=== PATIENT | female | born 1975 | race Caucasian/White ===

== ENCOUNTER 2023-03-09 19:45 | Outpatient (REF) | payer OTHER, SELFPAY ==
[2023-03-14 16:09] LABS: Age Gdln ACOG Testing Note (.); HPV Aptima Positive (Negative); IGP, Aptima HPV, rfx 16/18,45 Note (.)
== END 2023-03-09 19:46 | disposition home or self-care (01) ==
LOC: LAB 19:45
PROVIDERS: Visit Provider Obstetrics & Gynecology
DX: Z01.419 Encounter for gynecological examination (general) (routine) without abnormal findings (principal)
CPT/HCPCS: 87624; G0145

== ENCOUNTER 2023-05-23 10:32 | Outpatient (OUT) | payer OTHER, SELFPAY ==
--- NOTE | 2023-05-23 10:35 | MM_ITS ---
Patient Name: UMESH ESQUIVEL MR#: [id number] : 1975 Exam Date: 05/23/2023 Ordering Doctor: DR Chaka Gregg . RADIOLOGY REPORT PROCEDURE: MM TOMOSYNTHESIS SCREENING BI COMPARISON: MG MAMM SCREEN 3D TJ CAD, 04/17/2021. MG MAMM SCREEN 3D TJ CAD, 04/21/2022. INDICATIONS: screening Calculator Name NCI Breast Cancer Risk Assessment Tool 5 Year Breast Cancer Risk 1.60% Lifetime Breast Cancer Risk 14.90% Personal Breast Cancer No Personal Ovarian Cancer No Treatments None Family Cancers Mother with cervical cancer at age 31; Mother with breast cancer at age 45. LOCATION: [facility] BREAST COMPOSITION: Heterogeneously dense,which may obscure small masses. FINDINGS: DIAGNOSTIC CATEGORY 2--BENIGN FINDING. NO CHANGE FROM COMPARISON. Scattered benign-appearing nodules are present. Scattered benign-appearing calcifications are present. Scattered benign-appearing lymph nodes are present. RIGHT BREAST: No significant suspicious finding. LEFT BREAST: No significant suspicious finding. RECOMMENDATIONS: ROUTINE MAMMOGRAM AND CLINICAL EVALUATION IN 12 MONTHS. PLEASE NOTE: A NORMAL MAMMOGRAM DOES NOT EXCLUDE THE POSSIBILITY OF BREAST CANCER. A CLINICALLY SUSPICIOUS PALPABLE LUMP SHOULD BE BIOPSIED. Dictated by: Rikki Workman MD on 05/23/2023 at 11:21 Approved by: Rikki Workman MD on 05/23/2023 at 11:22
--- OUTSIDE RECORDS SUMMARY | 2023-05-23 10:36 | XMS_ITS | CCD ---
Author Name Unknown Address [address] [place] [address] Organization [facility] Care Team Providers Care Catcher Helper Name Role Phone NO, PHYSICIAN Unavailable Unavailable LIANET CARROLL Attending Unavailable NO, PHYSICIAN Primary Care Unavailable No, Physician Primary Care Provider Unavailabl e MyRosita moura Primary Care Provider Unava ilable NANCY CAMPBELL Referring Unavailable MYERHOLROSITA AVALOS Primary Care Unavailable NANCY CAMPBELL Referring Unavailable MYERHOLROBBIE ROSITA Primary Care Unavailable MYERPRATIK ROSITA Primary Care Physician Indigo Flynn Unavailable Unavailable WANDER, DR OLMEDO Attending Unavailable WANDER, DR OLMEDO Admitting Unavailable WANDER, DR OLMEDO Consulting Unavailable LEFLORE, DR GILDA Garza Consulting Unavailable WANDER, DR OLMEDO Attending Unavailable WANDER, DR OLMEDO Admitting Unavailable WANDER, DR OLMEDO Consulting Unavailable WANDER, DR OLMEDO Consulting Unavailable WANDER, DR OLMEDO Attending Unavailable WANDER, DR OLMEDO Admitting Unavailable [facility] Primary Care Provider KEITH Jim Attending Provider Rosita Jim Admitting Unavailab le Rosita Jim Attending Unavailab le [facility] Primary Care Unavaila ble Rosita Jim Admitting Unavailab le Rosita Jim Attending Unavailab le [facility] Primary Care Unavaila ble Cherelle Aragon Attending Unavailable Cherelle Aragon Referring Unavailable London Mccurdy Attending Unavailable Lue, Cherelle M. Attending Unavailable Cherelle Aragon Attending Unavailable Cherelle Aragon Admitting Unavailable Cherelle Aragon Attending Unavailable Cherelle Aragon Referring Unavailable HONORIO GREGG Attending Unavailable Allergies Allergy Classification Reported Allergen(s) Allergy Type Date of Onset Reaction(s) Facility (5 sources) Coconut extract; Translations: [COCONUT] Drug Allergy 3 Anaphylaxis [facility] Repository (5 sources) Penicillins; Translations: [Unknown] Propensity to adverse reactions to drug (disorder) 3 Anaphylaxis [facility] Repository (3 sources) Sulfonamides (Antibiotic); Translations: [Sulfa (Sulfonamide Antibiotics)] Propensity to adverse reactions to drug 0 Anaphylaxis [facility] (4 sources) Coconut Oil; Translations: [Coconut Oil] Drug Allergy Anaphylactic reaction [facility] (4 sources) Penicillin; Translations: [penicillin] Drug Allergy Anaphylactic reaction [facility] (4 sources) Sulfonamides (Antibiotic); Translations: [sulfa drugs] Drug allergy Anaphylactic reaction [facility] (5 sources) Latex; Translations: [Latex] Drug allergy (disorder) 3 Eruption (morphologic abnormality) [facility] Repository (1 source) Sulfonamides (Antibiotic) Drug allergy (disorder) 3 [facility] Repository (1 source) Latex Drug allergy (disorder) 1 [facility] Repository Medications Current Medications Medication Drug Class(es) Dates Sig (Normalized) Sig (Original) acetaminophen 325 mg / HYDROcodone bitartrate 5 mg oral tablet (1 source) Opioid Agonist Start: 03-10-2021 Hydrocodone-Acetam inophen Active TAB TABLET March 10, 2021 12:00am azithromycin 250 mg Tab 5-day Dose Pack (Z-Davide) (2 sources) Start: 10-07-2019 azithromycin 250 mg Tab 5-day Dose Pack (Z-Davide) See Instructions, as directed on package labeling, # 1 kit(s), Refills(s) 0 Start Date: 10/07/19 Status: Ordered citalopram 40 mg oral tablet (3 sources) Serotonin Reuptake Inhibitor Start: 04-27-2019 citalopram 40 mg Tab Refills(s) 0 Start Date: 04/27/19 Status: Ordered 24 hr dilTIAZem hydrochloride 240 mg extended release oral capsule (1 source) Calcium Channel Ludivina Start: 03-10-2021 Diltiazem Hcl Active MG PO March 10, 2021 12:00am fenofibrate 200 mg oral capsule (4 sources) Peroxisome Proliferator Receptor alpha Agonist Start: 03-10-2021 Fenofibrate Micronized Active MG March 10, 2021 12:00am Start: 04-27-2019 fenofibrate 20 0 mg oral capsule Refills(s) 0 Start Date: 04/27/19 Status: Ordered fluticasone propionate 0.05 mg/actuat metered dose nasal spray (2 sources) Corticosteroid Start: 03-10-2021 Fluticasone Pr opionate Active INTRANASAL March 10, 2021 12:00am take 1 spray(s) nasal route once daily fluticasone propionate (Flonase Allergy Relief) 50 mcg/actuation nasal spray 1 spray in each nostril Once a day Nasally 30 day(s) 0 Active gabapentin 300 mg oral capsule (5 sources) Anti-epileptic Agent Start: 03-10-2021 Gabapenti n Active MG March 10, 2021 12:00am Start: 04-27-2019 gabapentin 300 mg Cap Refills(s) 0 Start Date: 04/27/19 Status: Ordered loratadine 10 mg oral tablet (5 sources) Start: 03-10-2021 Loratadine Act raymond MG TABLET March 10, 2021 12:00am Start: 04-27-2019 loratadine 10 mg Tab Refills(s) 0 Start Date: 04/27/19 Status: Ordered losartan potassium 50 mg oral tablet (5 sources) Angiotensin 2 Receptor Ludivina Start: 03-10-2021 Losartan Active MG TABLET March 10, 2021 12:00am Start: 04-27-2019 losartan 50 mg Tab Refills(s) 0 Start Date: 04/27/19 Status: Ordered methocarbamol 500 mg oral tablet (4 sources) Muscle Relaxant Start: 03-10-2021 Methocarbamol Active MG TABLET March 10, 2021 12:00am Start: 04-27-2019 methocarbamol 500 mg Tab Refills(s) 0 Start Date: 04/27/19 Status: Ordered montelukast 10 mg oral tablet (5 sources) Leukotriene Receptor Antagonist Start: 03-10-2021 Montelukast Active M G TABLET March 10, 2021 12:00am Start: 09-30-2015 montelukast 10 mg Tab Refills(s) 0 Start Date: 04/27/19 Status: Ordered tamsulosin hydrochloride 0.4 mg oral capsule (5 sources) alpha-Adrenergic Ludivina Start: 03-28-2022 take 1 capsule by mouth once daily tamsulosin 0.4 mg Cap 0.4 mg = 1 cap(s), Oral, Daily, # 30 cap(s), Refills(s) 11, Pharmacy: [id number], 173, cm, 10/13/22 8:45:00 EDT, Height/Length Dosing, 70.5, kg, 10/13/22 8:45:00 EDT, Weight Dosing Start Date: 10/13/22 Status: Ordered Completed/Discontinued Medications Medication Drug Class(es) Dates Sig (Normalized) Sig (Original) [id number] 200 actuat albuterol 0.09 mg/actuat metered dose inhaler (2 sources) beta2-Adrenergic Agonist Start: 10-07-2019 take 1 dose by inhalation four times daily Proventil HFA 90 mcg/inh Aerosol 2 puff(s), Inhalation, QID, 1 EA, Refill(s) 0 Start Date: 10/07/19 Status: Ordered albuterol 0.833 mg/ml / ipratropium bromide 0.167 mg/ml inhalant solution (1 source) Anticholinergic, beta2-Adrenergic Agonist Start: 11-21-2019 End: 11-21-2019 ipratropium-albu teroL (DUO-NEB) 0.5-2.5 mg/3 ml nebulizer solution 3 mL 1 ml ketorolac tromethamine 30 mg/ml injection (1 source) Nonsteroidal Anti-inflammatory Drug, Cyclooxygenase Inhibitor Start: 11-21-2019 End: 11-21-2019 ketorolac (TORADOL) injection 30 mg Problems Problem Classification Problem Date Documented Date Episodic/Chronic Administrative/social admission (1 source) Patient encounter status; Translations: [Encounter for pre-employment examination] Episodic Essential hypertension (1 source) Essential (primary) hypertension; Translations: [Essential (primary) hypertension] Onset: 09-02-2022 Chronic Genitourinary symptoms and ill-defined conditions (6 sources) Stress incontinence (female) (male); Translations: [Genuine stress incontinence] Onset: 05-05-2022 Chronic Genitourinary symptoms and ill-defined conditions (5 sources) Dysuria; Translations: [Painful micturition, unspecified] Onset: 03-30-2022 05-05-2022 Episodic Immunizations and screening for infectious disease (5 sources) Encounter for screening for human papillomavirus (HPV); Translations: [Contact with and (suspected) exposure to infections with a predominantly sexual mode of transmission] Onset: 03-27-2022 Episodic Other diseases of bladder and urethra (1 source) Male urethral stricture; Translations: [Unspecified urethral stricture, male, unspecified site] Onset: 10-13-2022 Episodic Other diseases of bladder and urethra (1 source) Urethral stricture 10-13-2022 Episodic Other ear and sense organ disorders (1 source) Otalgia of right ear; Translations: [Right ear pain] Other injuries and conditions due to external causes (1 source) Injury due to chemical exposure; Translations: [Exposure to chemical inhalation] Episodic Other screening for suspected conditions (not mental disorders or infectious disease) (8 sources) Encounter for screening for malignant neoplasm of cervix; Translations: [Encounter for screening mammogram for malignant neoplasm of breast] Onset: 04-21-2022 Episodic Residual codes; unclassified (1 source) Family history of malignant neoplasm of breast; Translations: [FAMILY HX MALIG NEOPLASM OF BREAST] Onset: 04-26-2022 Episodic Residual codes; unclassified (1 source) Family history of malignant neoplasm of other organs or systems; Translations: [FAM HX MALIG NEOPLASM OTH ORGN/SYS] Onset: 04-26-2022 Episodic Unclassified (1 source) Evaluation finding; Translations: [Covid-19 Virus not Detected] Unclassified (1 source) I10 - Essential (primary) hypertension; Translations: [I10 - Essential (primary) hypertension] Onset: 09-10-2021 Urinary tract infections (6 sources) Urinary tract infectious disease; Translations: [Urinary tract infection, site not specified] Onset: 05-05-2022 Episodic Results Test Name Value Interpretation Reference Range Facility Ambulatory Visit Summaryon 0 10-13-2022 Ambulatory Visit Summary UMESH ESQUIVEL :1975 Visit Date:10/13/2022 Ambulatory Visit Instructions Your Diagnosis Recurrent UTI Stress incontinence Your Care Team Attending Physician - Cherelle Aragon MD Primary Care Physician - RSOITA JIM CNP Referring Physician - Cherelle Aragon MD This Is Your Medications List tamsulosin (tamsulosin 0.4 mg Cap) Contact prescribing physician if questions or concerns citalopram (citalopram 40 mg Tab) fenofibrate (fenofibrate 200 mg oral capsule) gabapentin (gabapentin 300 mg Cap) loratadine (loratadine 10 mg Tab) losartan (losartan 50 mg Tab) methocarbamol (methocarbamol 500 mg Tab) montelukast (montelukast 10 mg Tab) tamsulosin (tamsulosin 0.4 mg Cap) [Image Removed: STOP]Stop taking these medications albuterol (Proventil HFA 90 mcg/inh Aerosol) azithromycin (azithromycin 250 mg Tab 5-day Dose Pack (Z-Davide)) Procedures Performed Cystourethroscopy with dilation of urethral stricture (05/24/2022), Adenoidectomy, Appendectomy, Breast reduction, Introduction of tension free vaginal tape, Tonsillectomy. Discharge Vitals Height 173 cm Height 68 in Weight 70.5 kg Weight 155.1 lb BMI 23.56 What to do next Scheduled Follow-Up Appointments Tuesday 8:00 AM EDT With: Cherelle Aragon MD Where: [facility] Lab Reportson 10-13-2022 Lab Reports [id number] Normal [facility] Patient Educationon 10-14-19 23 Patient Education Urology Urinary Incontinence Urinary incontinence refers to a condition in which a person is unable to control where and when to pass urine. A person with this condition will urinate involuntarily. This means that the person urinates when he or she does not mean to. What are the causes? This condition may be caused by: ? Medicines. ? Infections. ? Constipation. ? Overactive bladder muscles. ? Weak bladder muscles. ? Weak pelvic floor muscles. These muscles provide support for the bladder, intestine, and, in women, the uterus. ? Enlarged prostate in men. The prostate is a gland near the bladder. When it gets too big, it can pinch the urethra. With the urethra blocked, the bladder can weaken and lose the ability to empty properly. ? Surgery. ? Emotional factors, such as anxiety, stress, or post-traumatic stress disorder (PTSD). ? Spinal cord injury, nerve injury, or other neurological conditions. ? Pelvic organ prolapse. This happens in women when organs move out of place and into the vagina. This movement can prevent the bladder and urethra from working properly. What increases the risk? The following factors may make you more likely to develop this condition: ? Age. The older you are, the higher the risk. ? Obesity. ? Being physically inactive. ? and childbirth. ? Menopause. ? Diseases that affect the nerves or spinal cord. ? Long-term, or chronic, coughing. This can increase pressure on the bladder and pelvic floor muscles. What are the signs or symptoms? Symptoms may vary depending on the type of urinary incontinence you have. They include: ? A sudden urge to urinate, and passing urine involuntarily before you can get to a bathroom (urge incontinence). ? Suddenly passing urine when doing activities that force urine to pass, such as coughing, laughing, exercising, or sneezing (stress incontinence). ? Needing to urinate often but urinating only a small amount, or constantly dribbling urine (overflow incontinence). ? Urinating because you cannot get to the bathroom in time due to a physical disability, such as arthritis or injury, or due to a communication or thinking problem, such as Alzheimer's disease (functional incontinence). How is this diagnosed? This condition may be diagnosed based on: ? Your medical history. ? A physical exam. ? Tests, such as: ? Urine tests. ? X-rays of your kidney and bladder. ? Ultrasound. ? CT scan. ? Cystoscopy. In this procedure, a health care provider inserts a tube with a light and camera (cystoscope) through the urethra and into the bladder to check for problems. ? Urodynamic testing. These tests assess how well the bladder, urethra, and sphincter can store and release urine. There are different types of urodynamic tests, and they vary depending on what the test is measuring. To help diagnose your condition, your health care provider may recommend that you keep a log of when you urinate and how much you urinate. How is this treated? Treatment for this condition depends on the type of incontinence that you have and its cause. Treatment may include: ? Lifestyle changes, such as: ? Quitting smoking. ? Maintaining a healthy weight. ? Staying active. Try to get 150 minutes of moderate-intensity exercise every week. Ask your health care provider which activities are safe for you. ? Eating a healthy diet. ? Avoid high-fat foods, like fried foods. ? Avoid refined carbohydrates like white bread and white rice. ? Limit how much alcohol and caffeine you drink. ? Increase your fiber intake. Healthy sources of fiber include beans, whole grains, and fresh fruits and vegetables. ? Behavioral changes, such as: ? Pelvic floor muscle exercises. ? Bladder training, such as lengthening the amount of time between bathroom breaks, or using the bathroom at regular intervals. ? Using techniques to suppress bladder urges. This can include distraction techniques or controlled breathing exercises. ? Medicines, such as: ? Medicines to relax the bladder muscles and prevent bladder spasms. ? Medicines to help slow or prevent the growth of a man's prostate. ? Botox injections. These can help relax the bladder muscles. ? Treatments, such as: ? Using pulses of electricity to help change bladder reflexes (electrical nerve stimulation). ? For women, using a director medical affairs to prevent urine leaks. This is a small, tampon-like, disposable device that is inserted into the urethra. ? Injecting collagen or carbon beads (bulking agents) into the urinary sphincter. These can help thicken tissue and close the bladder opening. ? Surgery. Follow these instructions at home: Lifestyle ? Limit alcohol and caffeine. These can fill your bladder quickly and irritate it. ? Keep yourself clean to help prevent odors and skin damage. Ask your health care provider about special skin creams and cleansers that can protect the skin from urine. ? (more content not included)... Normal [facility] Urology Office/Clinic Noteon 10-13-2022 Urology Office/Clinic Note Chief Complaint fu to cysto ud HPI Staff 5m follow up (RS by office x1 & pt x2) DX: Recurrent UTI, Stress Incontinence S/P Cysto/UD done 05/24/22 CMP ordered by PCP 09/02/22 pt. [facility] has had 1 infection since UD but was treated by [employer] doctor Dysuria: no Incomplete bladder emptying: no Hematuria: no Frequency: no Urgency: no Nocturia: no Stream: good stream Leaking: mild Post void dripping: no Wearing pads/ Depends: wearing pads as a precaution Urge incontinence: no Stress incontinence: intermittent , states that this is nothing new and shes had it for years Incontinence without Sensory Awareness: no Abdominal pain: no Flank pain: no Sexual complaints: no History of Present Illness Tests reviewed: reviewed UA I have reviewed the previous health record information and history for this patient from Dr. Aragon. I have reviewed and verified the staff HPI to be accurate for this encounter. There have been no associated fever, chills, flank pain, or blood in the urine. Review of Systems PHQ Score Initial Depression Screen Score: 0 ROS - Provider Constitutional: denies weight loss, denies hot flashes. Eyes: denies eye problems. Gastrointestinal: denies nausea, denies vomiting. Cardiovascular: denies chest pain or angina. Integumentary: no dryness Musculoskeletal: denies musculoskeletal symptoms. ENMT: denies otolaryngeal symptoms. Respiratory: no shortness of breath. Heme/Lymph: denies easy bleeding tendency, denies easy bruising tendency. Psychiatric: no confusion, no anxiety. Genitourinary: see HPI Physical Exam Vitals & Measurements HT: 68 in HT: 173 cm WT: 70.5 kg WT: 155.1 lb BMI: 23.56 General Appearance: alert , no acute distress, well nourished, well developed female. Genitourinary: bladder nonpalpable, no flank pain. Assessment/Plan 1. Recurrent UTI (N39.0: Urinary tract infection, site not specified) Reports 6/year for the past 3 years. States they were culture proven (no results to review). Usually improved with cipro. Pt presented to ER on 03/28/2022 for pain and burning with urination; pt was given Cipro and then Macrobid due to Cipro not significantly improving sxs after [address] A/P without contrast FT was negative 03/28/2022, no hydronephrosis and no stones Pt denies any history of kidney stones or relation of UTIs to activity/sexual intercourse. Denies constipation or urinary issues at baseline other than mild SHOSHANA. Cysto UD 05/24/22 Pt states she the procedure has helped reduce infections- has only had 1 since UD Discussed possibility of repeating in the future if sxs worsen as well as preventative measures -Cont cranberry pills, d-mannose, probiotics for 3-6 months -Encouraged pt to increase fluid intake 2. Stress incontinence (N39.3: Stress incontinence (female) (male)) Pt did have a sling in the past, many years ago Pt leaks with coughing and sneezing. Pt states sxs are not bothersome. 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 Urethral stricture (N35.919: Unspecified urethral stricture, male, unspecified site) Cysto UD 05/24/22 - felt improvement, only 1 UTI since -Pt currently on tamsulosin. Sent refill to pt's pharmacy - feels sx improvement. Risks/benefits discussed. Declined formal PFPT Orders: tamsulosin, 0.4 mg = 1 cap(s), Oral, Daily, # 30 cap(s), Refills(s) 11, Pharmacy: [id number], 173, cm, 10/13/22 8:45:00 EDT, Height/Length Dosing, 70.5, kg, 10/13/22 8:45:00 EDT, Weight Dosing Follow-up With When Contact Information Mahesh PEREZ, Cherelle German, URL, URO In 1 year [address] [place] [address] [phone] Additional Instructions: Patient Education Urinary Incontinence I, Katelynn Seymour , personally scribed for Dr. Aragon on 10/13/2022 09:25:20. . Documentation recorded by the scribe, Katelynn Seymour, accurately reflects the services(s) I performed and decisions made by me. Authenticated by Dr. Aragon on 10/13/2022 12:34:10. Problem List/Past Medical History Ongoing Dysuria Recurrent UTI Stress incontinence Historical No qualifying data Procedure/Surgical History Cystourethroscopy with dilation of urethral stricture (05/24/2022), Adenoidectomy, Appendectomy, Breast reduction, Introduction of tension free vaginal tape, Tonsillectomy. Medications citalopram 40 mg Tab fenofibrate 200 mg oral capsule gabapentin 300 mg Cap loratadine 10 mg Tab losartan 50 mg Tab methocarbamol 500 mg Tab montelukast 10 mg Tab tamsulosin 0.4 mg Cap, 0.4 mg= 1 cap(s), Oral, Daily tamsulosin 0.4 mg Cap, 0.4 mg= 1 cap(s), Oral, Daily, 11 refills Allergies Coconut Oil (Anaphylactic reaction) Latex (Rash) penicillin (Anaphylactic reaction) sulfa drugs (Anaphylactic reaction) Social History Alcohol Alcohol (more content not included)... Normal [facility] Comment on above: Result Comment: Elec tronically Signed By: Cherelle Aragon MD\.br\Date and Time Signed: 10/13/22 12:34 EDT\.br\Electronically Co-Signed By: Katelynn Seymour\.br\Date and Time Co-Signed: 10/13/22 09:25 EDT Alanine aminotransferase [En zymatic activity/volume] in Serum or PlasmaOrdered By: Rosita Jim on 09-02-2022 ALT [Catalytic activity/Vol] 14 U/L 7-52 [facility] Albumin [Mass/volume] in Ser um or Plasma by Bromocresol green (BCG) dye binding methoOrdered By: Rosita Jim on 09-02-2022 Albumin BCG dye [Mass/Vol] 4.6 g/dL 3.5-5.7 [facility] Alkaline phosphatase [Enzyma tic activity/volume] in Serum or PlasmaOrdered By: Rosita Jim on 09-02-2022 ALP [Catalytic activity/Vol] 46 U/L 34-104 [facility] Aspartate aminotransferase [ Enzymatic activity/volume] in Serum or PlasmaOrdered By: Rosita Jim on 09-02-2022 AST [Catalytic activity/Vol] 13 U/L 13-39 [facility] Bilirubin.total [Mass/volume ] in Serum or PlasmaOrdered By: Rosita Jim on 09-02-2022 Bilirubin [Mass/Vol] 0.6 mg/dL 0.3-1.0 [facility] Calcium [Mass/volume] in Ser um or PlasmaOrdered By: Rosita Jim on 09-02-2022 Calcium [Mass/Vol] 9.3 mg/dL 8.6-10.3 [facility] Carbon dioxide, total [Moles /volume] in Serum or PlasmaOrdered By: Rosita Jim on 09-02-2022 CO2 [Moles/Vol] 22.4 mmol/L 21.0-31.0 [facility] Chloride [Moles/volume] in S gabe or PlasmaOrdered By: Rosita Jim on 09-02-2022 Chloride [Moles/Vol] 104 mmol/L 98-107 [facility] Cholesterol [Mass/volume] in Serum or PlasmaOrdered By: Rosita Jim on 09-02-2022 Cholesterol [Mass/Vol] 150 mg/dL 140-200 [facility] Comment on above: Chol less than 200 m g/dl low riskChol 201-239 mg/dl borderline riskChol 240 mg/dl and greater high risk Cholesterol in LDL Calc [Mas s/Vol]Ordered By: Rosita Jim on 09-02-2022 Cholesterol in LDL [Mass/Vol] 81 mg/dL 0-100 [facility] Comment on above: LDL ATP III CLASSIFI CATIONLDL less than 100 mg/dL OptimalLDL 100-129 mg/dL Near or above optimalLDL 130-159 mg/dL Borderline highLDL 160-189 mg/dL HighLDL greater than 189 mg/dL Very high Cholesterol in VLDL Calc [Ma ss/Vol]Ordered By: Rosita Jim on 09-02-2022 Cholesterol in VLDL [Mass/Vol] 17 mg/dL [facility] Comprehensive Metabolic Pane erika 09-02-2022 Albumin [Mass/Vol] 4.6 g/dL Normal 3.5-5.7 [facility] Comment on above: Order Comment: Reaso n for Exam Essential (primary) hypertension Performed By: #### C MP, LIPID, TSH3 wRFLX #### [facility] [address] [place] [address] Albumin/Globulin [Mass ratio] 1.9 {ratio} Normal [facility] Comment on above: Order Comment: Reaso n for Exam Essential (primary) hypertension Performed By: #### C MP, LIPID, TSH3 wRFLX #### [facility] [address] [id number] [facility] ALP [Catalytic activity/Vol] 46 U/L Normal 34-104 [facility] Comment on above: Order Comment: Reaso n for Exam Essential (primary) hypertension Performed By: #### C MP, LIPID, TSH3 wRFLX #### [facility] [address] [place] [address] [place] ALT [Catalytic activity/Vol] 14 U/L Normal 7-52 [facility] Comment on above: Order Comment: Reaso n for Exam Essential (primary) hypertension Performed By: #### C MP, LIPID, TSH3 wRFLX #### [facility] [address] [place] [address] Anion gap [Moles/Vol] 14.6 mmol/L Normal 6.0-15.0 [facility] Comment on above: Order Comment: Reaso n for Exam Essential (primary) hypertension Performed By: #### C MP, LIPID, TSH3 wRFLX #### [facility] [address] [place] [address] [place] AST [Catalytic activity/Vol] 13 U/L Normal 13-39 [facility] Comment on above: Order Comment: Reaso n for Exam Essential (primary) hypertension Performed By: #### C MP, LIPID, TSH3 wRFLX #### [facility] [address] [place], [place] [id number] [place] Bilirubin [Mass/Vol] 0.6 mg/dL Normal 0.3-1.0 [facility] Comment on above: Order Comment: Reaso n for Exam Essential (primary) hypertension Performed By: #### C MP, LIPID, TSH3 wRFLX #### [facility] [address] [place], [place] [id number] [place] Calcium [Mass/Vol] 9.3 mg/dL Normal 8.6-10.3 [facility] Comment on above: Order Comment: Reaso n for Exam Essential (primary) hypertension Performed By: #### C MP, LIPID, TSH3 wRFLX #### [facility] [address] [place] [address] [place] Chloride [Moles/Vol] 104 mmol/L Normal 98-107 [facility] Comment on above: Order Comment: Reaso n for Exam Essential (primary) hypertension Performed By: #### C MP, LIPID, TSH3 wRFLX #### [facility] [address] CO2 [Moles/Vol] 22.4 mmol/L Normal 21.0-31.0 [facility] Comment on above: Order Comment: Reaso n for Exam Essential (primary) hypertension Performed By: #### C MP, LIPID, TSH3 wRFLX #### [facility] [address] [place] [address] Creatinine [Mass/Vol] 0.73 mg/dL Normal 0.60-1.20 [facility] Comment on above: Order Comment: Reaso n for Exam Essential (primary) hypertension Performed By: #### C MP, LIPID, TSH3 wRFLX #### [facility] [address] [place] [address] [place] GFR/1.73 sq M.predicted MDRD (S/P/Bld) [Vol rate/Area] mL/min/{1.73_m2} Normal [facility] Comment on above: Order Comment: Reaso n for Exam Essential (primary) hypertension Performed By: #### C MP, LIPID, TSH3 wRFLX #### [facility] [address] [place] [id number] [place] Globulin (S) [Mass/Vol] 2.4 g/dL Normal [facility] Comment on above: Order Comment: Reaso n for Exam Essential (primary) hypertension Performed By: #### C MP, LIPID, TSH3 wRFLX #### [facility] [address] [place] [id number] [facility] Glucose [Mass/Vol] 75 mg/dL Normal 70-100 [facility] Comment on above: Order Comment: Reaso n for Exam Essential (primary) hypertension Result Comment: [place] Glucose Reference Range is dependent on time and content of last meal. Glucose of more than 200 mg/dL in a nonstressed, ambulatory subject supports the diagnosis of Diabetes Mellitus. ADA recommended reference range Performed By: #### C MP, LIPID, TSH3 wRFLX #### [facility] [address] Potassium [Moles/Vol] 4.0 mmol/L Normal 3.5-5.1 [facility] Comment on above: Order Comment: Reaso n for Exam Essential (primary) hypertension Performed By: #### C MP, LIPID, TSH3 wRFLX #### [facility] [address] [place] [address] [place] Protein [Mass/Vol] 7.0 g/dL Normal 6.4-8.9 [facility] Comment on above: Order Comment: Reaso n for Exam Essential (primary) hypertension Performed By: #### C MP, LIPID, TSH3 wRFLX #### [facility] [address] [place] [id number] [place] Sodium [Moles/Vol] 137 mmol/L Normal 136-145 [facility] Comment on above: Order Comment: Reaso n for Exam Essential (primary) hypertension Performed By: #### C MP, LIPID, TSH3 wRFLX #### [facility] [address] [place] [id number] [place] Urea nitrogen [Mass/Vol] 13 mg/dL Normal 7-25 [facility] Comment on above: Order Comment: Reaso n for Exam Essential (primary) hypertension Performed By: #### C MP, LIPID, TSH3 wRFLX #### [facility] [address] [place], [place] [id number] [place] Creatinine [Mass/volume] in Serum or PlasmaOrdered By: Rosita Jim on 09-02-2022 Creatinine [Mass/Vol] 0.73 mg/dL 0.60-1.20 [facility] Globulin Calc (S) [Mass/Vol] Ordered By: Rosita Jim on 09-02-2022 Globulin (S) [Mass/Vol] 2.4 g/dL [facility] Glucose [Mass/volume] in Ser um or PlasmaOrdered By: Rosita Jim on 09-02-2022 Glucose [Mass/Vol] 75 mg/dL 70-100 [facility] Comment on above: ADA recommended refe rence rangeRandom Glucose Reference Range is dependent on time and content of last meal. Glucose of more than 200 mg/dL in a nonstressed, ambulatory subject supports the diagnosis of Diabetes Mellitus. Lipid Panelon 09-02-2022 Cholesterol [Mass/Vol] 150 mg/dL Normal 140-200 [facility] Comment on above: Order Comment: Reaso n for Exam Essential (primary) hypertension Result Comment: Chol less than 200 mg/dl low risk Chol 201-239 mg/dl borderline risk Chol 240 mg/dl and greater high risk Performed By: #### C MP, LIPID, TSH3 wRFLX #### [facility] [address] [place] [id number] [place] Cholesterol in HDL [Mass/Vol] 52 mg/dL Normal 35-85 [facility] Comment on above: Order Comment: Reaso n for Exam Essential (primary) hypertension Result Comment: HDL CHOL ATP-III CLASSIFICATION Cardiovascular Risk HDL > or equal to 60 mg/dL LOW HDL < 40 mg/dL HIGH Performed By: #### C MP, LIPID, TSH3 wRFLX #### [facility] [address] [place] [address] [place] Cholesterol.total/Radha sterol in HDL [Mass ratio] 2.9 {ratio} Normal <5.0 [facility] Comment on above: Order Comment: Reaso n for Exam Essential (primary) hypertension Performed By: #### C MP, LIPID, TSH3 wRFLX #### [facility] [address] [place] [address] [place] LDL Cholesterol,Calculated 81 mg/dL Normal 0-100 [facility] Comment on above: Order Comment: Reaso n for Exam Essential (primary) hypertension Result Comment: LDL ATP III CLASSIFICATION LDL less than 100 mg/dL Optimal LDL 100-129 mg/dL Near or above optimal LDL 130-159 mg/dL Borderline high LDL 160-189 mg/dL High LDL greater than 189 mg/dL Very high Performed By: #### C MP, LIPID, TSH3 wRFLX #### [facility] [address] [place] [address] [place] Triglyceride w/Reflex 85 mg/dL Normal 0-149 [facility] Comment on above: Order Comment: Reaso n for Exam Essential (primary) hypertension Result Comment: TRIG ATP III CLASSIFICATION TRIG less than 150 mg/dL Normal TRIG 150-199 mg/dL Borderline high TRIG 200-500 mg/dL High TRIG greater than 500 mg/dL Very high Standard traceable to the Center for Disease Conrtrol and Prevention (CDC) test method. Performed By: #### C MP, LIPID, TSH3 wRFLX #### [facility] [address] VLDL CHOLESTEROL 17 mg/dL Normal [facility] Comment on above: Order Comment: Reaso n for Exam Essential (primary) hypertension Performed By: #### C MP, LIPID, TSH3 wRFLX #### [facility] [address] No Panel InformationOrdered By: Rosita Jim on 09-02-2022 Estimated GFR (CKD-EPI) > 60.0 mL/Min [facility] Creatinine Clearance (Chem N/A [facility] Potassium [Moles/volume] in Serum or PlasmaOrdered By: Rosita Jim on 09-02-2022 Potassium [Moles/Vol] 4.0 mmol/L 3.5-5.1 [facility] Protein [Mass/volume] in Ser um or PlasmaOrdered By: Rosita Jim on 09-02-2022 Protein [Mass/Vol] 7.0 g/dL 6.4-8.9 [facility] Serum or plasma albumin/glob ulin mass ratioOrdered By: Rosita Jim on 09-02-2022 Albumin/Globulin [Mass ratio] 1.9 {ratio} [facility] Serum or plasma anion gap de terminationOrdered By: Rosita Jim on 09-02-2022 Anion gap [Moles/Vol] 14.6 mmol/L 6.0-15.0 [facility] Serum or plasma high density lipoprotein (HDL) cholesterol measurementOrdered By: Rosita Jim on 09-02-2022 Cholesterol in HDL [Mass/Vol] 52 mg/dL 35-85 [facility] Comment on above: HDL CHOL ATP-III CLA SSIFICATION Cardiovascular RiskHDL > or equal to 60 mg/dL LOWHDL < 40 mg/dL HIGH Serum or plasma total choles terol/high density lipoprotein (HDL) cholesterol mass ratOrdered By: Rosita Jim on 09-02-2022 Cholesterol.total/Radha sterol in HDL [Mass ratio] 2.9 {ratio} <5.0 [facility] Sodium [Moles/volume] in Ser um or PlasmaOrdered By: Rosita Jim on 09-02-2022 Sodium [Moles/Vol] 137 mmol/L 136-145 [facility] Thyroid Stim Hormone w/Rflxo n 09-02-2022 Thyroid Stim Hormone w/Rflx 1.10 u[iU]/mL Normal 0.45-5.33 [facility] Comment on above: Order Comment: Reaso n for Exam Essential (primary) hypertension Result Comment: PERF ORMED BY: [place] [address] PATHOLOGIST SENIOR [employer]EL[employer] FINESSE SPAULDING M.D. Performed By: #### C MP, LIPID, TSH3 wRFLX #### [address] Thyrotropin [Units/volume] i n Serum or PlasmaOrdered By: Rosita Jim on 09-02-2022 TSH Qn 1.10 m[IU]/L 0.45-5.33 [facility] Triglyceride [Mass/volume] i n Serum or PlasmaOrdered By: Rosita Jim on 09-02-2022 Triglyceride [Mass/Vol] 85 mg/dL 0-149 [facility] Comment on above: TRIG ATP III CLASSIF ICATIONTRIG less than 150 mg/dL NormalTRIG 150-199 mg/dL Borderline highTRIG 200-500 mg/dL High TRIG greater than 500 mg/dL Very highStandard traceable to the Center for Disease Conrtrol and Prevention (CDC) test method. Urea nitrogen [Mass/volume] in Serum or PlasmaOrdered By: Rosita Jim on 09-02-2022 Urea nitrogen [Mass/Vol] 13 mg/dL 12-07 [facility] Coding Summary.on 05-25-2022 Coding Summary. CD:[id number] G h0bWw+PGhlYWQ+XU9LKFX pZ20ksRNpyX3WT9hJOS7J DOAKFZCWMR7LAC3jiVK3F RnxX3IntrNq XjvgfWZsBW25SEv4XIT1k RspJAhmjY1cnNNuV5e1Uk YiBA10kP84JSxlVLDcAlM 3LjZpbjsgbWFy P9utYbNvtDXrCcj+PHRhY mxlIHdpZHRoPScxMDAlJy PdwDpvTH5kPg8uGREkIVW vbGxhcHNlOiBj l8hkAHAxRHolOE7dbVzaB 7RygJM9GNCmj6r0Zh33iL I+GKNwBHX1qJuxYQmbb42 4NjWss6feOAG6 rPCmSEnfAZH5C74xu0Y4E GBlXSMpNOV4pSJ7mB9diV irwwbiD7QfoFBqRtF2HNS 6xBTuuP5vrKsz iojgjQ1oJjz+V56MBP6YY DRRWX0EQiz2F8UxQjnoiF I+JP54BGYyRM99bBAvsXK nh9wlmOr1ZsKb AVIoVOP3aRacLVwzw3ZdV KDeV82iuKNri7V8IQUqwO npaSPuRyGswQI7kO4zWJt ufagpb9oekqig Twzuq5ydll54lH38P64lW GvzMQRbBMK2YYCxMGLyqY zmhq5gmH2wNu0+OUozc8j xs4dqiPr0WdNe BHXbbgRnaNiiZOY3h2QkX c59I8LnvTnlh3SzLaf7tl 33xKKfo5H1cVR3EWbeZPE qlJ8lEFioTpQ1 ULMrDlUkyG31bWMjNCpvW n4orEqrnXnfPA0zQNFcio lmLTMtfG7gWICdxONmrAz lFF6cDBBswwig z927NjRlURO0JQYsoPPnD 7FubA0iKmMnQFLpBDShI6 EgtWSyTVgzY362RRsxHrG 3EGTcasIvH1Yt PYBkbRsoHaS5o1W9Yh7Tt 9MnwzygQEI2RHjcQVBfRg QcGwAqWkQ7F0UqCsh0CFZ xeEbpNP2dG3Eg RHMuzjrhnkknjXN3YTGfR CSxwI50dIMuATxmMb0ae3 J6i513CGMdJJPgjD59Am3 udDogMTBwdCBU uS1dwhukh5mlfkssStNiK DCdFLc1MKz5WRHlzFsrAl BeYOZ9JpU0JXM9cKByuV7 jnFexclnvxO5s Oyc+F85elL9fHFT2OUB7j udxGFQbsmAgLY29WY98M7 RyPjwvdGFibGU+PGRpdiB sjArvRY9rYmJa z9iuo7GlRYxbA6GpEAGrA HmyZaj3PQNbHIP4hUO0jO 5mFZRdJKqhk1L4gEH9M6B ipaDpld4fn0bx SYKtKCocE94beTJwd9H0S TMxdRV4WYKhuLnhWqZnvV 93Oyc+WFBhxRkod9MdBam cy3nxj4lxkHx0 LrGtMZOxkgCedLtcSKR4c 7ApVa40G58mAKqdZBRgRC JnOYVyRFAjyEwryl9etK8 wIi8+PGNvbCB3 qZB1pM3wFKXeWhZ3NJnqA 791HhFziFTjGpyrg3bgz7 ftnVx6ZlMaKPCqjsHfiMc mTOR1u3JtDn63 H26vRLxpCLNjOXUgXQLuV GLuzQkehy7zcL1bWl3+PC 5cd7gqfo60eD85gSZ+PHR fJRV3lXmvTWqa POAskZ8vUBgiUyU3FJIbW mWueK09qQXjWAghLt5tnP fjmJegJU3jWFMclbugn49 9GnXtw4vzCMFr wJNeLGseMEB8X27xh0D9F VRwNIJvQPZ4aYB1qE2cxA lnbjogbGVmdDsgdmVydGl lOUyyWUpgE197 IHRvcDsnPlBhdGllbnQgT tGdVWq5I5LtVaz5YJExeI gwQU0qtHOvPMefAe2hcNc nnTraGG0mLGPv bducp984IeLvz8zoPJQzt TWgZIccLPS4F63qg8X3HG GhPXCpIPP0dFF5xS6rlDt nbjogbGVmdDsg bmTrgCgtPJalPYkwR716J HRvcDsnPkJpcnRoIERhdG P8GK94XN74qXSis6O2yFP 1S9EnTODdewtz kmqulZL4LCVhKRVihF71K a0xbUvdTh5yCWZrLXF1JV NhcMWpX4DpqU0oNvViLLF lDLHyO3SmwSJg NAdxM122AAmsGvD0SRGgi sHfG0XqHCYkfYbqFxT9y9 M4Tj5KH7X5XR21RH18lHA gz1K8cMD0K1Nz LOAnimkupycfxPS2HELdX VXpbA54Dc3zoZyuWv6bRO MmUYR1CBJepLRaY7CmtF9 yOiAjMDAwMDAw L0XzmCXgJPglH920LGlfX tU3UTDzwxBhH3GtWGFnaZ yuNqE8n1Q3St4YBYi1GI0 9BS40eVAge2D9 eFC6D3TvZZIycebvybeua LA9FQOgYFCwfO29Iw3shE hzLk8oRLHlZMO9OZIfvVW dC8MjvP9xSjNs ZJYrSWZvT5AxmLBrNLgeC 556NCrrWnZ6SKCnoyCvW0 JzLEDdxCprQzE5d2E9Mt8 NNCWkKW72VWH7 pWI4YX31HQ29E3PnRvswf GFibGU+PHRhYmxlIHdpZH RoPScxMDAlJyBzdHlsZT0 oOn2aRRDqMZQj iJjdqFSpSvCgz8nsGCElB GtrQV0ofYyoZ2FlvXQ2RN Rxg2s2Ek98O39hN7LonSI +SUEnsWQ0gUG7 pB6iJkArRlQ7FKufQ750E oRrjZKxMzhkw4wkw3eetG v8DnO1XCEyqqQjjHwrDRH 0q4TbTw22J06u IHdpZHRoPSIxNSUiIHZhb Vnwmp2edC2nVt0+PGNvbC X0rMT5uF0jMwUnLoC1OPx fM544LvAuuDLh Mutal2dso3vzdWe3EyXcX ZPjpxCnpAksGYB6q3IhSj 65Q3OohZxff8ZxOmz4lt6 9yLMia1B5eOB4 B7WeNYJfogzbxDMphMdjS Q8rKJPvuutpFSOuoA5cOS IbB8f2ZfAoHjQ3RVvtG4J krmG9GQBnpNCl AGmjFYQ6Z50mt2H6MKYeV XXcDOX4sEQ3bY4fhDsavl ogbGVmdDsgdmVydGljYWw cFNcbD068EOXc tSnxBHOouM1gGEHjmVIwb FibOE2gMYIhdujrAuKOKV tJTiwgSkVOTklGRVIgTDw vdGQ+PHRkIHN0 wWrtCYgrJVPobP0xNHViB 4o0CaSpXwS9VXmyZ1TxXJ MgxzdwSp04oP9mGgXvFnF 5IVkuY1UjfvE1 DCNwkFAjLMdpOKF7W99au 1G0APUfFBDlRPG7dSD8qN 1hbGlnbjogbGVmdDsgdmV ydGljYWwtYWxp L451NZGktPpiBpU8HnK9H fZ2EnK3I4KuSva6EORieF jaSE2bvHXqDWdrTj5geNv dtQmfTP0eMTWa oqsrKHFyxE4dPMChcWQhx YunSM5kVZXslwsip325Fe WzYSB8YCIrxHHpA7XxkC9 yOiAjMDAwMDAw C1KgkXMfQRrsA043DXvcT kG4YRDvfnSzZ7VcOPDfaE tzVgH7n4Z5Dw18DLDBPOC yczwvdGQ+PHRk VAP3kYsmNSppRQJknZ0vA SPiD5o9QkCkNkO9ZNdjP7 VeAYLhzordVh11kT1lVcF hJiK4FHxmZ2Ny mtR8NWLrzAKiTBpeYBB3T 84wd2I7BBTsCCEbCFZ2tQ C8vX9peIxevkaalCFphDf gdmVydGljYWwt FAhqW689UGGljBotHhTap WFsZTwvdGQ+DXOiWEU4vL tlERinHLIbrV2aGCEiQ9w 6MvWcRfL6CGqu P2AxIACotlfdUl08tI0oB wUwFdZ3HTtvP0LjxaJ3XJ GftILlQJdoQHA2K29wc0B 2PBGhLEZfQQP8 lLY6nA5dfOnevjrpaQZup DsgdmVydGljYWwtYWxpZ2 76TETwrInuJb14hSUrpVf ytdK8A8SfIwqg dHI+FQ05OFViGB52eQZgp RGbg0efyIw6JwTaLBFzDM K2aBjiTGiln8XpXTPtO65 mqNFhe7O4JDKn yPiwvBDiWnVjgVV2zF3eS Hlfjukct1drisjsNrhsj7 nppz52wW06F31pFEtqALS oPSIzMCUiIHZh aZwcnv4whS0rTq0+PGNvb JS6rFP4zI2aTqCqYqI2LL vzY235GuLrzBLsRhcel0i qu1fvoCc4PbJn ZDJjqgHwdNzzWEY5h1DyT u84Y73iZKnwWWCyQEMiNZ VvRLCggYffjy8ndA9uKz9 +AC6ew2quuy06 iQ71qOD+QXIbSIR5dSwjC MqmIAHdgL0nNFutXdZ3CE TcWlJgoI71iUIeHClzMa5 moHhqiCcvTE0k ZGOkcmlub891WrMws8xjR YHqwHJyOQhlUCH9P27ob1 L7HCLyWVAtNKH4cRK9dI2 hbGlnbjogbGVm dDsgdmVydGljYWwtYWxpZ 269CZQxsZtwPuHwlKCfQ9 loakRIGF2vNsklbQW+PHR tOJG0tYukUYei VKQfjL5wZKLtJ0t5QsXoM zH5TJwyS0PnyaF5QSBkiZ WeMMXtoKWDgC5ltznjt4i vcjogIzAwMDAw UQo0TCc9MXZhbNzcOzGzU ZR7KqU9EWR3qRLopV6udS urmlhikK7jVlo+RklOOjw vdGQ+PHRkIHN0 aXbcNTtuPHMmtA1yXCMxX 8f0KfPyJrU2SNyuV8Ognx E7CBAceZUrNUYroDAAaA6 ouunlm3qicpqc RgGcLLLfBBe9VNa5YNFhj ZpdLzGtIHM1BqV7UKF3oV TgpR9siCvuynwroY6eHwz +TVJOOjwvdGQ+ OJZsGDH8eRtfMJdrSMOkf P9pGKWmZ5z8BpBqXtT0QZ gpC7WgvrJ1KBJquGAmRXY grFKJaO3rclew e0nmmhbeExEmYKImSMp0P Jj4GEXneEauCvZiEUG6Zs E8OKP8zSWkoX7kpZpcjwi naP3uHor+UGF5 UVJ4UH91ER06P7FfEywcs GFibGU+PHRhYmxlIHdpZH RoPScxMDAlJyBzdHlsZT0 gSk4dCDIxNXVi bGxh (more content not included)... Normal [facility] Consent for Procedure/Surger yon 05-24-2022 Consent for Procedure/Surgery [id number]:[id number] Normal [facility] Consent for Treatmenton Consent for Treatment [id number]:127 Normal [facility] Inpatient Patient Summaryon 05-24-2022 Inpatient Patient Summary [place] [id number] Clinical Summary Person Information Name: UMESH ESQUIVEL Age: 47 Years : 1975 Sex: Female PCP: ROSITA JIM CNP Marital Status: Phone: [phone] Race: White Ethnicity: Non- or Language: Niuean Visit Id: Visit Reason: RECURRENT UTI STRESS INCONTINENCE Speciality: Acuity: Enc Type: Outpatient Med Service: Surgery Arrival: 05/24/2022 08:50:57 Discharge: Dispo Type: Address: [address] [id number] Provider Notes: Diagnosis: Dysuria; Recurrent UTI; Stress incontinence Problems Active Recurrent UTI Stress incontinence Dysuria Smoking Status: Functional Status: Sensory Deficits: History of Falls: Mobility Assistance Prior to Admission: ADLs: Current Level of Assistance for Self-Care/Mobility: Cognitive Status: Allergies penicillin (Anaphylactic reaction) sulfa drugs (Anaphylactic reaction) Coconut Oil (Anaphylactic reaction) Latex (Rash) Laboratory or Other Results This Visit (last charted value for your 05/24/2022 visit) No Laboratory or Other Results This Visit Measurements: Height: 173 cm Weight: Blood Pressure: Not Valued / Not Valued BMI: Procedures No Procedures Documented Immunizations No Immunizations Documented This Visit Final Med List: albuterol (Proventil HFA 90 mcg/inh Aerosol) 2 Puffs Inhalation 4 times a day. Refills: 0. azithromycin (azithromycin 250 mg Tab 5-day Dose Pack (Z-Davide)) as directed on package labeling. Refills: 0. citalopram (citalopram 40 mg Tab) fenofibrate (fenofibrate 200 mg oral capsule) gabapentin (gabapentin 300 mg Cap) loratadine (loratadine 10 mg Tab) losartan (losartan 50 mg Tab) methocarbamol (methocarbamol 500 mg Tab) montelukast (montelukast 10 mg Tab) tamsulosin (tamsulosin 0.4 mg Cap) 1 Capsules By Mouth every day. Refills: 5. tamsulosin (tamsulosin 0.4 mg Cap) 1 Capsules By Mouth every day. Refills: 0. Care Team Members: Attending Physician: Cherelle Aragon MD Consulting Physician: Referring Physician: Cherelle Aragon MD Follow up: With: Address: When: Cherelle Aragon [address] [place] [address], [place] [address], [place] [phone] Business (1) Comments: Office to schedule follow up in 1 month With: Address: When: Cherelle Aragon Patient Education Information: EU - Cystoscopy with Urethral Dilation Discharge Instructions (CUSTOM) [facility] IntraOperative Documentson 0 05-24-2022 IntraOperative Documents [id number]:[id number] [facility] Main OR Intraoperative Recor don 05-24-2022 Main OR Intraoperative Record IntraOp Document Type FTURO Summary Primary Physician: Cherelle Aragon MD Finalized Date/Time: 05/24/22 10:14:19 Pt. Name: UMESH ESQUIVEL/Sex: 1975 Female Med Rec #: [id number] Physician: Cherelle Aragon MD Financial #: [id number] Pt. Type: O Room/Bed: / Admit/Disch: 05/24/22 08:50:57 - Institution: Case Times FTURO Entry 1 Patient Times In Room 05/24/22 09:56:00 Out Room 05/24/22 10:14:00 Procedure Times Start 05/24/22 10:05:00 Stop 05/24/22 10:10:00 Anesthesia Times Last Modified By: Karuna Youssef RN 05/24/22 10:14:03 Case Attendance FTURO Entry 1 Entry 2 Entry 3 Case Attendee Mahesh PEREZ, Cherelle Olivas BALL WARPER TENDER, Marisol Youssef RN, Karuna Anand Role Performed Surgeon - Primary Scrub - Primary Scrum Master - Primary Time In 05/24/22 09:56:00 05/24/22 09:56:00 05/24/22 09:56:00 Time Out 05/24/22 10:14:00 05/24/22 10:14:00 05/24/22 10:14:00 Procedure CYSTOSCOPY LOCAL WITH CYSTOSCOPY LOCAL WITH CYSTOSCOPY LOCAL WITH URETHRAL DILATION(.) URETHRAL DILATION(.) URETHRAL DILATION(.) Comments Last Modified By: Karuna Youssef RN, RN, Karuna Gaytan RN 05/24/22 10:14:04 05/24/22 10:14:04 05/24/22 10:14:04 Surgical Procedures FTURO Entry 1 Procedure Description Procedure CYSTOSCOPY LOCAL WITH Modifiers . URETHRAL DILATION Surgeon Description CYSTOSCOPY WITH URETHRAL DILATION Primary Procedure Yes Primary Surgeon Cherelle Aragon MD Start 05/24/22 10:05:00 Stop 05/24/22 10:10:00 Anesthesia Type Local Surgical Service Urology Wound Class 2 - Clean-Contaminated Last Modified By: Karuna Youssef RN 05/24/22 10:10:35 General Case Data FTURO Pre-Care Text: Classifies surgical wound, implements aseptic technique, initiates traffic control Entry 1 Case Information OR URO 1 FT Case Level None Wound Class 2 - Clean-Contaminated Specialty Urology Preop Diagnosis RECURRENT UTI STRESS Postop Same As Preop Yes INCONTINENCE Postop Diagnosis RECURRENT UTI STRESS Outcomes Met? Yes INCONTINENCE Last Modified By: Karuna Youssef RN 05/24/22 09:38:58 Post-Care Text: The patient is free from signs and symptoms of infection EU IntraOp - FTURO Pre-Care Text: Implements protective measures prior to operative or invasive procedure, confirms identity before the operative or invasive procedure, verifies operative procedure, surgical site, and laterality Entry 1 EU Perioperative Protocols Procedure(s) CYSTOSCOPY LOCAL WITH Patient Identity Birthday, ID Band URETHRAL DILATION(.) Verified (select at Check, Patient least 2): Participation Consents / H and P HandP, Surgery/Procedure Operative Site N/A Verified Consent Marking Verified Surgical Site Yes Laterality Verified Yes Verified Procedure Verified Yes Correct Patient Yes Position Verified Availability Equipment, Medication Time Out Mahesh PEREZ, Cherelle German, Verified (If Participants Marisol Olivas CST, Applicable) Karuna Youssef RN Time Out Complete 05/24/22 09:57:00 Allergies Reviewed? Yes Allergies Reviewed Self/Patient With Body Position Frog Legged Prep Area PERINEUM Prep Agents Betadine Solution Skin. Condition Dry, Warm, Unable to Description UNABLE TO VISUALIZE DUE Visualize TO PATIENT PARTIALLY CLOTHED Additional None Specimens Collected Vitals - EU Blood Pressure 112/70 Pulse 85 bpm Respirations 18 br/min SPO2 98 % EBL 0 IandO - EU Total Intake 0 mL Total Output 0 mL Outcomes Met? Yes Last Modified By: Karuna Youssef RN 05/24/22 09:57:26 Post-Care Text: The patient is free from signs and symptoms of injury caused by extraneous objects Sign Out FTURO Entry 1 Before Patient Leaves OR Nurse verbally Yes Nurse verbally Yes confirms with the confirms with the team the name of team that the procedure(s) instrument, sponge, recorded and needle counts are correct (or N/A) Nurse verbally n/a Nurse verbally Yes confirms with the confirms with the team how the team whether there specimen is labeled are any equipment (including patient problems to be name), if applicable addressed Sign Out Complete 05/24/22 10:10:00 Last Modified By: Karuna Youssef RN 05/24/22 10:10:34 Case Comments Finalized By: Karuna Youssef RN Document Signatures Signed By: Karuna Youssef RN 05/24/22 10:14 Normal [facility] Main OR Preoperative Recordo n 05-24-2022 Main OR Preoperative Record Holding Area Document Type FTURO Summary Primary Physician: Cherelle Aragon MD Finalized Date/Time: 05/24/22 09:38:31 Pt. Name: UMESH ESQUIVEL /Sex: 1975 Female Med Rec #: [id number] Physician: Cherelle Aragon MD Financial #: [id number] Pt. Type: O Room/Bed: / Admit/Disch: 05/24/22 08:50:57 - Institution: Case Times Holding FTURO Pre-Care Text: Verifies consent for planned procedure, identifies individual values and wishes concerning care, includes family members in perioperative teaching Secures patient's records' belongings, and valuables, maintains patient's dignity and privacy, and maintains patient confidentiality Entry 1 In Holding 05/24/22 09:01:00 Outcomes Met? Yes Last Modified By: Susi Aiken LPN 05/24/22 09:02:01 Post-Care Text: The patient participates in decisions affecting his or her perioperative plan of care The patient's right to privacy is maintained Surgery Checklist FTURO Entry 1 Patient Birthday, Patient Procedure History and Physical, Identification: Participation Verification: Surgical Consent, With Patient NPO after Midnight: No Date/Time: 05/24/22 09:02:00 Personal Items: Glasses Personal Items clothes Comment: Limitations: na Complaints of Pain: No Pain Comment: na Skin Integrity Intact, [place], Warm, & Dry Vitals - EU Blood Pressure 112/70 Pulse 85 bpm Respirations 18 br/min SPO2 98 % RN Reviewed Yes Last Modified By: Karuna Youssef RN 05/24/22 09:38:29 General Comments: temp:36.2 Finalized By: Karuna Youssef RN Document Signatures Signed By: Susi Aiken LPN 05/24/22 09:09 Karuna Youssef RN 05/24/22 09:38 Normal [facility] Operative Reporton Operative Report Patient: UMESH ESQUIVEL Age: 47 years Sex: Female : 1975 Associated Diagnoses: None Author: Cherelle Aragon MD Procedure Operative Information Details: Date/ Time: 05/24/2022 10:15:00. Pre-Op Dx: Dysuria ([id number]-MF R30.0, Discharge, Medical), Recurrent UTI ([id number]-RW N39.0, Discharge, Medical), Stress incontinence ([id number]-ED N39.3, Discharge, Medical). Post-Op Dx: Dysuria ([id number]-JE R30.0, Discharge, Medical), Other urethral stricture, female (HAV87-IT N35.82, Billing Diagnosis, Medical), Recurrent UTI ([id number]-XY N39.0, Discharge, Medical), Stress incontinence ([id number]-JD N39.3, Discharge, Medical). Anesthesia Type: Local. Procedure: Local Cystoscopy with Urethral Dilation. Complications: None. Risks/Benefits/Inform ed Consent: Surgical risks, benefits, details of the procedure have been explained to the patient, Full informed consent has been obtained. Intraoperative Information Prepped: Patient is brought back to the endoscopy suite, Patient is placed in supine position, Patient prepped in the usual fashion with Betadine solution, 2% Xylocaine Jelly is placed per Urethra, After waiting several minutes the Cystoscope is introduced. The Urethra is: Tight, No tumors, lesions or foreign bodies. Tight at meatus and just distal to bladder neck, pale. Carefully dilated to 22Fr . The Bladder is: Normal, Trabeculated None (0), No bladder tumors, lesions or foreign bodies.. The ureteral orifices: Show efflux of clear urine. The Urethra was dilated to: 22 Surinamese w/ sounds. Devices Implanted: None. Removal: Cystoscope is removed, The patient tolerated it well. Vaginal examination: Vaginal mucosa: There is no vaginal atrophy The urethra is orthotopic, patent with meatal stenosis. There are no masses or lesions. There is minimal urethral hypermobility and SHOSHANA is not seen. She is able to correctly identify her pelvic muscles. No significant anterior/posterior prolapse. Non tender to palpation. No palpable mesh . Postoperative Information Discharge: Follow up arranged. Follow up in 1 month . Normal [facility] Comment on above: Result Comment: Elec tronically Signed By: Cherelle Aragon MD\.br\Date and Time Signed: 05/24/22 10:18 EST Outpatient Surgery Discharge Instructionon 05-24-2022 Outpatient Surgery Discharge Instruction [address] [address] Patient Discharge Instructions PERSON INFORMATION Name: UMESH ESQUIVEL Date of : 1975 Current Date: 05/24/2022 10:12:14 PHYSICIANS Admitting Physician: Cherelle Aragon MD Comment: Discharge Diagnosis: Dysuria; Recurrent UTI; Stress incontinence UMESH ESQUIVEL has been given the following list of follow-up instructions, prescriptions, and patient education materials: IF UNABLE TO CONTACT YOUR PHYSICIAN AND YOU FEEL IT IS AN EMERGENCY, GO TO THE NEAREST EMERGENCY ROOM OR CALL 911 Follow up: With: Address: When: Cherelle Aragon [address] [place], [place] [id number] [phone] Business (1) Comments: Office to schedule follow up in 1 month With: Address: When: Cherelle Aragon Comment: PATIENT EDUCATION INFORMATION Instructions: Cystoscopy with Urethral Dilation ? Voiding after the procedure: there may be some pain, urethral bleeding, burning, urgency, frequency and blood tinged urine following the procedure. These symptoms usually resolve within 2-5 days. Drink the amount of fluid it takes to keep the urine pink to yellow or clear in color. Drinking enough water and fluids will help to ease any discomfort after your procedure. ? If you are having problems that seem out of the ordinary, please call. ? If unable to contact your physician and you feel it is an emergency, go to the nearest emergency room or call 911 ? Diet ? you may resume your normal diet. ? Activity ? you may resume your normal activities ? Call if you have a fever over 100 degrees I, UMESH ESQUIVEL, have received the attached patient education materials/instruction s and have verbalized understanding: May we do a follow up call? Yes No I was present when discharge instructions were given Patient Signature Date Clinican/Nurse Signature Date You may receive a survey from Debora Coronado asking you to rate your care experience. Your feedback is important and will help us understand what we do well and how we can improve the quality of care we provide to you, your loved ones and our community. It?s an honor to serve you. Thank you for choosing [facility] Normal [facility] PAP ACOG PANEL 2: 30 to 65on 05-07-2022 . . Normal [facility] Comment on above: Result Comment: Perf ormed at: WB Performed By: #### [id number] #### [facility] [address] [address] [address] Evy Boothe Age Gdln ACOG Testing 30-65 Normal [facility] Comment on above: Performed By: #### [id number] #### [facility] [address] [address] [address] Evy Boothe DIAGNOSIS: Comment Abnormal [facility] Comment on above: Result Comment: EPIT HELIAL CELL ABNORMALITY. ATYPICAL SQUAMOUS CELLS OF UNDETERMINED SIGNIFICANCE (ASC-US). Performed at: WB Performed By: #### [id number] #### [facility] [address] [address] [address] Evy Boothe Electronically signed by: Comment Normal [facility] Comment on above: Result Comment: Dolly Guthrie MD, Pathologist Performed at: WB Performed By: #### [id number] #### [facility] [address] [place] [address] Dr. Evy Boothe HPV Aptima Positive Abnormal Negative [facility] Comment on above: Result Comment: This nucleic acid amplification test detects fourteen high-risk HPV types (16,18,31,33,35,39,45,51,52,56,58,59,66,68) without differentiation. Performed at: =G Performed By: #### 4 [id number] #### [facility] [address] [place] [address] Dr. Evy Boothe HPV Genotype Reflex Comment Normal [facility] Comment on above: Result Comment: Crit eria not met, HPV Genotype not performed. Performed at: WB Performed By: #### [id number] #### [facility] [address] [place] [address] Dr. Evy Boothe Methodology: Comment Normal [facility] Comment on above: Result Comment: This liquid based ThinPrep(R) pap test was screened with the use of an image guided system. Performed at: WB Performed By: #### [id number] #### [facility] [address] [place] [address] Dr. Evy Booteh Note: Comment Normal [facility] Comment on above: Result Comment: The Pap smear is a screening test designed to aid in the detection of premalignant and malignant conditions of the uterine cervix. It is not a diagnostic procedure and should not be used as the sole means of detecting cervical cancer. Both false-positive and false-negative reports do occur. . Performed at: WB Performed By: #### [id number] #### [facility] [address] [address] [address] Evy Boothe Pathologist Provided ICD10 Comment Normal [facility] Comment on above: Result Comment: R87. [id number] Performed at: WB Performed By: #### [id number] #### [facility] [address] [place] [address] Dr. Evy Boothe Performed by: Comment Normal [facility] Comment on above: Result Comment: Jonna Motta, Nipple Machine Operator (ASCP) Performed at: WB Performed By: #### [id number] #### [facility] [address] [address] [address] Evy Boothe Recommendation: Comment Abnormal [facility] Comment on above: Result Comment: Sugg est follow up as clinically appropriate. Performed at: WB Performed By: #### 4 [id number] #### [facility] [address] [address] [address] Evy Boothe Specimen adequacy: Comment Normal [facility] Comment on above: Result Comment: Sati sfactory for evaluation. Endocervical and/or squamous metaplastic cells (endocervical component) are present. Performed at: WB Performed By: #### [id number] #### [facility] [address] [address] [address] Evy Boothe Consultation Noteon 05-06-20 Consultation Note [id number]#1 .00CD:127 Normal [facility] Screenson 05-06-2022 Screens [id number] .00CD:127 Normal [facility] Ambulatory Visit Summaryon 1 07-06-2021 Ambulatory Visit Summary UMESH ESQUIVEL :1975 Visit Date:05/05/2022 Ambulatory Visit Instructions Your Care Team Primary Care Physician - ROSITA JIM CNP This Is Your Medications List albuterol (Proventil HFA 90 mcg/inh Aerosol) azithromycin (azithromycin 250 mg Tab 5-day Dose Pack (Z-Davide)) citalopram (citalopram 40 mg Tab) fenofibrate (fenofibrate 200 mg oral capsule) gabapentin (gabapentin 300 mg Cap) loratadine (loratadine 10 mg Tab) losartan (losartan 50 mg Tab) methocarbamol (methocarbamol 500 mg Tab) montelukast (montelukast 10 mg Tab) tamsulosin (tamsulosin 0.4 mg Cap) Procedures Performed Adenoidectomy, Appendectomy, Breast reduction, Introduction of tension free vaginal tape, Tonsillectomy. What to do next Scheduled Follow-Up Appointments Tuesday 10:30 AM EST Where: [facility] Tuesday 9:30 AM EST Where: [facility] Medications What How Much When Instructions Unchanged albuterol (Proventil HFA 90 mcg/ inh Aerosol) 2 Puffs Inhalation 4 times a day Unchanged azithromycin (azithromycin 250 mg Tab 5-day Dose Pack (Z-Davide)) See instructions as directed on package labeling Unchanged citalopram (citalopram 40 mg Tab) Unchanged fenofibrate (fenofibrate 200 mg oral capsule) Unchanged gabapentin (gabapentin 300 mg Cap) Unchanged loratadine (loratadine 10 mg Tab) Unchanged losartan (losartan 50 mg Tab) Unchanged methocarbamol (methocarbamol 500 mg Tab) Unchanged montelukast (montelukast 10 mg Tab) Unchanged tamsulosin (tamsulosin 0.4 mg Cap) 1 Capsules By Mouth Every day Allergies Coconut Oil (Anaphylactic reaction) penicillin (Anaphylactic reaction) sulfa drugs (Anaphylactic reaction) Problems Ongoing - Any problem that you are currently receiving treatment for. Dysuria Recurrent UTI Stress incontinence Normal [facility] Patient Educationon 05-05-20 Patient Education Urology Dysuria Dysuria is pain or discomfort while urinating. The pain or discomfort may be felt in the part of your body that drains urine from the bladder (urethra) or in the surrounding tissue of the genitals. The pain may also be felt in the groin area, lower abdomen, or lower back. You may have to urinate frequently or have the sudden feeling that you have to urinate (urgency). Dysuria can affect both men and women, but it is more common in women. Dysuria can be caused by many different things, including: ? Urinary tract infection. ? Kidney stones or bladder stones. ? Certain sexually transmitted infections (STIs), such as chlamydia. ? Dehydration. ? Inflammation of the tissues of the vagina. ? Use of certain medicines. ? Use of certain soaps or scented products that cause irritation. Follow these instructions at home: General instructions ? Watch your condition for any changes. ? Urinate often. Avoid holding urine for long periods of time. ? After a bowel movement or urination, women should cleanse from front to back, using each tissue only once. ? Urinate after sexual intercourse. ? Keep all follow-up visits as told by your health care provider. This is important. ? If you had any tests done to find the cause of dysuria, it is up to you to get your test results. Ask your health care provider, or the department that is doing the test, when your results will be ready. Eating and drinking ? Drink enough fluid to keep your urine pale yellow. ? Avoid caffeine, tea, and alcohol. They can irritate the bladder and make dysuria worse. In men, alcohol may irritate the prostate. Medicines ? Take nvva-wgt-mzdczyt and prescription medicines only as told by your health care provider. ? If you were prescribed an antibiotic medicine, take it as told by your health care provider. Do not stop taking the antibiotic even if you start to feel better. Contact a health care provider if: ? You have a fever. ? You develop pain in your back or sides. ? You have nausea or vomiting. ? You have blood in your urine. ? You are not urinating as often as you usually do. Get help right away if: ? Your pain is severe and not relieved with medicines. ? You cannot eat or drink without vomiting. ? You are confused. ? You have a rapid heartbeat while at rest. ? You have shaking or chills. ? You feel extremely weak. Summary ? Dysuria is pain or discomfort while urinating. Many different conditions can lead to dysuria. ? If you have dysuria, you may have to urinate frequently or have the sudden feeling that you have to urinate (urgency). ? Watch your condition for any changes. Keep all follow-up visits as told by your health care provider. ? Make sure that you urinate often and drink enough fluid to keep your urine pale yellow. This information is not intended to replace advice given to you by your health care provider. Make sure you discuss any questions you have with your health care provider. Document Released: 01/28/2005 Document Revised: 04/14/2018 Document Reviewed: 02/16/2018 Elsevier Patient Education ? 2019 [employer] Jeimy Cabello [facility] Urology Office/Clinic Noteon 05-05-2022 Urology Office/Clinic Note Chief Complaint New Pt * Recurrent UTI HPI Staff Pt is a new pt, never before seen in our office. [facility] 03/29/22 due to BL flank pain and bladder pain. Pt c/o recurrent UTI. Given Pyridium & Tamsulosin. Pt was taking Cipro prior to ER from [employer], was switched to Macrobid. CT done 03/28/22. Denies current pain/burning and blood in urine. Painful urination and frequency with infection. As well as back pain. 2 UTI's in past 3m. States the pain during urination is unbearable with the infections. Pt's [employer] (Dr Gregg) recommend she see Dr Aragon and possible Cysto/UD. History of Present Illness Tests reviewed: reviewed UA, external labs, CT scans and notes I have reviewed the previous health record information and history for this patient from external providers, ER physicians I have reviewed and verified the staff HPI to be accurate for this encounter. There have been no associated fever, chills, flank pain, or blood in the urine. Review of Systems PHQ Score Initial Depression Screen Score: 0 ROS - Provider Constitutional: denies weight loss, denies hot flashes. Eyes: denies eye problems. Gastrointestinal: denies nausea, denies vomiting. Cardiovascular: denies chest pain or angina. Integumentary: no dryness Musculoskeletal: denies musculoskeletal symptoms. ENMT: denies otolaryngeal symptoms. Respiratory: no shortness of breath. Heme/Lymph: denies easy bleeding tendency, denies easy bruising tendency. Psychiatric: no confusion, no anxiety. Genitourinary: see HPI Physical Exam Vitals & Measurements HT: 68 in HT: 173 cm WT: 70.5 kg WT: 155.1 lb BMI: 23.56 General Appearance: alert , no acute distress, well nourished, well developed female. Head: normocephalic . Eyes: normal orbit and globe. ENMT: normal examination of external ears. Chest: symmetric chest rise, respirations non labored . Cardiovascular: regular rate and rhythm. Abdomen: soft, non distended, no tenderness Genitourinary: bladder nonpalpable, no flank tenderness Skin: warm, dry, no bruising. Psychiatric: cooperative, affect appropriate for age, normal judgement, euthymic mood. Assessment/Plan 47 yo F new patient referred by ER and Dr Gregg for possible cystoscopy/urethral dilation. hx urethral sling and tugal ligation. Denies premenopausal sx. 1. Recurrent UTI (N39.0: Urinary tract infection, site not specified) Reports 6/year for the past 3 years. States they were culture proven (no results to review). Usually improved with cipro. Pt presented to ER on 03/28/2022 for pain and burning with urination; pt was given Cipro and then Macrobid due to Cipro not significantly improving sxs after 8 days. UA 03/28/2022 showed 4-20 RBCs, 3-4 squamous cells, however was switched to macrobid by Dr Gregg -Started on tamsulosin, Pyridium at ER, abx change as above and her sx improved CT A/P without contrast [facility] was negative 03/28/2022, no hydronephrosis and no stones UA today shows trace leukocytes. Asymptomatic Pt denies any history of kidney stones or relation of UTIs to activity/sexual intercourse. Denies constipation or urinary issues at baseline other than mild SHOSHANA. Discussed mgmt options for recurrent UTIs, last resort being suppressive abx. -Cont cranberry pills, add d-mannose, probiotics for 3-6 months -Encouraged pt to increase fluid intake -Will schedule Cysto with possible UD, pelvic exam. The procedure risks, benefits, details, and treatment alternatives have been discussed with the patient. These include bleeding, infection, recurrent scar in over 50%, need for repeat dilation or other procedures, no symptom relief with dilation, among others. Full informed consent has been obtained. Will order Local anesthesia. -Discussed inadequate data regarding efficacy of urethral dilation including recurrence, worsening of sx, new symptoms, no improvement and possible sling erosion. Pt states her understanding Ordered: Urology Procedure Order 2. Stress incontinence (N39.3: Stress incontinence (female) (male)) ICIQ- 4. Pt did have a sling in the past, many years ago -Pt leaks with coughing and sneezing. Pt states sxs are not bothersome. Does use pad -Pt feels empty after urinating -Discussed w/ pt a possible dilation and the risks that can worsen it. -Discussed potential for bulking agent in the future if bothersome Ordered: Urology Procedure Order Orders: Urnls Dip Stick Auto w/o Microscopy POC [id number] Follow-up With When Contact Information Mahesh PEREZ, Cherelle German, URL, [facility] [address] [place] [address] [phone] Additional Instructions: schedule Cysto and possible UD Patient Education Dysuria Geovanni, Katelynn Seymour , personally scribed for Dr. Aragon on 05/05/2022 11:47:43. . Documentation recorded by the scribe, Katelynn Seymour, accurately reflects the services(s) I performed and decisions made by me. Authenticated by Dr. Aragon on 05/05/2022 12:07:07. (more content not included)... Normal [facility] Comment on above: Result Comment: Elec tronically Signed By: Cherelle Aragon MD\.br\Date and Time Signed: 05/05/22 12:08 EST\.br\Electronically Co-Signed By: Katelynn Seymour\.br\Date and Time Co-Signed: 05/05/22 11:48 EST MG MAMM SCREEN 3D TJ CADon 04-21-2022 MG MAMM SCREEN 3D TJ CAD Patient: UMESH ESQUIVEL Exam Date: 04/21/2022 : 1975 Gender:F Ordering : DR HONORIO GREGG . Admission #: [id number] Family : Order #: [id number] CLICK HERE TO VIEW EXAM RADIOLOGY REPORT PROCEDURE: MAMMOGRAM SCREENING 3D BILATERAL CAD COMPARISON: MG MAMM SCREEN TJ W CAD, 03/17/2020. MG MAMM SCREEN 3D TJ CAD, 04/17/2021. INDICATIONS: Screening mammography Calculator Name NCI Breast Cancer Risk Assessment Tool 5 Year Breast Cancer Risk 1.50% Lifetime Breast Cancer Risk 15.10% Personal Breast Cancer No Personal Ovarian Cancer No Treatments None Family Cancers Mother with cervical cancer at age 31; Mother with breast cancer at age 45. LOCATION: [facility] BREAST COMPOSITION: Heterogeneously dense,which may obscure small masses. FINDINGS: DIAGNOSTIC CATEGORY 2--BENIGN FINDING. NO CHANGE FROM COMPARISON. Scattered benign-appearing nodules are present. Scattered benign-appearing calcifications are present. Scattered benign-appearing lymph nodes are present. RIGHT BREAST: No significant suspicious finding. LEFT BREAST: No significant suspicious finding. RECOMMENDATIONS: ROUTINE MAMMOGRAM AND CLINICAL EVALUATION IN 12 MONTHS. PLEASE NOTE: A NORMAL MAMMOGRAM DOES NOT EXCLUDE THE POSSIBILITY OF BREAST CANCER. A CLINICALLY SUSPICIOUS PALPABLE LUMP SHOULD BE BIOPSIED. Dictated by: Gilda Lopez MD on 04/22/2022 at 08:50 Approved by: Gilda Lopez MD on 04/22/2022 at 08:53 Normal [facility] Discharge Instructionson Discharge Instructions [id number]# 1.00CD:127 Normal [facility] Comment on above: Other Comment: gilma barksdale Coding Summary.on 03-31-2022 Coding Summary. CD:[id number] G h0bWw+PGhlYWQ+XA4ENDC uB00krRSzsA1XI2jGXZ7S EUQGRYRQSF5RWJ5zqXF1A GvrW5AicyYt MjtknEPcAI62KPh9TDP0l MilHEiivL9buRTqD6t5Xc CuWC59yO68KMvfUKEbFpX 3LjZpbjsgbWFy B5fsUdVjfFEmGog+PHRhY mxlIHdpZHRoPScxMDAlJy ZnxDbaTL5dOk4oSAUvRZJ vbGxhcHNlOiBj a4acLFUxIYudAP4klPmwG 0LexCV8SCIhv3b1Gc76jF I+PSKpGYO9tFjtXUzwz69 0EbStj3imXEJ0 jHZhVPoxPFI6R21mh8I0U STbOGZpHVO4aCJ0gJ3olI qzxadqT0EkrAEiKxY0ZQJ 0kHWbaF4avOrw pghghF0sNlt+A96WUW0TO HPFXW2GJsd1B9JyFgjddW I+JY19KOOzNB63gHIygJJ eb1zieRz3BzBb MLFbXHK9wAhlLSgih5AsJ AUoO55lcYYec8T5XNVtvE mctQYaQdBazTA3oA3dRJa wwyexk7gpkejh Opgdn0mtqv84pX17S59mJ QclHJNiORV9CKZaDPWmwN tilk1mhU7pBn8+IKqtf9d dl5khxDy8SrKk KTPmlxZtdQloQKG3c6MrH j36A7QdeLrzf1LiWrc0nm 54lHBxr0R9dZS9IIpgXXD xpB1aOQueRpV8 DINhZrExlD71uEJzVAxtQ q7ztHrsyBfhZC0jDRKqcp ooKRImaZ7sRYJioTZrcXi fGQ0oWHRzgaov a583PvLnWTQ3QXHvdWYgR 4YfkC3eDaZoSLGpQMJjN3 AftBHuXIljL464IKamXvN 1HGOtxrJnN8Lw UDHpoVswEtX1x9B4Uk8Wt 1UxyzaeOSL1QOhvIVHgYh B3XfTtYpR3L4WyRli3HKH nkDcgAA5qA0Qg CAJhifnayitawAB4XDKwL KEodH40nYBnZEgaXv7kb8 D9w331CAEdWNYxlU39Jx4 udDogMTBwdCBU oH3qlpais2bdpfdjWbZqI HCwZQf1WBm7IWGntQwkAb XaETY2AyC0RGD9kRDztR2 lmPbbsspvjZ8s Oyc+W10ivK9mYBR6KNK8j ihwLJWohdJqJE11QK44K9 RyPjwvdGFibGU+PGRpdiB xgGunOJ4vJoGe q4gyg6NsUKoxW7AyFZDvK AjiLvf3VUUsPTR8bGQ7kV 0sQEMtHRwgk6U0mGX8K1R benTlbc9lv8po PFXxPBbxO00keNOwz1O2R IQjsNK0PRPtqEjxIeLycK 93Oyc+WMPlbRfqj8EiKxe jj4wxz0ztaXk1 WfDnAJGtisZosOmkMXP1e 0PbMp97B28uYZtkRBHvZO GmNJUpYQDogXnufj6czX5 wIi8+PGNvbCB3 pYO4pR9nUOHlUfH3HHuqM 269JyTkeLNsZkykl2iak5 xymXw8ZmYvWBOdimLidBw nNCS5r7BwVt99 M89zJUndPDUoCXTsEDSgG QEubJkvug7onU6wKa3+PC 7kp1unmj16hQ99zLA+PHR eFIK4rBavDCrq FZZqbP3jLZihJfR6OXPrQ zWxyZ64kZReISftIh4rtS qgmYvsJE9cTNYjfwnfs52 0CyCia7twVVCu sNIsJUtfCKT2M49zt9L6O MJvDADqPJF6eEL0oC4ffG lnbjogbGVmdDsgdmVydGl tFYaiIKuaU373 IHRvcDsnPlBhdGllbnQgT oWuMBa9B6NjWzv8SIYnhQ rvXT8hhNJyDYkiGr6usTg pmXviPD5kYBVi lkjge474CzRtt0cyKADrh IEzGHyoTHM9W93rj8D4UO RnBRZqIOB0gTJ1wB7zwFk nbjogbGVmdDsg ojEehDhqHHurBTjzI340L HRvcDsnPkJpcnRoIERhdG O1VH02ZC37fISno5Z7lIM 3L1SdDDTxpahy bpptmRL4NMDkWUKkmU35A j7uwDgfTz9xCKHeJDY5VX VkmJNaN5WxdX7iNiStRAK mPTNtA6QheUAu YPbxI387QGiqVdM1JIXjv iZyL0XvZXMtdAchDmC4o1 Y2Ox4ZM8X5DD23QW40vLH cx9J4yZL4M8Bu ZSBnautlusgfgPR7KMPgW RQekN64Qw5ifOxiFj0nFZ WwQIF6AKPygBXtM3QybH4 yOiAjMDAwMDAw A3PfuPHcWMwzB138EJrmO zA1EDUlfeSaL7GeQXDubS zgPvN3l7B7Hs7RPEe8PU7 8GK37vHFrj0N7 cGQ1A1LfKFXyqnqoyublj AA1DLFlTYWjoR19Co2ueX zySa1rESIqPXD7VKVbfKB bM9ZixN9xYmWd XDKkRUWhC5UkyHJnJBurL 231BDxdQnR9BFZiafIeP9 UqGTEwfGglFqX7v4Y5Rl1 FJTGeLA30NTU7 xZQ1IH63OT26D9JkGmtwn GFibGU+PHRhYmxlIHdpZH RoPScxMDAlJyBzdHlsZT0 iFn4pLUDoUZTg bMwzaDNrOtTvp1dqVXMfK HjoZF2kfPisT7ErnPT0DB Hvu8x6Vu65J42pN2XbpJK +FQPoeRD6hUN3 qE5eXzRkCsH0IPxrK610P bNtmJJaBrvwu7kdc3mraE h1AkR5IXQufhIiuEozAZY 2y3NjCf43O89z IHdpZHRoPSIxNSUiIHZhb Lccda3ycH9uMc5+PGNvbC D6rLX2sL5qQyWqQgI9IEo uN756RiZwiYCg Paogh8cob5qajOl5DgXsJ LItytLvyJwoKSK5z3LjRs 54Z2IgmWwof8FbOtx1yz6 9yUBac8C2tAU5 T2TcSNMheajxjBBhpQnmI W6eMOLcfmbiPWSyfB5jEY RoQ4l7YcNeMoA8PQykF3S hjuU4ZYFvnGQn TZumFBT1H68et2C8ICAwC LOiAKX7lXN6xU9atGykwj ogbGVmdDsgdmVydGljYWw bLDtgA429TLWh oClrRNHjiR4fXZQegLJgc QtwIL1pUPFqpqoePkEZTV tJTiwgSkVOTklGRVIgTDw vdGQ+PHRkIHN0 fXzqABdoYDGqtB3aMAGgB 8o0HsMaWrA7ZJxoH6CvWE LyfowySj54eX9mCqCpSpB 3GJdgX1WnmtY9 ACBlbOSiUZusFVS6E88yc 8X3SWJdFXYjSES8pFX3eD 1hbGlnbjogbGVmdDsgdmV ydGljYWwtYWxp F770UYMpgVioVoR1SpH2S hA0YcH6N6LcRbx1RBXeeW wuAA7vjGEsKIiaYw9lrSx pwSokPA2oTSIy cztrTUZknX4aQYGutAAtd EmsQL0qONZhtvsvy051Kr LpNSX9OFHcgKTjW9IqyW0 yOiAjMDAwMDAw K4AnoVItJFmuG842IIugV zR5FVVklnOrE1WmIILgoK fyLpU7i1X3Kv10BPZCBNV yczwvdGQ+PHRk LIW4rLdfGPrjXFBxqT3yO VLkW4w2AsXkJtT4JSxrJ7 TrRUQtfietJl05fP0zAkM kNpR1DEiyO9Rm hgS8DELwzUIcUUtmKEK8X 77gw9H6NHToIYXhDUW4eV H3jC6udIbikzdcoXEofIw gdmVydGljYWwt YZcqP079CQNfwSbvAgIvn WFsZTwvdGQ+CGSvEXF2hQ zwGDpxUGHehD7kNYNiV7k 4MwYkWyT0ZHsu S0EzKJUbltbgRa48gN2fJ pMfMcV3IGqvC3CwjaM8DU WdvWEyKItsECU3B86dv6H 2DPDnFUYrVEU7 hRO0zQ8llSfeawzgkHZlo DsgdmVydGljYWwtYWxpZ2 18YIOpkLnfGzCfUKPqGB4 jeTwvdGQ+PC90 nn56U3PiXxntMfw4PCSeE ZU3hIG0bC5kGKYwADkbt7 J9eSK5E3JfcjErkb7yw5s qIRCcQTrwO24x hNIfp2O4ENVssLW4NZImp ZzeEtUysV04Dwq+PGNvbG dcp8YmUagyo4nug1tvcFf 9IjMwJSIgdmFs iRdyZQV4j8FwEe49P18fM HdpZHRoPSIzMCUiIHZhbG qoxl3idQ3oXt4+PGNvbCB 3sNT6uD2zFkGz YdG7RZixA696NfDbtZMhL pbxx4xga4eecKj0UuDbOK XcbhPcsAjhLUQ4o4EmVm2 8E2NiyZfwi3Cy Jul7jh99tHZfe4T1mJU6E 3BhZGRpbmctbGVmdDogMC 8eEDUuhpqbUCRngL3gXLA jL0z1NuOvSxT5 UYrmN3DegoA1JQWmnUMgC ADhoBRQhN4kmafhd1mojg swRvLnPLZvGWx0QAr3AUC saWduOiBsZWZ0 NqS0GTG1sVPksB7qiDsno pbntI4fQqn+MJu4q9shfO KjBC1dtGW7FB98IO31mIJ ws3L2oFS7C7Az BQWmaskwcdptySY8INBuZ VOzkK85Iy5yuCvtCe9mHV TpFQT4ELUcsJUnG4IfoU3 yOiAjMDAwMDAw A3PlmSWlVAovM796JLowY uL6IXMricFbW3IfRAWnkQ zzElA4n2T9Kr3LTZ95UU0 1FJ43fHHuc1D8 nFK8L6NvELKjxmvsbnvke IJ5CPGyTQCiyM82Fo3wkE wsOs2oRRBoRYX8VNQrdIV hL4EffV4yLjWb YOCvLRJpH4RghWGbQFfnQ 884NCwqYtN4QZVcokFhE9 AxAEPmkEctOxZ8u4Y1By9 [id number] vBDyk9R1mZN3N6SpWGGtb hkqrrwanVM0INCoJTTewX 18Km7klGzpPx4gWXQvGVN 6LHCyzPBdF0Yx bQ0lTiDgLVYiGUFcJ7Qjc LMoONmlH833MVovRbF0LD EcqjEfZ3KlDOPezMgjQeS 5j6L8Gs5JWGse jsk8U3OzAyzazXD+PC90Y ZJxYO31qFNzhTQga0ixwD t2VxWvRAJcKVP4nQbbCEg sn0IoEZTwP83c bGFw (more content not included)... Normal [facility] ED Note-Physicianon 03-31-20 ED Note-Physician Basic Information Time Seen: Humaira Lora PA-C. 03/28/2022 15:59 Chief Complaint Pt reports dysuria and burning for 10 days. Pt just finished Cipro and s/s persistent. pt reports she now has bilateral flank pain as well. Pt reports bladder pain. History of Present Illness Patient presents emergency department chief complaint of bilateral flank and bladder pain. She states that she just completed a 10-day course of Cipro antibiotic for urinary tract infection. She is still having dysuria. She also has some discomfort in the bladder and bilateral flank areas. She has no nausea or vomiting. She denies any urinary frequency. She denies any urgency. The patient denies any constipation or diarrhea. She denies any vaginal discharge. The patient does have a history of having a surgery in the abdomen pelvis that had multiple complications with infection. She states the pain does not feel anything like that today. She states this is more discomfort with urination. Review of Systems Constitutional: Denies weight loss, fevers, chills, sweats, malaise Eyes: Denies visual changes, eye pain, double vision, scotomas, floaters ENT: Denies runny nose, epistaxis, sinus pain, ear pain, ringing in ears, tooth ache, sore throat, pain with swallowing Cardiovascular: Denies chest pain, shortness of breath, orthopnea, edema, palpitations, loss of consciousness, claudication Respiratory: Denies cough, sputum production, wheezing, hemoptysis, shortness of breath, dyspnea on exertion Gastrointestinal: Denies abdominal pain, unintentional weight loss, difficulty swallowing, indigestion, bloating, cramping, loss of appetite, nausea, vomiting, diarrhea, constipation, hematochezia, melena. + dysuria, bladder pain Genitourinary: Denies any incontinence of urine, hematuria, nocturia, polyuria, hesitancy, frequency, urgency, burning Musculoskeletal: Denies joint pain, morning stiffness, joint swelling, decreased range of motion, crepitus Integumentary: Denies any pruritus, rashes, lesions, wounds, petechiae Neurologic: Denies any changes in sight, smell, hearing, taste, seizures, headache, paresthesia, numbness, weakness, balance disturbance Psychiatric denies any depression, change in sleep patterns, anxiety, difficulty concentrating, paranoia, anhedonia, lack of energy, neisha Hematologic/lymphatic : Denies any purpura, petechiae, excessive bleeding, bruising Physical Exam Vitals & Measurements T: 36.6 ?C(Oral) HR: 79(Peripheral) RR: 18 BP: 131/85 SpO2: 99% HT: 173 cm WT: 70.5 kg BMI: 23.56 Vital signs and nursing notes reviewed. General: Awake, alert, NAD. HEENT: Head is normocephalic, atraumatic. PERRL. EOMI. Sclerae are anicteric. External ears are normal. TMs are intact bilaterally. Canals are clear bilaterally. Nares are patent bilaterally. Oral mucosa is pink and moist. No lesions noted. Tongue protrudes in midline. Uvula rises with phonation. Neck is supple, no no palpable adenopathy. No JVD. Trachea is midline. Thorax: Symmetrical rise and fall Lungs: Clear to auscultation throughout all fritz, no wheezes, no crackles Heart: Regular rate and rhythm. No murmur, gallop, or rub Abdomen: No tenderness on palpation. Bowel sounds are present active and normal. No organomegaly. No palpable masses. No CVA tenderness. Mild suprapubic tenderness. No palpable bladder. Extremities: Motor sensory pulses intact x4 extremities. No lower extremity edema. Skin: No lesions, rashes, ulcerations. No bruising or petechiae. Color appropriate, warm and dry Neuro: No oriented x3, no focal neuro deficits Psych: Mood and affect are normal Medical Decision Making Acute lower urinary tract infection, bladder spasms, ureterolithiasis, intra-abdominal abscess Assessment/Plan 1. Dysuria (R30.0: Dysuria) Orders: phenazopyridine, 200 mg = 1 tab(s), Oral, TID, X 3 day(s), # 9 tab(s), Refills(s) 0, Pharmacy: [facility], 173, cm, 03/28/22 15:38:00 EST, Height/Length Dosing, 70.5, kg, 03/28/22 15:38:00 EST, Weight Dosing phenazopyridine, 200 mg = 2 tab(s), Tab, Oral, Once, Stop date 03/28/22 17:51:00 EST, STAT, Start date 03/28/22 17:51:00 EST, 03/28/22 17:51:00 EST tamsulosin, 0.4 mg = 1 cap(s), Cap, Oral, Once, Stop date 03/28/22 17:50:00 EST, STAT, Start date 03/28/22 17:50:00 EST, 03/28/22 17:50:00 EST tamsulosin, 0.4 mg = 1 cap(s), Oral, Daily, # 10 cap(s), Refills(s) 0, Pharmacy: [facility], 173, cm, 03/28/22 15:38:00 EST, Height/Length Dosing, 70.5, kg, 03/28/22 15:38:00 EST, Weight Dosing Automated Diff Basic Metabolic Panel CBC w/ Auto Diff CT Abdomen/Pelvis w/o Contrast eGFR Extra Blue Tube Extra SST Tube Hepatic Function Panel U Beta Hcg Qual UA With Cult Reflex Patient was interviewed and examined. The appropriate ER work-up was initiated. CBC, BMP, were unremarkable. UA is also without any evidence of nitrates, WBCs, leukocytes. UA is positive for blood, but patient is on her menstrual period. CT scan of the (more content not included)... Normal [facility] Comment on above: Result Comment: Elec tronically Signed By: Humaira Lora PA-C\.br\Date and Time Signed: 03/29/22 01:30 EST\.br\Electronically Co-Signed By: London Mccurdy M.D.\.br\Date and Time Co-Signed: 03/31/22 07:26 EST CHLAMYDIA/GONOCOCCUS LUZMARIA (SW AB/URINE/PAPon 03-29-2022 Chlamydia trachomatis, LUZMARIA Negative Normal Negative [facility] Comment on above: Performed By: #### C T/NGNA #### [facility] [address] [place] [address] Dr. Evy Boothe Neisseria gonorrhoeae, LUZMARIA Negative Normal Negative [facility] Comment on above: Performed By: #### C T/NGNA #### [facility] [address] [place] [address] Dr. Evy Boothe Auto Diffon 03-28-2022 Basophils/100 WBC (Bld) 1.3 % Normal 0.0-2.0 [facility] Comment on above: Order Comment: Order Added by Discern Expert. Performed By: #### 1 [id number], 1262073, 0639888, 0609480, 8601431 ####[facility] [address] [place] [address] Basophils/Leukocytes Auto (Bld) [Pure # fraction] 0.1 E9/L Normal 0.0-0.2 [facility] Comment on above: Order Comment: Order Added by Discern Expert. Performed By: #### 1 [id number], 9187284, 5065706, 6594225, 4297907 ####[facility] [address] [place] [address] Eosinophils/100 WBC (Bld) 1.1 % Normal 0.0-8.0 [facility] Comment on above: Order Comment: Order Added by Discern Expert. Performed By: #### 1 3137978, 6431485, 0623031, 7754658, 1563277 ####[facility] [address] [place] [address] Eosinophils/Leukocytes Auto (Bld) [Pure # fraction] 0.1 E9/L Normal 0.0-0.5 [facility] Comment on above: Order Comment: Order Added by Discern Expert. Performed By: #### 1 9839166, 3733068, 0940535, 1078327, 3123876 ####[facility] [address] [place] [address] Lymphocytes/100 WBC (Bld) 24.8 % Normal 14.0-50.0 [facility] Comment on above: Order Comment: Order Added by Discern Expert. Performed By: #### 1 1533806, 5541442, 5691696, 6701526, 8868404 ####[address] [place] [address] Lymphocytes/Leukocytes Auto (Bld) [Pure # fraction] 2.4 E9/L Normal 1.0-4.0 [facility] Comment on above: Order Comment: Order Added by Rika Expert. Performed By: #### 1 3729109, 8381966, 3775132, 3208446, 0603497 ####[facility] [address] [place] [address] Monocytes/100 WBC (Bld) 5.3 % Normal 4.0-14.0 [facility] Comment on above: Order Comment: Order Added by Rika Expert. Performed By: #### 1 0438138, 4312987, 1376185, 3319382, 9966065 ####[facility] [address] [place] [address] Monocytes/Leukocytes Auto (Bld) [Pure # fraction] 0.5 E9/L Normal 0.2-1.0 [facility] Comment on above: Order Comment: Order Added by Rika Expert. Performed By: #### 1 7517579, 1643320, 3129965, 5627210, 1438755 ####[facility] [address] [place] [address] Neutrophils/100 WBC (Bld) 67.5 % Normal 36.0-75.0 [facility] Comment on above: Order Comment: Order Added by Discern Expert. Performed By: #### 1 5554277, 9017940, 3369698, 7030765, 9976747 ####[facility] [address] [place] [address] Neutrophils/Leukocytes Auto (Bld) [Pure # fraction] 6.5 E9/L Normal 2.0-7.5 [facility] Comment on above: Order Comment: Order Added by Discern Expert. Performed By: #### 1 9383436, 1247618, 7104101, 6408409, 5703054 ####[facility] [address] [place] [address] BMPon 03-28-2022 Creatinine [Mass/Vol] 0.7 mg/dL Normal 0.5-1.3 [facility] Comment on above: Performed By: #### 1 0956590, 6507832, 5047074, 8382446, 0695529 ####[facility] [address] [place] [address] Urea nitrogen [Mass/Vol] 19 mg/dL Normal 5-21 [facility] Comment on above: Performed By: #### 1 2568253, 9672616, 4082824, 1234683, 6222802 ####[facility] [address] [place] [address] Urea nitrogen/Creatinine [Mass ratio] 27 No Units High 10-20 [facility] Comment on above: Performed By: #### 1 3278708, 2206934, 9489300, 7905769, 4618988 ####[facility] [address] [place] [address] Anion gap [Moles/Vol] 16 mmol/L Normal 6-16 [facility] Comment on above: Performed By: #### 1 4104281, 4453195, 7689594, 1628983, 8229254 ####[address] [place] [address] Calcium [Mass/Vol] 8.7 mg/dL Low 8.9-11.1 [facility] Comment on above: Performed By: #### 1 8870381, 9856522, 8839671, 7102432, 6651577 ####[facility] [address] [place] [address] Chloride [Moles/Vol] 104 mmol/L Normal 101-111 [facility] Comment on above: Performed By: #### 1 5967271, 3660252, 0081043, 0277051, 6533897 ####[facility] [address] [place] [address] CO2 [Moles/Vol] 23 mmol/L Normal 21-31 [facility] Comment on above: Performed By: #### 1 3002842, 6545969, 2212608, 6004698, 8721351 ####[facility] [address] [place] [address] Glucose [Mass/Vol] 82 mg/dL Normal 55-199 [facility] Comment on above: Result Comment: If t his glucose result represents a fasting glucose, interpretation should refer to the following reference range: 55-99 mg/dL Performed By: #### 1 9500585, 8550036, 3870235, 6102143, 9326588 ####[facility] [address] [place] [address] Potassium [Moles/Vol] 3.6 mmol/L Normal 3.5-5.3 [facility] Comment on above: Performed By: #### 1 2521372, 4284067, 7345840, 1313899, 4711003 ####[facility] [address] [place] [address] Sodium [Moles/Vol] 139 mmol/L Normal 135-145 [facility] Comment on above: Performed By: #### 1 9005893, 5564048, 7042168, 2973884, 4072954 ####[facility] [address] [place] [address] CBC w/ Auto Diffon 2 Erythrocyte distribution width (RBC) [Ratio] 13.1 % Normal 10.9-14.2 [facility] Comment on above: Performed By: #### 1 9044724, 7892420, 8228969, 4393864, 6672050 ####[facility] [address] [place] [address] Hematocrit (Bld) [Volume fraction] 39.3 % Normal 34.0-46.0 [facility] Comment on above: Performed By: #### 1 7146113, 5114701, 3685127, 4298309, 9901200 ####[address] [place] [address] Hemoglobin (Bld) [Mass/Vol] 13.8 g/dL Normal 12.0-16.0 [facility] Comment on above: Performed By: #### 1 5408065, 5708919, 6207814, 8650474, 6101835 ####[address] [address] MCH (RBC) [Entitic mass] 30.0 pg Normal 27.0-34.0 [facility] Comment on above: Performed By: #### 1 1701608, 0567506, 5281480, 4823085, 9318364 ####[address] [address] MCHC (RBC) [Mass/Vol] 35.0 g/dL Normal 31.4-36.0 [facility] Comment on above: Performed By: #### 1 3834413, 6152856, 6354276, 6946006, 2988558 ####[address] [address] MCV (RBC) [Entitic vol] 85.7 fL Normal 80.0-100.0 [facility] Comment on above: Performed By: #### 1 9317878, 9365145, 5941143, 7670021, 7621285 ####[address] [place] [address] Platelet mean volume (Bld) [Entitic vol] 7.6 fL Normal 6.4-10.8 [facility] Comment on above: Performed By: #### 1 7540839, 8785057, 6441322, 6101376, 2345020 ####[facility] [address] [place] [address] Platelets (Bld) [#/Vol] 370.0 E9/L Normal 150.0-500.0 [facility] Comment on above: Performed By: #### 1 0922112, 9350980, 5233232, 9132025, 6931912 ####[facility] [address] [place] [address] RBC (Bld) [#/Vol] 4.6 E12/L Normal 4.3-5.9 [facility] Comment on above: Performed By: #### 1 6151603, 7481657, 5544340, 4070850, 0430259 ####[facility] [address] [place] [address] WBC corrected for nucl RBC Auto (Bld) [#/Vol] 9.6 E9/L Normal 4.0-11.0 [facility] Comment on above: Performed By: #### 1 5523021, 2651339, 0364779, 8979019, 3260652 ####[facility] [address] [place] [address] CT Abdomen/Pelvis w/o Contra ston 03-28-2022 CT Abdomen/Pelvis w/o Contrast Exam Date/Time: 03/28/2022 16:44 EST Reason for Exam: Abdominal pain, acute, nonlocalized;Pain Report IMPRESSION: Negative study. EXAMINATION: CT Abdomen/Pelvis w/o Contrast HISTORY: Pain, Abdominal pain, acute, nonlocalized COMPARISON: None TECHNIQUE: Contiguous axial CT sections of the abdomen and pelvis. No IV contrast administered. Unenhanced imaging is limited for the evaluation of some intra-abdominal and pelvic pathologies. Sagittal and coronal reformats have been obtained. All CT scans at this facility use dose modulation, iterative reconstruction, and/or weight based dosing when appropriate to reduce radiation dose to as low as reasonably achievable. FINDINGS Lung bases:Visualized lung bases show no significant pathology Liver: The visualized portions of the liver are normal in size and attenuation. There are no focal solid or cystic lesions. There is no intra or extrahepatic bile duct dilatation. Gallbladder: No calcified gallstones. Normal gallbladder wall. No pericholecystic fluid. Spleen: There are no focal lesions or calcifications in the visualized portions of the spleen. There is no splenomegaly Pancreas: The pancreas is normal in size and attenuation without focal lesions or dilatation of the pancreatic duct. Adrenal glands are negative. Kidneys: The right kidney is normal in size and position without hydronephrosis or renal stones. The left kidney is normal in size and position without hydronephrosis or renal stones. Urinary bladder: The urinary bladder is within normal limits. Bowel: There is no bowel dilatation or evidence of diverticulitis. Appendix: There is no CT evidence for appendicitis. Report Nodes: No lymphadenopathy. Aorta: There is no abdominal aortic aneurysm. Peritoneum: No free fluid or free air. Pelvis: The uterus and adnexa are within normal limits. There are surgical clips in the adnexa presumably from previous tubal ligation. Abdominal wall: The abdominal wall is intact. Bones :There are no acute osseous changes. Soft tissues: The soft tissues are unremarkable. FINAL REPORT Dictated: 03/28/2022 5:08 pm Saurabh Reddy MD, V. Signed (Electronic Signature): 03/28/2022 5:08 pm Signed by: Saurabh Reddy MD, V. Transcribed by: FAUSTINO Technologist: WILLY Technical Comments Rectal Contrast Given? No Oral contrast amount in ml's: 0 Normal [facility] Consent for Treatmenton 03-16 Consent for Treatment [id number] .00CD:127 Normal [facility] Discharge Instructionson Discharge Instructions [id number]# 1.00CD:127 Normal [facility] ED Clinical Summaryon 2021 ED Clinical Summary [address] [address] ED Clinical Summary Person Information Name: UMESH ESQUIVEL [facility] Age: 47 Years : 1975 Sex: Female Language: Niuean PCP: ROSITA JIM CNP Marital Status: Phone: [phone] Visit Id: Visit Reason: Flank pain; Dysuria; POSS UTI Speciality: Acuity: 3 Enc Type: Emergency Med Service: Emergency Arrival: 03/28/2022 15:32:31 Discharge: 03/28/2022 18:34:55 LOS: 000 03:02 Checkin: 03/28/2022 15:32:31 Checkout: 03/28/2022 18:34:55 Dispo Type: Home (Routine DC) EVENTS: Event Name Event Status Request Date/Time Start Date/Time Complete Date/Time Arrive Complete 03/28/2022 15:32:31 03/28/2022 15:32:31 03/28/2022 15:32:31 Document Home Meds Request 03/28/2022 15:32:31 Triage Complete 03/28/2022 15:32:31 03/28/2022 15:38:53 03/28/2022 15:38:53 No Visitors Request 03/28/2022 15:34:02 Bed Assign Complete 03/28/2022 15:39:35 03/28/2022 15:39:35 03/28/2022 15:39:35 Dr Exam Complete 03/28/2022 15:39:35 03/28/2022 15:59:39 03/28/2022 15:59:39 RN Exam Complete 03/28/2022 15:39:35 03/28/2022 17:59:29 03/28/2022 17:59:29 Registration Complete 03/28/2022 15:59:39 03/28/2022 16:28:25 03/28/2022 16:28:25 Dr Exam Complete 03/28/2022 16:00:47 03/28/2022 16:00:47 03/28/2022 16:00:47 Pending Labs Complete 03/28/2022 16:23:28 03/28/2022 17:30:11 Lab Complete 03/28/2022 16:23:28 03/28/2022 17:30:11 Urine Collect Complete 03/28/2022 16:23:28 03/28/2022 17:30:11 CT Complete 03/28/2022 16:23:28 03/28/2022 16:30:17 03/28/2022 16:44:49 Reg Complete Request 03/28/2022 16:28:25 Reg Bed Request Complete 03/28/2022 16:28:25 03/28/2022 16:28:25 03/28/2022 16:28:25 Pending Labs Complete 03/28/2022 17:01:14 03/28/2022 17:01:14 03/28/2022 17:23:33 Lab Complete 03/28/2022 17:01:14 03/28/2022 17:01:14 03/28/2022 17:23:33 Pending Labs Complete 03/28/2022 17:11:57 03/28/2022 17:11:57 03/28/2022 17:12:04 Lab Complete 03/28/2022 17:11:57 03/28/2022 17:11:57 03/28/2022 17:12:04 Pending Labs Complete 03/28/2022 17:30:00 03/28/2022 17:30:00 03/28/2022 17:30:00 Meds Admin Complete 03/28/2022 17:51:39 03/28/2022 18:05:15 Discharge Complete 03/28/2022 18:28:38 03/28/2022 18:35:00 03/28/2022 18:35:00 Transfer Complete 03/28/2022 18:35:00 03/28/2022 18:35:00 03/28/2022 18:35:00 ADDRESS: [address] [id number] PHYS DOC NOTES: MEDICAL INFORMATION: Prescriptions Given: New Medications [id number] [address] [place], [place] [id number], [phone] phenazopyridine (Pyridium 200 mg Tab) 1 Tablets By Mouth 3 times a day for 3 Days. Refills: 0. tamsulosin (tamsulosin 0.4 mg Cap) 1 Capsules By Mouth every day. Refills: 0. Medications to Continue with No Changes Other Medications albuterol (Proventil HFA 90 mcg/inh Aerosol) 2 Puffs Inhalation 4 times a day. Refills: 0. azithromycin (azithromycin 250 mg Tab 5-day Dose Pack (Z-Davide)) as directed on package labeling. Refills: 0. citalopram (citalopram 40 mg Tab) fenofibrate (fenofibrate 200 mg oral capsule) gabapentin (gabapentin 300 mg Cap) loratadine (loratadine 10 mg Tab) losartan (losartan 50 mg Tab) methocarbamol (methocarbamol 500 mg Tab) montelukast (montelukast 10 mg Tab) PATIENT EDUCATION INFORMATION: Instructions: Dysuria Follow up: With: Address: When: Cherelle Aragon In 3 days 03/31/2022 With: Address: When: ROSITA JAYANT [address] [address] [facility] (1) In 3 days DIAGNOSIS: 1:Dysuria Normal [facility] ED Patient Education Noteon 03-28-2022 ED Patient Education Note Urology Dysuria Dysuria is pain or discomfort while urinating. The pain or discomfort may be felt in the part of your body that drains urine from the bladder (urethra) or in the surrounding tissue of the genitals. The pain may also be felt in the groin area, lower abdomen, or lower back. You may have to urinate frequently or have the sudden feeling that you have to urinate (urgency). Dysuria can affect both men and women, but it is more common in women. Dysuria can be caused by many different things, including: ? Urinary tract infection. ? Kidney stones or bladder stones. ? Certain sexually transmitted infections (STIs), such as chlamydia. ? Dehydration. ? Inflammation of the tissues of the vagina. ? Use of certain medicines. ? Use of certain soaps or scented products that cause irritation. Follow these instructions at home: General instructions ? Watch your condition for any changes. ? Urinate often. Avoid holding urine for long periods of time. ? After a bowel movement or urination, women should cleanse from front to back, using each tissue only once. ? Urinate after sexual intercourse. ? Keep all follow-up visits as told by your health care provider. This is important. ? If you had any tests done to find the cause of dysuria, it is up to you to get your test results. Ask your health care provider, or the department that is doing the test, when your results will be ready. Eating and drinking ? Drink enough fluid to keep your urine pale yellow. ? Avoid caffeine, tea, and alcohol. They can irritate the bladder and make dysuria worse. In men, alcohol may irritate the prostate. Medicines ? Take nysb-qgr-evrlmuw and prescription medicines only as told by your health care provider. ? If you were prescribed an antibiotic medicine, take it as told by your health care provider. Do not stop taking the antibiotic even if you start to feel better. Contact a health care provider if: ? You have a fever. ? You develop pain in your back or sides. ? You have nausea or vomiting. ? You have blood in your urine. ? You are not urinating as often as you usually do. Get help right away if: ? Your pain is severe and not relieved with medicines. ? You cannot eat or drink without vomiting. ? You are confused. ? You have a rapid heartbeat while at rest. ? You have shaking or chills. ? You feel extremely weak. Summary ? Dysuria is pain or discomfort while urinating. Many different conditions can lead to dysuria. ? If you have dysuria, you may have to urinate frequently or have the sudden feeling that you have to urinate (urgency). ? Watch your condition for any changes. Keep all follow-up visits as told by your health care provider. ? Make sure that you urinate often and drink enough fluid to keep your urine pale yellow. This information is not intended to replace advice given to you by your health care provider. Make sure you discuss any questions you have with your health care provider. Document Released: 01/28/2005 Document Revised: 04/14/2018 Document Reviewed: 02/16/2018 [employer] Patient Education ? 2019 [employer] Normal [facility] ED Patient Summaryon 022 ED Patient Summary [address] [address] Patient Discharge Instructions Person Information Name: UMESH ESQUIVEL Age: 47 Years Arrival Date: 03/28/2022 15:32:31 Discharge Diagnosis: 1:Dysuria Primary Care Physician: ROSITA JIM CNP Provider Information Primary Provider: London Mccurdy M.D. Advanced Diabetes Manager:None The exam and treatment you received in the Emergency Department were for an urgent problem and are not intended as complete care. It is important that you follow up with a doctor, nurse practitioner, or physician?s executive sales assistant for ongoing care. If your symptoms become worse or you do not improve as expected and you are unable to reach your usual health care provider, you should return to the Emergency Department. We are available 24 hours a day. UMESH ESQUIVEL has been given the following list of patient education materials, prescriptions and follow-up instructions: Follow-up Instructions: With: Address: When: Cherelle Mahesh In 3 days 03/31/2022 With: Address: When: ROSITA JIM [address] [facility] [place] [id number] [facility] (1) In 3 days In the event that this physician does not participate in your insurance network, please consult with your insurance company to find a nearby participating provider. Patient Education Materials: Dysuria A MESSAGE TO ALL PATIENTS REGARDING OPIOIDS PRESCRIPTION OPIOIDS: WHAT YOU NEED TO KNOW Prescription opioids can be used to help relieve mhxqdibe-mw-yynwih pain and are often prescribed following a surgery or injury, or for certain health conditions. These medications can be an important part of the treatment but also come with serious risks. It is important to work with your healthcare provider to make sure you are getting the safest, most effective care. WHAT ARE THE RISKS AND SIDE EFFECTS OF OPIOID USE? Prescription opioids carry serious risks of addiction and overdose, especially with prolonged use. An opioid overdose, often marked by slowed breathing, can cause sudden . The use of prescription opioids can have a number of side effects as well, even when taken as directed: ? Tolerance?meaning you might need to take more of the medication for the same pain relief ? Physical dependence?meaning you have symptoms of withdrawal when a medication is stopped ? Increased sensitivity to pain ? Constipation ? Nausea, vomiting, and dry mouth ? Sleepiness and dizziness ? Confusion ? Depression ? Low levels of testosterone that can result in lower sex drive, energy, and strength ? Itching and sweating RISKS ARE GREATER WITH: ? History of drug misuse, substance use disorder, or overdose ? Mental health conditions (such as depression or anxiety) ? Sleep apnea ? Older age (65 years and older) ? Avoid alcohol while taking prescription opioids. Also, unless specifically advised by your health care provider, medications to avoid include: ? Benzodiazepines (such as Xanax or Valium) ? Muscle relaxants (such as Soma or Flexeril) ? Hypnotics (such as Ambien or Lunesta) ? Other prescription opioids KNOW YOUR OPTIONS Talk to your health care provider about ways to manage your pain that don?t involve prescription opioids. Some of these options may actually work better and have fewer risks and side effects. Options may include: ? Pain relievers such as acetaminophen, ibuprofen, and naproxen ? Some medication that are also used for depression or seizures ? Physical therapy and exercise ? Cognitive behavioral therapy, a psychological, goal-directed approach, in which patients learn how to modify physical, behavioral, and emotional triggers of pain and stress. IF YOU ARE PRESCRIBED OPIOIDS FOR PAIN: ? Never take opioids in greater amounts or more often than prescribed. ? Follow up with your primary health care provider. o Work together to create a plan on how to manage your pain. o Talk about ways to help manage your pain that don?t involve prescription opioids. o Talk about any and all concerns and side effects. ? Help prevent misuse and abuse o Never sell or share prescription opioids. o Never use another person?s prescription opioids. ? Store prescription opioids in a secure place and out of reach of others (this may include visitors, children, friends, and family). ? Safely dispose of unused prescription opioids: Find your community drug take-back program or your pharmacy mail-back program, or flush them down the toilet, following guidance from the Food and Drug Administration (www.fda.gov/Drugs/Re sourcesForYou). ? Visit www.cdc.gov/drugoverd ose to learn about the risks of opioids abuse and overdose. ? If you believe you may be struggling with addiction, tell your health patient care representative and ask for guidance or call SAMHSA?S National Helpline at 3-416-113-AJSM. (more content not included)... Normal [facility] HEPATITIS PANEL, ACUTEon HBsAg Screen Negative Normal Negative [facility] Comment on above: Performed By: #### H EPACUT #### [facility] [address] [address]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 this document may materially change the coding, format and clinical context of patient data. In addition, data may be omitted in some cases. CLINICAL DECISIONS SHOULD BE BASED ON THE PRIMARY CLINICAL RECORDS. [employer] provides no warranty or guarantee of the accuracy or completeness of information in this document.
== END 2023-05-23 10:33 | disposition home or self-care (01) ==
LOC: MAMMO 10:32
PROVIDERS: Visit Provider Obstetrics & Gynecology
DX: Z12.31 Encounter for screening mammogram for malignant neoplasm of breast (principal); Z80.3 Family history of malignant neoplasm of breast; Z80.8 Family history of malignant neoplasm of other organs or systems; N93.9 Abnormal uterine and vaginal bleeding, unspecified
CPT/HCPCS: 77063; 77067; 88305

== ENCOUNTER 2023-05-23 11:10 | Outpatient (REF) | payer OTHER, SELFPAY ==
--- OUTSIDE RECORDS SUMMARY | 2023-07-15 11:17 | XMS_ITS | CCD ---
Author Name Unknown Address [address] [place] [address] Organization [facility] Care Team Providers Care Financial Assistant Name Role Phone NO, PHYSICIAN Unavailable Unavailable LIANET CARROLL Attending Unavailable NO, PHYSICIAN Primary Care Unavailable No, Physician Primary Care Provider Unavailmalissa e Hernán Rosita Primary Care Provider Unava ilable NANCY MORALES Referring Unavailable MYERHOLROBBIE ROSITA Primary Care Unavailable NANCY MORALES Referring Unavailable MYERHOLTZ, ROSITA Primary Care Unavailable MYERJEANTZ, ROSITA Primary Care Physician Indigo Flynn Unavailable Unavailable CRISTINO, DR OLMEDO Attending Unavailable CRISTINO, DR OLMEDO Admitting Unavailable CRISTINO, DR OLMEDO Consulting Unavailable WEST, DR GILDA Garza Consulting Unavailable CRISTINO, DR OLMEDO Attending Unavailable CRISTINO, DR OLMEDO Admitting Unavailable CRISTINO, DR OLMEDO Consulting Unavailable CRISTINO, DR OLMEDO Consulting Unavailable CRISTINO, DR OLMEDO Attending Unavailable CRISTINO, DR OLMEDO Admitting Unavailable [facility] Primary Care Provider KEITH Jim Attending Provider Cherelle Aragon Attending Unavailable Cherelle Aragon Referring Unavailable London Mccurdy Attending Unavailable Cherelle Aragon Attending Unavailable Cherelle Aragon Attending Unavailable Cherelle Aragon Admitting Unavailable Cherelle Aragon Attending Unavailable Cherelle Aragon Referring Unavailable CHAKA GREGG Attending Unavailable CHAKA GREGG Attending Unavailable Mast MD, Dante E Primary Care Provider [facility] Primary Care Provider [phone]( [phone] Chaka Gregg Attending Provider [facility] Primary Care Unavaila ble Chaka Gregg Admitting Unavailable Chaka Gregg Attending Unavailable Rosita Jim Admitting Unavailab Rosita Arora Attending Unavailab le [facility] Primary Care Unavaila ble Allergies Allergy Classification Reported Allergen(s) Allergy Type Date of Onset Reaction(s) Facility (6 sources) Coconut extract; Translations: [COCONUT] Drug Allergy 3 Anaphylaxis [facility] Repository (7 sources) Penicillins; Translations: [Unknown] Propensity to adverse reactions to drug (disorder) 3 Anaphylaxis [facility] Repository (4 sources) Sulfonamides (Antibiotic); Translations: [Sulfa (Sulfonamide Antibiotics)] Propensity to adverse reactions to drug [address] [facility] (4 sources) Coconut Oil; Translations: [Coconut Oil] Drug Allergy Anaphylactic reaction [facility] (4 sources) Penicillin; Translations: [penicillin] Drug Allergy Anaphylactic reaction [facility] (4 sources) Sulfonamides (Antibiotic); Translations: [sulfa drugs] Drug allergy Anaphylactic reaction [facility] (6 sources) Latex; Translations: [Latex] Drug allergy (disorder) 3 Eruption (morphologic abnormality) [facility] Repository (1 source) Sulfonamides (Antibiotic) Drug allergy (disorder) 3 [facility] (1 source) Coconut extract Drug Allergy 3 [facility] Healthcare Work Phone: (1 source) Latex Propensity to adverse reactions 3 [facility] Healthcare (1 source) Sulfonamides (Antibiotic) Propensity to adverse reactions 3 [facility] (1 source) Latex Drug allergy (disorder) 1 [facility] Repository Medications Current Medications Medication Drug Class(es) Dates Sig (Normalized) Sig (Original) acetaminophen 325 mg / HYDROcodone bitartrate 5 mg oral tablet (2 sources) Opioid Agonist Start: 03-10-2021 Hydrocodone-Acetami nophen Active TAB TABLET March 09, 2021 11:00pm azithromycin 250 mg Tab 5-day Dose Pack [...] hydrochloride 240 mg extended release oral capsule (3 sources) Calcium Channel Ludivina Start: 03-10-2021 Diltiazem Hcl Active MG PO March 09, 2021 11:00pm take 1 capsule by mo [facility] every twenty-four hours in the morning dilTIAZem CD (Cardizem CD) 240 MG 24 hr capsule Take 1 capsule by mouth in the morning. 0 Active [id number] 0.3 ml EPINEPHrine 1 mg/ml auto-injector (1 source) alpha-Adrenergic Agonist, beta-Adrenergic Agonist, Catecholamine Start: 07-28-2022 EPINEPHrine (Epipen) 0.3 MG/0.3ML injection syringe Inject 1 Syringe as directed 1 (one) time. 0 07/28/2022 Active fenofibrate 200 mg oral capsule (6 sources) Peroxisome Proliferator Receptor alpha Agonist Start: 03-10-2021 Fenofibrate Micronized Active MG March 09, 2021 11:00pm Start: 04-27-2019 fenofibrate 20 0 mg oral capsule Refills(s) 0 Start Date: 04/27/19 Status: Ordered fluticasone propionate 0.05 mg/actuat metered dose nasal spray (4 sources) Corticosteroid Start: 03-10-2021 Fluticasone Pr opionate Active INTRANASAL March 09, 2021 11:00pm take 1 spray(s) nasa l route in the morning Flonase Allergy Relief 50 MCG/ACT nasal spray Administer 1 spray into each nostril in the morning. 0 Active take 1 spray(s) nasal route once daily fluticasone propionate (Flonase Allergy Relief) 50 mcg/actuation nasal spray 1 spray in each nostril Once a day Nasally 30 day(s) 0 Active gabapentin 300 mg oral capsule (7 sources) Anti-epileptic Agent Start: 03-10-2021 Gabapenti n Active MG March 09, 2021 11:00pm Start: 04-27-2019 gabapentin 300 mg Cap Refills(s) 0 Start Date: 04/27/19 Status: Ordered loratadine 10 mg oral tablet (7 sources) Start: 03-10-2021 Loratadine Act raymond MG TABLET March 09, 2021 11:00pm Start: 04-27-2019 loratadine 10 mg Tab Refills(s) 0 Start Date: 04/27/19 Status: Ordered losartan potassium 50 mg oral tablet (7 sources) Angiotensin 2 Receptor Ludivina Start: 03-10-2021 Losartan Active MG TABLET March 09, 2021 11:00pm Start: 04-27-2019 losartan 50 mg Tab Refills(s) 0 Start Date: 04/27/19 Status: Ordered methocarbamol 500 mg oral tablet (6 sources) Muscle Relaxant Start: 12-09-2022 take 1 tablet by mouth every four hours as needed methocarbamol (Robaxin) 500 MG tablet Take 500 mg by mouth every 4 (four) hours if needed for muscle spasms. 0 12/09/2022 Active Start: 03-10-2021 Methocarbamol Active MG TABLET March 09, 2021 11:00pm Start: 04-27-2019 methocarbamol 500 mg Tab Refills(s) 0 Start Date: 04/27/19 Status: Ordered 24 hr metoprolol succinate 100 mg extended release oral tablet (1 source) beta-Adrenergic Ludivina take 1 tablet by mouth every twenty-four hours in the morning metoprolol succinate XL (Toprol-XL) 100 MG 24 hr tablet Take 100 mg by mouth in the morning. 0 Active montelukast 10 mg oral tablet (7 sources) Leukotriene Receptor Antagonist Start: 021 Montelukast Active MG TABLET March 09, 2021 11:00pm Start: 09-30-2015 montelukast 10 mg Tab Refills(s) 0 Start Date: 04/27/19 Status: Ordered tamsulosin hydrochloride 0.4 mg oral capsule (6 sources) alpha-Adrenergic Ludivina Start: 03-28-2022 take 1 capsule by mouth once daily tamsulosin 0.4 mg Cap 0.4 mg = 1 cap(s), Oral, Daily, # 30 cap(s), Refills(s) 11, Pharmacy: [facility], 173, cm, 10/13/22 8:45:00 EDT, Height/Length Dosing, 70.5, kg, 10/13/22 8:45:00 EDT, Weight Dosing Start Date: 10/13/22 Status: Ordered Completed/Discontinued Medications Medication Drug Class(es) Dates Sig (Normalized) Sig (Original) [id number] 200 actuat albuterol 0.09 mg/actuat metered dose inhaler (3 sources) beta2-Adrenergic Agonist Start: 10-07-2019 take 1 dose by inhalation four times daily Proventil HFA 90 mcg/inh Aerosol 2 puff(s), Inhalation, QID, 1 EA, Refill(s) 0 Start Date: 10/07/19 Status: Ordered albuterol 1.25 M G/3ML nebulizer solution Take 1.25 mg by nebulization every 8 (eight) hours. 0 Active albuterol 0.833 mg/ml / ipratropium bromide 0.167 mg/ml inhalant solution (1 source) Anticholinergic, beta2-Adrenergic Agonist Start: 11-21-2019 End: 11-21-2019 ipratropium-albuteroL (DUO-NEB) 0.5-2.5 mg/3 ml nebulizer solution 3 [...] Evaluation finding; Translations: [Covid-19 Virus not Detected] Urinary tract infections (6 sources) Urinary tract infectious disease; Translations: [Urinary tract infection, site not specified] Onset: 05-05-2022 Episodic Results Test Name Value Interpretation Reference Range Facility ALL CBC WITH AUTO DIFFon BASOPHILS ABSOLUTE AUTO 0.0 N [facility] Basophils/100 WBC (Bld) 0.6 % 0.2 - 2.0 % [facility] Eosinophils/100 WBC (Bld) 3.3 % 0.9 - 7.0 % [facility] Erythrocyte distribution width (RBC) [Ratio] 13.2 % 11.0 - 15.0 % [facility] Hematocrit (Bld) [Volume fraction] 38.3 % 36.0 - 48.0 % [facility] Hemoglobin (Bld) [Mass/Vol] 12.9 g/dL 12.0 - 16.0 g/dL [facility] IMMATURE GRANULOCYTES ABS AUTO 0.02 [facility] Immature granulocytes/100 WBC (Bld) 0.3 % 0.0 - 0.5 % [facility] Interpretation and review of laboratory results Abnormal [facility] LYMPHOCYTES ABSOLUTE AUTO 1.6 [facility] Lymphocytes/100 WBC (Bld) 23.0 % 20.5 - 60.0 % [facility] MCH (RBC) [Entitic mass] 30.0 pg 26.7 - 34.0 pg [facility] MCHC (RBC) [Mass/Vol] 33.7 g/dL 29.9 - 35.2 g/dL [facility] MCV (RBC) [Entitic vol] 89.1 fL 81.0 - 99.0 fL [facility] MONOCYTES ABSOLUTE AUTO 0.8 N [facility] Monocytes/100 WBC (Bld) 10.9 % 1.7 - 12.0 % [facility] NEUTROPHILS ABSOLUTE AUTO 4.3 [facility] Neutrophils/100 WBC (Bld) 61.9 % 43.0 - 75.0 % [facility] Platelet mean volume (Bld) [Entitic vol] 9.2 fL Low 9.5 - 13.5 fL [facility] TBH EO # 0.2 [facility] TB PLT 344 [facility] TB RBC 4.30 [facility] TB WBC 7.0 [facility] 06-29-2023 L Specimen: [id number] Received: 06/29/23 Status: VICKIE Zhou Num: [id number] Spec Type: Surgical Subm Dr: Chaka Gregg Tissues: A Uterus w/ or w/o tubes ovaries except neoplastic or prolap (UTRS, CRVX, BI Procedures: HE/12, Gross/Micro L5 Age/ Patient Sex Location Account Attending Physician Jerrica Rod 48/F [facility] [id number] Chaka Gregg SPEC NUM: [id number] RECD: 06/29/23 STATUS: VICKIE RENahun NUM: [id number] FELICITY: 06/29/[address]: Chaka Gregg ENTERED: 06/29/[address]: Lucero,Lab SPEC TYPE: Surgical DEPT: HAYLEE FLORES ENTERED BY: [id number] RECV BY: [id number] ORDERED: HE/12, Gross/Micro L5 ORDERED: HE/12, Gross/Micro L5 Pathological Diagnosis Uterus, Cervix and Bilateral Tubes, Hystrectomy: Uterus: Leiomyomata. Cervix: Chronic cervicitis. Fallopian Tubes: Unremarkable. Clinical Information Menorrhagia, abnormal uterine bleeding, pelvic pain, dysmenorrhea, dyspareunia Gross Description Received in formalin labeled with the patient's name, date of and uterus, cervix, and bilateral fallopian tubes is a 100.2 g, 9.8 x 6.0 x 4.2 cm intact uterus. The fallopian tubes are received detached, in multiple pieces, and with no laterality specified. The uterine serosa is purple-barahona and glistening. There is absence of the anterior ectocervix. The cervix is 2.6 cm in diameter and demonstrates glistening pink-barahona ectocervical mucosa along the posterior aspect. Where identified, the transition zone is distinct and slightly irregular. The endocervical canal is 2.5 cm in length and trabeculated. The endometrial cavity is 3.2 cm cornu to cornu by 4.2 cm fundus to lower uterine segment. The endometrium is 0.1 cm thick red-barahona and velvety. There is a 1.2 cm diameter submucosal nodule within the posterior fundic aspect. The myometrium is 2.2 cm thick with vague trabeculation. There are is a 0.5 cm intramural nodule identified near the submucosal nodule posteriorly. There is no gross evidence of hemorrhage, necrosis, or cystic degeneration within the submucosal or intramural nodule. The 2 fimbriated segments of fallopian tube are tortuous and are each approximately 3 x 0.6 cm. There are 2 additional segments of fallopian tube -------- Specimen: [id number] Received: 06/29/231306 Status: VICKIE Zhou Num: [id number] Spec Type: Surgical Subm Dr: Chaka Gregg Tissues: A Uterus w/ or w/o tubes ovaries except neoplastic or prolap (UTRS, CRVX, BI Procedures: , Gross/Micro L5 -------- Patient: Jerrica Rod [id number] (Continued) -------- Specimen: [id number] Received: 06/29/23 (Continued) Gross Description (Continued) Signed (signature on file) Nati Liu MD 06/30/23 2148 -------- Specimen: [id number] Received: 06/29/23 Status: VICKIE Zhou Num: [id number] Spec Type: Surgical Subm Dr: Chaka Gregg Tissues: A Uterus w/ or w/o tubes ovaries except neoplastic or prolap (UTRS, CRVX, BI Procedures: , Gross/Micro L5 -------- Patient: Jerrica Rod [id number] (Continued) -------- Specimen: [id number] Received: 06/29/23 (Continued) Gross Description (Continued) present, 1.2 and 1.8 cm in length and each 0.5 cm in diameter. Within the end of the shorter segment is an embedded metallic clip, 1.2 x 0.6 x 0.5 cm. There is a second similar clip identified with overlying adhesions, but not associated with a segment of fallopian tube. Sectioning through all segments of fallopian tube demonstrate central lumens. The fimbria are soft and unremarkable. Cras sections are submitted in 7 cassettes as follows: A1 - Posterior cul-de-sac serosa A2 - Midline anterior and posterior cervix A3 - Anterior endomyometrium A4 - Posterior endomyometrium with intramural and submucosal nodules A5 - 1 segment of fimbriated fallopian tube with fimbria entirely submitted A6 - 1 segment of fimbriated fallopian tube with fimbria entirely submitted A7 - 1 section from each nonfimbriated segment [facility] Codes [id number] -------- -------- Specimen: [id number] Received: 06/29/23 Status: VICKIE Zhou Num: [id number] Spec Type: Surgical Subm Dr: Chaka Gregg Tissues: A Uterus w/ or w/o tubes ovari (more content not included)... [facility] Ambulatory Visit Summaryon 0 10-13-2022 Ambulatory Visit Summary JERRICA ROD :1975 Visit Date:10/13/2022 Ambulatory Visit Instructions Your [...] Cherelle Aragon MD Where: [facility] Lab Reportson 10-13-2022 Lab Reports [id number] Normal [facility] Patient Educationon 10-14-19 23 Patient Education Urology [...] nerve stimulation). ? For women, using a resident medical officer to prevent urine leaks. This is a [...] urine. ? (more content not included)... Normal [facility] Urology Office/Clinic Noteon 10-13-2022 Urology Office/Clinic Note Chief Complaint fu to cysto ud HPI Staff 5m follow up (RS by office x1 & pt x2) DX: Recurrent UTI, Stress Incontinence S/P Cysto/UD done 05/24/22 CMP ordered by PCP 09/02/22 pt. [facility] has had 1 infection since UD but was treated by [employer] doctor Dysuria: no Incomplete bladder emptying: no [...] after [address] A/P without contrast [facility] was negative [...] Daily, # 30 cap(s), Refills(s) 11, Pharmacy: [facility], 173, cm, 10/13/22 8:45:00 EDT, Height/Length Dosing, 70.5, kg, 10/13/22 8:45:00 EDT, Weight Dosing Follow-up With When Contact Information Mahesh PEREZ, Cherelle German, URL, URO In 1 year [address], [place] [address]- [phone] Additional Instructions: Patient Education Urinary Incontinence I, [...] Alcohol Alcohol (more content not included)... Normal [facility] Comment on above: Result Comment: Elec tronically Signed By: Cherelle Aragon MD\.br\Date and Time Signed: 10/13/22 12:34 EDT\.br\Electronically Co-Signed By: Katelynn Seymour.br\Date and Time Co-Signed: 10/13/22 09:25 EDT Alanine aminotransferase [En zymatic activity/volume] in Serum or PlasmaOrdered By: Rosita Jim on 09-02-2022 ALT [Catalytic activity/Vol] 14 U/L 7-52 [facility] Albumin [Mass/volume] in Ser um or Plasma by Bromocresol green (BCG) dye binding methoOrdered By: Rosita Jim on 09-02-2022 Albumin BCG dye [Mass/Vol] 4.6 g/dL 3.5-5.7 [facility] Alkaline phosphatase [Enzyma tic activity/volume] in Serum or PlasmaOrdered By: Rosita Jim on 09-02-2022 ALP [Catalytic activity/Vol] 46 U/L 34-104 [facility] Aspartate aminotransferase [ Enzymatic activity/volume] in Serum or PlasmaOrdered By: Rosita Jim on 09-02-2022 AST [Catalytic activity/Vol] 13 U/L 13-39 [facility] Bilirubin.total [Mass/volume ] in Serum or PlasmaOrdered By: Rosita Jim on 09-02-2022 Bilirubin [Mass/Vol] 0.6 mg/dL 0.3-1.0 [facility] Calcium [Mass/volume] in Ser um or PlasmaOrdered By: Rosita Jim on 09-02-2022 Calcium [Mass/Vol] 9.3 mg/dL 8.6-10.3 [facility] Carbon dioxide, total [Moles /volume] in Serum or PlasmaOrdered By: Rosita Jim on 09-02-2022 CO2 [Moles/Vol] 22.4 mmol/L 21.0-31.0 [facility] Chloride [Moles/volume] in S gabe or PlasmaOrdered By: Rosita Jim on 09-02-2022 Chloride [Moles/Vol] 104 mmol/L 98-107 [facility] Cholesterol [Mass/volume] in Serum or PlasmaOrdered By: Rosita Jim on 09-02-2022 Cholesterol [Mass/Vol] 150 mg/dL 140-200 [facility] Comment on above: Chol less than 200 m g/dl low riskChol 201-239 mg/dl borderline riskChol 240 mg/dl and greater high risk Cholesterol in LDL Calc [Mas s/Vol]Ordered By: Rosita Jim on 09-02-2022 Cholesterol in LDL [Mass/Vol] 81 mg/dL 0-100 [facility] Comment on above: LDL ATP III CLASSIFI CATIONLDL less than 100 mg/dL OptimalLDL 100-129 mg/dL Near or above optimalLDL 130-159 mg/dL Borderline highLDL 160-189 mg/dL HighLDL greater than 189 mg/dL Very high Cholesterol in VLDL Calc [Ma ss/Vol]Ordered By: Rosita Jim on 09-02-2022 Cholesterol in VLDL [Mass/Vol] 17 mg/dL [facility] Comprehensive Metabolic Pane clive 09-02-2022 Albumin [Mass/Vol] 4.6 g/dL Normal 3.5-5.7 [facility] Comment on above: Order Comment: Reaso n for Exam Essential (primary) hypertension Performed By: #### C MP, LIPID, TSH3 wRFLX #### [facility] [address] Albumin/Globulin [Mass ratio] 1.9 {ratio} Normal [facility] Comment on above: Order Comment: Reaso n for Exam Essential (primary) hypertension Performed By: #### C MP, LIPID, TSH3 wRFLX #### [facility] [address] [place] [address] ALP [Catalytic activity/Vol] 46 U/L Normal 34-104 [facility] Comment on above: Order Comment: Reaso n for Exam Essential (primary) hypertension Performed By: #### C MP, LIPID, TSH3 wRFLX #### [facility] [address] [place] [address] [place] ALT [Catalytic activity/Vol] 14 U/L Normal 7-52 [facility] Comment on above: Order Comment: Reaso n for Exam Essential (primary) hypertension Performed By: #### C MP, LIPID, TSH3 wRFLX #### [facility] [address] [place] [address] [place] Anion gap [Moles/Vol] 14.6 mmol/L Normal 6.0-15.0 [facility] Comment on above: Order Comment: Reaso n for Exam Essential (primary) hypertension Performed By: #### C MP, LIPID, TSH3 wRFLX #### [facility] [address] [place] [address] [place] AST [Catalytic activity/Vol] 13 U/L Normal 13-39 [facility] Comment on above: Order Comment: Reaso n for Exam Essential (primary) hypertension Performed By: #### C MP, LIPID, TSH3 wRFLX #### [facility] [address] [place] [address] [place] Bilirubin [Mass/Vol] 0.6 mg/dL Normal 0.3-1.0 [facility] Comment on above: Order Comment: Reaso n for Exam Essential (primary) hypertension Performed By: #### C MP, LIPID, TSH3 wRFLX #### [facility] [address] [place] [address] [place] Calcium [Mass/Vol] 9.3 mg/dL Normal 8.6-10.3 [facility] Comment on above: Order Comment: Reaso n for Exam Essential (primary) hypertension Performed By: #### C MP, LIPID, TSH3 wRFLX #### [facility] [address] [place] [address] Chloride [Moles/Vol] 104 mmol/L Normal 98-107 [facility] Comment on above: Order Comment: Reaso n for Exam Essential (primary) hypertension Performed By: #### C MP, LIPID, TSH3 wRFLX #### [facility] [address] [place] [address] [place] CO2 [Moles/Vol] 22.4 mmol/L Normal 21.0-31.0 [facility] Comment on above: Order Comment: Reaso n for Exam Essential (primary) hypertension Performed By: #### C MP, LIPID, TSH3 wRFLX #### [facility] [address] [place] [address] [place] Creatinine [Mass/Vol] 0.73 mg/dL Normal 0.60-1.20 [facility] Comment on above: Order Comment: Reaso n for Exam Essential (primary) hypertension Performed By: #### C MP, LIPID, TSH3 wRFLX #### [facility] [address] [place], [place] [id number] [place] GFR/1.73 sq M.predicted MDRD (S/P/Bld) [Vol rate/Area] mL/min/{1.73_m2} Normal [facility] Comment on above: Order Comment: Reaso n for Exam Essential (primary) hypertension Performed By: #### C MP, LIPID, TSH3 wRFLX #### [facility] [address] [place] [address] [place] Globulin (S) [Mass/Vol] 2.4 g/dL Normal [facility] Comment on above: Order Comment: Reaso n for Exam Essential (primary) hypertension Performed By: #### C MP, LIPID, TSH3 wRFLX #### [facility] [address] [place] [id number] [facility] Glucose [Mass/Vol] 75 mg/dL Normal 70-100 [facility] Comment on above: Order Comment: Reaso n for Exam Essential (primary) hypertension Result Comment: [facility] Glucose Reference Range is dependent on time and content of last meal. Glucose of more than 200 mg/dL in a nonstressed, ambulatory subject supports the diagnosis of Diabetes Mellitus. ADA recommended reference range Performed By: #### C MP, LIPID, TSH3 wRFLX #### [facility] [address] [place] [address] Potassium [Moles/Vol] 4.0 mmol/L Normal 3.5-5.1 [facility] Comment on above: Order Comment: Reaso n for Exam Essential (primary) hypertension Performed By: #### C MP, LIPID, TSH3 wRFLX #### [facility] [address] [place], [place] [id number] [place] Protein [Mass/Vol] 7.0 g/dL Normal 6.4-8.9 [facility] Comment on above: Order Comment: Reaso n for Exam Essential (primary) hypertension Performed By: #### C MP, LIPID, TSH3 wRFLX #### [facility] [address] [place], [place] [id number] [place] Sodium [Moles/Vol] 137 mmol/L Normal 136-145 [facility] Comment on above: Order Comment: Reaso n for Exam Essential (primary) hypertension Performed By: #### C MP, LIPID, TSH3 wRFLX #### [facility] [address] [place], [place] [id number] [place] Urea nitrogen [Mass/Vol] 13 mg/dL Normal 7-25 [facility] Comment on above: Order Comment: Reaso n for Exam Essential (primary) hypertension Performed By: #### C MP, LIPID, TSH3 wRFLX #### [facility] [address] Creatinine [Mass/volume] in Serum or PlasmaOrdered By: Rosita Jim on 09-02-2022 Creatinine [Mass/Vol] 0.73 mg/dL 0.60-1.20 [facility] Globulin Calc (S) [Mass/Vol] Ordered By: Rosita Jim on 09-02-2022 Globulin (S) [Mass/Vol] 2.4 g/dL [facility] Glucose [Mass/volume] in Ser um or PlasmaOrdered By: Rosita Jim on 09-02-2022 Glucose [Mass/Vol] 75 mg/dL 70-100 [facility] Comment on above: ADA recommended refe rence rangeRandom Glucose Reference Range is dependent on time and content of last meal. Glucose of more than 200 mg/dL in a nonstressed, ambulatory subject supports the diagnosis of Diabetes Mellitus. Lipid Panelon 09-02-2022 Cholesterol [Mass/Vol] 150 mg/dL Normal 140-200 [facility] Comment on above: Order Comment: Reaso n for Exam Essential (primary) hypertension Result Comment: Chol less than 200 mg/dl low risk Chol 201-239 mg/dl borderline risk Chol 240 mg/dl and greater high risk Performed By: #### C MP, LIPID, TSH3 wRFLX #### [facility] [address] [place] [address] [place] Cholesterol in HDL [Mass/Vol] 52 mg/dL Normal 35-85 [facility] Comment on above: Order Comment: Reaso n for Exam Essential (primary) hypertension Result Comment: HDL CHOL ATP-III CLASSIFICATION Cardiovascular Risk HDL > or equal to 60 mg/dL LOW HDL < 40 mg/dL HIGH Performed By: #### C MP, LIPID, TSH3 wRFLX #### [facility] [address] [place] [id number] [facility] UNIT Cholesterol.total/Radha sterol in HDL [Mass ratio] 2.9 {ratio} Normal <5.0 [facility] Comment on above: Order Comment: Reaso n for Exam Essential (primary) hypertension Performed By: #### C MP, LIPID, TSH3 wRFLX #### [facility] [address] LDL Cholesterol,Calculated 81 mg/dL Normal 0-100 [facility] Comment on above: Order Comment: Reaso n for Exam Essential (primary) hypertension Result Comment: LDL ATP III CLASSIFICATION LDL less than 100 mg/dL Optimal LDL 100-129 mg/dL Near or above optimal LDL 130-159 mg/dL Borderline high LDL 160-189 mg/dL High LDL greater than 189 mg/dL Very high Performed By: #### C MP, LIPID, TSH3 wRFLX #### [facility] [address] [place] [address] Triglyceride w/Reflex 85 mg/dL Normal 0-149 [facility] Comment on above: Order Comment: Reaso n for Exam Essential (primary) hypertension Result Comment: TRIG ATP III CLASSIFICATION TRIG less than 150 mg/dL Normal TRIG 150-199 mg/dL Borderline high TRIG 200-500 mg/dL High TRIG greater than 500 mg/dL Very high Standard traceable to the Center for Disease Conrtrol and Prevention (CDC) test method. Performed By: #### C MP, LIPID, TSH3 wRFLX #### [facility] [address] [place] [address] VLDL CHOLESTEROL 17 mg/dL Normal [facility] Comment on above: Order Comment: Reaso n for Exam Essential (primary) hypertension Performed By: #### C MP, LIPID, TSH3 wRFLX #### [facility] [address] [place] [address] No Panel InformationOrdered By: Rosita Jim on 09-02-2022 Estimated GFR (CKD-EPI) > 60.0 mL/Min [facility] Creatinine Clearance (Chem N/A [facility] Potassium [Moles/volume] in Serum or PlasmaOrdered By: Rosita Jim on 09-02-2022 Potassium [Moles/Vol] 4.0 mmol/L 3.5-5.1 [facility] Protein [Mass/volume] in Ser um or PlasmaOrdered By: Rosita Jim on 09-02-2022 Protein [Mass/Vol] 7.0 g/dL 6.4-8.9 [facility] Serum or plasma albumin/glob ulin mass ratioOrdered By: Rosita Jim on 09-02-2022 Albumin/Globulin [Mass ratio] 1.9 {ratio} [facility] Serum or plasma anion gap de terminationOrdered By: Rosita Jim on 09-02-2022 Anion gap [Moles/Vol] 14.6 mmol/L 6.0-15.0 [facility] Serum or plasma high density lipoprotein (HDL) cholesterol measurementOrdered By: Rosita Jim on 09-02-2022 Cholesterol in HDL [Mass/Vol] 52 mg/dL 35-85 [facility] Comment on above: HDL CHOL ATP-III CLA SSIFICATION Cardiovascular RiskHDL > or equal to 60 mg/dL LOWHDL < 40 mg/dL HIGH Serum or plasma total choles terol/high density lipoprotein (HDL) cholesterol mass ratOrdered By: Rosita Jim on 09-02-2022 Cholesterol.total/Radha sterol in HDL [Mass ratio] 2.9 {ratio} <5.0 [facility] Sodium [Moles/volume] in Ser um or PlasmaOrdered By: Rosita Jim on 09-02-2022 Sodium [Moles/Vol] 137 mmol/L 136-145 [facility] Thyroid Stim Hormone w/Rflxo n 09-02-2022 Thyroid Stim Hormone w/Rflx 1.10 u[iU]/mL Normal 0.45-5.33 [facility] Comment on above: Order Comment: Reaso n for Exam Essential (primary) hypertension Result Comment: PERF ORMED BY: [place] [address] PATHOLOGIST RADIOLOGY ORDERLY FINESSE SPAULDING M.D. Performed By: #### C MP, LIPID, TSH3 wRFLX #### [address] Thyrotropin [Units/volume] i n Serum or PlasmaOrdered By: Rosita Jim on 09-02-2022 TSH Qn 1.10 m[IU]/L 0.45-5.33 [facility] Triglyceride [Mass/volume] i n Serum or PlasmaOrdered By: Rosita Jim on 09-02-2022 Triglyceride [Mass/Vol] 85 mg/dL 0-149 [facility] Comment on above: TRIG ATP III CLASSIF ICATIONTRIG less than 150 mg/dL NormalTRIG 150-199 mg/dL Borderline highTRIG 200-500 mg/dL High TRIG greater than 500 mg/dL Very highStandard traceable to the Center for Disease Conrtrol and Prevention (CDC) test method. Urea nitrogen [Mass/volume] in Serum or PlasmaOrdered By: Rosita Jim on 09-02-2022 Urea nitrogen [Mass/Vol] 13 mg/dL 7 [facility] Coding Summary.on 05-25-2022 Coding Summary. CD:[id number] G h0bWw+PGhlYWQ+XO6AVXI mK16woELcgM3BD5lHXD1M BFQJPXDCTS5JHC3nvGX8Y XgtC4FtazJl QlgmhTSyWY19MXj2ZET4g ZahCPrjjO0ctHYoL1m0Gz UeCH63yF08VSygYIRvJdD 3LjZpbjsgbWFy W5xgIaGhmBCnPrq+PHRhY mxlIHdpZHRoPScxMDAlJy EezDsyUD1mVm3jGAElGQB vbGxhcHNlOiBj k6jaNBBmKSavIP4fmEadH 6FuhLJ8IADbj4u1We72kC I+EEHoHYY3yYibXSygk31 6MpDpo4goBKG5 fFVsNRaiOIQ4H14pn8Y7E ICcGBHxHRF2nWJ0vD9ttW qfrsjaF0NlcDOkDkW7PPK 0cBMmsE3hvLgi xieqoN3cLmr+Q57DJC4FJ LEYUH6YWmb6T7VpVibjiR I+UP52LDTtFF56lQMdgKK qn3pznJf9OtAp DVKnCPZ9wEymZYqty6IkY JWgN86pxEVzv1H6BLQuuX aacBYzZrPjsBO8jG3hMRg nbdfab7zwfegt Gsvfg9pvnk45oA53N75tT WlwRPYbFLH5XRDwDBBviV mtzv0zsY1oDs6+TBvla1o ih7ttmWx8DbYs LCFhifDgsPbpODO2v8BmA p35K3LuhOlgj8UlTep8tb 51uVGja8Y3oRF1IFhbPNY jjN2fFOpdPdD0 PWOzQdWrhZ86yEDuBIlaT j7qnSsdiBdzBB9bWCVfhf mbOEAvxL4mNOQciJGbwOg kXX4dKQEvozaj y933ApDzDIK9OIAzxMKlW 7OguJ2mIiKiALQhGSPtH2 UfjXItHMzsP705YGpnZoS 6GCNzudQvW5Kd STXcyPfhPbV0i1C7Wk9Lw 1YrsvksVGK9IJyzGCJlKu WsPeFuMeE1B5UnTjh4WHF jgYxpFY3mE0Ml EKUnnvodtkoivPE0NJSiJ SXhiA93eOKnQJtgGc1wn9 T6h142CDCpRTStlH46Lb8 udDogMTBwdCBU uM0ajdvqo0fvmohxCbXeV HAaHDq6ISx7TKMafIuaSg BkGPV8DuL4QXP8zJGokB4 spWrxemkveO6x Oyc+B32onP3sJUR7XTP2s eerNYVpkoSvOV61PL36P9 RyPjwvdGFibGU+PGRpdiB eiWdrQY7nEwGi n7gtz3ApGPvdE9SuFWNqC YjbKfw4TPIaJES3qPA2mN 4dNDEwCWqql7G0rKV8E9O ydrFgpi6ib6gd JSDsBZdxP53dxQPhi6Q9C SGqcQO0GQMhqYtbWmNhqI 93Oyc+VMYawXwlz4WxZaq rf1kzu4eitYi3 NlYuIKQldxIajEskAYC0t 7UsBm11C61pPLmiGAWmBL YhWGCeJTMhnHlpkb0vuB3 wIi8+PGNvbCB3 zYW7bI8nZYSiGnW9TArfF 526QhJzmKFzLzemy6szc4 vviTy2DdFxYEMmavBdaCc zCUX7g4FiAf73 Y53lHWsqQVFbEAVqBMFgS PQwyGrdab3zdD4kLp7+PC 7er2jasa94eE51tCB+PHR uLQC4oEgoSWkv JYEshO7qMPtbKdT0AEDrE wXdpO23gFLhYVhvNm5zaU mmiKlaVG9rHDYnkewcb49 9ZvLlq8axOOJc iKVnZYypBQA9D47xn8N7A GHoBTUoOXK2oGJ6aO9bbA lnbjogbGVmdDsgdmVydGl iHAdcNMzvE765 IHRvcDsnPlBhdGllbnQgT sVsVEk8C5LpKjk7TWLlqZ rdVI4cgERmBLxmBz0zlSf tkLvcOR2nLJXk hlsqs923YuVbg9sdQOSkb KUkABivNWL0J09cx9Z9GJ IrLORuSFB3aQT7dH1ycQr nbjogbGVmdDsg wbXvdJiuQNrwMOjjO565A HRvcDsnPkJpcnRoIERhdG X3QL27PW04yKLns2R1aMJ 6I0SpCZIaueyf ygwzaUT7DYMgVMQpzT59Q o5dfEecSf3wFBGwODF0GG YvuLEgG6MacX1kJtUmRSQ zBOAgT9AbcSSk YMilH448YHzkLuH3UJMsr fAdL8SmYNVcvXgzJqO7n4 W0Rg0GL5Z1RV55SF51hVV gj2S9kKP8C0Id GYSynnsjcapgvPB8ASVrD NWniT22Uv9krLrrRr7zCO BqUWF5NTPzuNSdO4IpiU6 yOiAjMDAwMDAw Q7XmcSAdJRpyJ311DTgdC kR8KHSgzaVaF8UvTSSjsH tcAjG2b6Y2Qr3HJZf6HY3 9HG63gRWwe1N1 yGW5M2NvEAHozifblujwk QS2QBXcRZRirB42Mj5jrP ngDy8sBFNtNRQ3PQWlxSB wN7NatR2uKzLo SGUmZAJzI6TrzRYtORzcW 594VCarRwY8TVTwyvAkP2 OfIEChlXhyDbO5a3Q1Ou9 SPTHwJP00XJG2 eCY1KH21OU16B2GlYrmhq GFibGU+PHRhYmxlIHdpZH RoPScxMDAlJyBzdHlsZT0 kSq2xDJKnHXEu fAdhiVIgHnPle8yiINVbK KypUJ4fhAniG5KjjOF8PG Ydi8o8Rn27T64zS4GljZU +BMAbgVX3uCR3 jM7hLqAyJiA4AOwbK217L qCsoZFgDekpn3lwk6ewxR c4IbK4OEUuzbTmcCfcKDP 2b5BoZd10O05b IHdpZHRoPSIxNSUiIHZhb Vcxda3npG6aDb2+PGNvbC F1bUY2bG1gMqSkCsH7FVz tH304WjQnbSYz Ejatb2ddd6adkNv2RtLfM SFyqfEqvWabVPM3n9CvXp 37I8PsnHyfc7OjYsn9uj2 0gXUvd6V7pDS9 L1VaCVEfpoorjRKslTnsS Z3sSXQauehdGAPazP5jFH EeY3o9VnQoFaK6MWlzA7T ugdB9MLWtyYYa FIjiDZL7T42bx2J8MPUyC CNiUNK1yTW9wT5lgRanys ogbGVmdDsgdmVydGljYWw qNMyqG640NEWm pQqwPDHsyM6mDLGlxVBjx ErnVY9cLLJnvkwsXxYQMM tJTiwgSkVOTklGRVIgTDw vdGQ+PHRkIHN0 jCfvDCrcJWPauU2dMBJoD 2z9BlEwLuE5AZmnS7XrCD KeavroFy98iY9wLsHlNrV 1LZmhQ4YwfkE4 LKSmsSQbUVzkJJE3X82gc 3K2OGBwPXItYAF2iOA4yQ 1hbGlnbjogbGVmdDsgdmV ydGljYWwtYWxp L686SLCekSexXlJ5ZkZ2Z tD2BxO0L3OuUsh7BNWseJ orFW9vtMZbOLzzFy9ljOg cwLkbES8kOFPd yitpLAPqxI8mQEDofHZkz PvxZN9yDMXavqthc107Wl YqSHP7HLDupBUgY5CyxD0 yOiAjMDAwMDAw E9IssVYmSZkjM833GYmkB rS4FQVrmiUaP7TxIOLjcD vfUhT8y9J0Rl64JLEYVSP yczwvdGQ+PHRk PGV5yUzuLGzvTHBlcY2eG VVcC3y5NgWiKrV8EPmxO2 VsUXZjkjqyJi52rS9dXkO hAiT6WJapF7Ss jaE2ADEskNNtOLitTQO6U 77ho4O3ZQImGDCtJNT2bB G0yP9ojSmshmuuvKDjxQi gdmVydGljYWwt WEcuC482TNDkoDmkAlNzl WFsZTwvdGQ+QJNqBZP0eT hyYUruBASsiI3xHSDxX0h 3KsJwQcN7QNci R7HpIMYsrzslFz82dW8bT bWhPhD2EVxuS1TlrfT3XU EftPKsFQaiVBX8R07qh0M 9KGTdNWWzKUM6 bEV8xN5ogMuvqoeluZGyl DsgdmVydGljYWwtYWxpZ2 28XPDqzGnkIg99nYGviTw gcnO7K9CcVljn dHI+IZ44MWDsHR18nWAmw ABar1uahCv4WqHjEYCaXN S0fXmaLGhny3EpFWYgY01 jxGEjn0M9NOYr qUdthLXiXrGjyVS2dD6hT Hpazrgrt8qkixngImevk7 pggz44bM92X40oUJhaWAP oPSIzMCUiIHZh vSqkzd9koP7fYj8+PGNvb LM5hWM1xI5wTkAbVpP0YR uyC942XkWuwSXyGkoua7a ev5gbzVt6LbEi DOMqloCftDzzFPH9u2SmP y01S41eEVhrOHZkVHXfHZ YbSNJtdJqxse3dtB6kGz0 +QJ8sf0abku75 fM56uFD+LRWhHNS4zCqcY EcnCJGvpJ3sCCzaPfB0TQ PdEmNwgD86uZWxLWehJe2 ukHlthHsmCX9b LXQsafhxc128IcOor9haG IQzmBSsJDnkUNR4D52jt8 B9ZRSeYPItVRY2vYM8sH9 hbGlnbjogbGVm dDsgdmVydGljYWwtYWxpZ 092PNXbeFeaCcFajPWnU2 ptvfWPII6hZrkegQQ+PHR cHCB4aLqiJHkm LDSnvV0eBDPyY3k9PzWtK bV3EUhyD1WrlsH9GFEkhU EnOEVwqELJzV4rhfjgq4s vcjogIzAwMDAw OPk1RYa4HGPsrUkfVsBrS ZA0ChZ9NHI9oYBdlE7hpG gedspioI0tRrm+RklOOjw vdGQ+PHRkIHN0 xDjmOYepCDZvcG7eKQYdZ 8g3ZmWkOvU2VGytA3Hmdw X9IANasPXhUYFeqXHNhS0 kfsjhc1zjqbtq EqOsZSGfLMi3YOj5NIRge LwpUoObYMU2PbM1XMK2zH JkpQ8olNwdxrkshH9cZvu +TVJOOjwvdGQ+ BXQzJCW2cGeoHSrdCCZka U0rZADtP3p3MoPtStL2KF bzZ5LzzdD3GRXvcDSoDCK niEIQuD4pkoan g0wpiujaLuXkOFGkFPk2X Vp0UDJraYzoKbUsPJD7Wx N6BIK5iTSfiS9npStqbtd irK5cJxp+UGF5 LWG7CK47FF16U1WfRbylr GFibGU+PHRhYmxlIHdpZH RoPScxMDAlJyBzdHlsZT0 jQh6hIAJvTTJp bGxh (more content not included)... Normal [facility] Consent for Procedure/Surger yon 05-24-2022 Consent for Procedure/Surgery [id number] .00CD:[address] [facility] Consent for Treatmenton Consent for Treatment [id number]#1 .00CD:[address] [facility] Inpatient Patient Summaryon 05-24-2022 Inpatient Patient Summary [address] [address] Clinical Summary Person Information Name: JERRICA ROD Age: 47 Years : 1975 Sex: Female PCP: ROSITA JIM CNP Marital Status: Phone: [phone] Race: White Ethnicity: Non- or Language: Guatemalan Visit Id: Visit Reason: RECURRENT UTI STRESS INCONTINENCE Speciality: Acuity: Enc Type: Outpatient Med Service: Surgery Arrival: 05/24/2022 08:50:57 Discharge: Dispo Type: Address: [address] [phone] Provider Notes: Diagnosis: Dysuria; Recurrent UTI; Stress [...] Follow up: With: Address: When: Cherelle Aragon [facility] Nitin Rocha, [facility] [address] [place] [id number] [phone] Business (1) Comments: Office to schedule follow up in 1 month With: Address: When: Cherelle Aragon Patient Education Information: EU - Cystoscopy with Urethral Dilation Discharge Instructions (CUSTOM) Normal [facility] IntraOperative Documentson 0 05-24-2022 IntraOperative Documents [id number] .00CD:[address] [facility] Main OR Intraoperative Recor don 05-24-2022 Main OR Intraoperative Record IntraOp Document Type FTURO Summary Primary Physician: Cherelle Aragon MD Finalized Date/Time: 05/24/22 10:14:19 Pt. Name: JERRICA ROD Elizabet GarciaB./Sex: 1975 Female Med Rec #: [id number] Physician: Cherelle Aragon MD Financial #: [id number] Pt. Type: O Room/Bed: / Admit/Disch: 05/24/22 08:50:57 - Institution: Case Times FTURO Entry 1 Patient Times In Room 05/24/22 09:56:00 Out Room 05/24/22 10:14:00 Procedure Times Start 05/24/22 10:05:00 Stop 05/24/22 10:10:00 Anesthesia Times Last Modified By: Karuna Youssef RN 05/24/22 10:14:03 Case Attendance FTURO Entry 1 Entry 2 Entry 3 Case Attendee Mahesh PEREZ, Cherelle Olivas SILVERER, Marisol Youssef RN, Karuna Patel Performed Surgeon - Primary Scrub - Primary Social Media Job Titles - Primary Time In 05/24/22 09:56:00 05/24/22 09:56:00 05/24/22 09:56:00 Time Out 05/24/22 10:14:00 05/24/22 10:14:00 05/24/22 10:14:00 Procedure CYSTOSCOPY LOCAL WITH CYSTOSCOPY LOCAL WITH CYSTOSCOPY LOCAL WITH URETHRAL DILATION(.) URETHRAL DILATION(.) URETHRAL DILATION(.) Comments Last Modified By: Domonique PRASAD, Karuna Youssef RN, Karuna Gaytan RN 05/24/22 10:14:04 05/24/22 [...] Position Verified Availability Equipment, Medication Time Out Cherelle Aragon MD, Verified (If Participants BrendonMarisol frazier CST, Applicable) Karuna Youssef RN Time Out [...] By: Karuna Youssef RN 05/24/22 10:[address] [facility] Main OR Preoperative Recordo n 05-24-2022 Main OR Preoperative Record Holding Area Document Type FTURO Summary Primary Physician: Cherelle Aragon MD Finalized Date/Time: 05/24/22 09:38:31 Pt. Name: JERRICA ROD Elizabet Castillo./Sex: 1975 Female Med Rec #: [id number] Physician: Cherelle Aragon MD Financial #: [id number] Pt. Type: O Room/Bed: / Admit/Disch: 05/24/22 [...] No Pain Comment: na Skin Integrity Intact, [place], Warm, & Dry Vitals - EU Blood Pressure 112/70 Pulse 85 bpm Respirations 18 br/min SPO2 98 % RN Reviewed Yes Last Modified By: Karuna Youssef RN 05/24/22 09:38:29 General Comments: temp:36.2 Finalized By: Karuna Youssef RN Document Signatures Signed By: Attila JACOBOSusi 05/24/22 09:09 Karuna Youssef RN 05/24/22 09:[address] [facility] Operative Reporton Operative Report Patient: JERRICA ROD Age: 47 years Sex: Female : 1975 Associated Diagnoses: None Author: Cherelle Aragon MD Procedure Operative Information Details: Date/ Time: 05/24/2022 10:15:00. Pre-Op Dx: Dysuria (MBD49-ZB R30.0, Discharge, Medical), Recurrent UTI (IPZ75-RV N39.0, Discharge, Medical), Stress incontinence (XBO30-UU N39.3, Discharge, Medical). Post-Op Dx: Dysuria (ALN69-YX R30.0, Discharge, Medical), Other urethral stricture, female (LIL41-TF N35.82, Billing Diagnosis, Medical), Recurrent UTI (YSF08-PP N39.0, Discharge, Medical), Stress incontinence (ZJR50-EP N39.3, Discharge, Medical). Anesthesia Type: Local. Procedure: [...] urine. The Urethra was dilated to: 22 [place] w/ sounds. Devices Implanted: None. Removal: Cystoscope [...] Follow up in [address] [facility] Comment on above: Result Comment: Elec tronically Signed By: Cherelle Aragon MD\.br\Date and Time Signed: 05/24/22 10:18 EST Outpatient Surgery Discharge Instructionon 05-24-2022 Outpatient Surgery Discharge Instruction [address] [address] Patient Discharge Instructions PERSON INFORMATION Name: JERRICA ROD Date of : 1975 Current Date: 05/24/2022 10:12:14 PHYSICIANS Admitting Physician: Cherelle Aragon MD Comment: Discharge Diagnosis: Dysuria; Recurrent UTI; Stress incontinence JERRICA ROD has been given the following list of follow-up instructions, prescriptions, and patient education materials: IF UNABLE TO CONTACT YOUR PHYSICIAN AND YOU FEEL IT IS AN EMERGENCY, GO TO THE NEAREST EMERGENCY ROOM OR CALL 911 Follow up: With: Address: When: Cherelle Aragon [address] [place], [place] [phone] [facility] (1) Comments: Office to schedule follow up [...] you have a fever over 100 degrees IALVIN JENNIFER L, have received the attached patient education materials/instruction [...] to serve you. Thank you for choosing [facility] Normal [facility] PAP ACOG PANEL 2: 30 to 65on 05-07-2022 . . Normal [facility] Comment on above: Result Comment: Perf ormed at: WB Performed By: #### [id number] #### [facility] [address] [place] [address] Dr. Evy Boothe Age Gdln ACOG Testing 30-65 Normal [facility] Comment on above: Performed By: #### 4 [id number] #### [facility] [address] [address] [address] Evy Boothe DIAGNOSIS: Comment Abnormal [facility] Comment on above: Result Comment: EPIT HELIAL CELL ABNORMALITY. ATYPICAL SQUAMOUS CELLS OF UNDETERMINED SIGNIFICANCE (ASC-US). Performed at: WB Performed By: #### 4 [id number] #### [facility] [address] [address] [address] Evy Boothe Electronically signed by: Comment Normal [facility] Comment on above: Result Comment: Dolly Guthrie MD, Pathologist Performed at: WB Performed By: #### 4 [id number] #### [facility] [address] [place] [address] [address] Evy Boothe HPV Aptima Positive Abnormal Negative [facility] Comment on above: Result Comment: This nucleic acid amplification test detects fourteen high-risk HPV types (16,18,31,33,35,39,45,51,52,56,58,59,66,68) without differentiation. Performed at: =G Performed By: #### 4 [id number] #### [facility] [address] [place] [address] Dr. Evy Boothe HPV Genotype Reflex Comment Normal [facility] Comment on above: Result Comment: Crit eria not met, HPV Genotype not performed. Performed at: WB Performed By: #### 4 [id number] #### [facility] [address] [place] [address] Dr. Evy Boothe Methodology: Comment Normal [facility] Comment on above: Result Comment: This liquid based ThinPrep(R) pap test was screened with the use of an image guided system. Performed at: WB Performed By: #### 4 [id number] #### [facility] [address] [place] [address] Dr. Evy Boothe Note: Comment Normal [facility] Comment on above: Result Comment: The Pap smear is a screening test designed to aid in the detection of premalignant and malignant conditions of the uterine cervix. It is not a diagnostic procedure and should not be used as the sole means of detecting cervical cancer. Both false-positive and false-negative reports do occur. . Performed at: WB Performed By: #### 4 [id number] #### [facility] [address] [address] [address] Evy Boothe Pathologist Provided ICD10 Comment [facility] Comment on above: Result Comment: R87. 610 Performed at: WB Performed By: #### 4 [id number] #### [facility] [address] [address] [address] Evy Boothe Performed by: Comment Normal [facility] Comment on above: Result Comment: Jonna Motta, Behavioral Health Rn (ASCP) Performed at: WB Performed By: #### 4 [id number] #### [facility] [address] [address] [address] Evy Boothe Recommendation: Comment Abnormal [facility] Comment on above: Result Comment: Sugg est follow up as clinically appropriate. Performed at: WB Performed By: #### 4 [id number] #### [facility] [address] [address] [address] Evy Boothe Specimen adequacy: Comment Normal [facility] Comment on above: Result Comment: Sati sfactory for evaluation. Endocervical and/or squamous metaplastic cells (endocervical component) are present. Performed at: WB Performed By: #### 4 [id number] #### [facility] [address] [place] [address] Dr. Evy Boothe Consultation Noteon 05-06-20 Consultation Note [id number] .00CD:[address] [facility] Screenson 05-06-2022 Screens [id number] .00CD:[address] [facility] Ambulatory Visit Summaryon 1 07-06-2021 Ambulatory Visit Summary ALVIN JERRICA L :1975 Visit Date:05/05/2022 Ambulatory Visit Instructions Your [...] Follow-Up Appointments Tuesday 10:30 AM EST Where: [facility] Tuesday 9:30 AM EST Where: [facility] Medications What How Much [...] for. Dysuria Recurrent UTI Stress incontinence Normal [facility] Patient Educationon 05-05-20 Patient Education Urology [...] may irritate the prostate. Medicines ? Take alkv-vsf-fppxcpe and prescription medicines only as told by [...] 01/28/2005 Document Revised: 04/14/2018 Document Reviewed: 02/16/2018 [employer] Patient Education ? 2019 [employer]. Jeimy Cabello [facility] Urology Office/Clinic Noteon 05-05-2022 Urology Office/Clinic Note Chief Complaint New Pt * Recurrent UTI HPI Staff Pt is a new pt, never before seen in our office. [facility] 03/29/22 due to BL flank pain and bladder pain. Pt c/o recurrent UTI. Given Pyridium & Tamsulosin. Pt was taking Cipro prior to ER from [employer], was switched to Macrobid. CT done 03/28/22. Denies current pain/burning and blood in urine. Painful urination and frequency with infection. As well as back pain. 2 UTI's in past 3m. States the pain during urination is unbearable with the infections. Pt's [employer] (Dr Gregg) recommend she see Dr Aragon [...] Urnls Dip Stick Auto w/o Microscopy POC 23290 Follow-up With When Contact Information Mahesh PEREZ, Cherelle German, URL, [facility] [address], [place] [phone] Additional Instructions: schedule Cysto and possible UD Patient Education Dysuria Katelynn Galarza , personally scribed for Dr. Aragon on 05/05/2022 11:47:43. . Documentation recorded by the scribe, Katelynn Seymuor, accurately reflects the services(s) I performed and decisions made by me. Authenticated by Dr. Aragon on 05/05/2022 12:07:07. (more content not included)... Normal [facility] Comment on above: Result Comment: Elec tronically Signed By: Cherelle Aragon MD\.br\Date and Time Signed: 05/05/22 12:08 EST\.br\Electronically Co-Signed By: Katelynn Seymour\.br\Date and Time Co-Signed: 05/05/22 11:48 EST MG MAMM SCREEN 3D TJ CADon 04-21-2022 MG MAMM SCREEN 3D TJ CAD Patient: JERRICA ROD Exam Date: 04/21/2022 : 1975 Gender:F Ordering : DR CHAKA GREGG . Admission #: [id number] Family : Order #: [id number] CLICK HERE TO VIEW EXAM RADIOLOGY REPORT [...] breast cancer at age 44. LOCATION: [facility] BREAST COMPOSITION: Heterogeneously dense,which may obscure small [...] Lopez MD on 04/22/2022 at 08:53 Normal [facility] Discharge Instructionson Discharge Instructions [id number]# 1.00CD:[address] [facility] Comment on above: Other Comment: gilma barksdale Coding Summary.on 03-31-2022 Coding Summary. CD:[id number]:[id number] G h0bWw+PGhlYWQ+NW8DEAZ jB08bdIXfmT5GX2jVQH0F BYWCKFPOTO2PPR3xdPS8J CrrY9MgspFt JtodaFFtXJ52KEk2VCY0l KdkPBfczQ0nnMWrH0c6At UbVW66mI03YIljTOQbSkE 3LjZpbjsgbWFy R0xwZyYgmMGaWny+PHRhY mxlIHdpZHRoPScxMDAlJy PimNclQH4iWy5gSBIzWXW vbGxhcHNlOiBj d2lqPTQrNTcaHG7kgZyqS 3GypNV8EJWkt1r0Ok84yP I+YCVcBGI7pCyfQJykl97 9DdFde0fuOVL0 jCXtSLtcEWU5C85cs4Z8C LGsITKsYSE3sMS4mL3zkL scxkbdP4EfyYMoCdW9ZLJ 4vVQekC7lwJns wjinoJ1uMai+W45QXJ9ZN TWABY5EGws2H6FkMcygeG I+CG32LCOrXO21lYLksWD up7mppCq6OfDm HTGlAHB3fOsnJBevb4WxW GDyK99cmJTzy5N7XYEtfD tklBXmDrNucQB8qT5kAYm nchyef2qlmkpl Gxlen2dbfd28uJ21S23pI VwdMHOyAZP6LAWtWVVfyT letf4dzH4jEt9+ESqjq9m ni9jgfDu2DeEz LCFaraWfpGqtVCG2o5GeB h45E8LufNtqv2XiGyt9kk 48dPTuh6J9bQQ0KLofBRR aiS9jPWygFkP1 ELGxQkEprN64tUAbDUhvN k1mdHnraScqQJ3bCCYxnr ykUEDcaQ2vEVIpoHKjyVs pRP5kAMPztdoj s973GiStKRV6FHUdtEYsL 5VvfQ3eKrZqEOCfXBPaA0 UtqCWmTAseC484JLknLhS 9XWRshcYoT6Bg FWDppQctLpT1d5M3Jm9Zs 4LnllawFVA9XZimTWKdLq A4AkBqNxJ2H8GdBdl3OUR ahWzfLU3qV1Iq UBKvhcalwstkvDK9WHOkC ETigJ60aEBdIAdfRm3pf1 E1r741YSLhDXNeuM76Zt4 udDogMTBwdCBU vB1jciwij1qfjlnqIeStE NDiBSi3LPo7ZQGvuIebDm MaELT5AkK3UJZ2fJVtoG5 hdXuhuizllM2d Oyc+E87tpX0zRLW3EIJ6t qhyABSazuWgKK33EK80I3 RyPjwvdGFibGU+PGRpdiB vxEoaKF4qTgLm g0qed8ZgZMtpG2ZxTVJyE PggJaz0IELlDSG6gYW2yP 4lCBUrCTsxj7F4bVK1T1T extJkid9kh8ph DTChCZawE94aoVNad9D1M VOoeZO0ARLzpTqqDdYizW 93Oyc+NBXbxBgzp3TsCri pr1oov9ssrFg2 AgTgVQMpzzDpoBqhXMM8e 9MbVx82T33dEVbyROKhTV DhTCTjWQQkcHwist3wzZ1 wIi8+PGNvbCB3 uCL6wR2wEIRmXgJ9KRfiP 844RcBiwUCkRxcak3ish5 ynyPs5UfVyBNKxcnLxeJt qJWM9e9HkPp95 D91yHGexRHKjZKWxFBDdE QGsuMuori4ciT3aDm0+PC 9pl3oema24pD45xZO+PHR fEZZ1rJroLBce SIRppI9vJPfaQcN4PLOiL fRfeI03lOJcRUwsCa0pxQ mpmHveMQ3hICHdtvluq41 3ItNdp3vaVZYt xRQcXVrvUDU2T22cq4G9Q XHiPKZfQLQ5sAS5dB0ohT lnbjogbGVmdDsgdmVydGl xOHsqPMzfV119 IHRvcDsnPlBhdGllbnQgT bNlSVv1G0YdHrf7USRfxX slKP1ocMFeYAflWs2xzFh ohDudER4bCYKn rkfir587CpDru0fdZTBlt LNdSYfcBNM5W51kt6Y9MD ZbBVZoULF5fHN0yE0svVu nbjogbGVmdDsg iuMtcNueCUjhZIjbC773F HRvcDsnPkJpcnRoIERhdG B1NI88SY52pRFzu4M2uGK 1Q4VoYIPstrwe vrfkmDZ0ACCiQKUcuU03C l8qgPjySp1oAFRwZHF8VF KkwFQqE5AabM9cHqIpGLS vTZThY0TzyCSe JSjuY081KAdcBhN2FFKwt tMpH7DsKXDyhOhxQiY7j6 H5Rl8XY2A7BP38GC52tWQ da4K6iUW5E9Dw JUVuvhitfpjhmVN6XMQpH IYfsI24Bf4nkJuiOl7bHW BaSIK1URXmgHGoU5TrgQ4 yOiAjMDAwMDAw A5EybZHpOUhqA683FWodQ bZ4ZUShisJpJ8QvQOSzlK xmJwQ6o8A7Qx3VZFv3FZ9 4HR63mDYhe1M8 pAG6B3AaHEJrothqfnogk PI1EJZaFRLdoR09Pn0fzZ mjFm4tKSWpTCC6ITXhdSA oG5UxyA1pWyMq UOFkVVWoV9VauUHfOOarI 491EGuyIbX8KTUzpqFqP3 WqSHNhvAipLcM4b4I7Lc4 PNWBhWK58XTB0 oXR2SW51JA80W6BxDvliy GFibGU+PHRhYmxlIHdpZH RoPScxMDAlJyBzdHlsZT0 jLa8aSLXpDUIm vQgghVOoDxMcm7syODDxD QpaRN6ubXyyJ1JgrFJ7PM Znv2p0Qp17F60gK5NfzKW +NKYyoLR3yUP5 fR9bIpOsMqG2SEkeO950A zQwjZCxVzgrf5ney1ebgV f9CbW2KCForjAkrXrbLJO 1i1OsEt97S06m IHdpZHRoPSIxNSUiIHZhb Hcdxc7qrA0lIo3+PGNvbC E5fPE1fH4sNzOuQtS9OBy lM879CwUkvBRr Rxcwd3oze4laiMu0RhKxX XDqbuOdiOzkIMR0b4BhPm 93R6UbfOekw2WpXoq1xd1 5qTSfu0B1mDJ8 P5RtFBQvfoonlHUphOnoM H6dZAQxnjkgNFDpkM3cWJ OtC8w4QyAvMnQ7CSelY9J ysmW8XPFezHEt FQymWXP9S76wu6F5TEPqO RLxFCR4eFB6mH2qtRsxzo ogbGVmdDsgdmVydGljYWw iKNvqS877MTAy cSguLUOnvC1pJOZptLIdn FhqBN2dVCOxhjwlDiJBMV tJTiwgSkVOTklGRVIgTDw vdGQ+PHRkIHN0 sPvwRUitQTTgbA0oKTDhR 9w9PeWcQoM7AYgfE9SqBI AgqvadTd77eM8sLeQfRgH 0HMbtM2DywpH8 MYAiiYOaGWosRBJ4W93zo 3S5KPQbCGWnQVK7cID8uE 1hbGlnbjogbGVmdDsgdmV ydGljYWwtYWxp J347AYLxdEvyJsV3FvH2E uV0LjA1H0VpUeo5ZDWgbK xsZC3ijCRgQPewSz9jdQl ngTsrDK8rWFMi pcjsAUZniN5pLJJmcEFiy DnwEB9xCAYdhcjph505Sv BqWHS3CSDfrPPuZ0ZrmK7 yOiAjMDAwMDAw U9BnqKTtJCdzF992RVlgT lE8QCBjsdNtQ8ZoTLWvdS iaXmT9j3Y4Kb14NVTFWCU yczwvdGQ+PHRk TGC1kXnfTVjwHLCdzQ5kY OSfC8l5CtZnTcZ7KLfwD0 UzSJAlikqaNg28dD3bQsM lIvQ7FFyuN6Sq emT3KNUzgXZuAIdjTUY8W 20mv1W8HRKkVSJhELM8nU I4sP9njGaoqwsarGUfvJg gdmVydGljYWwt ZYvxV778UUClzDicZoNgr WFsZTwvdGQ+WJWoRRP2uM olRFzgYZBpiV3kNRIvN2c 8JfXaClZ7KVbj T1UvEZVdgbhuQi98rD0zA gQrCsJ9KNtfA6XinxI5AS KfwFNeAMbgLIT7C63pm2X 5IEVcFGSnTMU1 gNU4mZ9dsJmgxeeelFCzp DsgdmVydGljYWwtYWxpZ2 82KQDozBbnCeOnZIXrEA9 jeTwvdGQ+PC90 pe13G7GpMaahKky2IHSqO HG8gBS2uD9eRSOiZWzgg6 P2yOE4I7IvomMwhq2cm0c qFNUmUHnfS67k vAJqq3M3KKMgfDK5INZgc ZdkIfBcvM13Yqx+PGNvbG ozp0TbBkwyv0hth7oglXp 9IjMwJSIgdmFs nRuzPXV3g8FrAt69T92hI HdpZHRoPSIzMCUiIHZhbG dwdy8tcQ4tUz0+PGNvbCB 2tRA5uA2wKuOk XiI9FAczJ940AjJleHGrI sbdf8sky0dxpUt1SnKrNF QyjuJuwIqqCYI4n9AoZc0 4Z0GbwHufy9Pf Fce2to42rRCvr9T2xZT7N 3BhZGRpbmctbGVmdDogMC 7cLPFuxbcrMGSaaZ9eBJK uP0j4XeLpXkO9 WKicP3UsgoG5MRGqgSIuS XCdwCRBvZ4xpzfjr3hqmq mzMmHsAXOkWBb9SSi9CGF saWduOiBsZWZ0 OfE7XXR7eYElfV1ekAroo zanoX5zVqm+KVb2y9kzmD NbPY0hmLJ9XM71KR86iYB lc3L9aEI1R8El ZBVorpftqdayfTP0VBWvH VSmxN27Rx9qvNxxEh5dTC IjMFE7XEFgqQYaP9IxgA1 yOiAjMDAwMDAw E7HwfKCbTBzgY561XFwvM rV0BSYhazDkB3ZdQOIjlZ arCiS5n6K5Pq4HLW51ZH1 8XK82cZXoo6K9 dAA7F9VwYKWbhwbrgzrrt VA3BQBuUFOofY04Lm3tyT zwSb7qVTRxYDR5XKWnaRA bK3EvlP5jNvNt MBBaPAOcV9EuaJRuQEkcI 036UPbnHxW7SREvvwYtD2 BcGDGhoPfwAzD8k6C7Ao2 RQl98RS76XS08 vHKjb4P0sYK3X8PjGFTzs cuzrfehoUY3BGOjEDLhvI 16Wc1ucPmjIy4tMMXwAMM 1JHKowVXwT3Sc eF3hUeSeORLeUUViS5Nve CGdYJylA610AFeiCqE8EI CebgZjO2ThUHQbpZbrOlQ 3m2V5Ew7UNVmp mhy3Q6IlQhrrgNH+PC90Y HFjDN65qPDxtHQbk8gmuL p4OwUlGSYlVQN1sTemKXw vs4GaUYHvC58j bGFw (more content not included)... Normal [facility] ED Note-Physicianon 03-31-20 ED Note-Physician Basic Information Time Seen: Humaira Lora PA-C 03/28/2022 15:59 Chief Complaint Pt reports dysuria [...] day(s), # 9 tab(s), Refills(s) 0, Pharmacy: [facility], 173, cm, 03/28/22 15:38:00 EST, Height/Length [...] Daily, # 10 cap(s), Refills(s) 0, Pharmacy: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 [facility] Family [facility] Services Start: 05-24-2022 End: 05-25-2022 ambulatory Cherelle MLeander Lue Facility:[facility] Start: 05-24-2022 End: 05-24-2022 Patient encounter procedure Cherelle Rafa. Dinae [facility] Start: 05-05-2022 ambulatory Cherelle Lue Facility:[facility] Start: 05-05-2022 End: 05-06-2022 ambulatory Cherelle M. Lue Facility:[facility] [place] Start: 05-05-2022 End: 05-05-2022 Patient encounter procedure Cherelle MLeander Arroyoe [facility] Start: 04-28-2022 End: 04-28-[address] CHAKA GREGG Facility: Start: 04-21-2022 End: 04-22-[address] GILDA LOPEZ Facility: Start: 03-28-2022 End: 03-28-2022 Emergency department patient visit London Mccurdy Facility:[facility] Start: 03-27-2022 End: 03-28-[address] CHAKA GREGG Facility:[facility] Start: 07-16-2021 End: 07-19-2021 ambulatory [facility]AL[facility] Start: 07-16-2021 End: 07-18-2021 Subsequent hospital visit by physician Natalia Sow Dr Room 2 [facility] Comment on above: Pre-employment healt h screening examination Start: 11-21-2019 End: 11-21-2019 Emergency department patient visit LIANET CARROLL [facility] Start: 11-21-2019 End: 11-21-2019 Emergency department patient visit Lianet Carroll Work Phone: [facility] Emergency Department Comment on above: Right ear pain (Prim jaziel Dx); Exposure to chemical inhalation; Covid-19 Virus not Detected Start: 04-20-[address] [facility] Phys[facility] Procedures Date Procedure Procedure Detail Performing Clinician Start: 06-29-2023 ALL CBC WITH AUTO DIFF Chaka Cristino DO Work Phone: Start: 05-23-2023 Mammography Chaka Fazi o DO Work Phone: Start: 05-24-2022 Cystourethroscopy wi dilation of urethral stricture Cherelle Aragon Start: 07-16-2021 Radiologic exam chest 2 views Nancy Shannan [employer] Work Phone: Start: 11-21-2019 Standard chest X-ray [...] DTaP/Tdap/Td vaccine (3 - Td or Tdap) [facility] [employer] Start: 05-23-2024 Screening for malign ant neoplasm of breast Mammogram [facility] Start: 01-14-2021 Influenza vaccination Flu vaccine (# 1) [facility] Start: 01-15-2020 Influenza vaccination given Se quential Influenza Vaccine (#1) [facility] Start: 2019 Screening for malign ant neoplasm of colon [facility] Start: 2014 Lipid panel Lipid screen [facility] Start: 02-10-2004 Screening for malign ant neoplasm of cervix [facility] Start: 1995 Screening for malign ant neoplasm of cervix Pap smear [facility] Start: 02-10-1992 Hepatitis C antibody , confirmatory test Hepatitis C Screening [facility] Start: 1989 HIV screening [facility] Start: 1986 Depression Screen Depression Screen [facility] Start: 1979 COVID-19 Vaccine (1) COVID-19 Vaccin e (1) [facility] Start: 1977 History and physical examination, annual for health maintenance Wellness Visit [facility] Start: 1974 Hepatitis C screening Hepatitis C sc reen [facility] Start: 1974 Screening for malign ant neoplasm of cervix Pap Smear [facility] Start: 1974 Screening for malign ant neoplasm of colon [facility] Start: 1974 Screening mammography Mammogram [facility] Start: 1974 Tetanus vaccination Tetanus: Every [address] [facility] Immunizations Immunization Date Immunization Notes Care Provider Amy ash 02-25-2022 influenza virus vacc ine, unspecified formulation Cherelle Hithru [facility] 05-22-2021 SARS-CoV-2 (COVID-19 ) mRNA-1273 vaccine Cherelle Lue [facility] 2021 hepatitis A vaccine, adult dosage Xiaomie [facility] 2021 influenza virus vacc ine, unspecified formulation Cherelle Lue [facility] 2021 tetanus toxoid, redu edgar diphtheria toxoid, and acellular pertussis vaccine, adsorbed Cherelle Lue [facility] 08-11-2020 measles, mumps and rubella virus vaccine Cherelle Lue [facility] 08-11-2020 varicella virus vaccine Linda y Lue [facility] 07-08-2020 hepatitis A vaccine, adult dosage Cherelle Lue [facility] 07-08-2020 measles, mumps and rubella virus vaccine Cherelle Lue [facility] 07-08-2020 varicella virus vaccine Linda y Lue [facility] 06-13-2020 SARS-CoV-2 (COVID-19 ) mRNA-1273 vaccine Cherelle Lue [facility] 06-02-2020 COVID-19 mRNA-1273 (Moderna) Services [employer] Work Phone: [facility] 05-12-2020 SARS-CoV-2 (COVID-19 ) mRNA-1273 vaccine Cherelle Lue [facility] 05-05-2020 COVID-19 mRNA-1273 (Moderna) Services Family [facility] Work Phone: [facility] 02-26-2020 influenza virus vacc ine, unspecified formulation Cherelle Lue [facility] 03-28-2019 influenza virus vacc ine, unspecified formulation Cherelle Lue [facility] 03-28-2019 pneumococcal polysaccharide vaccine, 23 valent Cherelle Lue [facility] 02-17-2016 influenza virus vacc ine, unspecified formulation Cherelle Lue [facility] 06-10-2011 hepatitis B vaccine, adult dosage Cherelle Lue [facility] 02-05-2011 hepatitis B vaccine, adult dosage Cherelle Lue [facility] 01-01-2011 hepatitis B vaccine, adult dosage Cherelle Lue [facility] 02-06-2008 tetanus toxoid, redu edgar diphtheria toxoid, and acellular pertussis vaccine, adsorbed Cherelle Lue [facility] Payers Date Payer Category Payer Unknown [id number] 2023 Unknown [employer] [id number] 2023-Present [address] [place] [address] [id number] 2022 Self-pay [id number] 2019 Unknown [employer] xxxxxxxxxxxx 2019-Present xxxxxxxxxxxx [id number] 1974 Unknown [id number] 1974 Unknown [id number] 1974 Unknown [id number] 1974 Unknown [id number] 1974 Unknown [id number] 1974 Unknown [id number] [id number] 1974 Unknown [id number] [id number] 1974 Unknown [id number] [id number] 1974 Unknown [id number] [id number] 1974 Unknown [id number] [id number] 9 1974 Unknown [id number] 9 1959 Unknown [id number] Self-pay Self Pay Cosmetic/Pain Mgmt [id number] Unknown [id number] Unknown [id number] Social History Date Type Detail Facility Start: 11-21-2019 End: 11-21-2022 Tobacco smoking status NHIS Never smoker [facility] Comment on above: denies. Start: 1975 Sex Assigned At Not on file [facility] Exposure to SARS-CoV-2 (event) Not sure [facility] Tobacco smoking status GAIS Tobacco smoking consumption unknown [employer] Work Phone: Tobacco [facility] Comment on above: denies Tobacco smoking status No Smoking Status Entered [facility] Start: 11-21-2022 Sex Assigned At Female F [facility] Start: 1975 Sex Assigned At Female F [facility] Tobacco smoking status Never [facility] Comment on above: denies. Start: 11-21-2022 Tobacco use and exposure Smokeless tobacco non-user [facility] Start: 05-23-2023 Alcohol intake Lifetime non-d yoni (finding) [facility] Start: 11-21-2022 History of Social function [facility] Start: 11-21-2022 Alcohol Comment caffeine: 1-2 cups/d ay [facility] Functional Status Date Assessment Result Facility 10-13-2022 Functional Status N/A [facility] 05-12-2022 Functional Status N/A [facility] 05-05-2022 Functional Status N/A [facility] Clinical Notes 05-05-2022 to 10-13-2022 Note Date [...] (electrical nerve stimulation). ?For women, using a resident medical officer to prevent urine leaks. This is a [...] right after experiencing incontinence. General instructions Take rtsy-srh-xfpzthp and prescription medicines only as told by [...] important. Where to find more information [place] of Diabetes and Digestive and Kidney Diseases: www.niddk.nih.gov [place] [employer]: www.urologyhealth.org Contact a health care [...] provider. Document Revised: 12/05/2020 Document Reviewed: 12/05/2020 [employer] Patient Education 2022 [employer]. Follow Up Care 05/24/2022 10:20:13 With:Mahesh PEREZ, RISHABH NdiayeL, URO Address: [facility] [place] [address]- [phone] When:Within 1 Year(s) [facility]2022 Note [id number]:[id number] [facility] 05-24-2022 Note Cystoscopy with Uret hral [...] you have a fever over [address] [facility] 05-24-2022 Hospital Discharg e instructions Patient Education 05/24/2022 [...] Up Care 05/05/2022 11:54:17 With:Cherelle Aragon Address: [facility] Nitin Rocha[address] [address]- [phone] Business (1) When: Unknown Comments:Office to schedule follow up in 1 month With:Cherelle Aragon Address:Unknown When: Unknown [facility] 05-05-2022 [facility] Discharg e instructions Patient Education 05/05/2022 [...] alcohol may irritate the prostate. Medicines Take vqau-lzo-ndariuc and prescription medicines only as told by [...] 01/28/2005 Document Revised: 04/14/2018 Document Reviewed: 02/16/2018 [employer] Patient Education 2020 [employer] Follow Up Care 03/30/2022 11:38:13 With:Mahesh PEREZ, JOANIE Ndiaye, URO Address: [address], [place] [address] [phone] When: Unknown Comments:schedule Cysto and possible UD [facility] Evaluation + Plan note Future Appointments Appointment Date:05/18/2022 10:30:00 AM Scheduled Provider: Location:[facility] Appointment Type:Urology CALL PAT FT Appointment Date:05/24/2022 09:30:00 AM Scheduled Provider: Location:[facility] Appointment Type:Urology FT [facility] Evaluation + Plan note Future Appointments Appointment Date:07/14/2022 08:15:00 AM Scheduled Provider:Cherelle Aragon MD Location:[facility] Appointment Type:URO Office Visit [facility] Evaluation + Plan note Future Appointments Appointment Date:10/19/2023 08:00:00 AM Scheduled Provider:Cherelle Aragon MD Location:[facility] Appointment Type:URO Office Visit [facility] Evaluation note Diagnosis Pre-employment health screening examination Health examination of defined subpopulation documented in this encounter [facility] [employer] Work Phone: evaluation noteNo assessment information available [facility] Work Phone: Hospital course Narrative No data available for this section [facility] [place] progress note No data available for this section [facility] Summary Purpose Family History No Family History Records Found Relationship Condition Age at Onset Recorded Date/T blanquita Not Specified Malignant neoplasm of breast Unknown father Coronary artery disease Unknown Advance Directives No Advanced Directives Records FoundDocuments on File Type Date Recorded Patient Cras Expl anation Advance Directives and Livin g Will 11/21/2019 5:20 PM Advance Directive Response Recorded Date/ Time Advance Directives No March 16, 2017 12:41pm Advance Directive Response Recorded Date/ Time Advance Directives No March 16, 2017 11:41am Discharge Instructions * Attachments The following attachments cannot be sent through Care Everywhere. * Toxin Exposure (Guatemalan) * Earache: Adult (Guatemalan) documented in this encounter Assessments Diagnosis Right ear pain Unspecified otalgia Exposure to chemical inhalation Covid-19 Virus not Detected Chief Complaint and Reason for Visit Chief Complaint Essential (primary) hypertension Chief Complaint Unknown Additional Source Comments INFORMATION SOURCE (unrecogn ized section and content) DATE CREATED AUTHOR 11/08/2017 [facility] DATE CREATED AUTHOR AUTHOR'S ORGANIZ ATION 12/07/2019 [facility] DATE CREATED AUTHOR AUTHOR'S ORGANIZ ATION 07/19/2021 [facility] DATE CREATED AUTHOR AUTHOR'S ORGANIZ ATION 05/09/2022 [facility] DATE CREATED AUTHOR AUTHOR'S ORGANIZ ATION 10/22/2022 [facility] DATE CREATED AUTHOR AUTHOR'S ORGANIZ ATION 05/24/2023 [facility] DATE CREATED AUTHOR AUTHOR'S ORGANIZ ATION 07/01/2023 [facility] Reason for Visit (unrecogniz ed section and content) Reason Comments [facility] Respiratory Distress Yumiko Pearson RN - 11/21/2019 7:14 PM EDTSKathie barrera RN - 11/21/2019 5:38 PM EDT ED Notes (unrecognized secti on and content) Patient resting at present, states that she has a headache. 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 documented in this encounter Care Teams (unrecognized sec tion and content) Financial Assistant Relationship Specialty Start Date End Date Rosita Jim PCP - General 07/16/21 Financial Assistant Relationship Specialty Start Date End Date Rosita Jim PCP - General 07/16/21 Team Status: Active Member Role Status Dates Services Family [facility] Primary Care Provider Active Team Status: Inactive Member Role Status Dates Services [facility] Primary Care Provider Active Rosita Jim APRN PAINTING WORKER-C Attending Provider Gabo ctive Financial Assistant Relationship Specialty Start Date End Date Dante Lozada MD [address] [facility] [place] [address] PCP - General 11/18/22 Team Status: Inactive Member Role Status Dates Services [facility] Primary Care Provider Active Start: June 29, 2023 End: June 29, 2023 Chaka Gregg Attending Provider Active Start: [facility] 2023 End: June 29, 2023 Goals (unrecognized section and content) Goals may [...] BE BASED ON THE PRIMARY CLINICAL RECORDS. [facility] JANZZ [facility]. provides no warranty or guarantee of the accuracy or completeness of information in this document.
== END 2023-05-23 11:11 | disposition home or self-care (01) ==
LOC: LAB 11:10
PROVIDERS: Visit Provider Obstetrics & Gynecology
DX: N93.9 Abnormal uterine and vaginal bleeding, unspecified (principal)
CPT/HCPCS: 88305

== ENCOUNTER 2023-06-03 13:33 | Outpatient (OUT) | payer OTHER, SELFPAY ==
--- OUTSIDE RECORDS SUMMARY | 2023-06-03 13:37 | XMS_ITS | CCD ---
Author Name Unknown Address [address] [place] [address] Organization [facility] Care Team Providers Care Salesperson Meats Name Role Phone NO, PHYSICIAN Unavailable Unavailable LIANET CARROLL Attending Unavailable NO, PHYSICIAN Primary Care Unavailable No, Physician Primary Care Provider Unavailabl e MyRosita moura Primary Care Provider Unava ilable NANCY CAMPBELL Referring Unavailable MYERHOLROSITA AVALOS Primary Care Unavailable NANCY CAMPBELL Referring Unavailable MYERHOLROBBIE ROSITA Primary Care Unavailable MYERPRATIK ROSITA Primary Care Physician [phone] Indigo Flynn Unavailable Unavailable WANDER, DR OLMEDO Attending Unavailable WANDER, DR OLMEDO Admitting Unavailable WANDER, DR OLMEDO Consulting Unavailable FRONT ROYAL, DR GILDA Garza Consulting Unavailable WANDER, DR OLMEDO Attending Unavailable WANDER, DR OLMEDO Admitting Unavailable WANDER, DR OLMEDO Consulting Unavailable WANDER, DR OLMEDO Consulting Unavailable WANDER, DR OLMEDO Attending Unavailable WANDER, DR OLMEDO Admitting Unavailable [facility], Services Primary Care Provider KEITH Jim Attending Provider Rosita Jim Admitting Unavailab le Rosita Jim Attending Unavailab le [facility] Primary Care Unavaila ble Rosita Jim Admitting Unavailab le KristalerRosita maria Attending Unavailab le [facility] Primary Care Unavaila ble Cherelle Aragon Attending Unavailable Cherelle Aragon Referring Unavailable London Mccurdy Attending Unavailable Lue, Cherelle M. Attending Unavailable Cherelle Aragon Attending Unavailable Cherelle Aragon Admitting Unavailable Cherelle Aragon Attending Unavailable Cherelle Aragon Referring Unavailable HONORIO GREGG Attending Unavailable HONORIO GREGG Attending Unavailable Allergies Allergy Classification Reported Allergen(s) Allergy Type Date of Onset Reaction(s) Facility (5 sources) Coconut extract; Translations: [COCONUT] Drug Allergy 3 Anaphylaxis [facility] Repository (5 sources) Penicillins; Translations: [Unknown] Propensity to adverse reactions to drug (disorder) 3 Anaphylaxis [facility] Repository (3 sources) Sulfonamides (Antibiotic); Translations: [Sulfa (Sulfonamide Antibiotics)] Propensity to adverse reactions to drug 0 Anaphylaxis [facility] (4 sources) Coconut Oil; Translations: [Coconut Oil] Drug Allergy Anaphylactic reaction [facility] (4 sources) Penicillin; Translations: [penicillin] Drug Allergy Anaphylactic reaction [facility] (4 sources) Sulfonamides (Antibiotic); Translations: [sulfa drugs] Drug allergy Anaphylactic reaction [facility] (5 sources) Latex; Translations: [Latex] Drug allergy (disorder) 3 Eruption (morphologic abnormality) [facility] Repository (1 source) Sulfonamides (Antibiotic) Drug allergy (disorder) 3 [facility] Repository (1 source) Latex Drug allergy (disorder) 1 [facility] Repository Medications Current Medications Medication Drug [...] Daily, # 30 cap(s), Refills(s) 11, Pharmacy: [facility], 173, cm, 10/13/22 8:45:00 EDT, Height/Length Dosing, 70.5, kg, 10/13/22 8:45:00 EDT, Weight Dosing Start Date: 10/13/22 Status: Ordered Completed/Discontinued Medications Medication Drug Class(es) Dates Sig (Normalized) Sig (Original) [id number] 200 actuat albuterol 0.09 mg/actuat metered dose [...] Cherelle Aragon MD Primary Care Physician - ROSITA JIM CNP Referring Physician - Cherelle Aragon [...] Cherelle Aragon MD Where: [facility] Lab Reportson 10-13-2022 Lab Reports [id number] [facility] Patient Educationon 10-14-19 23 Patient Education Urology [...] nerve stimulation). ? For women, using a medical laboratory technologist to prevent urine leaks. This is a [...] urine. ? (more content not included)... [facility] Urology Office/Clinic Noteon 10-13-2022 Urology Office/Clinic Note Chief Complaint fu to cysto ud HPI Staff 5m follow up (RS by office x1 & pt x2) DX: Recurrent UTI, Stress Incontinence S/P Cysto/UD done 05/24/22 CMP ordered by PCP 4/20/23 pt. needs refills for flomax to drug jennifer finnegan has had 1 infection since UD but was treated by [facility] doctor Dysuria: no Incomplete bladder emptying: no [...] Daily, # 30 cap(s), Refills(s) 11, Pharmacy: [facility], 173, cm, 10/13/22 8:45:00 EDT, Height/Length Dosing, 70.5, kg, 10/13/22 8:45:00 EDT, Weight Dosing Follow-up With When Contact Information Mahesh PEREZ, Cherelle German, URL, URO In 1 year [address] [place] [address] [phone] Additional Instructions: Patient Education Urinary Incontinence IKatelynn , personally scribed for Dr. Aragon on 10/13/2022 09:25:20. . Documentation recorded by the scribeKatelynn, accurately reflects the services(s) I performed and [...] Alcohol Alcohol (more content not included)... [facility] Comment on above: Result Comment: Elec tronically Signed By: Cherelle Aragon MD\.br\Date and Time Signed: 10/13/22 12:34 EDT\.br\Electronically Co-Signed By: Katelynn Seymour\.br\Date and Time Co-Signed: 10/13/22 09:25 EDT Alanine aminotransferase [En zymatic activity/volume] in Serum or PlasmaOrdered By: Rosita Jim on 09-02-2022 ALT [Catalytic activity/Vol] 14 U/L 7-52 [facility] Albumin [Mass/volume] in Ser um or Plasma by Bromocresol green (BCG) dye binding methoOrdered By: Rosita Jim on 09-02-2022 Albumin BCG dye [Mass/Vol] 4.6 g/dL 3.5-5.7 [facility] Alkaline phosphatase [Enzyma tic activity/volume] in Serum or PlasmaOrdered By: Rosita Jim on 09-02-2022 ALP [Catalytic activity/Vol] 46 U/L 34-104 [facility] Aspartate aminotransferase [ Enzymatic activity/volume] in Serum or PlasmaOrdered By: Rosita Jim on 09-02-2022 AST [Catalytic activity/Vol] 13 U/L 13-39 [facility] Bilirubin.total [Mass/volume ] in Serum or PlasmaOrdered By: Rosita Jim on 09-02-2022 Bilirubin [Mass/Vol] 0.6 mg/dL 0.3-1.0 [facility] Calcium [Mass/volume] in Ser um or PlasmaOrdered By: Rosita Jim on 09-02-2022 Calcium [Mass/Vol] 9.3 mg/dL 8.6-10.3 [facility] Carbon dioxide, total [Moles /volume] in Serum or PlasmaOrdered By: Rosita Jim on 09-02-2022 CO2 [Moles/Vol] 22.4 mmol/L 21.0-31.0 [facility] Chloride [Moles/volume] in S gabe or PlasmaOrdered By: Rosita Jim on 09-02-2022 Chloride [Moles/Vol] 104 mmol/L 98-107 [facility] Cholesterol [Mass/volume] in Serum or PlasmaOrdered By: Rosita Jim on 09-02-2022 Cholesterol [Mass/Vol] 150 mg/dL 140-200 [facility] Comment on above: Chol less than 200 m g/dl low riskChol 201-239 mg/dl borderline riskChol 240 mg/dl and greater high risk Cholesterol in LDL Calc [Mas s/Vol]Ordered By: Rosita Jim on 09-02-2022 Cholesterol in LDL [Mass/Vol] 81 mg/dL 0-100 [facility] Comment on above: LDL ATP III CLASSIFI CATIONLDL less than 100 mg/dL OptimalLDL 100-129 mg/dL Near or above optimalLDL 130-159 mg/dL Borderline highLDL 160-189 mg/dL HighLDL greater than 189 mg/dL Very high Cholesterol in VLDL Calc [Ma ss/Vol]Ordered By: Rosita Jim on 09-02-2022 Cholesterol in VLDL [Mass/Vol] 17 mg/dL [facility] Comprehensive Metabolic Pane erika 09-02-2022 Albumin [Mass/Vol] 4.6 g/dL Normal 3.5-5.7 [facility] Comment on above: Order Comment: Reaso n for Exam Essential (primary) hypertension Performed By: #### C MP, LIPID, TSH3 wRFLX #### [facility] [address] [id number] [facility] Albumin/Globulin [Mass ratio] 1.9 {ratio} Normal [facility] Comment on above: Order Comment: Reaso n for Exam Essential (primary) hypertension Performed By: #### C MP, LIPID, TSH3 wRFLX #### [facility] [address] [place] [address] [facility] ALP [Catalytic activity/Vol] 46 U/L Normal 34-104 [facility] Comment on above: Order Comment: Reaso n for Exam Essential (primary) hypertension Performed By: #### C MP, LIPID, TSH3 wRFLX #### [facility] [address] ALT [Catalytic activity/Vol] 14 U/L Normal 7-52 [facility] Comment on above: Order Comment: Reaso n for Exam Essential (primary) hypertension Performed By: #### C MP, LIPID, TSH3 wRFLX #### [facility] [address] Anion gap [Moles/Vol] 14.6 mmol/L Normal 6.0-15.0 [facility] Comment on above: Order Comment: Reaso n for Exam Essential (primary) hypertension Performed By: #### C MP, LIPID, TSH3 wRFLX #### [facility] [address] [id number] [place] AST [Catalytic activity/Vol] 13 U/L Normal 13-39 [facility] Comment on above: Order Comment: Reaso n for Exam Essential (primary) hypertension Performed By: #### C MP, LIPID, TSH3 wRFLX #### [facility] [address] [id number] [place] Bilirubin [Mass/Vol] 0.6 mg/dL Normal 0.3-1.0 [facility] Comment on above: Order Comment: Reaso n for Exam Essential (primary) hypertension Performed By: #### C MP, LIPID, TSH3 wRFLX #### [facility] [address] [id number] [place] Calcium [Mass/Vol] 9.3 mg/dL Normal 8.6-10.3 [facility] Comment on above: Order Comment: Reaso n for Exam Essential (primary) hypertension Performed By: #### C MP, LIPID, TSH3 wRFLX #### [facility] [address] [place] [address] [place] Chloride [Moles/Vol] 104 mmol/L Normal 98-107 [facility] Comment on above: Order Comment: Reaso n for Exam Essential (primary) hypertension Performed By: #### C MP, LIPID, TSH3 wRFLX #### [facility] [address] CO2 [Moles/Vol] 22.4 mmol/L Normal 21.0-31.0 [facility] Comment on above: Order Comment: Reaso n for Exam Essential (primary) hypertension Performed By: #### C MP, LIPID, TSH3 wRFLX #### [facility] [address] [place] [address] Creatinine [Mass/Vol] 0.73 mg/dL Normal 0.60-1.20 [facility] Comment on above: Order Comment: Reaso n for Exam Essential (primary) hypertension Performed By: #### C MP, LIPID, TSH3 wRFLX #### [facility] [address] [place] [address] [place] GFR/1.73 sq M.predicted MDRD (S/P/Bld) [Vol rate/Area] mL/min/{1.73_m2} Normal [facility] Comment on above: Order Comment: Reaso n for Exam Essential (primary) hypertension Performed By: #### C MP, LIPID, TSH3 wRFLX #### [facility] [address] [id number] [place] Globulin (S) [Mass/Vol] 2.4 g/dL Normal [facility] Comment on above: Order Comment: Reaso n for Exam Essential (primary) hypertension Performed By: #### C MP, LIPID, TSH3 wRFLX #### [facility] [address] [id number] [place] Glucose [Mass/Vol] 75 mg/dL Normal 70-100 [facility] Comment on above: Order Comment: Reaso n for Exam Essential (primary) hypertension Result Comment: Cobalt om Glucose Reference Range is dependent on time and content of last meal. Glucose of more than 200 mg/dL in a nonstressed, ambulatory subject supports the diagnosis of Diabetes Mellitus. ADA recommended reference range Performed By: #### C MP, LIPID, TSH3 wRFLX #### [facility] [address] [place] [address] [place] Potassium [Moles/Vol] 4.0 mmol/L Normal 3.5-5.1 [facility] Comment on above: Order Comment: Reaso n for Exam Essential (primary) hypertension Performed By: #### C MP, LIPID, TSH3 wRFLX #### [facility] [address] [place] [address] [place] Protein [Mass/Vol] 7.0 g/dL Normal 6.4-8.9 [facility] Comment on above: Order Comment: Reaso n for Exam Essential (primary) hypertension Performed By: #### C MP, LIPID, TSH3 wRFLX #### [facility] [address] [id number] [place] Sodium [Moles/Vol] 137 mmol/L Normal 136-145 [facility] Comment on above: Order Comment: Reaso n for Exam Essential (primary) hypertension Performed By: #### C MP, LIPID, TSH3 wRFLX #### [facility] [address] [place] [address] [place] Urea nitrogen [Mass/Vol] 13 mg/dL Normal 7-25 [facility] Comment on above: Order Comment: Reaso n for Exam Essential (primary) hypertension Performed By: #### C MP, LIPID, TSH3 wRFLX #### [facility] [address] [place], [place] [id number] [place] Creatinine [Mass/volume] in Serum or PlasmaOrdered By: Rosita Jim on 09-02-2022 Creatinine [Mass/Vol] 0.73 mg/dL 0.60-1.20 [facility] Globulin Calc (S) [Mass/Vol] Ordered By: Rosita Jim on 09-02-2022 Globulin (S) [Mass/Vol] 2.4 g/dL [facility] Glucose [Mass/volume] in Ser um or PlasmaOrdered By: Rosita Jim on 09-02-2022 Glucose [Mass/Vol] 75 mg/dL 70-100 [facility] Comment on above: ADA recommended refe rence rangeRandom Glucose Reference Range is dependent on time and content of last meal. Glucose of more than 200 mg/dL in a nonstressed, ambulatory subject supports the diagnosis of Diabetes Mellitus. Lipid Panelon 09-02-2022 Cholesterol [Mass/Vol] 150 mg/dL Normal 140-200 [facility] Comment on above: Order Comment: Reaso n for Exam Essential (primary) hypertension Result Comment: Chol less than 200 mg/dl low risk Chol 201-239 mg/dl borderline risk Chol 240 mg/dl and greater high risk Performed By: #### C MP, LIPID, TSH3 wRFLX #### [facility] [address] [id number] [place] Cholesterol in HDL [Mass/Vol] 52 mg/dL Normal 35-85 [facility] Comment on above: Order Comment: Reaso n for Exam Essential (primary) hypertension Result Comment: HDL CHOL ATP-III CLASSIFICATION Cardiovascular Risk HDL > or equal to 60 mg/dL LOW HDL < 40 mg/dL HIGH Performed By: #### C MP, LIPID, TSH3 wRFLX #### [facility] [address] [place] [address] [place] Cholesterol.total/Radha sterol in HDL [Mass ratio] 2.9 {ratio} Normal <5.0 [facility] Comment on above: Order Comment: Reaso n for Exam Essential (primary) hypertension Performed By: #### C MP, LIPID, TSH3 wRFLX #### [facility] [address] [place] [address] [place] LDL Cholesterol,Calculated 81 mg/dL Normal 0-100 [facility] Comment on above: Order Comment: Reaso n for Exam Essential (primary) hypertension Result Comment: LDL ATP III CLASSIFICATION LDL less than 100 mg/dL Optimal LDL 100-129 mg/dL Near or above optimal LDL 130-159 mg/dL Borderline high LDL 160-189 mg/dL High LDL greater than 189 mg/dL Very high Performed By: #### C MP, LIPID, TSH3 wRFLX #### [facility] [address] Triglyceride w/Reflex 85 mg/dL Normal 0-149 [facility] Comment on above: Order Comment: Reaso n for Exam Essential (primary) hypertension Result Comment: TRIG ATP III CLASSIFICATION TRIG less than 150 mg/dL Normal TRIG 150-199 mg/dL Borderline high TRIG 200-500 mg/dL High TRIG greater than 500 mg/dL Very high Standard traceable to the Center for Disease Conrtrol and Prevention (CDC) test method. Performed By: #### C MP, LIPID, TSH3 wRFLX #### [facility] [address] VLDL CHOLESTEROL 17 mg/dL Normal [facility] Comment on above: Order Comment: Reaso n for Exam Essential (primary) hypertension Performed By: #### C MP, LIPID, TSH3 wRFLX #### [facility] [address] No Panel InformationOrdered By: Rosita Jim on 09-02-2022 Estimated GFR (CKD-EPI) > 60.0 mL/Min [facility] Creatinine Clearance (Chem N/A [facility] Potassium [Moles/volume] in Serum or PlasmaOrdered By: Rosita Jim on 09-02-2022 Potassium [Moles/Vol] 4.0 mmol/L 3.5-5.1 [facility] Protein [Mass/volume] in Ser um or PlasmaOrdered By: Rosita Jim on 09-02-2022 Protein [Mass/Vol] 7.0 g/dL 6.4-8.9 [facility] Serum or plasma albumin/glob ulin mass ratioOrdered By: Rosita Jim on 09-02-2022 Albumin/Globulin [Mass ratio] 1.9 {ratio} [facility] Serum or plasma anion gap de terminationOrdered By: Rosita Jim on 09-02-2022 Anion gap [Moles/Vol] 14.6 mmol/L 6.0-15.0 [facility] Serum or plasma high density lipoprotein (HDL) cholesterol measurementOrdered By: Rosita Jmi on 09-02-2022 Cholesterol in HDL [Mass/Vol] 52 mg/dL 35-85 [facility] Comment on above: HDL CHOL ATP-III CLA SSIFICATION Cardiovascular RiskHDL > or equal to 60 mg/dL LOWHDL < 40 mg/dL HIGH Serum or plasma total choles terol/high density lipoprotein (HDL) cholesterol mass ratOrdered By: Rosita Jim on 09-02-2022 Cholesterol.total/Radha sterol in HDL [Mass ratio] 2.9 {ratio} <5.0 [facility] Sodium [Moles/volume] in Ser um or PlasmaOrdered By: Rosita Jim on 09-02-2022 Sodium [Moles/Vol] 137 mmol/L 136-145 [facility] Thyroid Stim Hormone w/Rflxo n 09-02-2022 Thyroid Stim Hormone w/Rflx 1.10 u[iU]/mL Normal 0.45-5.33 [facility] Comment on above: Order Comment: Reaso n for Exam Essential (primary) hypertension Result Comment: PERF ORMED BY: [place] [address] PATHOLOGIST SUPERVISOR DYER FINESSE SPAULDING M.D. Performed By: #### C MP, LIPID, TSH3 wRFLX #### [address] Thyrotropin [Units/volume] i n Serum or PlasmaOrdered By: Rosita Jim on 09-02-2022 TSH Qn 1.10 m[IU]/L 0.45-5.33 [facility] Triglyceride [Mass/volume] i n Serum or PlasmaOrdered By: Rosita Jim on 09-02-2022 Triglyceride [Mass/Vol] 85 mg/dL 0-149 [facility] Comment on above: TRIG ATP III CLASSIF ICATIONTRIG less than 150 mg/dL NormalTRIG 150-199 mg/dL Borderline highTRIG 200-500 mg/dL High TRIG greater than 500 mg/dL Very highStandard traceable to the Center for Disease Conrtrol and Prevention (CDC) test method. Urea nitrogen [Mass/volume] in Serum or PlasmaOrdered By: Rosita Jim on 09-02-2022 Urea nitrogen [Mass/Vol] 13 mg/dL 12-07 [facility] Coding Summary.on 05-25-2022 Coding Summary. [id number] G h0bWw+PGhlYWQ+LR9IXMD cI12gyQWisI5ZO2uHPT2J PAFYSEKQJM8CZD4hlRF5R VkvM6FdokYu WynzoHGmOT86QKm4TJS1j SsrVWlqsJ2hyPBvL8g0Zg ZkGU04xR64DTkzHXJcLpP 3LjZpbjsgbWFy K8ytVdReaEPgLce+PHRhY mxlIHdpZHRoPScxMDAlJy AcuTbvMJ5aYw8cNKBhGRY vbGxhcHNlOiBj q8mcERSeTIjhBX3zkErkY 3SvyMB3GTSwp9n6Iu06tV I+GNPlJBP9eHyfVRuaa01 8PjOxw0qsQTG9 jIDoJXikKRF2M19xt7C9X KPwTXOhBFU2yMG6dZ9paP dstgjjK3VevNTpGsB9OQM 5qHVnhZ9mlYav wpautZ9mUjp+B56OOR4HC AMMHT8TDmw9S6BvChdyfG I+UM11JQAtRF45xJDtmWT db6bxeFc1UpCx PBRnSLO6gThpUJzzl9PwJ KCrF83ohSKuw5C4ZSSmzW rsaDUbMgLdgPG3xK1jPBk onzcvm1vqfzjj Uqswe6oyqe52uZ65P82kV GhgZHUiMOX5OPViLXXyfZ lgdk9mpJ5xYx3+WLbnn9d bw5sweBg5HuOd CJSphpEstUgoKIM3z7ZgM t48O8LtuBnrt6EnZdk4xr 47uPQbj5Z4nDN5WBjuIDU rzG2aTDiqCrY9 QPRmCcDroU74tMUcLNacQ n1syTjfmNpgBT8xNZHnki hoNYLzpO1sXOVeeTUisNd iBV8gRKMqsvdz f454TyAcLTN8RFBeuSUfV 4WllE8cRdReHBLcPFJvJ0 PknLCpNPbgL454XUzvZcQ 5YEIioiRnJ1Nw ALCfyOunIgN6v2X2Ek5Gw 9MjvozdBGD5XXxhVNJfEx OaFuCpDiE8H1MoNqx4JEN ytKmzAO2iB2Jx LMVqhkeyhjkywPY0NFMnP IVngI43kVWiSJilNb3np7 M9r378GPXpSBFmbS31Lf1 udDogMTBwdCBU fA0uhkbmk8addfobOrExP MUdMPx5OLg0EZNoaHdsVy CuQHF2RkZ3JXL7zEAoxL4 owCfckppsrK8o Oyc+I52gyD4nEDN7OHT3s bsrJTHepeEwLD52CE72I0 RyPjwvdGFibGU+PGRpdiB ryPcwZR5iYfKi w5afo4GmDPjwA7YcMDJqW RpyFgl2JSTuRYT1jRG1zO 3uNXRbNDzdq9V6oRP0B7B sveNkhv6mg0ba HSWsMEvqU48ccWTvz9G8A AUalYF6KRDibMawMoLqdI 93Oyc+QBJflImqb8ZtRpn au0zjv7neiNd9 JbFjQRMsebVysWhtIFB5o 5GoGg08O51tOWanJJAnEW CqUSBqODQquDbhnb8zzV9 wIi8+PGNvbCB3 kNP8nK4jJVIgWcC2JMgzR 884OlZwuXEfLqzqx4czo6 rueLr6KkWaFULimnDgkYf oJRZ0s8HlDh13 Z76kZRmgKKOtRYUfJREhD XZraPnuwf7ygW1vYf6+PC 8zb9aesa04hY78tIT+PHR gBMF2uMjgEBsa IEMknC8sUEisEbD0TRXqZ dIieW66jINtGVmvFu7amR woaKwtTF4wEXDksyudx29 8TuLot9duKLQf vJHiPCglOHW1J55op7Q5Y SVeSDRwORR0wKW8aC3wrO lnbjogbGVmdDsgdmVydGl sQTciWBvrS707 IHRvcDsnPlBhdGllbnQgT gImJNj1B1CaQbt3ZGCsjU lqAN8ndYMdXZitNd1bkGn evLemVP2qOLOa rpwpb992YbSsc1mrGSMhs QHaDWvmQQO9K42hi3A4EA IdBDRtMHD8kCS2fG4azXw nbjogbGVmdDsg rjMdeZacLApwUChyG751K HRvcDsnPkJpcnRoIERhdG Q5SX46EO91wRVuv0P5cYO 8D8CgLNCkoslp uisndOM9TAUeRMCehZ17Q l5yqPooVj7uOGDjIGO9OV LljDZpE6PqmK9lAoMlOER hFHErC6GwtXIz DUmmL485TSifHfI5EBXlc xYtO3OnKWWhmIjnZaX2a1 S4Ty3LN9R6FI66QU05zEA vo0L4bIT9G5Xb QKCecfgmcoyqsVU4WHAeG OBbuJ67Ss8qeLwgLg2vLS UbKEI3QBHoxXNdC9QipL0 yOiAjMDAwMDAw W0EvxTCbHJnoY411NQwdC rK9RMTdtjYuR3OxUPNwiG cwZgW7y5K6Gx2KJNt8BD7 8YH00cVUmh9Y8 oVB7W0UnVZIpbthylffvs KM0LLIlGTGnhD75Qn9bwH jnUt8sSRSsBBM4YMBgmVW hN1OoqT6hCgQr AINoTHBfI9NuqBDaRVsnH 050OQrqVkZ9WQQmdsQjF8 OyHVPiqTgyFvK2i2O5Bi1 JWUVeTH19SFD0 uOD7DB34KW03V8NrRykls GFibGU+PHRhYmxlIHdpZH RoPScxMDAlJyBzdHlsZT0 qCa1sWVOzILSy iGdhnHKiFcIpu8iiUMRhQ RcdVH5dlOarY2JwtVW9KY Nvx0s4Xx02Q21xZ6MpkGE +ULSggPV5oOU1 qV8lKnVpPaM8CNsqR385B xTgyOXzSbomg3kxv2qcdK z3HfD2UIHvwcWcsVhvXTY 9i4XvGq18Z67u IHdpZHRoPSIxNSUiIHZhb Fgdsc3jtD7mNu0+PGNvbC T0xFN7sE0xQaQvRvU6RGv fQ579HiRchWCj Brbrb7zww8mgnEi4ZzMbK RXyotEhaJcqYSA7q1HdOy 72D6XafTrth9YsScu3js4 9oLDvc9K3vJZ5 V1DrIAOmzzuagDDpyDuwI T7rNYLndslgJCCjeT7cRL EoZ0m0FmQrKbH9QZryH6J vbyW8HWPmgYPr GQefODY2L55ht6Y0UVKqY XOsSGM8bWB4jX8voMvpcd ogbGVmdDsgdmVydGljYWw hNRtfW500KVBn nGwfNWXopS6xSAYhjKYqi PutRO3dXRMikzikBqNYMO tJTiwgSkVOTklGRVIgTDw vdGQ+PHRkIHN0 cWtbRUhuOJCkqT8pJQYcR 9p0PgOjTlH6YXctW4RlSF MfkxitKn59yW4bPvTiMwW 7ZPmcT8KplfZ7 OHRewFWuQSqkOJL2U36ls 8S3ZDRbFCCrDKK5rHQ4tB 1hbGlnbjogbGVmdDsgdmV ydGljYWwtYWxp Q150EIVudEemVzU5NmG0H tX8RjT4A4LsQuv0MGGhpN jdFE0hiGZrGOtuIe1lnKa deTitFU4fJMLp uicmUFOtbY2vCRVniWVkv AkvQZ4yEUWxmyjmy781Nj AqVAM2YOYceLUfH7AizI6 yOiAjMDAwMDAw H8TrhXQvTXqpE359HMuyA lI6LRTemfVaV8PxYPDaqC cmQbI8q8U2Yy16BLVUKRH yczwvdGQ+PHRk YMQ2vHejNOpmSOZbpY5uO GJhX4u8VcQdDoE5PGwbR3 BcEDNmkulyEm13dR4bMdT wCiP5ZOccX0Ih feH6JRCjfBSaOKgmHTG4X 82el1D5LOEhWATjXMQ6tN O3kC8yrExcnvvtlNIroXv gdmVydGljYWwt WOamG844CCAhvHdkFwJdj WFsZTwvdGQ+SEPkSJO7yN gmLEkvOXOtcA8oLWJdY4f 1OqYxNiA8JMuq A0TvEZGcnyuoYu47jH8pP lKfHzJ2SRudC5HfhpW1MQ HkoRIyRKmjLZJ2K24im8K 1YZMxSWZbUEW6 aCN1eJ9mxReiokfosQFya DsgdmVydGljYWwtYWxpZ2 20OGFwiAbmPo31nFQshYg tbyP5T1CvLjga dHI+LM95RZBlZA34mBDxs PVsz4bxqLn2JlRkMUBhGC Q5sBwdXEyqn7AdLLSxZ19 okLCli6R9MNLy nUbbzDXoGeGcbPF1mF1uD Apfmlbgu4dpamqbZhuuj7 nxcl85xV63F30aNUlmQAL oPSIzMCUiIHZh jYoqde0xsU4fRd7+PGNvb HL5oVH1qD4nEzSbCsV7AD kaN203UaPnbFCzPxafu2l ir8bemEq6DlSw DGNkjtIqqTdeQIK1k6SuB n78T09hSWtqTJNsEJFxEN AxHEYhvJcnnf2vyP2fZy5 +ME5ik8yonl65 oK77uGK+NPGxORB3cNxlJ JohRKNldE9aJDxlKaW3DA DyDfPoeK44oBPtAHdgAx1 bfIzuuHrwBN0h HCKnwppes315HmDvy3seU VSqdMFdUQcdMMK6L41nw1 Z9KZXjMDUbUWJ1qPJ7oZ0 hbGlnbjogbGVm dDsgdmVydGljYWwtYWxpZ 106BLBjzGmpOgGfmTPcG3 vcfcEOJM7uFyydlBA+PHR uZGA2fLqtHNxr LICouT4dTFVeY2w1PrCvR nM1GVlmS0BimoY0BAJxxN DfZUZlwHUXoO9wyxift9e vcjogIzAwMDAw DEv7VOu7JNFxxLgpEbZqT OI1KpC5JPO5iBCcmH5szY ukgpmhbN4uHol+RklOOjw vdGQ+PHRkIHN0 sMciSCtnJDKeaT9zLKGuI 8r7NxDjYuT7QBijH1Kfsg Q4SOKmjGVzSFAosUMFqI1 kxzmfx3wazngn BkSzBLFaEFp4QSl6FMCrx SvsCeBaWOH6SyR1KHW6lA EwlR5goHvfbbojiT6mKeb +TVJOOjwvdGQ+ CBLlLTH5fDwjYBjfEKTju T5aHFWzG9v5EzLxXuM7HA maV5YdjqT7KFEdxFRdRVZ xzBTHjS6qezvg y2bftrmfEjFmTNToRJh0Q Mb9HAMgaFktZeXcBCF9Ia N4YPV3rIUtlA9hsCekxot rsO8uChj+UGF5 BTS0KT74RV79J5WtNsbmp GFibGU+PHRhYmxlIHdpZH RoPScxMDAlJyBzdHlsZT0 nPr5eZGVdRVBy bGxh (more content not included)... [facility] Consent for Procedure/Surger yon 05-24-2022 Consent for Procedure/Surgery [id number] [facility] Consent for Treatmenton Consent for Treatment [id number] [facility] Inpatient Patient Summaryon 05-24-2022 Inpatient Patient Summary [place] [id number] Clinical Summary Person Information Name: UMESH ESQUIVEL Age: 47 Years : 1975 Sex: Female PCP: ROSITA JIM CNP Marital Status: Phone: [phone] Race: White Ethnicity: Non- or Language: Polish Visit Id: Visit Reason: RECURRENT UTI STRESS INCONTINENCE Speciality: Acuity: Enc Type: Outpatient Med Service: Surgery Arrival: 05/24/2022 08:50:57 Discharge: Dispo Type: Address: [address] [id number] Provider Notes: Diagnosis: Dysuria; Recurrent UTI; Stress [...] Follow up: With: Address: When: Cherelle Aragon [address] [place] [address], [place] [address], [place] [phone] Business (1) Comments: Office to schedule follow up in 1 month With: Address: When: Cherelle Aragon Patient Education Information: EU - Cystoscopy with Urethral Dilation Discharge Instructions (CUSTOM) [facility] IntraOperative Documentson 0 05-24-2022 IntraOperative Documents [id number] .00CD:127 [facility] Main OR Intraoperative Recor don 05-24-2022 Main OR Intraoperative Record IntraOp Document Type FTURO Summary Primary Physician: Cherelle Aragon MD Finalized Date/Time: 05/24/22 10:14:19 Pt. Name: UMESH ESQUIVEL/Sex: 1975 Female Med Rec #: [id number] Physician: Cherelle Aragon MD Financial #: [id number] Pt. Type: O Room/Bed: / Admit/Disch: 05/24/22 08:50:57 - Institution: Case Times FTURO Entry 1 Patient Times In Room 05/24/22 09:56:00 Out Room 05/24/22 10:14:00 Procedure Times Start 05/24/22 10:05:00 Stop 05/24/22 10:10:00 Anesthesia Times Last Modified By: Karuna Youssef RN 05/24/22 10:14:03 Case Attendance FTURO Entry 1 Entry 2 Entry 3 Case Attendee Mahesh PEREZ, Cherelle Olivas RN MATERNITY, Marisol Youssef RN, Karuna Anand Role Performed Surgeon - Primary Scrub - Primary Support Associate - Primary Time In 05/24/22 09:56:00 05/24/22 [...] By: Karuna Youssef RN 05/24/22 10:14 [facility] Main OR Preoperative Recordo n 05-24-2022 Main OR Preoperative Record Holding Area Document Type FTURO Summary Primary Physician: Cherelle Aragon MD Finalized Date/Time: 05/24/22 09:38:31 Pt. Name: UMEHS ESQUIVEL /Sex: 1975 Female Med Rec #: [id number] Physician: Cherelle Aragon MD Financial #: [id number] Pt. Type: O Room/Bed: / Admit/Disch: 05/24/22 [...] No Pain Comment: na Skin Integrity Intact, [place], Warm, & Dry Vitals - EU Blood Pressure 112/70 Pulse 85 bpm Respirations 18 br/min SPO2 98 % RN Reviewed Yes Last Modified By: Karuna Youssef RN 05/24/22 09:38:29 General Comments: temp:36.2 Finalized By: Karuna Youssef RN Document Signatures Signed By: Susi Aiken LPN 05/24/22 09:09 Karuna Youssef RN 05/24/22 09:38 [facility] Operative Reporton Operative Report Patient: UMESH ESQUIVEL Age: 47 years Sex: Female : 1975 Associated Diagnoses: None Author: Cherelle Aragon MD Procedure Operative Information Details: Date/ Time: 05/24/2022 10:15:00. Pre-Op Dx: Dysuria (UGJ63-WY R30.0, Discharge, Medical), Recurrent UTI (MKM13-GK N39.0, Discharge, Medical), Stress incontinence (HET90-QA N39.3, Discharge, Medical). Post-Op Dx: Dysuria (SYJ97-ET R30.0, Discharge, Medical), Other urethral stricture, female (QEO48-AN N35.82, Billing Diagnosis, Medical), Recurrent UTI (SBY41-BE N39.0, Discharge, Medical), Stress incontinence (QLE57-RT N39.3, Discharge, Medical). Anesthesia Type: Local. Procedure: [...] urine. The Urethra was dilated to: 22 Spanish w/ sounds. Devices Implanted: None. Removal: Cystoscope [...] Follow up in 1 month . [facility] Comment on above: Result Comment: Elec tronically Signed By: Lue MD, Cherelle M.\.br\Date and Time Signed: 05/24/22 10:18 EST Outpatient Surgery Discharge Instructionon 05-24-2022 Outpatient Surgery Discharge Instruction [address] [address] Patient Discharge Instructions PERSON INFORMATION [...] Follow up: With: Address: When: Cherelle Aragon [address] [place] [address], [place] [phone] Business (1) Comments: Office to schedule follow [...] to serve you. Thank you for choosing [facility] PAP ACOG PANEL 2: 30 to 65on 05-07-2022 . . [facility] Comment on above: Result Comment: Perf ormed at: WB Performed By: #### 4 [id number] #### [facility] [address] [place] [address] Dr. Evy Boothe Age Gdln ACOG Testing 30-65 Normal [facility] Comment on above: Performed By: #### 4 [id number] #### [facility] [address] [place] [address] [address] Evy Boothe DIAGNOSIS: Comment Abnormal [facility] Comment on above: Result Comment: EPIT HELIAL CELL ABNORMALITY. ATYPICAL SQUAMOUS CELLS OF UNDETERMINED SIGNIFICANCE (ASC-US). Performed at: WB Performed By: #### 4 [id number] #### [facility] [address] [place] [address] [address] Evy Boothe Electronically signed by: Comment Normal [facility] Comment on above: Result Comment: Dolly Guthrie MD, Pathologist Performed at: WB Performed By: #### 4 [id number] #### [facility] [address] [place] [address] Dr. Evy Boothe HPV Aptima Positive Abnormal Negative [facility] Comment on above: Result Comment: This nucleic acid amplification test detects fourteen high-risk HPV types (16,18,31,33,35,39,45,51,52,56,58,59,66,68) without differentiation. Performed at: =G Performed By: #### 4 [id number] #### [facility] [address] [place] [address] Dr. Evy Boothe HPV Genotype Reflex Comment Normal [facility] Comment on above: Result Comment: Crit eria not met, HPV Genotype not performed. Performed at: WB Performed By: #### 4 [id number] #### [facility] [address] [place] [address] Dr. Evy Boothe Methodology: Comment [facility] Comment on above: Result Comment: This liquid based ThinPrep(R) pap test was screened with the use of an image guided system. Performed at: WB Performed By: #### 4 [id number] #### [facility] [address] [place] [address] Dr. Evy Boothe Note: Comment [facility] Comment on above: Result Comment: The Pap smear is a screening test designed to aid in the detection of premalignant and malignant conditions of the uterine cervix. It is not a diagnostic procedure and should not be used as the sole means of detecting cervical cancer. Both false-positive and false-negative reports do occur. . Performed at: WB Performed By: #### 4 [id number] #### [facility] [address] [place] [address] Dr. Evy Boothe Pathologist Provided ICD10 Comment [facility] Comment on above: Result Comment: R87. 610 Performed at: WB Performed By: #### 4 [id number] #### [facility] [address] [place] [address] Dr. Evy Boothe Performed by: Comment Normal [facility] Comment on above: Result Comment: Jonna Motta, Carpet Cleaning Technician (ASCP) Performed at: WB Performed By: #### 4 [id number] #### [facility] [address] [place] [address] [address] Evy Boothe Recommendation: Comment Abnormal [facility] Comment on above: Result Comment: Sugg est follow up as clinically appropriate. Performed at: WB Performed By: #### 4 [id number] #### [facility] [address] [place] [address] [address] Evy Boothe Specimen adequacy: Comment Normal [facility] Comment on above: Result Comment: Sati sfactory for evaluation. Endocervical and/or squamous metaplastic cells (endocervical component) are present. Performed at: WB Performed By: #### 4 [id number] #### [facility] [address] [place] [address] [address] Evy Boothe Consultation Noteon 05-06-20 Consultation Note [id number] .00CD:127 [facility] Screenson 05-06-2022 Screens [id number] .00CD:127 [facility] Ambulatory Visit Summaryon 1 07-06-2021 Ambulatory Visit [...] Follow-Up Appointments Tuesday 10:30 AM EST Where: [facility] Urology Surgical Services Tuesday 9:30 AM EST Where: [facility] Surgical Services Medications What How [...] for. Dysuria Recurrent UTI Stress incontinence [facility] Patient Educationon 05-05-20 Patient Education Urology Dysuria [...] may irritate the prostate. Medicines ? Take rdyi-htv-evsalfn and prescription medicines only as told by [...] 01/28/2005 Document Revised: 04/14/2018 Document Reviewed: 02/16/2018 [employer] Patient Education ? 2019 [employer]. [facility] Urology Office/Clinic Noteon 05-05-2022 Urology Office/Clinic Note Chief Complaint New Pt * Recurrent UTI HPI Staff Pt is a new pt, never before seen in our office. [facility] [place] [place] ER 03/29/22 due to BL flank pain and bladder pain. Pt c/o recurrent UTI. Given Pyridium & Tamsulosin. Pt was taking Cipro prior to ER from [facility], was switched to Macrobid. CT done 03/28/22. Denies current pain/burning and blood in urine. Painful urination and frequency with infection. As well as back pain. 2 UTI's in past 3m. States the pain during urination is unbearable with the infections. Pt's [facility] (Dr Gregg) recommend she see Dr Aragon [...] Urnls Dip Stick Auto w/o Microscopy POC 65808 Follow-up With When Contact Information Mahesh PEREZ, Cherelle German, URL, [facility] [address], [place] [phone] Additional Instructions: schedule Cysto and possible UD Patient Education Dysuria Katelynn Galarza , personally scribed for Dr. Aragon on 05/05/2022 11:47:43. . Documentation recorded by the scribe, Katelynn Seymour, accurately reflects the services(s) I performed and decisions made by me. Authenticated by Dr. Aragon on 05/05/2022 12:07:07. (more content not included)... [facility] Comment on above: Result Comment: Elec tronically Signed By: Cherelle Aragon MD\.br\Date and Time Signed: 05/05/22 12:08 EST\.br\Electronically Co-Signed By: Katelynn Seymour\.br\Date and Time Co-Signed: 05/05/22 11:48 EST MG MAMM SCREEN 3D TJ CADon 04-21-2022 MG MAMM SCREEN 3D TJ CAD Patient: UMESH ESQUIVEL Exam Date: 04/21/2022 : 1975 Gender:F Ordering : DR HONORIO GREGG . Admission #: [id number] Family : Order #: [id number] CLICK HERE TO VIEW EXAM RADIOLOGY REPORT [...] breast cancer at age 44. LOCATION: [facility] BREAST COMPOSITION: Heterogeneously dense,which may obscure [...] Lopez MD on 04/22/2022 at 08:53 [facility] Discharge Instructionson Discharge Instructions [id number] 1.00CD:127 [facility] Comment on above: Other Comment: gilma barksdale Coding Summary.on 03-31-2022 Coding Summary. CD:[id number] G h0bWw+PGhlYWQ+YC5JVPN xP01foIMkhU8PN3lTXM1E YWKSEGJHPQ6BVF5guKD7Z MvaH5YelvBs CupijWQwOL35FLc4NPZ2o KqbUWvgpM9zyJLiM9n4Yd TlZB84gS01ZZujMUCaYmH 3LjZpbjsgbWFy Q6cpVbAhtJNmIcd+PHRhY mxlIHdpZHRoPScxMDAlJy JvoDvzMC0mIv1uXJBkTGB vbGxhcHNlOiBj e2diGGHqSVheFM6nnTymM 8ImfWX5GAPkl5b9Bt05sQ I+RLQtFBS6fVejPMlnl35 2CgEvj0uxKNY6 qACmBAnpOBF3T89ur5O5W MZjRGNvWDY8oEZ4dM0ckG rmficfD7ZtvBPuMvT3ETU 5fZLbfZ8hwWgf tbmatA4jSnv+B83FIV0IL KFMRT2DXpn9A9XkIebpcV I+ZA51LHPbKI96vFVfyIR wa8jqkZp1XmZf JRNgJOO2zQimRWoxv4CxT DKrQ61fxNLbz6A5RSYfuX ywxKMvPxAerTU6fN5jFSh wfbgqs8gcadbi Mnpts8xrbd40cE89A82tL IcqFAKxKMR0JHAzGCYwxS bnsg7hkO1lJp0+UZgnn0p xe0atgFc2LqBe WOWxbqCttKtvLPV3c1AaK c92S7BfaVgfl0TrTzl7ws 04fYDkk9J0oTE0UYejNLV tiL4qAXcxHeV1 QHZyNfTaqE47cNEuTVziS t2olRtoxJiuAH8aJJXebt laGJSovK2vWFCjxWAhuWg wTP7hJITuuglg s419IwHoPUJ1PWHglXJfO 6XhwD0bNsVrSJGfSNGtP3 GizXUjIIrgH602YKjvIdR 2RXKwiiLfO9Qy HEDziUxiYuQ4k5J7Iy3Nl 8ThurbdIYP3POfgMZAbBx W8BkGeFtO1X9VnVjk6CFT njDiaNQ3yA3Vp GTBonjyjefgagZK4SLAdX VVikI52lJDmEUhlMs2ha2 H4c889TYDeBXClyS70Fp6 udDogMTBwdCBU vR3uiqcna5qgpyesAvBiI KEdWQe3XOj2PWMpyUjrGb YtQYF0MrA1ZVP0xPQtpV1 mfSdqacwotM6s Oyc+A65rjW1vRAH5TPP9q eiwDVUlmpHyTU59WK07Z2 RyPjwvdGFibGU+PGRpdiB qaLhdFL9dZuTk b8umh8ZkJDyxF3HhQYZoY QrtEje1QHQxIZZ2jYN6aR 9hCCEkAMytm5J4uHT2C8U gpdVkcb7su7da STPcLBocJ44ukKYyu3H3N PLviYJ2YKWqsGogYcYetC 93Oyc+NGTutJnfj3RbDzj eg5lkd6ycqQp9 CxYhLRLelaXgtBioEVF9d 5FpWv95Z40xEHduZHNjBM FzMUZqDBRcgItpku3dhY0 wIi8+PGNvbCB3 pTS8zW1uPAIuJoE7VKlkI 978CbNyhFFaDohny1rst9 gcaZs4RiZhHAZpsdUicTd tQEA7l9FgVr82 Y91lGWpiNWEcKTXcCITiR HLmkRqdyj7rwS0wCv4+PC 1za9ywwz25rR93gTD+PHR xQBT1nNbvRIri VRYhpV0cRVguMhR3VHUqK gAfgU85eJNaPBcvIi1xbX glzIppHZ0wRMYpyfers92 1XmMwy9wgQXTf rJXsWUisCHI3H83mn6S8N UTdLYCoNGC4sLU7hL5ndC lnbjogbGVmdDsgdmVydGl hDEcoWQkxF208 IHRvcDsnPlBhdGllbnQgT jNlBFj7B1RfZma5UICpbO pnOB9hcIIkAExrEe2saUi ouOefSD2nWOPm nnpcc386UyRqp7umFQRbt AWlUGwbTRT4D81qk3V5CY NoQPAxZGT6iWV2iK0ohLe nbjogbGVmdDsg jiNrbOmhIOalOHgcE669L HRvcDsnPkJpcnRoIERhdG Q8OI09FU71vCOxf1E4sZE 9V1DyISXejvky kolzuNO4ZFMuGVFmlU89B c1qkCrpFv3nNVDeKEN9HI YopBJpK3AuvK1xScWwNMN dJVCnR7SzwGMa CTywL171LOvsLqW8ITKrk aHmL9LhNUCdlUrkAlD3f9 M9Mk3AV1L3FF97GT42fDR hn5L5jXA8O7Mo MRPbvkbvtrfytJU6BMOcS GGurL37Rm9rdWxuOs8iHZ GqFLB1WIGmbMGxF5UhuG8 yOiAjMDAwMDAw T3UpuCFkHDtlH819YLhyH vR0EESazeLrQ4IzYFQvsG zqEdI2f4Y9Iq7MMGy7QW6 7WD71xWAjz6C3 bAW9V6PpBSLvqkvunifsv DJ6VXDmFVVjlS49Dd1dkF fiHv9eCJPbYTC3DBJvbDZ kS8QqyG8nLnCu UIBxNKXyN9NzwECkJLazV 039INvfOnZ4GNOxdbDgR7 GkOGUsrNapTrE9w8U3My5 DRFCmFI43SYQ4 jDF9JU85EA74H1OqAqylp GFibGU+PHRhYmxlIHdpZH RoPScxMDAlJyBzdHlsZT0 qEk0xJLStAVHq kCosuHKaMfOtc6otKFMmP MhoPJ7weIzrA9YhgFN0HM Gwh3v4Pw24S07uZ9TmeKU +DMEccUK6nHR9 nW4gOdTaSfF3WJaxR189Z cVesINcCjnqz5lmb5iafG a9GqM9COInjhWfyLrfFGB 2c9AmJe01E34n IHdpZHRoPSIxNSUiIHZhb Pdjbm4ogU2gJt4+PGNvbC M1xBC2tG4nJhHtDsK0KYu kB780YjFitXGg Vuftq9bnt2fpzPs6BjUeP MMzuzJioQefXIA9z1OcZf 94V5YpbOdku7EfFhh8bv3 1bWCng2V1yGR7 S5VbVAAbudbvuWJcnCyfR B9bYXEixoapZOVinJ2bYH LbC8t7AvQnVhV6MZnyC4O vgqO6ECSlkHIm YFvnRUQ8S16ng5M4EZAkZ OKcUPW3xEH4hX5zgNrtdx ogbGVmdDsgdmVydGljYWw wGMztW737EQIj yFrjCVQfzM0lUVGcoZQbv QsgYG5nGUFoulyvYyVRQH tJTiwgSkVOTklGRVIgTDw vdGQ+PHRkIHN0 gTtkTRicZJWpcE0yMWZzE 0o0QrVlJeU5GOivK9YlOQ JhefdpDl72zF1zGuOoOxZ 7OJxdE9GokjY2 KUGemNZgQAhlYGH5W84cq 2A6SXZrDFCuZDV8ySM7wC 1hbGlnbjogbGVmdDsgdmV ydGljYWwtYWxp P670GDOysRivGoM1KmD3Y tT2GqM0Z8RsRzv4EMRzlC jtBZ9sbUJsRYvhZs0zhQf xvUfwUH1oNGZr frvxGCRvpG2zWIIajWNbv JczZI1uZNPbqrlww405Vf RwGIJ9IRNbkLZhT5CsuL3 yOiAjMDAwMDAw I4PmtVOfYOphU981EStaM rY9UVQdbxCvS6PvBUNzrT vvXuW6e4W9Qr82FRHQWYN yczwvdGQ+PHRk KNF5tVloQJdbVHBomZ2yT SDrI8a0ZvSuIsY7FWehR6 GuHQFpozdeNt83nL2fWrQ fCsZ7BIgtB2Rn gxP3KWHsdCQiYLleCTZ3O 02lw7Z9DCYdBCEjQYN4kN A7nC8orSqgmkusbLMseJn gdmVydGljYWwt KLrrH705SGXwjIgqRhZfv WFsZTwvdGQ+NXQzIFH0hW jxOOssOEMtyJ2bAYSyG4f 5DlNvGuR8PYwe F9JcHDPmxrgxZj28yW3nT rPtFgN6OSrkT1PtdyL6HP NktJSzGJspNGT1A05ft3P 2ZCUdHSZpJDT8 bPI6gJ4xuXqeormogTZxf DsgdmVydGljYWwtYWxpZ2 88NYPldTkpTaGlAWSwWS8 jeTwvdGQ+PC90 vc74E9GhGnzeLgi2GIUtZ SM8qWU9pR4xGDAgJGsaq0 F4lKC7V7GmdnHhhk1ew2z hVROqHFlmG45x mGVds6M2WAFwoJV9LNDuy XngBoSdpH90Txj+PGNvbG vju3IyGdkvc5jed2zxkNk 9IjMwJSIgdmFs rOdyZYY3y2BuYx81N37wB HdpZHRoPSIzMCUiIHZhbG ydnl4psJ1xDb4+PGNvbCB 5cWJ2fO9qEkKy VkO0DQutH844VxFclHQyL mrig9pvr8ugyXz3NlUzYX RmlePilSdvYDR2y3MhDw5 4H6NrxKbkd1Ir Pgk1dx65mBUoq3X7eKN1G 3BhZGRpbmctbGVmdDogMC 3bTDLwkxfvFGKalW2uZYG gN0h9JdNfRzU8 AQzsU2OydmO1NTUrfBWjG QUssUYFjJ1kaxggk5jhtg xnOfPwUZNuEWs4TUp8HQJ saWduOiBsZWZ0 GkW0OJQ8yLSywN2uhWmbl jmdiH7yUgd+XMj4q1knmA UmMG5dlPY0VH04TB50nRD jd2H4wCM3G9Ju DHMykvehcpqepXT0YPBeU DPidU63By7yrZetFb3rBZ TxMXR0SWBobWGgK1WwmE9 yOiAjMDAwMDAw I5PpgTKhUHrnP517RHkuI pQ8HOJyntRkA2JgIVSoeD sbVeZ3g6G7Oq7FND71EM3 8EP36tPFae0Q1 bUI2N3IePUHsbkgsewqxp IQ9NNHoBNRwsY98Ge6noD zjCh8wHOPfJQL7EDUdkKB oF2LabV5oVeMz HXHqXFAjV9JngCOsJUjwZ 525BNpaBtJ9QZDwrxJdG9 GbDUMmlJnxCwK0n5T3Ik4 XVl39VN85WV08 uTUtr5J8fDQ6Y9BiERYxc ioospqbiQO7TORsTNTocS 41Qw8bnHrsNs2zCECrSSI 6IEUejEKaI2Mv xI9wNwGqZPDcOFZwG2Ivq AFzXScnZ203PDjwOoO2MT RispBtF5HbENPplUwqRnB 5g4J0Fy6JPRpt cds6I7BvEuoeqJA+PC90Y EVzRX69lCMapFQvx2bphQ f7BvYyXXIeGQD9dRdzTXe lb6JwRRFnT68e bGFw (more content not included)... [facility] ED Note-Physicianon 03-31-20 ED Note-Physician Basic Information [...] day(s), # 9 tab(s), Refills(s) 0, Pharmacy: [facility] #[facility], 173, cm, 03/28/22 15:38:00 EST, Height/Length [...] Daily, # 10 cap(s), Refills(s) 0, Pharmacy: [facility] #[facility], 173, cm, 03/28/22 15:38:00 EST, Height/Length [...] of the (more content not included)... [facility] Comment on above: Result Comment: Elec tronically Signed By: Humaira Lora PA-C\.br\Date and Time Signed: 03/29/22 01:30 EST\.br\Electronically Co-Signed By: London Mccurdy M.D.\.br\Date and Time Co-Signed: 03/31/22 07:26 EST CHLAMYDIA/GONOCOCCUS LUZMARIA (SW AB/URINE/PAPon 03-29-2022 Chlamydia trachomatis, LUZMARIA Negative Normal Negative [facility] Comment on above: Performed By: #### C T/NGNA #### [facility] [address] [place] [address] Dr. Evy Boothe Neisseria gonorrhoeae, LUZMARIA Negative Normal Negative [facility] Comment on above: Performed By: #### C T/NGNA #### [facility] [address] [address] [address] Evy Boothe Auto Diffon 03-28-2022 Basophils/100 WBC (Bld) 1.3 % Normal 0.0-2.0 [facility] Comment on above: Order Comment: Order Added by Discern Expert. Performed By: #### 1 [id number], [id number], 6700395, 2386888, 8043752 ####[facility] [address] [place] [address] Basophils/Leukocytes Auto (Bld) [Pure # fraction] 0.1 E9/L Normal 0.0-0.2 [facility] Comment on above: Order Comment: Order Added by Discern Expert. Performed By: #### 1 [id number], 5377383, 3988819, 4191778, [id number] ####[facility] [address] [place] [address] Eosinophils/100 WBC (Bld) 1.1 % Normal 0.0-8.0 [facility] Comment on above: Order Comment: Order Added by Discern Expert. Performed By: #### 1 9141616, 4308320, 1898023, 5309595, 8316696 ####[facility] [address] [place] [address] Eosinophils/Leukocytes Auto (Bld) [Pure # fraction] 0.1 E9/L Normal 0.0-0.5 [facility] Comment on above: Order Comment: Order Added by Discern Expert. Performed By: #### 1 5644051, 6254968, 4154793, 3340147, 3292311 ####[facility] [address] [place] [address] Lymphocytes/100 WBC (Bld) 24.8 % Normal 14.0-50.0 [facility] Comment on above: Order Comment: Order Added by Rika Expert. Performed By: #### 1 1477144, 1571110, 6247003, 1449074, 1246083 ####[facility] [address] [place] [address] Lymphocytes/Leukocytes Auto (Bld) [Pure # fraction] 2.4 E9/L Normal 1.0-4.0 [facility] Comment on above: Order Comment: Order Added by Rika Expert. Performed By: #### 1 0445333, 0363723, 4053843, 9665911, 0763124 ####[facility] [address] [place] [address] Monocytes/100 WBC (Bld) 5.3 % Normal 4.0-14.0 [facility] Comment on above: Order Comment: Order Added by Rika Expert. Performed By: #### 1 8725919, 6074148, 2390845, 8787572, 6108572 ####[facility] [address] [place] [address] Monocytes/Leukocytes Auto (Bld) [Pure # fraction] 0.5 E9/L Normal 0.2-1.0 [facility] Comment on above: Order Comment: Order Added by Rika Expert. Performed By: #### 1 8847413, 1711724, 4092783, 9008464, 0321288 ####[facility] [address] [place] [address] Neutrophils/100 WBC (Bld) 67.5 % Normal 36.0-75.0 [facility] Comment on above: Order Comment: Order Added by Discern Expert. Performed By: #### 1 6400997, 8293774, 9979275, 4869727, 2456779 ####[facility] [address] [place] [address] Neutrophils/Leukocytes Auto (Bld) [Pure # fraction] 6.5 E9/L Normal 2.0-7.5 [facility] Comment on above: Order Comment: Order Added by Discern Expert. Performed By: #### 1 6834810, 4111809, 5210918, 0167849, 0823337 ####[facility] [address] [place] [address] BMPon 03-28-2022 Creatinine [Mass/Vol] 0.7 mg/dL Normal 0.5-1.3 [facility] Comment on above: Performed By: #### 1 9761739, 2823487, 0908508, 2888062, 4653376 ####[facility] [address] [place] [address] Urea nitrogen [Mass/Vol] 19 mg/dL Normal 5-21 [facility] Comment on above: Performed By: #### 1 8033374, 5230710, 2067605, 3973419, 3704548 ####[facility] [address] [place] [address] Urea nitrogen/Creatinine [Mass ratio] 27 No Units High 10-20 [facility] Comment on above: Performed By: #### 1 1512299, 6751918, 6602500, 6303651, 4344878 ####[facility] [address] [place] [address] Anion gap [Moles/Vol] 16 mmol/L Normal 6-16 [facility] Comment on above: Performed By: #### 1 0410831, 5205496, 7079785, 9029563, 1597422 ####[facility] [address] [place] [address] Calcium [Mass/Vol] 8.7 mg/dL Low 8.9-11.1 [facility] Comment on above: Performed By: #### 1 [id number], 6501454, 9058865, 8913151, 3703099 ####[facility] [address] [place] [address] Chloride [Moles/Vol] 104 mmol/L Normal 101-111 [facility] Comment on above: Performed By: #### 1 8140360, 5221139, 9598252, 1026032, 6731827 ####[facility] [address] [place] [address] CO2 [Moles/Vol] 23 mmol/L Normal 21-31 [facility] Comment on above: Performed By: #### 1 5219590, 8530542, 2472622, 8054404, 5596513 ####[facility] [address] [place] [address] Glucose [Mass/Vol] 82 mg/dL Normal 55-199 [facility] Comment on above: Result Comment: If t his glucose result represents a fasting glucose, interpretation should refer to the following reference range: 55-99 mg/dL Performed By: #### 1 [id number], 7284368, 0135496, 8249241, 1249555 ####[facility] [address] [place] [address] Potassium [Moles/Vol] 3.6 mmol/L Normal 3.5-5.3 [facility] Comment on above: Performed By: #### 1 3502445, 8214513, 4376500, 9093624, 1197923 ####[facility] [address] [place] [address] Sodium [Moles/Vol] 139 mmol/L Normal 135-145 [facility] Comment on above: Performed By: #### 1 2412679, 2246777, 8983480, 2875380, 2295717 ####[facility] [address] [place] [address] CBC w/ Auto Diffon 2 Erythrocyte distribution width (RBC) [Ratio] 13.1 % Normal 10.9-14.2 [facility] Comment on above: Performed By: #### 1 7375857, 6289770, 8027845, 2526531, 7484717 ####[facility] [address] [place] [address] Hematocrit (Bld) [Volume fraction] 39.3 % Normal 34.0-46.0 [facility] Comment on above: Performed By: #### 1 6665630, 4120642, 6221769, 2817616, 7025382 ####[address] [place] [address] Hemoglobin (Bld) [Mass/Vol] 13.8 g/dL Normal 12.0-16.0 [facility] Comment on above: Performed By: #### 1 3007853, 9051635, 4089787, 2016372, 8332249 ####[place] [address] MCH (RBC) [Entitic mass] 30.0 pg Normal 27.0-34.0 [facility] Comment on above: Performed By: #### 1 5974491, 7899058, 6112738, 6830177, 0776298 ####[facility] [address] [place], [place] [id number] MCHC (RBC) [Mass/Vol] 35.0 g/dL Normal 31.4-36.0 [facility] Comment on above: Performed By: #### 1 3614809, 8122120, 1608533, 2160171, 4513457 ####[place] [address] MCV (RBC) [Entitic vol] 85.7 fL Normal 80.0-100.0 [facility] Comment on above: Performed By: #### 1 7913774, 6645849, 1557823, 4437139, 3963625 ####[address] [place] [address] Platelet mean volume (Bld) [Entitic vol] 7.6 fL Normal 6.4-10.8 [facility] Comment on above: Performed By: #### 1 7711254, 0396871, 7827102, 6887180, 5596769 ####[facility] [address] [place] [address] Platelets (Bld) [#/Vol] 370.0 E9/L Normal 150.0-500.0 [facility] Comment on above: Performed By: #### 1 2344155, 1067705, 4969386, 2015158, 5595828 ####[facility] [address] [place] [address] RBC (Bld) [#/Vol] 4.6 E12/L Normal 4.3-5.9 [facility] Comment on above: Performed By: #### 1 8356310, 3991813, 2784186, 7652841, 6951272 ####[facility] [address] [place] [address] WBC corrected for nucl RBC Auto (Bld) [#/Vol] 9.6 E9/L Normal 4.0-11.0 [facility] Comment on above: Performed By: #### 1 7181282, 5767147, 9666658, 3318424, 6762282 ####[facility] [address] [place] [address] CT Abdomen/Pelvis w/o Contra ston 03-28-2022 CT [...] Oral contrast amount in ml's: 0 Normal [facility] Consent for Treatmenton 03-16 Consent for Treatment [id number] Normal [facility] Discharge Instructionson Discharge Instructions [id number] 2110 [id number]# 1.00CD:127 [facility] ED Clinical Summaryon 2021 ED Clinical Summary [address] [address] ED Clinical Summary Person Information Name: UMESH ESQUIVEL Tahira/[facility] Age: 47 Years : 1975 Sex: Female Language: Polish PCP: ROSITA JIM CNP Marital Status: Phone: [phone] Visit Id: Visit Reason: Flank pain; Dysuria; [...] 03/28/2022 18:35:00 03/28/2022 18:35:00 03/28/2022 18:35:00 ADDRESS: [address] [id number] PHYS DOC NOTES: MEDICAL INFORMATION: Prescriptions Given: New Medications [employer] [facility] [place], [place] [id number], [phone] phenazopyridine (Pyridium 200 mg Tab) 1 Tablets [...] 03/31/2022 With: Address: When: ROSITA JAYANT [address] [facility] [address] [facility] (1) In 3 days DIAGNOSIS: 1:Dysuria [facility] ED Patient Education Noteon 03-28-2022 ED Patient [...] may irritate the prostate. Medicines ? Take haqi-igv-xsuryrw and prescription medicines only as told by [...] 01/28/2005 Document Revised: 04/14/2018 Document Reviewed: 02/16/2018 [employer] Patient Education ? 2019 [employer] [facility] ED Patient Summaryon 022 ED Patient Summary [place] [id number] Patient Discharge Instructions Person Information Name: UMESH ESQUIVEL Age: 47 Years Arrival Date: 03/28/2022 15:32:31 Discharge Diagnosis: 1:Dysuria Primary Care Physician: ROSITA JIM CNP Provider Information Primary Provider: London Mccurdy M.D. Advanced Check And Transfer Beader:None The exam and treatment you received in the Emergency Department were for an urgent problem and are not intended as complete care. It is important that you follow up with a doctor, nurse practitioner, or physician?s wet process assistant head miller for ongoing care. If your symptoms become worse or you do not improve as expected and you are unable to reach your usual health care provider, you should return to the Emergency Department. We are available 24 hours a day. UMESH ESQUIVEL has been given the following list of patient education materials, prescriptions and follow-up instructions: Follow-up Instructions: With: Address: When: Cherelle Aragon In 3 days 03/31/2022 With: Address: When: ROSITA JIM [address] [place], [place] [id number] [facility] (1) In 3 days In the event that this physician does not participate in your insurance network, please consult with your insurance company to find a nearby participating provider. Patient Education Materials: Dysuria A MESSAGE TO ALL PATIENTS REGARDING OPIOIDS PRESCRIPTION OPIOIDS: WHAT YOU NEED TO KNOW Prescription opioids can be used to help relieve ixefqnsf-mb-frcncb pain and are often prescribed following a [...] be struggling with addiction, tell your health hearing healthcare practitioner and ask for guidance or call SAMHSA?S National Helpline at 1-895-639-GOUE. (more content not included)... [facility] HEPATITIS PANEL, ACUTEon HBsAg Screen Negative Normal Negative [facility] Comment on above: Performed By: #### H EPACUT #### [facility] [address] [place] [address] [address] Evy Boothe HCV AB <0.1 Normal 0.0-0.9 [facility] Comment on above: Performed By: #### H EPACUT #### [facility] [address] [place] [address] [address] Evy Boothe Hep A Ab, IgM Negative Normal Negative [facility] Comment on above: Performed By: #### H EPACUT #### [facility] [address] [place], [place] [address] Dr. Evy Boothe Hep B Core Ab, IgM Negative Normal Negative [facility] Comment on above: Performed By: #### H EPACUT #### [facility] [address] [place] [address] [address] Evy Boothe Interpretation: Comment Normal [facility] Comment on above: Result Comment: Nega tive Not infected with HCV, unless recent infection is suspected or other evidence exists to indicate HCV infection. Performed By: #### H EPACUT #### [facility]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 [facility] 02-26-2020 influenza virus vacc ine, unspecified formulation Cherelle Lue [facility] 03-28-2019 influenza virus vacc ine, unspecified formulation Cherelle Lue [facility] 03-28-2019 pneumococcal polysaccharide vaccine, 23 valent Cherelle Lue [facility] 02-17-2016 influenza virus vacc ine, unspecified formulation Cherelle Lue [facility] 06-10-2011 hepatitis B vaccine, adult dosage Cherelle Lue [facility] 02-05-2011 hepatitis B vaccine, adult dosage Cherelle Lue [facility] 01-01-2011 hepatitis B vaccine, adult dosage Cherelle Aragon [facility] 02-06-2008 tetanus toxoid, redu edgar diphtheria toxoid, and acellular pertussis vaccine, adsorbed Cherelle Aragon [facility] Payers Date Payer Category Payer Unknown [id number] 2021 Self-pay [id number] 2019 Unknown [employer] xxxxxxxxxxxx 2019-Present xxxxxxxxxxxx [id number] 1974 Unknown [id number] 1974 Unknown [id number] [id number] 1974 Unknown [id number] [id number] 1974 Unknown [id number] 1974 Unknown [id number] [id number] 1974 Unknown [id number] [id number] 1974 Unknown [id number] [id number] 1974 Unknown [id number] [id number] 1974 Unknown [id number] [id number] 1974 Unknown [id number] [id number] 9 1974 Unknown [id number] 9 1959 Unknown [id number] Unknown [id number] Unknown [id number] Social History Date Type Detail Facility Start: 11-21-2019 End: 10-13-2022 Tobacco smoking status SDIS Never smoker [facility] Comment on above: denies. Start: 1975 Sex Assigned At Not on file [facility] Exposure to SARS-CoV-2 (event) Not sure [facility] Tobacco smoking status [facility] Tobacco smoking consumption unknown [employer] Work Phone: Tobacco [facility] Comment on above: denies Tobacco smoking status No Smoking Status Entered [facility] Sex Assigned At Female [facility] Start: 1975 Sex Assigned At Female F [facility] Tobacco smoking status Never [facility] Comment on above: denies. Functional Status Date Assessment Result Facility 10-13-2022 Functional Status N/A [facility] 05-12-2022 Functional Status N/A [facility] 05-05-2022 Functional Status N/A [facility] Clinical Notes 05-05-2022 to 10-13-2022 Note Date [...] (electrical nerve stimulation). ?For women, using a medical laboratory technologist to prevent urine leaks. This is a [...] right after experiencing incontinence. General instructions Take hqxj-gul-timdevk and prescription medicines only as told by [...] important. Where to find more information National [place] of Diabetes and Digestive and Kidney Diseases: www.niddk.nih.gov [place] [employer]: www.urologyhealth.org Contact a health care [...] provider. Document Revised: 12/05/2020 Document Reviewed: 12/05/2020 [employer] Patient Education 2022 [employer]. Follow Up Care 05/24/2022 10:20:13 With:Mahesh PEREZ, JOANIE Ndiaye, URO Address: [address] [place] [phone] When:Within 1 Year(s) [facility] 05-24-2022 Note [id number] [facility] 05-24-2022 Note Cystoscopy with Uret hral Dilation [...] you have a fever over 100 degrees [facility] 05-24-2022 [facility] Discharg e instructions Patient Education 05/24/2022 10:12:12 [...] 05/05/2022 11:54:17 With:Cherelle Aragon Address: [address] [phone] Business (1) When: Unknown Comments:Office to schedule follow up in 1 month With:Cherelle Aragon Address:Unknown When: Unknown [facility] 05-05-2022 [facility] Discharg e instructions Patient Education 05/05/2022 11:41:30 [...] alcohol may irritate the prostate. Medicines Take obtp-iwd-dnxsdxo and prescription medicines only as told by [...] 01/28/2005 Document Revised: 04/14/2018 Document Reviewed: 02/16/2018 [employer] Patient Education 2020 Metago. Follow Up Care 03/30/2022 11:38:13 With:Mahesh PEREZ, Cherelle German, URL, URO Address: [address], [facility] [place] [phone] When: Unknown Comments:schedule Cysto and possible UD [facility] Evaluation + Plan note Future Appointments Appointment Date:05/18/2022 10:30:00 AM Scheduled Provider: Location:[facility] Appointment Type:Urology CALL PAT FT Appointment Date:05/24/2022 09:30:00 AM Scheduled Provider: Location:[facility] Appointment Type:Urology FT [facility] Evaluation + Plan note Future Appointments Appointment Date:07/14/2022 08:15:00 AM Scheduled Provider:Cherelle Aragon MD Location:[facility] Appointment Type:URO Office Visit [facility] Evaluation + Plan note Future Appointments Appointment Date:10/19/2023 08:00:00 AM Scheduled Provider:Cherelle Aragon MD Location:[facility] Appointment Type:URO Office Visit [facility] Evaluation note Diagnosis Pre-employment health screening examination Health examination of defined subpopulation [facility] this encounter [facility] Work [facility]: evaluation noteNo assessment information available [facility] Work Phone: Hospital course Narrative No data available for this section [facility] progress note No data available for this section [facility] Summary Purpose Family History No Family History Records Found Relationship Condition Age at Onset Recorded Date/T blanquita Not Specified Malignant neoplasm of breast Unknown father Coronary artery disease Unknown Advance Directives No Advanced Directives Records FoundDocuments on File Type Date Recorded 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 * Toxin Exposure (Polish) * Earache: Adult (Polish) documented in this encounter Assessments Diagnosis Right ear pain Unspecified otalgia Exposure to chemical inhalation Covid-19 Virus not Detected Chief Complaint and Reason for Visit Chief Complaint Essential (primary) hypertension Additional Source Comments INFORMATION SOURCE (unrecogn ized section and content) DATE CREATED AUTHOR 11/08/2017 [facility] DATE CREATED AUTHOR AUTHOR'S ORGANIZ ATION 12/07/2019 [facility] DATE CREATED AUTHOR AUTHOR'S ORGANIZ ATION 07/19/2021 [facility] DATE CREATED AUTHOR AUTHOR'S ORGANIZ ATION 05/09/2022 [facility] DATE CREATED AUTHOR AUTHOR'S ORGANIZ ATION 09/05/[address] [facility] DATE CREATED AUTHOR AUTHOR'S ORGANIZ ATION 10/22/2022 [facility] DATE CREATED AUTHOR AUTHOR'S ORGANIZ ATION 05/24/2023 [facility] dical Specialists EPIC Reason for Visit (unrecogniz ed section and content) Reason Comments Lightning Strike Respiratory Distress Yumiko Pearson RN - 11/21/2019 7:14 PM EDTSKathie barrera RN - 11/21/2019 5:38 PM EDT ED Notes (unrecognized secti on and content) Patient resting at present, states that she has a headache. 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 documented in this encounter Care Teams (unrecognized sec tion and content) Salesperson Meats Relationship Specialty Start Date End Date Rosita Jim PCP - General 07/16/21 Salesperson Meats Relationship Specialty Start Date End Date Rosita Jim PCP - General 07/16/21 Team Status: Active Member Role Status Dates Services [facility] Primary Care Provider Active Team Status: Inactive Member Role Status Dates [facility] Primary Care Provider Active Rosita Jim APRN MOLD CLEANING AND STORAGE SUPERVISOR-C Attending Provider A ctive Goals (unrecognized section [...] BE BASED ON THE PRIMARY CLINICAL RECORDS. [employer] [facility]. provides no warranty or guarantee of the accuracy or completeness of information in this document.
--- NOTE | 2023-06-03 13:38 | ECG_ITS ---
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
[2023-06-03 14:20] LABS: Basophils Absolute Auto 0.1 10^3/uL (0.0-0.1); Basophils Percent Auto 0.7 % (0.2-2.0); Eosinophils Absolute Auto 0.2 10^3/uL (0.0-0.7); Hematocrit 40.4 % (36.0-48.0); Hemoglobin 13.2 g/dL (12.0-16.0); Immature Granulocytes Abs Auto 0.03 10^3/uL (0.00-0.03); Immature Granulocytes Pct Auto 0.3 % (0.0-0.5); Lymphocytes Absolute Auto 2.2 10^3/uL (1.2-3.8); Lymphocytes Percent Auto 24.8 % (20.5-60.0); Mean Corpuscular HGB Conc 32.7 g/dL (29.9-35.2); Mean Corpuscular Hemoglobin 29.5 pg (26.7-34.0); Mean Corpuscular Volume 90.2 fL (81.0-99.0); Mean Platelet Volume 9.9 fL (9.5-13.5); Monocytes Absolute Auto 0.8 10^3/uL (0.3-0.8); Monocytes Percent Auto 8.6 % (1.7-12.0); Neutrophils Absolute Auto 5.6 10^3/uL (1.4-6.5); Neutrophils Percent Auto 63.6 % (43.0-75.0); Platelet Count 349 10^3/uL (150-450); Red Blood Count 4.48 10^6/uL (4.20-5.40); Red Cell Distribution Width 12.2 % (11.0-15.0); White Blood Count 8.9 10^3/uL (4.0-11.0)
[2023-06-03 14:26] LABS: Alanine Aminotransferase 26 U/L (14-59); Alkaline Phosphatase 52 U/L (46-116); Aspartate Amino Transferase 14 U/L (15-37); BUN Creatinine Ratio 18.1; Bilirubin Direct 0.1 mg/dL (0.0-0.2); Bilirubin Total 0.3 mg/dL (0.2-1.0); Calcium 8.7 mg/dL (8.5-10.1); Carbon Dioxide 26.4 mmol/L (21.0-32.0); Chloride 104 mmol/L (98-107); Estimated GFR (African America >60 (>=60); Estimated GFR (Non-African Ame >60 (>=60); Globulin 3.6 g/dL; Glucose 64 mg/dL (74-106); Potassium 3.4 mmol/L (3.5-5.1); Sodium 139 mmol/L (136-145); Total Protein 7.6 g/dL (6.4-8.2)
[2023-06-03 14:27] LABS: Albumin Globulin Ratio 1.1
[2023-06-03 14:37] LABS: INR 0.98; Partial Thromboplastin Time 26.9 sec (22.3-36.2); Prothrombin Time 10.4 sec (9.0-11.6)
== END 2023-06-03 13:34 | disposition home or self-care (01) ==
PROVIDERS: Visit Provider Obstetrics & Gynecology
DX: Z01.810 Encounter for preprocedural cardiovascular examination (principal); Z01.812 Encounter for preprocedural laboratory examination; N92.1 Excessive and frequent menstruation with irregular cycle; N93.9 Abnormal uterine and vaginal bleeding, unspecified; R10.2 Pelvic and perineal pain; N94.10 Unspecified dyspareunia; N94.6 Dysmenorrhea, unspecified
CPT/HCPCS: 80048; 80076; 85025; 85610; 85730; 93005

== ENCOUNTER 2023-06-23 15:58 | Outpatient (OUT) | payer OTHER, SELFPAY | END 2023-06-23 15:59 | disposition home or self-care (01) | LOC: LAB 16:00 | PROVIDERS: Visit Provider Obstetrics & Gynecology | DX: Z01.812 Encounter for preprocedural laboratory examination (principal); N92.1 Excessive and frequent menstruation with irregular cycle; N93.9 Abnormal uterine and vaginal bleeding, unspecified; R10.2 Pelvic and perineal pain; N94.10 Unspecified dyspareunia; N94.6 Dysmenorrhea, unspecified | CPT/HCPCS: 36415; 86850; 86900; 86901 ==

== ENCOUNTER 2023-06-29 06:21 | Day surgery (SDC) | payer SELFPAY ==
[2023-06-03 14:42] VITALS: BP 120/80; PULSE 90; RESP 16; TEMP 36.3; O2SAT 98; BMI 25.5
[2023-06-29] VITALS (10 sets, daily range): BP systolic 91–131; BP diastolic 62–78; PULSE 77–94; RESP 12–20; TEMP 36.2–37; O2SAT 90–97; BMI 28.1
--- OUTSIDE RECORDS SUMMARY | 2023-06-29 06:25 | XMS_ITS | CCD ---
Author Name Unknown Address [address] [place] [address] Organization [facility] Care Team Providers Care Poster Name Role Phone NO, PHYSICIAN Unavailable Unavailable [...] Admitting Unavailable WANDER, DR OLMEDO Consulting Unavailable KINSLEY, DR GILDA Garza Consulting Unavailable WANDER, DR OLMEDO Attending Unavailable WANDER, DR OLMEDO Admitting Unavailable WANDER, DR OLMEDO Consulting Unavailable WANDER, DR OLMEDO Consulting Unavailable WANDER, DR OLMEDO Attending Unavailable WANDER, DR OLMEDO Admitting Unavailable [facility] Primary Care Provider KEITH Jim Attending Provider Rosita Jim Admitting Unavailab le Rosita Jim Attending Unavailab le [facility] Primary Care Unavaila ble Rosita Jim Admitting Unavailab le Rosita Jim Attending Unavailab le [facility] Primary Care Unavaila ble Cherelle Aragon Attending Unavailable Cherelle Aragon Referring Unavailable London Mccurdy Attending Unavailable Lue, Cherelle M. Attending Unavailable Cherelle Aragon Attending Unavailable Cherelle Aragon Admitting Unavailable Cherelle Aragon Attending Unavailable Cherelle Argaon Referring Unavailable HONORIO GREGG Attending Unavailable HONORIO GREGG Attending Unavailable Allergies Allergy Classification Reported Allergen(s) Allergy Type Date of Onset Reaction(s) Facility (5 sources) Coconut extract; Translations: [COCONUT] Drug Allergy 3 Anaphylaxis [facility] Repository (5 sources) Penicillins; Translations: [Unknown] Propensity to adverse reactions to drug (disorder) 3 Anaphylaxis [facility] Repository (3 sources) Sulfonamides (Antibiotic); Translations: [Sulfa (Sulfonamide Antibiotics)] Propensity to adverse reactions to drug 0 Anaphylaxis [facility] (4 sources) Coconut Oil; Translations: [Coconut Oil] Drug Allergy Anaphylactic reaction [facility] (4 sources) Penicillin; Translations: [penicillin] Drug Allergy Anaphylactic reaction [facility] (4 sources) Sulfonamides (Antibiotic); Translations: [sulfa drugs] Drug allergy Anaphylactic reaction [facility] (5 sources) Latex; Translations: [Latex] Drug allergy (disorder) 3 Eruption (morphologic abnormality) [facility] Repository (1 source) Sulfonamides (Antibiotic) Drug allergy (disorder) [address] [facility] Repository (1 source) Latex Drug allergy (disorder) 1 [facility] Repository Medications Current Medications Medication Drug [...] Daily, # 30 cap(s), Refills(s) 11, Pharmacy: [facility], 173, cm, 10/13/22 8:45:00 EDT, Height/Length Dosing, 70.5, kg, 10/13/22 8:45:00 EDT, Weight Dosing Start Date: 10/13/22 Status: Ordered Completed/Discontinued Medications Medication Drug Class(es) Dates Sig (Normalized) Sig (Original) [id number] 200 actuat albuterol 0.09 mg/actuat metered dose [...] Cherelle Aragon MD Where: [facility] Lab Reportson 10-13-2022 Lab Reports [id number] [facility] Patient Educationon 10-14-19 23 Patient Education Urology [...] stimulation). ? For women, using a medical liaison to prevent urine leaks. This is a [...] urine. ? (more content not included)... Normal [facility] Urology Office/Clinic Noteon 10-13-2022 Urology Office/Clinic Note Chief Complaint fu to cysto ud HPI Staff 5m follow up (RS by office x1 & pt x2) DX: Recurrent UTI, Stress Incontinence S/P Cysto/UD done 05/24/22 CMP ordered by PCP 4/20/23 pt. needs refills for flomax to drug jennifer finnegan has had 1 infection since UD but was treated by [facility] doctor Dysuria: no Incomplete bladder emptying: no [...] Daily, # 30 cap(s), Refills(s) 11, Pharmacy: [facility], 173, cm, 10/13/22 8:45:00 EDT, Height/Length Dosing, 70.5, kg, 10/13/22 8:45:00 EDT, Weight Dosing Follow-up With When Contact Information Mahesh PEREZ, Cherelle German, URL, URO In 1 year [address] [place] [address] [phone] Additional Instructions: Patient Education Urinary Incontinence IKatelynn [...] Alcohol Alcohol (more content not included)... Normal [facility] Comment on above: Result Comment: Elec tronically Signed By: Cherelle Aragon MD\.br\Date and Time Signed: 10/13/22 12:34 EDT\.br\Electronically Co-Signed By: Katelynn Seymour\.br\Date and Time Co-Signed: 10/13/22 09:25 EDT Alanine aminotransferase [En zymatic activity/volume] in Serum or PlasmaOrdered By: Rosita Jim on 09-02-2022 ALT [Catalytic activity/Vol] 14 U/L 7-52 [facility] Albumin [Mass/volume] in Ser um or Plasma by Bromocresol green (BCG) dye binding methoOrdered By: Rosita Jim on 09-02-2022 Albumin BCG dye [Mass/Vol] 4.6 g/dL 3.5-5.7 [facility] Alkaline phosphatase [Enzyma tic activity/volume] in Serum or PlasmaOrdered By: Rosita Jim on 09-02-2022 ALP [Catalytic activity/Vol] 46 U/L 34-104 [facility] Aspartate aminotransferase [ Enzymatic activity/volume] in Serum or PlasmaOrdered By: Rosita Jim on 09-02-2022 AST [Catalytic activity/Vol] 13 U/L 13-39 [facility] Bilirubin.total [Mass/volume ] in Serum or PlasmaOrdered By: Rosita Jim on 09-02-2022 Bilirubin [Mass/Vol] 0.6 mg/dL 0.3-1.0 [facility] Calcium [Mass/volume] in Ser um or PlasmaOrdered By: Rosita Jim on 09-02-2022 Calcium [Mass/Vol] 9.3 mg/dL 8.6-10.3 [facility] Carbon dioxide, total [Moles /volume] in Serum or PlasmaOrdered By: Rosita Jim on 09-02-2022 CO2 [Moles/Vol] 22.4 mmol/L 21.0-31.0 [facility] Chloride [Moles/volume] in S gabe or PlasmaOrdered By: Rosita Jim on 09-02-2022 Chloride [Moles/Vol] 104 mmol/L 98-107 [facility] Cholesterol [Mass/volume] in Serum or PlasmaOrdered By: Rosita Jim on 09-02-2022 Cholesterol [Mass/Vol] 150 mg/dL 140-[address] [facility] Comment on above: Chol less than 200 m g/dl low riskChol 201-239 mg/dl borderline riskChol 240 mg/dl and greater high risk Cholesterol in LDL Calc [Mas s/Vol]Ordered By: Rosita Jim on 09-02-2022 Cholesterol in LDL [Mass/Vol] 81 mg/dL 0-100 [facility] Comment on above: LDL ATP III CLASSIFI CATIONLDL less than 100 mg/dL OptimalLDL 100-129 mg/dL Near or above optimalLDL 130-159 mg/dL Borderline highLDL 160-189 mg/dL HighLDL greater than 189 mg/dL Very high Cholesterol in VLDL Calc [Ma ss/Vol]Ordered By: Rosita Jim on 09-02-2022 Cholesterol in VLDL [Mass/Vol] 17 mg/dL [facility] Comprehensive Metabolic Pane erika 09-02-2022 Albumin [Mass/Vol] 4.6 g/dL Normal 3.5-5.7 [facility] Comment on above: Order Comment: Reaso n for Exam Essential (primary) hypertension Performed By: #### C MP, LIPID, TSH3 wRFLX #### [facility] [address] [id number] [facility] Albumin/Globulin [Mass ratio] 1.9 {ratio} Normal [facility] Comment on above: Order Comment: Reaso n for Exam Essential (primary) hypertension Performed By: #### C MP, LIPID, TSH3 wRFLX #### [facility] [address] [place] [address] [facility] ALP [Catalytic activity/Vol] 46 U/L Normal 34-104 [facility] Comment on above: Order Comment: Reaso n for Exam Essential (primary) hypertension Performed By: #### C MP, LIPID, TSH3 wRFLX #### [facility] [address] ALT [Catalytic activity/Vol] 14 U/L Normal 7-52 [facility] Comment on above: Order Comment: Reaso n for Exam Essential (primary) hypertension Performed By: #### C MP, LIPID, TSH3 wRFLX #### [facility] [address] Anion gap [Moles/Vol] 14.6 mmol/L Normal 6.0-15.[address] [facility] Comment on above: Order Comment: Reaso n for Exam Essential (primary) hypertension Performed By: #### C MP, LIPID, TSH3 wRFLX #### [facility] [address] [id number] [place] AST [Catalytic activity/Vol] 13 U/L Normal 13-39 [facility] Comment on above: Order Comment: Reaso n for Exam Essential (primary) hypertension Performed By: #### C MP, LIPID, TSH3 wRFLX #### [facility] [address] [id number] [place] Bilirubin [Mass/Vol] 0.6 mg/dL Normal 0.3-1.0 [facility] Comment on above: Order Comment: Reaso n for Exam Essential (primary) hypertension Performed By: #### C MP, LIPID, TSH3 wRFLX #### [facility] [address] [id number] [place] Calcium [Mass/Vol] 9.3 mg/dL Normal 8.6-10.3 [facility] Comment on above: Order Comment: Reaso n for Exam Essential (primary) hypertension Performed By: #### C MP, LIPID, TSH3 wRFLX #### [facility] [address] [place] [address] [place] Chloride [Moles/Vol] 104 mmol/L Normal 98-107 [facility] Comment on above: Order Comment: Reaso n for Exam Essential (primary) hypertension Performed By: #### C MP, LIPID, TSH3 wRFLX #### [facility] [address] CO2 [Moles/Vol] 22.4 mmol/L Normal 21.0-31.0 [facility] Comment on above: Order Comment: Reaso n for Exam Essential (primary) hypertension Performed By: #### C MP, LIPID, TSH3 wRFLX #### [facility] [address] [place] [address] Creatinine [Mass/Vol] 0.73 mg/dL Normal 0.60-1.20 [facility] Comment on above: Order Comment: Reaso n for Exam Essential (primary) hypertension Performed By: #### C MP, LIPID, TSH3 wRFLX #### [facility] [address] [place] [address] [place] GFR/1.73 sq M.predicted MDRD (S/P/Bld) [Vol rate/Area] mL/min/{1.73_m2} Normal [facility] Comment on above: Order Comment: Reaso n for Exam Essential (primary) hypertension Performed By: #### C MP, LIPID, TSH3 wRFLX #### [facility] [address] [id number] [place] Globulin (S) [Mass/Vol] 2.4 g/dL Normal [facility] Comment on above: Order Comment: Reaso n for Exam Essential (primary) hypertension Performed By: #### C MP, LIPID, TSH3 wRFLX #### [facility] [address] [id number] [place] Glucose [Mass/Vol] 75 mg/dL Normal 70-100 [facility] Comment on above: Order Comment: Reaso n for Exam Essential (primary) hypertension Result Comment: Boaz om Glucose Reference Range is dependent on time and content of last meal. Glucose of more than 200 mg/dL in a nonstressed, ambulatory subject supports the diagnosis of Diabetes Mellitus. ADA recommended reference range Performed By: #### C MP, LIPID, TSH3 wRFLX #### [facility] [address] [place] [address] [place] Potassium [Moles/Vol] 4.0 mmol/L Normal 3.5-5.1 [facility] Comment on above: Order Comment: Reaso n for Exam Essential (primary) hypertension Performed By: #### C MP, LIPID, TSH3 wRFLX #### [facility] [address] [place] [address] [place] Protein [Mass/Vol] 7.0 g/dL Normal 6.4-8.9 [facility] Comment on above: Order Comment: Reaso n for Exam Essential (primary) hypertension Performed By: #### C MP, LIPID, TSH3 wRFLX #### [facility] [address] [id number] [place] Sodium [Moles/Vol] 137 mmol/L Normal 136-145 [facility] Comment on above: Order Comment: Reaso n for Exam Essential (primary) hypertension Performed By: #### C MP, LIPID, TSH3 wRFLX #### [facility] [address] [place] [address] [place] Urea nitrogen [Mass/Vol] 13 mg/dL Normal 7-25 [facility] Comment on above: Order Comment: Reaso n for Exam Essential (primary) hypertension Performed By: #### C MP, LIPID, TSH3 wRFLX #### [facility] [address] [place], [place] [id number] [place] Creatinine [Mass/volume] in Serum or PlasmaOrdered By: Rosita Jim on 09-02-2022 Creatinine [Mass/Vol] 0.73 mg/dL 0.60-1.20 [facility] Globulin Calc (S) [Mass/Vol] Ordered By: Rosita Jim on 09-02-2022 Globulin (S) [Mass/Vol] 2.4 g/dL [facility] Glucose [Mass/volume] in Ser um or PlasmaOrdered By: Rosita Jim on 09-02-2022 Glucose [Mass/Vol] 75 mg/dL 70-100 [facility] Comment on above: ADA recommended refe rence rangeRandom Glucose Reference Range is dependent on time and content of last meal. Glucose of more than 200 mg/dL in a nonstressed, ambulatory subject supports the diagnosis of Diabetes Mellitus. Lipid Panelon 09-02-2022 Cholesterol [Mass/Vol] 150 mg/dL Normal 140-[address] [facility] Comment on above: Order Comment: Reaso n for Exam Essential (primary) hypertension Result Comment: Chol less than 200 mg/dl low risk Chol 201-239 mg/dl borderline risk Chol 240 mg/dl and greater high risk Performed By: #### C MP, LIPID, TSH3 wRFLX #### [facility] [address] [id number] [place] Cholesterol in HDL [Mass/Vol] 52 mg/dL Normal 35-85 [facility] Comment on above: Order Comment: Reaso n for Exam Essential (primary) hypertension Result Comment: HDL CHOL ATP-III CLASSIFICATION Cardiovascular Risk HDL > or equal to 60 mg/dL LOW HDL < 40 mg/dL HIGH Performed By: #### C MP, LIPID, TSH3 wRFLX #### [facility] [address] [place] [address] [place] Cholesterol.total/Radha sterol in HDL [Mass ratio] 2.9 {ratio} Normal <5.0 [facility] Comment on above: Order Comment: Reaso n for Exam Essential (primary) hypertension Performed By: #### C MP, LIPID, TSH3 wRFLX #### [facility] [address] [place] [address] [place] LDL Cholesterol,Calculated 81 mg/dL Normal 0-100 [facility] Comment on above: Order Comment: Reaso n for Exam Essential (primary) hypertension Result Comment: LDL ATP III CLASSIFICATION LDL less than 100 mg/dL Optimal LDL 100-129 mg/dL Near or above optimal LDL 130-159 mg/dL Borderline high LDL 160-189 mg/dL High LDL greater than 189 mg/dL Very high Performed By: #### C MP, LIPID, TSH3 wRFLX #### [facility] [address] Triglyceride w/Reflex 85 mg/dL Normal 0-149 [facility] Comment on above: Order Comment: Reaso n for Exam Essential (primary) hypertension Result Comment: TRIG ATP III CLASSIFICATION TRIG less than 150 mg/dL Normal TRIG 150-199 mg/dL Borderline high TRIG 200-500 mg/dL High TRIG greater than 500 mg/dL Very high Standard traceable to the Center for Disease Conrtrol and Prevention (CDC) test method. Performed By: #### C MP, LIPID, TSH3 wRFLX #### [facility] [address] VLDL CHOLESTEROL 17 mg/dL Normal [facility] Comment on above: Order Comment: Reaso n for Exam Essential (primary) hypertension Performed By: #### C MP, LIPID, TSH3 wRFLX #### [facility] [address] No Panel InformationOrdered By: Rosita Jim on 09-02-2022 Estimated GFR (CKD-EPI) > 60.0 mL/Min [facility] Creatinine Clearance (Chem N/A [facility] Potassium [Moles/volume] in Serum or PlasmaOrdered By: Rosita Jim on 09-02-2022 Potassium [Moles/Vol] 4.0 mmol/L 3.5-5.1 [facility] Protein [Mass/volume] in Ser um or PlasmaOrdered By: Rosita Jim on 09-02-2022 Protein [Mass/Vol] 7.0 g/dL 6.4-8.9 [facility] Serum or plasma albumin/glob ulin mass ratioOrdered By: Rosita Jim on 09-02-2022 Albumin/Globulin [Mass ratio] 1.9 {ratio} [facility] Serum or plasma anion gap de terminationOrdered By: Rosita Jim on 09-02-2022 Anion gap [Moles/Vol] 14.6 mmol/L 6.0-15.[address] [facility] Serum or plasma high density lipoprotein (HDL) cholesterol measurementOrdered By: Rosita Jim on 09-02-2022 Cholesterol in HDL [Mass/Vol] 52 mg/dL 35-85 [facility] Comment on above: HDL CHOL ATP-III CLA SSIFICATION Cardiovascular RiskHDL > or equal to 60 mg/dL LOWHDL < 40 mg/dL HIGH Serum or plasma total choles terol/high density lipoprotein (HDL) cholesterol mass ratOrdered By: Rosita Jim on 09-02-2022 Cholesterol.total/Radha sterol in HDL [Mass ratio] 2.9 {ratio} <5.0 [facility] Sodium [Moles/volume] in Ser um or PlasmaOrdered By: Rosita Jim on 09-02-2022 Sodium [Moles/Vol] 137 mmol/L 136-145 [facility] Thyroid Stim Hormone w/Rflxo n 09-02-2022 Thyroid Stim Hormone w/Rflx 1.10 u[iU]/mL Normal 0.45-5.33 [facility] Comment on above: Order Comment: Reaso n for Exam Essential (primary) hypertension Result Comment: PERF ORMED BY: [place] [address] PATHOLOGIST STRAP FOLDING MACHINE OPERATOR FINESSE SPAULDING M.D. Performed By: #### C MP, LIPID, TSH3 wRFLX #### [address] Thyrotropin [Units/volume] i n Serum or PlasmaOrdered By: Rosita Jim on 09-02-2022 TSH Qn 1.10 m[IU]/L 0.45-5.33 [facility] Triglyceride [Mass/volume] i n Serum or PlasmaOrdered By: Rosita Jim on 09-02-2022 Triglyceride [Mass/Vol] 85 mg/dL 0-149 [facility] Comment on above: TRIG ATP III CLASSIF ICATIONTRIG less than 150 mg/dL NormalTRIG 150-199 mg/dL Borderline highTRIG 200-500 mg/dL High TRIG greater than 500 mg/dL Very highStandard traceable to the Center for Disease Conrtrol and Prevention (CDC) test method. Urea nitrogen [Mass/volume] in Serum or PlasmaOrdered By: Rosita Jim on 09-02-2022 Urea nitrogen [Mass/Vol] 13 mg/dL 12-07 [facility] Coding Summary.on 05-25-2022 Coding Summary. CD:[id number] G h0bWw+PGhlYWQ+NX8YDJC hH06eeILjnU1NK6kVJW3S AXKWGUXRPA6XPB0yiDE2N MzyD6KdruPd UmjisUPuRZ23UFa0JIV1f TahWNpfsF6qxURyG0t2Ju XbPL46wA41GLfdBHWtLdF 3LjZpbjsgbWFy P3mgFbBflONzDii+PHRhY mxlIHdpZHRoPScxMDAlJy HugHniVG5xHx6eBBVpOUD vbGxhcHNlOiBj y8euLLJlRLttDY1udPznP 4NiuHP2MSExt2m8Ef20cT I+WCMnIJO2vLjxHKjpm31 4YwQck3xlCHE1 fSJbGEmqKTD1Q67mv6T9B LGzUNTeMPG9hGD7qT5hqP rmmrzmW2AsuUOcAyV3QEX 7pXZhnZ6zxWcx gslivV8mTwq+L69BVE8CV FHYLK9DTto2G9HcDinbkV I+IC04QEBsXV86oNZmlNH fv4cicRh2UhZi AFAvRMP5zChhTTbdu2VwX LGaB02nsFGid7X3QFScoZ fzmBFzXhGvyHZ5aA7xNIu nvxgko0xhboam Obviv8gmxz77mM69M65cW SjzXJUsPTQ2GYFyKORriM gyth8mdA2pRn1+IHffb7h gz0wahFi0OhEq SDDxinEpoFdlBJM7j6KxQ e00U7QicAnes9RaGgc6rv 72cRNmj7T3rVR6XSiqWZM opK4dMBcpIzY5 IWAxKhFczO28nPMgJPrlD q3mpLlpgYsaOK3pTVPcck faDPAjlO4lLMIorJBjhQr rAZ0cGZQscdcr b098NfCuUVL1OFUonLVqS 6FigT0vHlWsQQObODZfQ1 WuoRUhYZkxW541SEicGmB 5YFFvunXlC5Sx CRKobVyaFkF5r2Y1Sx9Vd 3IuiupuRUD7BDpiOKZqYc GwKmQnVtI4R9UaQso5GTQ iiPpwJH0tX9Fd QZUybxhpwssotWF7UOVxI GFftM01hZMvYFjpJs1vn0 I7g136RSNbIMKvqT39Jz6 udDogMTBwdCBU jF3viupvp5xzvwztGlDwM YYeCJn4SIh4KJDzsGqeKw JgSNG2JtP5PQB5xDPefD2 qaLrsjwuodC3k Oyc+I24htA2qHVE7QIB6q ndiQWRupsRuZF69SX74D3 RyPjwvdGFibGU+PGRpdiB gtVarPB6uJdKa o8dqk3GoIJjmN2FcEPViG EppYuy0UAMqXQZ8fOF8bA 0bIXFuOOwyh2S3jED1D1G orcSmub9sn2ml DQVySDhkL33neUGja0B6T OShqJD1TLRqjRncJtEczR 93Oyc+AYSlnQmce3QbVct lw9zmo9xmmKg4 LrIrTBSbcvLwgGzuBGC2g 1UnQd62Y51pZKakRMMxGM NrFSGdGWWtxFnjpi4rbR9 wIi8+PGNvbCB3 pOZ6gD9qJYGhOaP2UXcjR 522TjCnbMBjBeshv1awm5 apiWd6OrLfNFJgkhJjvCd eWYJ3a6FiNa28 B48gBTecOPBjANZgKCPnR ETmuFohwy2qqK5aSm7+PC 0zy3ccnh56aF50kEO+PHR nNNZ2jXfxAIvy BCYszW7kHZlmNyK2KLRoH pKhiI54dYAqEBonYd2neU ixfEuaHP5mKBHbupwtf32 7ZdOyh1flXBRz oWMtMNdxKSU4U25kh7I5O KBdLDYsJPW6uHR1tB3mwY lnbjogbGVmdDsgdmVydGl yPOiwAXwzK910 IHRvcDsnPlBhdGllbnQgT fFcNYu4S3GlUmg7CXYxpE ldZC7isUXeOEzcXn7fmXr xcOuuGU7lFSWs gxikx961AcUnv2eeDDEmn RHzCKlySAL0I33ge1V3QW JbMSEtQUL9sNY0rL1rgJs nbjogbGVmdDsg vzPypTcgDYmeBEtzH495X HRvcDsnPkJpcnRoIERhdG F8CK22CJ46rHTrp6R8eFI 9K2OgGTPdkwva xgysgAH8GLGaWEDneD11E o3ruJtqWv7kLDFbUJV8GR NyaRIwJ3PpsF3oAaPiBWE pSVCzP5JxyTIk DIzbN799HTrxFdF8NZJoq dQrS8DhDMJaqUypEpI3o3 T8Pb8SM2F1VK05IS99yXM sv0S7qLJ2S1Rx HSAbtjyoxbkhtNG5HNRuE ELsoH62Ak7ooHywOp4kVL CoHKV6YWIyvMZbT8DlpM7 yOiAjMDAwMDAw Z0UpmSSzQDisA787TPaxT lC9XPSaaxGsZ2AxWJWphE xrUmI5b6P7Aq2HYPn9GK3 0WH96nELbe2P8 tJP1U6GpPUTfqioaddplf JK0JZJgKXAqnO88Sk0rxU hvRw2tESKdQMP2GTOjjQV nZ2WubM4hGcZx HYQsOBDpT5FryLIdOIqcB 838LRatWaD1NUMyumBoO0 XfNAMlyFqcSwX9u2V6Uy8 CJVHuQI99QUQ5 zGE4GO02US57D3ZqQzoft GFibGU+PHRhYmxlIHdpZH RoPScxMDAlJyBzdHlsZT0 rIo7qMXZhDGTt hVpvwAXtObTdh7frYPRhU JstKE4ozWraX7RybDK0CW Pla4d2Eg75Y97oR1QecUA +CKFzsTB0eNZ5 zP6bPbObZiI7BAqxA306V mPlwXFkEqhvb4otm0veoW t9VvL7SLUpybNbxIjkBXV 6h1GcCq59A40u IHdpZHRoPSIxNSUiIHZhb Waxwz1ciB5xXw9+PGNvbC B6hFW8hB1mUgQuJgR1SYb dA075SbPhjBUi Hvuwh8oyy3klvXf8VrDgM WWvwqWlsTxfQSD5i8JfTw 43U4NlkIwpi8NdOee6tq3 5bSCly7A0oXD8 Q3DlJAIpmjiwxVYjhXpuX Q4sROJpsdqdDOHwuB3dGV RrL9g2RkFvObW7ERvvU2A nphK3JBGfqBFq UPocRMC8W85nt8H5ITBlO HXiUYL9nNT2lE0lfVmmwk ogbGVmdDsgdmVydGljYWw vRHocB181GQSa pSltBEDifR8tULMciYMgf JsiAE1vSEYfxzznSjKPUK tJTiwgSkVOTklGRVIgTDw vdGQ+PHRkIHN0 aLbyFFvgEKFsnL5gYWDzG 0k6XzZtErZ8SWazL9AbSO FwbacxBq55fH5jNbYaPaJ 5XFqkN8DyzrH8 FOUfpXSaZOxgXNS7M79dw 5H5OYFkYEYaECS5pOX4fE 1hbGlnbjogbGVmdDsgdmV ydGljYWwtYWxp I991RQPktLnnAqE5RwO3E aD0MeK4A1PbLmf3TRBpjG opNA0jdVLrGSloYf6kvXj spAyjCD0lJNXi phxxSBYxbM5qNTFooFFdk QdvQY0oTLUpzfzqx213Vx GcUZW3ACZqfYUiA9YnqB9 yOiAjMDAwMDAw F8GjaCDyZMvyD916DPevF mL2UXBnimHaM0CqYUNgdB cmQpQ6n5F0Ya60MQXBKXK yczwvdGQ+PHRk ZPE6kYdnQXxvQTFmqJ5qC DCvK7d5KcWvLxN8XJegA1 VbEBLawqrrAx07jW6aHlT aBmQ2NZyhS5Iz fjR8TBShfTZxASquPKY1U 98pc1B6WHYuGZLsAPC7aF B2yQ6iuGofxcpeyNLnbZa gdmVydGljYWwt PYqpT210KQCnfEzwYpShy WFsZTwvdGQ+YQZjVJR1bG fnUYzjBMGigW6aHBYvK9m 5EgVvPhP3JMqf M4OcDUJyssprRq87kD1lX wEsUtR6TKhpV8VzglX6TT PdtMEwNCvpPFZ9F69sm9I 4ZJRqFMTxWZM2 bYG7dY7auFhnbxzecLPhf DsgdmVydGljYWwtYWxpZ2 87TGNysNsqNj98cCFqjXb lqsL5G2ZmCrxz dHI+LQ88FWFqZV79oKQlf KEps3uzrHe3ZgNoKEXeDD A7sHwxTVqup2YbBQCyB27 qwHXsb9F8KDXe hQgrmKElXtJcqSB3bW9fE Hasowdeq0nonhtpBtwcl0 aiaw79bF14R42aRNvlMHF oPSIzMCUiIHZh vPtrck1reP0jZk3+PGNvb UU0dHR2uL0dOlUkLfX2CH ixM302JxVjvODbNpdxm7o ah4gulYb7WbNd GIMiauLowTlqBOZ9a9DwK q71E92gVUjjGBVlKETnZK HeAHLorAexsp8yvM6fWi4 +GW3bg8bshl13 xP77xON+MVOjSPL2vHliJ EreIKIbdP7iGWlrXwK2EX WfPfRtsN71zFDoLFmcQz0 umAwtbZlrOO0z ALFrsdnnz934AoQik2ysI PUdqGZzDTdaTTI3O35ux5 A5AIEjRKOzHXE1iIU7tM2 hbGlnbjogbGVm dDsgdmVydGljYWwtYWxpZ 682LIKpcTyuOwAnlKYxZ7 dwhhJIOW3vTbvcrXC+PHR mPHI6gJxxARvl XSYiwU7nIIWbL4b9KuCzF nP6OIxgM7JccvE3NISfkB SpDUVcrVPAsB0gzvkgk9g vcjogIzAwMDAw BDv9STs5PMYakSteWfXlI BO7WeQ2USE2eMLvyI8scR ydpznhpG7wMpm+RklOOjw vdGQ+PHRkIHN0 oNfwNFowPDEnoA2vUAOzJ 8d6XiCcBrU9DFfkU9Kgot X8JSDukYRrYPQjrHKFtE7 ehndhv4aczytk XnTxNEYtBCs1XNo7IMOds NleNfHfIZK5TkO7DPS8aU IloA6lzWgihsnozQ8dRls +TVJOOjwvdGQ+ JICkSEC0aFftDWluISLop Y7pNCTrQ3a2ZsMqXxI4RB jxB3DgplA5OHTocXRcPUE wjHZCjE6oelia k1rgapujGyIeNFOfAOu6M Zh4OLZedVyjSsNhDPR2Xj V1LPS2nIMxlZ5exKicfeb lpY0gXgr+UGF5 DRU7YL46KG65L0FzQtvdw GFibGU+PHRhYmxlIHdpZH RoPScxMDAlJyBzdHlsZT0 kIb8pCIDcAFFw bGxh (more content not included)... Normal [facility] Consent for Procedure/Surger yon 05-24-2022 Consent for Procedure/Surgery [id number] .[id number]:127 Normal [facility] Consent for Treatmenton Consent for Treatment [id number] .00CD:127 Normal [facility] Inpatient Patient Summaryon 05-24-2022 Inpatient Patient Summary [place] [id number] Clinical Summary Person Information Name: UMESH ESQUIVEL Age: 47 Years : 1975 Sex: Female PCP: ROSITA JIM CNP Marital Status: Phone: [phone] Race: White Ethnicity: Non- or Language: Croatian Visit Id: Visit Reason: RECURRENT UTI STRESS INCONTINENCE Speciality: Acuity: Enc Type: Outpatient Med Service: Surgery Arrival: 05/24/2022 08:50:57 Discharge: Dispo Type: Address: [address] [id number] Provider Notes: Diagnosis: Dysuria; Recurrent UTI; Stress [...] Follow up: With: Address: When: Cherelle Aragon [address] [place] [address], [place] [address], [place] [phone] Business (1) Comments: Office to schedule follow up in 1 month With: Address: When: Cherelle Aragon Patient Education Information: EU - Cystoscopy with Urethral Dilation Discharge Instructions (CUSTOM) Normal [facility] IntraOperative Documentson 0 05-24-2022 IntraOperative Documents [id number] .00CD:127 [facility] Main OR Intraoperative Recor don 05-24-2022 Main OR Intraoperative Record IntraOp Document Type FTURO Summary Primary Physician: Cherelle Aragon MD Finalized Date/Time: 05/24/22 10:14:19 Pt. Name: UMESH ESQUIVEL/Sex: 1975 Female Med Rec #: [id number] Physician: Cherelle Aragon MD Financial #: [id number] Pt. Type: O Room/Bed: / Admit/Disch: 05/24/22 08:50:57 - Institution: Case Times FTURO Entry 1 Patient Times In Room 05/24/22 09:56:00 Out Room 05/24/22 10:14:00 Procedure Times Start 05/24/22 10:05:00 Stop 05/24/22 10:10:00 Anesthesia Times Last Modified By: Karuna Youssef RN 05/24/22 10:14:03 Case Attendance FTURO Entry 1 Entry 2 Entry 3 Case Attendee Mahesh PEREZ, Cherelle Olivas TELEPHONE MAINTENANCE MECHANIC, Marisol Youssef RN, Karuna Anand Role Performed Surgeon - Primary Scrub - Primary Catering Server - Primary Time In 05/24/22 09:56:00 05/24/22 [...] By: Karuna Youssef RN 05/24/22 10:14 Normal [facility] Main OR Preoperative Recordo n 05-24-2022 Main OR Preoperative Record Holding Area Document Type FTURO Summary Primary Physician: Cherelle Aragon MD Finalized Date/Time: 05/24/22 09:38:31 Pt. Name: UMESH ESQUIVEL /Sex: 1975 Female Med Rec #: [id number] Physician: Cherelle Aragon MD Financial #: [id number] Pt. Type: O Room/Bed: / Admit/Disch: 05/24/22 [...] No Pain Comment: na Skin Integrity Intact, Moyers, Warm, & Dry Vitals - EU Blood Pressure 112/70 Pulse 85 bpm Respirations 18 br/min SPO2 98 % RN Reviewed Yes Last Modified By: Karuna Youssef RN 05/24/22 09:38:29 General Comments: temp:36.2 Finalized By: Karuna Youssef RN Document Signatures Signed By: Susi Aiken LPN 05/24/22 09:09 Karuna Youssef RN 05/24/22 09:38 Normal [facility] Operative Reporton Operative Report Patient: UMESH ESQUIVEL Age: 47 years Sex: Female : 1975 Associated Diagnoses: None Author: Cherelle Aragon MD Procedure Operative Information Details: Date/ Time: 05/24/2022 10:15:00. Pre-Op Dx: Dysuria (STC28-GE R30.0, Discharge, Medical), Recurrent UTI (ZWH55-RN N39.0, Discharge, Medical), Stress incontinence (TVD48-JT N39.3, Discharge, Medical). Post-Op Dx: Dysuria (FBA40-UM R30.0, Discharge, Medical), Other urethral stricture, female (ZDN50-JB N35.82, Billing Diagnosis, Medical), Recurrent UTI (FIQ86-VI N39.0, Discharge, Medical), Stress incontinence (DSR07-NB N39.3, Discharge, Medical). Anesthesia Type: Local. Procedure: [...] urine. The Urethra was dilated to: 22 Dominican w/ sounds. Devices Implanted: None. Removal: Cystoscope [...] Follow up in 1 month . Normal [facility] Comment on above: Result Comment: Elec tronically Signed By: Lue MD, Cherelle M.\.br\Date and Time Signed: 05/24/22 10:18 EST Outpatient Surgery Discharge Instructionon 05-24-2022 Outpatient Surgery Discharge Instruction [address] [address] Patient Discharge Instructions PERSON INFORMATION [...] Follow up: With: Address: When: Cherelle Aragon [address] [place] [address], [place] [id number] [phone] Business (1) Comments: Office to schedule follow [...] to serve you. Thank you for choosing [facility] Normal [facility] PAP ACOG PANEL 2: 30 to 65on 05-07-2022 . . Normal [facility] Comment on above: Result Comment: Perf ormed at: WB Performed By: #### 4 [id number] #### [facility] [address] [place] [address] Dr. Evy Boothe Age Gdln ACOG Testing 30-65 Normal [facility] Comment on above: Performed By: #### 4 [id number] #### [facility] [address] [address] [address] Evy Boothe DIAGNOSIS: Comment Abnormal [facility] Comment on above: Result Comment: EPIT HELIAL CELL ABNORMALITY. ATYPICAL SQUAMOUS CELLS OF UNDETERMINED SIGNIFICANCE (ASC-US). Performed at: WB Performed By: #### 4 [id number] #### [facility] [address] [address] [address] Evy Boothe Electronically signed by: Comment Normal [facility] Comment on above: Result Comment: Dolly Guthrie MD, Pathologist Performed at: WB Performed By: #### 4 [id number] #### [facility] [address] [place] [address] Dr. Evy Boothe HPV Aptima Positive Abnormal Negative [facility] Comment on above: Result Comment: This nucleic acid amplification test detects fourteen high-risk HPV types (16,18,31,33,35,39,45,51,52,56,58,59,66,68) without differentiation. Performed at: =G Performed By: #### 4 [id number] #### [facility] [address] [place] [address] Dr. Evy Boothe HPV Genotype Reflex Comment Normal [facility] Comment on above: Result Comment: Crit eria not met, HPV Genotype not performed. Performed at: WB Performed By: #### 4 [id number] #### [facility] [address] [place] [address] Dr. Evy Boothe Methodology: Comment Normal [facility] Comment on above: Result Comment: This liquid based ThinPrep(R) pap test was screened with the use of an image guided system. Performed at: WB Performed By: #### 4 [id number] #### [facility] [address] [place] [address] Dr. Evy Boothe Note: Comment Normal [facility] Comment on above: Result Comment: The Pap smear is a screening test designed to aid in the detection of premalignant and malignant conditions of the uterine cervix. It is not a diagnostic procedure and should not be used as the sole means of detecting cervical cancer. Both false-positive and false-negative reports do occur. . Performed at: WB Performed By: #### 4 [id number] #### [facility] [address] [place] [address] Dr. Evy Boothe Pathologist Provided ICD10 Comment Normal [facility] Comment on above: Result Comment: R87. 610 Performed at: WB Performed By: #### 4 [id number] #### [facility] [address] [place] [address] Dr. Evy Boothe Performed by: Comment Normal [facility] Comment on above: Result Comment: Jonna Motta, Sales Data Analyst (ASCP) Performed at: WB Performed By: #### 4 [id number] #### [facility] [address] [address] [address] Evy Boothe Recommendation: Comment Abnormal [facility] Comment on above: Result Comment: Sugg est follow up as clinically appropriate. Performed at: WB Performed By: #### 4 [id number] #### [facility] [address] [address] [address] Evy Boothe Specimen adequacy: Comment Normal [facility] Comment on above: Result Comment: Sati sfactory for evaluation. Endocervical and/or squamous metaplastic cells (endocervical component) are present. Performed at: WB Performed By: #### 4 [id number] #### [facility] [address] [address] [address] Evy Boothe Consultation Noteon 05-06-20 Consultation Note [id number]#1 .00CD:127 Normal [facility] Screenson 05-06-2022 Screens [id number]#1 .00CD:127 Normal [facility] Ambulatory Visit Summaryon 1 07-06-2021 Ambulatory [...] Follow-Up Appointments Tuesday 10:30 AM EST Where: [facility] Tuesday 9:30 AM EST Where: [facility] Medications What How [...] for. Dysuria Recurrent UTI Stress incontinence Normal [facility] Patient Educationon 05-05-20 Patient Education Urology [...] may irritate the prostate. Medicines ? Take hzqm-sbb-nawmvua and prescription medicines only as told by [...] 01/28/2005 Document Revised: 04/14/2018 Document Reviewed: 02/16/2018 [employer] Patient Education ? 2019 [employer]. [employer] [facility] Urology Office/Clinic Noteon 05-05-2022 Urology Office/Clinic Note Chief Complaint New Pt * Recurrent UTI HPI Staff Pt is a new pt, never before seen in our office. [facility] ER 03/29/22 due to BL flank pain and bladder pain. Pt c/o recurrent UTI. Given Pyridium & Tamsulosin. Pt was taking Cipro prior to ER from [facility], was switched to Macrobid. CT done 03/28/22. Denies current pain/burning and blood in urine. Painful urination and frequency with infection. As well as back pain. 2 UTI's in past 3m. States the pain during urination is unbearable with the infections. Pt's [facility] (Dr Gregg) recommend she see Dr Aragon [...] Urnls Dip Stick Auto w/o Microscopy POC 17366 Follow-up With When Contact Information Mahesh PEREZ, Cherelle German, URL, [facility] [address], [place] [address]- [phone] Additional Instructions: schedule Cysto and possible UD Patient Education Dysuria Katelynn Galarza , personally scribed for Dr. Aragon on 05/05/2022 11:47:43. . Documentation recorded by the scribe, Katelynn Seymour, accurately reflects the services(s) I performed and decisions made by me. Authenticated by Dr. Aragon on 05/05/2022 12:07:07. (more content not included)... Normal [facility] Comment on above: Result Comment: Elec tronically Signed By: Cherelle Aragon MD\.br\Date and Time Signed: 05/05/22 12:08 EST\.br\Electronically Co-Signed By: Katelynn Seymour\.br\Date and Time Co-Signed: 05/05/22 11:48 EST MG MAMM SCREEN 3D TJ CADon 04-21-2022 MG MAMM SCREEN 3D TJ CAD Patient: UMESH ESQUIVEL Exam Date: 04/21/2022 : 1975 Gender:F Ordering : DR HONORIO GREGG . Admission #: [id number] Family : Order #: [id number] CLICK HERE TO VIEW EXAM RADIOLOGY REPORT [...] breast cancer at age 44. LOCATION: [facility] BREAST COMPOSITION: Heterogeneously dense,which may obscure small [...] Lopez MD on 04/22/2022 at 08:53 Normal [facility] Discharge Instructionson Discharge Instructions [id number]# 1.00CD:127 Normal [facility] Comment on above: Other Comment: gilma barksdale Coding Summary.on 03-31-2022 Coding Summary. CD:[id number] G h0bWw+PGhlYWQ+NB6SZQT eT54jgRWkbS2RH5yAFP5V CKHGVYZMTW3UEF1vgNS1E YmwX1EbiwJg XmqlfIFpHF58LHc1JWE2f OqyKCzvtK0haMPiA9t7Ft MpXX35mV56ACkwZRNsZrP 3LjZpbjsgbWFy U2eyCwGhyOOkEye+PHRhY mxlIHdpZHRoPScxMDAlJy EgqCzfQH2hQr0zHPBfFAJ vbGxhcHNlOiBj l3okVRAfKLfwEJ3jyQxfH 2NrgBE8ZBIrx4k2Np24mY I+GLPsAVF1gAwwHEnmk63 9MlOkw7lfKPM0 bCVjXVeaGYY4T86tp0F2O VRrMOFtURX8kXZ0lK1msV hktsfuW9GqgPLkFkI9YHI 3tYKttZ3mtFun otwzkH7pXwr+L46TUV1BW ENQAR6DOqy8E0MtSuvaaS I+AH18KMVbPC63mKIksWX cl8vwmGy7AkFy JSGpNYZ4qDinHYdyw1LjO FAuI58ucOWgl4M3GFWghD sjfXKkNcDehOP3aC4zSAa ojymji2wqqagq Igefo8gqep27hT63V63zZ MaaWETqJGD3VHQeJWBubH gwmm8lvK7xWa3+EApju3k wy0mozVv7OpWs ETJbvyAtvGxiDVI0h6IhP n68M7AdeCukt2DaZyg6qh 33wGRod0K9rJQ2WVpoSXE hhF8eKJgfUzW0 QGWoFvZdqB16xLIvTRcyY m7ovMnuqChoUB2eFGPdri soUSCupP3tQXPhzUSaxHe hFU2jKKZycdba y513ZhIeMQC3RJBrsHMtM 7TwrY1pBrKxRNEeQAKqR8 RitIWoLAmhX058SBgrXzZ 9AGNtxoBsL2Lv WMVydYlaYdV1w6Z8Wu6Jx 0LgyapkNRJ8XZqgKWMpCx S0KrJcQrE9L9LnUpp1QBP uwZhxNJ0nH8Lw ARIfblaqevsvrLU7OYYyK YAllX19oTIjHCrlCt6ph2 O2i412EZAfJSJeeF96Vx5 udDogMTBwdCBU eS1wwgnmr6wkssrnFbZvE QCyJUf6GUu3LDYkyZwqHg VtUTZ0VnS7WYK5vPXlzC9 ktIopatzxdD2a Oyc+P04iuG1nODZ5EVU2r igcPRRfbyCmHD25JO08R6 RyPjwvdGFibGU+PGRpdiB clSzcWV2lGmAf s1buy4RpYAnmM2FxCTGbW JyrOvg4VIFhTSD4rPT6wH 5hDXGkFFmnw9O5mRV9S3A qhlYtno1ah4jq DEJmJZnrX67dgJSii7U8A HUrqNS4AHDfqQfzDrLnpH 93Oyc+QKTiySmrv6IaByi lq7ywj6kufRs5 TjRkXCXapkQdhLhyAIP0k 9WmEj98J23bZWebIBBkRQ PrFSGcFGPsmUdpqk9wnS6 wIi8+PGNvbCB3 hDV6gE3kBYVsEgD6KFxjO 653YlFxdHVhRreos3oqs3 szxBm6GiHeXEQwjyEojQv nOAQ5b2HjEg89 K70eKCyoSHKyEUOdAVXfQ FDyyJsthi0ggJ2yNg4+PC 8qg7htxo24fK28iMU+PHR tOBD0nBsgWSmq HYLodZ1mMSwdYjB2KGUxY xTyjX15eKTcUYodYw4dvX lhgLexRG0sABSkrjdax60 8NtOpc1hsODOq kWJrESodSNL5V19se4F6P BNkMCMpPJG4oHU1bJ0pxH lnbjogbGVmdDsgdmVydGl zDMjsOPrrJ495 IHRvcDsnPlBhdGllbnQgT mLzNXz9P8ZxSuu6LQQhhU fkEJ5buTMhAPkdBa4eeMr fmXwvVN4dXISq vxgna392EkArg2vxQLTgb QRdIWsbYQC0B00xs6P2MU ClUZXzXIT1kRW8yN5ldRe nbjogbGVmdDsg qoYfgFbhYZlfLFqoB288U HRvcDsnPkJpcnRoIERhdG D2HJ21TK00oZHqn2D1cJR 9P1BkQVXmgzfm ygllbWW1JVMsMDJdzZ23K r1qoUewBz0sQCAmCRV1NV KbjKNfF4BpeM7zLvPxEGK pXXHgM9CzwMVd XPswX127XHxgSbA6CMKlb mEfQ6XyOXFlfSsmBoU8o0 O5Hh0KX2B4IQ15TW86zZB lz2R5yPF8G3Wz QIEaoznixgaomTC7IWRcJ OOorW64Ag8ctSjhDp6iIA RqVQW9IZNkgSLqA8PqwW9 yOiAjMDAwMDAw C1KjqDVkXFysB554UWnfU gY5RKNqodBaS3GpSWJluX qoBtI4b0Y7Hd6DLPq8XY1 2RA17sAYml4D1 kDM7K5TjFKSpmhksazpwg DC7WLCbVVKjgC87Mz6qrY heBx0oSOYkZAF1VYGdmVB wO5OskK0dJfZn WNJnGDVbM6WtdIMkKMnaH 326RUklVdV6LDFcfeKnF5 ZdEQFwtYsdEaM7n3J7Bp0 NZKZeMZ80WHV7 jJZ2PQ45KZ65J9AqAzlsd GFibGU+PHRhYmxlIHdpZH RoPScxMDAlJyBzdHlsZT0 wKp2mVOSjCFRp yMrvuWJpHwEye0yxLVBuV NjdOP0jzObzN7RazCB7QT Ovr5p3Vk56O87aF8LctHB +TUBygHZ8jJI6 zF2jDhIrGuG4BQfzI284F lFniIPlLsmaw7yjt5zckP s6QbS8HMIrplYnuDfxRHD 8e3TsLw50P99u IHdpZHRoPSIxNSUiIHZhb Fssbm3saL2kMq0+PGNvbC K5rCE6qG2kJdLiObY0KLg eX674ZlWgqNLd Ngfyi2rnq2rzrRv9MlDuY CHrfuJzyOwfJTV1y0RaBo 50Q2CjnQjup6RyGaf1oq8 5lPLdn2G3kCU3 Z5LtCATntccifWNnyCzvE T8dZEGfpjxzOVIjkQ4wZF UsN9s2BvZpRjG5EMyuW7Z uwoI4VCGtgIPo DEtyANZ0F21tq6C8AUGiO RUgWVD4hZJ2kL0bjAoccd ogbGVmdDsgdmVydGljYWw dTPuwW787SMMm kXblQAQqmQ4vOAVcwGNtl XmvHU2sXTPbicamYiZFMV tJTiwgSkVOTklGRVIgTDw vdGQ+PHRkIHN0 zBlcWOvbCIPqsO6qFGEfJ 9g4NvWkNhJ4VDioO5ViVG BxwdpnBz77yE7xMlOxUhB 7ZQrdA5ZdaxM2 VSFscQXbDZgzBBP7D88gy 2U8KMUaXXWlXCJ4oWA6qS 1hbGlnbjogbGVmdDsgdmV ydGljYWwtYWxp F305LJNycGegWnP1PpC8I mD7JaJ6V9CbHkw4PNBzrG koOA3pkXVkVHhvUi9xdDi neTprZQ0lWOVo trxrDWQnmC3vJDQgeOTnv EygGA5iWYByxtcrh014Bm LnYBE7ZFVeaDJnF6OunQ2 yOiAjMDAwMDAw V0PeiBEcXOucF633JCkkW vS9KHYodlZcM8GwXCBotG gtLzM3i8P7Eb41TFLNVIU yczwvdGQ+PHRk FLX8oSncBMznYNZubA6sR BCaE7s9TeCiPiT4SJmzQ3 LmRCUkflxjHa51pC0zFzI iLuH8MKnuP5Nm stE5FVLjqIHzUJlyQJB1U 64nc6Y0RNNqEORtYQE9rS Y4zH4gtIyxjqxfaGKtvKe gdmVydGljYWwt VRhhC135TITkfIehLdPyk WFsZTwvdGQ+BVFgFRA2lC guHQkiUYLheX7eYFPaI8w 6OpYfGlQ0IUau S4CqNUSpetmrFa97cY3kT jOvOjR6FDvkM5LocnT1JG LfuEElHOpjNSR7B70ob7O 1FPEaSHCmQOT3 mZC8lQ8fjUlxodvpiVBhe DsgdmVydGljYWwtYWxpZ2 53PTWnaGizRiHaIZQcWC2 jeTwvdGQ+PC90 ya82P2VmWmafUvo5XENcE DN5uKY3xG9tDUEuHWvbe5 N5yUX2F9OnzfRcmf1mh2c sPBQcFZzjU95u sOEgm5V9HGIwbOP6YSVyc BsxQfAnzY23Mrp+PGNvbG aac1BlOtehy4rpp9vmhNt 9IjMwJSIgdmFs gRlyUTF6o0VfYs66D68eG HdpZHRoPSIzMCUiIHZhbG uref3jpJ1cSq2+PGNvbCB 8qXN2gC4mGiOu MqQ2ZJupI433AaOvwQVfJ wjrn0qax5xavYj3NcErYK UochKusSfzIKJ7e9AjOr5 4X9DgpNesf8Su Nxm5hr83dIDek8U1bOW6N 3BhZGRpbmctbGVmdDogMC 6mYEUafiphEBYcjG6uYNU kO2f8CaFwDiM2 FVlvV0GjikH3CTQxbHNnP UVlhFLSoS8nrngid0hukl ryPzBhVWFnEEh1OSd6MFC saWduOiBsZWZ0 VhQ8REX9pQQrkY8bnOobi wouaF2vKjv+MAx0v6tosM KuGA7leDK0UX84VM57eKQ ry0N4gBR2Z5Lr JWYahezcfeyacCH5NUZrP RHziN22Ru7teXriZy1oJA GrMKQ1GZXjtEOuN6HcuV5 yOiAjMDAwMDAw V6XikMQcTAolU421DXsfP uB0FBAxliOlV0AzKADnaN jhDaT3c5Y9Ve4NZR18FW0 0HQ60qURqy9N3 dMS6S6OkAUDvsgiaqkfln XS5YWTeHWMchB74Ak4cvN jpCa0vSFHzYVH9HUJuqOC zO1VxuM5xAcGv JYCtPOUhW5QaaSBsRSguI 569IQxbWsE6KIRsgrQaW7 GaFBGfkMqzSyX8f0V3Lo4 BQi29HP47AJ42 gCOxh0O7pMB3T1ZzTQJjz rixxqujyLF9FCYoZQFrxN 55Vg9xlPuoXm1nLCTcVIM 3TZYvnMNkP0Mx uQ5tZhWfMOCrZLWbK9Flt ALuTRpuU261EFzpGoF6FY WnwsFlL1DxMAMivZxhVqX 4t8X6Bn9GXTkf dah1X6JaMxhhaKL+PC90Y SZmAN29nCCgtNHgs1zpzB o7YlXyEHVqMSX0sHhpSCo ea4OeMWXhY62b bGFw (more content not included)... Normal [facility] ED Note-Physicianon 03-31-20 ED Note-Physician Basic [...] day(s), # 9 tab(s), Refills(s) 0, Pharmacy: [facility], 173, cm, 03/28/22 15:38:00 EST, Height/Length [...] Daily, # 10 cap(s), Refills(s) 0, Pharmacy: [facility], 173, cm, 03/28/22 15:38:00 EST, Height/Length [...] of the (more content not included)... Normal [facility] Comment on above: Result Comment: Elec tronically Signed By: Humaira Lora PA-C\.br\Date and Time Signed: 03/29/22 01:30 EST\.br\Electronically Co-Signed By: London Mccurdy M.D.\.br\Date and Time Co-Signed: 03/31/22 07:26 EST CHLAMYDIA/GONOCOCCUS LUZMARIA (SW AB/URINE/PAPon 03-29-2022 Chlamydia trachomatis, LUZMARIA Negative Normal Negative [facility] Comment on above: Performed By: #### C T/NGNA #### [facility] [address] [place] [address] Dr. Evy Boothe Neisseria gonorrhoeae, LUZMARIA Negative Normal Negative [facility] Comment on above: Performed By: #### C T/NGNA #### [facility] [address] [address] [address] Evy Boothe Auto Diffon 03-28-2022 Basophils/100 WBC (Bld) 1.3 % Normal 0.0-2.0 [facility] Comment on above: Order Comment: Order Added by Discern Expert. Performed By: #### 1 [id number], 0090331, 1458400, 0747914, 7282364 ####[facility] [address] [place] [address] Basophils/Leukocytes Auto (Bld) [Pure # fraction] 0.1 E9/L Normal 0.0-0.2 [facility] Comment on above: Order Comment: Order Added by Discern Expert. Performed By: #### 1 [id number], 1849442, 2610316, 3219311, 0568601 ####[facility] [address] [place] [address] Eosinophils/100 WBC (Bld) 1.1 % Normal 0.0-8.0 [facility] Comment on above: Order Comment: Order Added by Discern Expert. Performed By: #### 1 2732260, 6506171, 8880169, 7067030, 1535376 ####[facility] [address] [place] [address] Eosinophils/Leukocytes Auto (Bld) [Pure # fraction] 0.1 E9/L Normal 0.0-0.5 [facility] Comment on above: Order Comment: Order Added by Discern Expert. Performed By: #### 1 8837019, 5925997, 7000871, 8404425, 5600964 ####[facility] [address] [place] [address] Lymphocytes/100 WBC (Bld) 24.8 % Normal 14.0-50.0 [facility] Comment on above: Order Comment: Order Added by Rika Expert. Performed By: #### 1 5128559, 1866743, 7426106, 9674721, 7163453 ####[facility] [address] [place] [address] Lymphocytes/Leukocytes Auto (Bld) [Pure # fraction] 2.4 E9/L Normal 1.0-4.0 [facility] Comment on above: Order Comment: Order Added by Rika Expert. Performed By: #### 1 0452750, 2466259, 5403454, 8999323, 3167390 ####[facility] [address] [place] [address] Monocytes/100 WBC (Bld) 5.3 % Normal 4.0-14.0 [facility] Comment on above: Order Comment: Order Added by Rika Expert. Performed By: #### 1 8552824, 3803139, 0836769, 5546729, 2006200 ####[facility] [address] [place] [address] Monocytes/Leukocytes Auto (Bld) [Pure # fraction] 0.5 E9/L Normal 0.2-1.0 [facility] Comment on above: Order Comment: Order Added by Rika Expert. Performed By: #### 1 5796081, 4034534, 4319806, 1220573, 6512063 ####[facility] [address] [place] [address] Neutrophils/100 WBC (Bld) 67.5 % Normal 36.0-75.0 [facility] Comment on above: Order Comment: Order Added by Discern Expert. Performed By: #### 1 9367588, 2302745, 3207160, 6691561, 9288487 ####[facility] [address] [place] [address] Neutrophils/Leukocytes Auto (Bld) [Pure # fraction] 6.5 E9/L Normal 2.0-7.5 [facility] Comment on above: Order Comment: Order Added by Discern Expert. Performed By: #### 1 1318640, 6471520, 0973605, 4519073, 1730086 ####[facility] [address] [place] [address] BMPon 03-28-2022 Creatinine [Mass/Vol] 0.7 mg/dL Normal 0.5-1.3 [facility] Comment on above: Performed By: #### 1 6746115, 6720315, 7664491, 2841116, 0911618 ####[facility] [address] [place] [address] Urea nitrogen [Mass/Vol] 19 mg/dL Normal 5-21 [facility] Comment on above: Performed By: #### 1 3623695, 7825828, 9004471, 6795348, 2393515 ####[facility] [address] [place] [address] Urea nitrogen/Creatinine [Mass ratio] 27 No Units High 10-20 [facility] Comment on above: Performed By: #### 1 9060473, 0954241, 6535801, 0338445, 3268665 ####[facility] [address] [place] [address] Anion gap [Moles/Vol] 16 mmol/L Normal 6-16 [facility] Comment on above: Performed By: #### 1 6916919, 1018880, 6706940, 5582897, 9666865 ####[facility] [address] [place] [address] Calcium [Mass/Vol] 8.7 mg/dL Low 8.9-11.1 [facility] Comment on above: Performed By: #### 1 [id number], 4252248, 6839353, 1763530, 1979280 ####[facility] [address] [place] [address] Chloride [Moles/Vol] 104 mmol/L Normal 101-111 [facility] Comment on above: Performed By: #### 1 4017770, 4312835, 5371548, 8735128, 8806197 ####[facility] [address] [place] [address] CO2 [Moles/Vol] 23 mmol/L Normal 21-31 [facility] Comment on above: Performed By: #### 1 7325171, 7816153, 0525653, 5188899, 5447931 ####[facility] [address] [place] [address] Glucose [Mass/Vol] 82 mg/dL Normal 55-199 [facility] Comment on above: Result Comment: If t his glucose result represents a fasting glucose, interpretation should refer to the following reference range: 55-99 mg/dL Performed By: #### 1 1644294, 5987565, 7360635, 9083613, 1100348 ####[facility] [address] [place] [address] Potassium [Moles/Vol] 3.6 mmol/L Normal 3.5-5.3 [facility] Comment on above: Performed By: #### 1 2808069, 9158138, 0148247, 7326158, 7620948 ####[facility] [address] [place] [address] Sodium [Moles/Vol] 139 mmol/L Normal 135-145 [facility] Comment on above: Performed By: #### 1 5689100, 5092818, 7065149, 4879777, 2812205 ####[facility] [address] [place] [address] CBC w/ Auto Diffon 2 Erythrocyte distribution width (RBC) [Ratio] 13.1 % Normal 10.9-14.2 [facility] Comment on above: Performed By: #### 1 [id number], 3931178, 2049145, 2118918, 1252122 ####[facility] [address] [place] [address] Hematocrit (Bld) [Volume fraction] 39.3 % Normal 34.0-46.0 [facility] Comment on above: Performed By: #### 1 7787748, 5599896, 8373956, 6176399, 0198817 ####[address] [place] [address] Hemoglobin (Bld) [Mass/Vol] 13.8 g/dL Normal 12.0-16.0 [facility] Comment on above: Performed By: #### 1 2492668, 5007685, 2131660, 5720630, 8449259 ####[place] [address] MCH (RBC) [Entitic mass] 30.0 pg Normal 27.0-34.0 [facility] Comment on above: Performed By: #### 1 8748692, 3171672, 8737049, 4742959, 5063028 ####[facility] [address] [place], [place] [address] MCHC (RBC) [Mass/Vol] 35.0 g/dL Normal 31.4-36.0 [facility] Comment on above: Performed By: #### 1 1263776, 5309922, 7848850, 2877728, 6011290 ####[place] [address] MCV (RBC) [Entitic vol] 85.7 fL Normal 80.0-100.0 [facility] Comment on above: Performed By: #### 1 8480872, 9434398, 5278520, 7351632, 2215549 ####[address] [place] [address] Platelet mean volume (Bld) [Entitic vol] 7.6 fL Normal 6.4-10.8 [facility] Comment on above: Performed By: #### 1 4593841, 3015017, 9095462, 1790171, 8297633 ####[facility] [address] [place] [address] Platelets (Bld) [#/Vol] 370.0 E9/L Normal 150.0-500.0 [facility] Comment on above: Performed By: #### 1 5944366, 2392631, 8621193, 9103689, 0581798 ####[facility] [address] [place] [address] RBC (Bld) [#/Vol] 4.6 E12/L Normal 4.3-5.9 [facility] Comment on above: Performed By: #### 1 3136752, 5190746, 6862189, 3635948, 1787370 ####[facility] [address] [place] [address] WBC corrected for nucl RBC Auto (Bld) [#/Vol] 9.6 E9/L Normal 4.0-11.0 [facility] Comment on above: Performed By: #### 1 8341354, 8697020, 0581288, 7201893, 2102477 ####[facility] [address] [place] [address] CT Abdomen/Pelvis w/o Contra ston 03-28-2022 CT [...] Oral contrast amount in ml's: 0 Normal [facility] Consent for Treatmenton 03-16 Consent for Treatment [id number] .[id number]:127 Normal [facility] Discharge Instructionson Discharge Instructions [id number] 1.00CD:127 Normal [facility] ED Clinical Summaryon 2021 ED Clinical Summary [address] [address] ED Clinical Summary Person Information Name: UMESH ESQUIVEL [facility] Age: 47 Years : 1975 Sex: Female Language: Croatian PCP: ROSITA JIM CNP Marital Status: Phone: [phone] Visit Id: Visit Reason: Flank pain; Dysuria; [...] 03/28/2022 18:35:00 03/28/2022 18:35:00 03/28/2022 18:35:00 ADDRESS: [address] [id number] PHYS DOC NOTES: MEDICAL INFORMATION: Prescriptions Given: New Medications [facility], [place] [id number], [phone] phenazopyridine (Pyridium 200 mg Tab) 1 Tablets [...] 03/31/2022 With: Address: When: ROSITA JAYANT [address] [facility] [place] [address] [facility] (1) In 3 days DIAGNOSIS: 1:Dysuria Normal [facility] ED Patient Education Noteon 03-28-2022 ED [...] may irritate the prostate. Medicines ? Take iqog-tsn-bhyfpxp and prescription medicines only as told by [...] 01/28/2005 Document Revised: 04/14/2018 Document Reviewed: 02/16/2018 [employer] Patient Education ? 2019 [employer] Normal [facility] ED Patient Summaryon 022 ED Patient Summary [place] [id number] Patient Discharge Instructions Person Information Name: UMESH ESQUIVEL Age: 47 Years Arrival Date: 03/28/2022 15:32:31 Discharge Diagnosis: 1:Dysuria Primary Care Physician: ROSITA JIM CNP Provider Information Primary Provider: London Mccurdy M.D. Advanced Sugar Drier:None The exam and treatment you received in the Emergency Department were for an urgent problem and are not intended as complete care. It is important that you follow up with a doctor, nurse practitioner, or physician?s buyer assistant for ongoing care. If your symptoms [...] 03/31/2022 With: Address: When: ROSITA JIM [address] [place], [place] [id number] [facility] (1) In 3 days In the event that this physician does not participate in your insurance network, please consult with your insurance company to find a nearby participating provider. Patient Education Materials: Dysuria A MESSAGE TO ALL PATIENTS REGARDING OPIOIDS PRESCRIPTION OPIOIDS: WHAT YOU NEED TO KNOW Prescription opioids can be used to help relieve bpfoadqc-nl-ecjfxq pain and are often prescribed following a [...] be struggling with addiction, tell your health resident care coordinator and ask for guidance or call SAMHSA?S National Helpline at 3-612-115-KRFL. (more content not included)... Normal [facility] HEPATITIS PANEL, ACUTEon HBsAg Screen Negative Normal Negative [facility] Comment on above: Performed By: #### H EPACUT #### [facility] [address] [address] [address] Evy Boothe HCV AB <0.1 Normal 0.0-0.9 [facility] Comment on above: Performed By: #### H EPACUT #### [facility] [address] [address] [address] Evy Boothe Hep A Ab, IgM Negative Normal Negative [facility] Comment on above: Performed By: #### H EPACUT #### [facility] [address] [place], [place] [address] Dr. Evy Boothe Hep B Core Ab, IgM Negative Normal Negative [facility] Comment on above: Performed By: #### H EPACUT #### [facility] [address] [address] [address] Evy Boothe Interpretation: Comment Normal [facility] Comment on above: Result Comment: Nega tive Not infected with HCV, unless recent infection is suspected or other evidence exists to indicate HCV infection. Performed By: #### H EPACUT #### [facility] [address] [place] [address] Dr. Evy Boothe HERPES SIMPLEX 1/2 IGGon HSV 1 IgG, Type Spec 36.30 index Critically high 0.00-0.90 [facility] Comment on above: Result Comment: Nega tive <0.91 Equivocal 0.91 - 1.09 Positive >1.09 Note: Negative indicates no antibodies detected to HSV-1. Equivocal may suggest early infection. If clinically appropriate, retest at later date. Positive indicates antibodies detected to HSV-1. Performed By: #### H SV IGG #### [facility] [address] [place] [address] Dr. Evy Boothe HSV 2 IgG Type Spec <0.91 Normal 0.00-0.90 [facility] Comment on above: Result Comment: Nega tive <0.91 Equivocal 0.91 - 1.09 Positive >1.09 Note: Negative indicates no HSV-2 antibodies detected. Positive indicates HSV-2 antibodies detected. Equivocal and low positive HSV-2 screens (Index 0.91-5.00) may be false positive and are reflexed to supplemental testing in accordance with CDC guidelines. Performed By: #### H SV IGG #### [facility] [address] [place] [address] Dr. Evy Boothe HIV 1 AND 2 WITH REFLEXon HIV Screen 4th Generation wRfx Non-Reactive Normal Non Reactive [facility] Comment on above: Result Comment: HIV Negative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 denies. Functional Status Date Assessment Result Facility 10-13-2022 Functional Status N/A [facility] 05-12-2022 Functional Status N/A [facility] 05-05-2022 Functional Status N/A [facility] Clinical Notes 05-05-2022 to 10-13-2022 [...] nerve stimulation). ?For women, using a medical liaison to prevent urine leaks. This is a [...] right after experiencing incontinence. General instructions Take zuxc-zci-akncxur and prescription medicines only as told by [...] important. Where to find more information National [place] of Diabetes and Digestive and Kidney Diseases: www.niddk.nih.gov [place] [employer]: www.urologyhealth.org Contact a health care [...] provider. Document Revised: 12/05/2020 Document Reviewed: 12/05/2020 [employer] Patient Education 2022 [employer]. Follow Up Care 05/24/2022 10:20:13 With:Mahesh PEREZ, JOANIE Ndiaye, URO Address: [address] [place] [address]- [phone] When:Within 1 Year(s) [facility] 05-24-2022 Note [id number] [facility] 05-24-2022 Note Cystoscopy with Uret hral [...] you have a fever over 100 degrees [facility] 05-24-2022 [facility] Discharg e instructions Patient Education 05/24/2022 10:12:12 [...] 05/05/2022 11:54:17 With:Cherelle Aragon Address: [address] [address]- [phone] Business (1) When: Unknown Comments:Office to schedule follow up in 1 month With:Cherelle Aragon Address:Unknown When: Unknown [facility] 05-05-2022 [facility] Discharg e instructions Patient Education 05/05/2022 11:41:30 [...] alcohol may irritate the prostate. Medicines Take ctgt-cpw-lddcjso and prescription medicines only as told by [...] 01/28/2005 Document Revised: 04/14/2018 Document Reviewed: 02/16/2018 [employer] Patient Education 2020 [employer]Fit. Follow Up Care 03/30/2022 11:38:13 With:Mahesh PEREZ, Cherelle German, URL, URO Address: [address], [facility] [place] [phone] When: Unknown Comments:schedule Cysto and possible UD [facility] Evaluation + Plan note Future Appointments Appointment Date:05/18/2022 10:30:00 AM Scheduled Provider: Location:[facility] Appointment Type:Urology CALL PAT FT Appointment Date:05/24/2022 09:30:00 AM Scheduled Provider: Location:[facility] Appointment Type:Urology FT [facility] Evaluation + Plan note Future Appointments Appointment Date:07/14/2022 08:15:00 AM Scheduled Provider:Cherelle Aragon MD Location:[facility] Appointment Type:URO Office Visit [facility] Evaluation + Plan note Future Appointments Appointment Date:10/19/2023 08:00:00 AM Scheduled Provider:Cherelle Aragon MD Location:[facility] Appointment Type:URO Office Visit [facility] Evaluation note Diagnosis Pre-employment health screening examination Health examination of defined subpopulation documented in this encounter [facility]: evaluation noteNo assessment information available [facility] Work Phone: Hospital course Narrative No data available for this section [facility] progress note No data available for this section [facility] Summary Purpose Family History No Family History Records Found Relationship Condition Age at Onset Recorded Date/T blanquita Not Specified Malignant neoplasm of breast Unknown father Coronary artery disease Unknown Advance Directives No Advanced Directives Records FoundDocuments on File Type Date Recorded Patient Roustabout Head Expl anation Advance Directives and Philip wilhelm Will 11/21/2019 5:20 PM Advance Directive Response Recorded Date/ Time Advance Directives No March 16, 2017 12:41pm Discharge Instructions * Attachments The following attachments cannot be sent through Care Everywhere. * Toxin Exposure (Croatian) * Earache: Adult (Croatian) documented in this encounter Assessments Diagnosis Right ear pain Unspecified otalgia Exposure to chemical inhalation Covid-19 Virus not Detected Chief Complaint and Reason for Visit Chief Complaint Essential (primary) hypertension Additional Source Comments INFORMATION SOURCE (unrecogn ized section and content) DATE CREATED AUTHOR 11/08/2017 [facility] DATE CREATED AUTHOR AUTHOR'S ORGANIZ ATION 12/07/2019 [facility] DATE CREATED AUTHOR AUTHOR'S ORGANIZ ATION 07/19/2021 [facility] DATE CREATED AUTHOR AUTHOR'S ORGANIZ ATION 05/09/2022 [facility] DATE CREATED AUTHOR AUTHOR'S ORGANIZ ATION 09/05/2022 [facility] DATE CREATED AUTHOR AUTHOR'S ORGANIZ ATION 10/22/2022 [facility] DATE CREATED AUTHOR AUTHOR'S ORGANIZ ATION 05/24/2023 [facility] dical Specialists EPIC Reason for [...] states that she [place] 2 hours ago when their building was [...] that she has been working [place] that has had multiple positive covid patients lately. documented in this encounter Care Teams (unrecognized sec tion and content) Poster Relationship Specialty Start Date End Date Rosita Jim PCP - General 07/16/21 Poster Relationship Specialty Start Date End Date Rosita Jim PCP - General 07/16/21 Team Status: Active Member Role Status Dates [facility] Primary Care Provider Active Team Status: Inactive Member Role Status Dates [facility] Primary Care Provider Active Rosita Jim APRN VOCATIONAL GUIDANCE COUNSELOR-C Attending Provider A ctive Goals (unrecognized section [...] BE BASED ON THE PRIMARY CLINICAL RECORDS. [facility]. provides no warranty or guarantee of the accuracy or completeness of information in this document.
[2023-06-29 06:30] LABS: Basophils Percent Auto 0.6 % (0.2-2.0); Eosinophils Absolute Auto 0.2 10^3/uL (0.0-0.7); Eosinophils Percent Auto 3.3 % (0.9-7.0); Hematocrit 38.3 % (36.0-48.0); Hemoglobin 12.9 g/dL (12.0-16.0); Immature Granulocytes Abs Auto 0.02 10^3/uL (0.00-0.03); Immature Granulocytes Pct Auto 0.3 % (0.0-0.5); Lymphocytes Absolute Auto 1.6 10^3/uL (1.2-3.8); Mean Corpuscular HGB Conc 33.7 g/dL (29.9-35.2); Mean Corpuscular Volume 89.1 fL (81.0-99.0); Mean Platelet Volume 9.2 fL (9.5-13.5); Monocytes Absolute Auto 0.8 10^3/uL (0.3-0.8); Monocytes Percent Auto 10.9 % (1.7-12.0); Neutrophils Absolute Auto 4.3 10^3/uL (1.4-6.5); Neutrophils Percent Auto 61.9 % (43.0-75.0); Platelet Count 344 10^3/uL (150-450); Red Cell Distribution Width 13.2 % (11.0-15.0)
[2023-06-29] MEDS: LACTATED RINGER'S SOLUTION 1,000 ML 50 ML IV (06:52)
[2023-06-29 07:00] LABS: HCG Quantitative <1 mIU/mL
[2023-06-29] MEDS: CIPROFLOXACIN IN 5 % DEXTROSE 400 MG/200 ML PIGGYBACK 200 MG IV (07:30)
[2023-06-29] MEDS: METRONIDAZOLE/SODIUM CHLORIDE 500 MG/100 ML PREMIX 100 MG IV ×2 (08:00→14:30)
[2023-06-29] MEDS: LACTATED RINGER'S SOLUTION 1,000 ML 125 ML IV ×2 (09:32→11:10)
--- NOTE | 2023-06-29 10:21 | P.ON_ITS ---
Brief Operative Note Date of procedure: 06/29/23 Pre-op diagnosis: menorrhagia, dysmenorrhea, dyspareunia, pelvic pain Post-op diagnosis: same as pre-op Procedure: NAME OF PROCEDURE: ? Robotic assisted laparoscopic hysterectomy with cystoscopy, bilateral salpingectomy PROCEDURE:? The patient was taken back to the operating room, where she was prepped and draped in the normal sterile fashion after being placed in the dorsal lithotomy position.? Patient?s anesthesia was found to be adequate.? Surgical timeout was performed using two patient identifiers.? SCDs were on and in place.? Two grams of Ancef were given prior to the surgery.? Sterile Gaytan catheter was inserted.? Standard size VCare was secured to the uterine cervix and the surgeon changed gloves.? Attention then was turned to the patient's abdomen, where a supraumbilical incision was then made.? Two S retractors were used to identify the patient?s fascia.? The fascia was then tented up using Clemencia clamps and the patient?s fascia was incised sharply.? Patient?s abdomen was identified and entered bluntly.? The patient had the trocar placed and a pneumoperitoneum was obtained.? Approximately 4 liters of CO2 gas was used.? The camera was then placed through the trocar.? At this time, two robot trocars were placed in the patient?s left and right side, two hand widths from the midline, and this was placed under direct visualization.? The patient?s tube on the right side was tented up and the vessel sealer was then used to come across the mesosalpinx, and this was carried down to the uterine ovarian ligament.? The vessel sealer was carried down serially to the broad ligament, to the area of the bladder flap, which was then created anteriorly, and the uterine arteries were skeletonized and sealed using the vessel sealer.? The colpotomy was made using the monopolar cautery on cut, and this was carried circumferentially, posteriorly to anteriorly, until the uterus was amputated.? The specimen was then removed intact through the vagina, without difficulty.? The vagina was then closed using two running V-Loc in a non-lock fashion.? The robot was undocked.? The abdomen was desufflated.? The skin defects were closed using 4-0 Vicryl.? Please note, the fascia was closed using 0 Vicryl.? Sponge, lap and needle counts were correct x2.? Patient was taken to recovery room in stable condition.? The patient was awakened by Anesthesia first.? Patient tolerated procedure well.??Please note left ovarian cystectomy was performed using the vessel sealer Anesthesia: LEORA Surgeon: Chaka Gregg Supervisor Line Department: Jane Ro Estimated blood loss (mL): 100 Pathology: other (uterus and tubes) Condition: stable Disposition: PACU Urinary Catheter Management Urinary Catheter Management Urethral: Cath placed during this visit: no
--- NOTE | 2023-06-29 11:16 | PC.NURSE ---
Scant bloody drainage on peripad
[2023-06-29] MEDS: OXYCODONE HCL/ACETAMINOPHEN 5MG/325MG 1 TAB PO (11:19)
--- NOTE | 2023-06-29 11:40 | PC.NURSE ---
Medicated with oral pain medication as ordered
--- NOTE | 2023-06-29 13:11 | PC.NURSE ---
Arrived from surgery 09/22 pain pt mediated at 1119. Pt alert and oriented x4 but drowsy. Abdominal drsg x4 intact with scant amount of blood noted.
[2023-06-29 16:01] LABS: Hemoglobin 11.8 g/dL (12.0-16.0); Mean Corpuscular HGB Conc 32.8 g/dL (29.9-35.2); Mean Corpuscular Hemoglobin 29.4 pg (26.7-34.0); Mean Corpuscular Volume 89.6 fL (81.0-99.0); Mean Platelet Volume 9.1 fL (9.5-13.5); Platelet Count 297 10^3/uL (150-450); Red Blood Count 4.02 10^6/uL (4.20-5.40); White Blood Count 10.3 10^3/uL (4.0-11.0)
[2023-06-29 16:35] LABS: Band Neutrophils Absolute 0.4 10^3/uL (0.0-0.3); Lymphocytes Absolute Manual 0.51 10^3/uL (1.20-3.80); Segmented Neut Absolute Manual 9.06 10^3/uL (1.4-6.5)
[2023-06-29] MEDS: IBUPROFEN 400 MG TABLET 800 MG PO (17:10)
--- NOTE | 2023-06-29 17:26 | PC.NURSE ---
discharge instructions and rx's given to pt. verbalized understanding. awaiting ride home.
== END 2023-06-29 17:35 | disposition home or self-care (01) ==
LOC: SURGOUT 10:23 → MS 11:27
PROVIDERS: Visit Provider Obstetrics & Gynecology
PROC: (CPT 840; principal; 2023-06-29 07:30)
DX: N92.1 Excessive and frequent menstruation with irregular cycle (principal); N93.9 Abnormal uterine and vaginal bleeding, unspecified; R10.2 Pelvic and perineal pain; N94.10 Unspecified dyspareunia; N94.6 Dysmenorrhea, unspecified; N72 Inflammatory disease of cervix uteri; D25.9 Leiomyoma of uterus, unspecified; I10 Essential (primary) hypertension; Z87.440 Personal history of urinary (tract) infections
CPT/HCPCS: 58571; 58662; 36415; 84702; 85007; 85025; 85027; 88307; 94667; J0131; J0744; J1100; J1836; J1885; J2250; J2405; J2704; J3010

== ENCOUNTER 2024-06-05 11:01 | Outpatient (OUT) | payer OTHER, SELFPAY ==
--- NOTE | 2024-06-05 11:03 | MM_ITS ---
Patient Name: UMESH ESQUIVEL MR#: [id number] : 1975 Exam Date: 06/05/2024 Ordering Doctor: DR Chaka Gregg . RADIOLOGY REPORT PROCEDURE: MM TOMOSYNTHESIS SCREENING BI COMPARISON: MM TOMOSYNTHESIS SCREENING BI, 05/23/2023. MG MAMM SCREEN 3D TJ CAD, 04/21/2022. MG MAMM SCREEN 3D TJ CAD, 04/17/2021. MG MAMM TJ DIAG W CAD DIG, 09/09/2014. INDICATIONS: Screening Calculator Name NCI Breast Cancer Risk Assessment Tool 5 Year Breast Cancer Risk 1.60% Lifetime Breast Cancer Risk 14.70% Personal Breast Cancer No Personal Ovarian Cancer No Treatments None Family Cancers Mother with cervical cancer at age 31; Mother with breast cancer at age 45. LOCATION: The [facility] BREAST COMPOSITION: The breasts are heterogeneously dense,which may obscure small masses. FINDINGS: DIAGNOSTIC CATEGORY 2--BENIGN FINDING: RIGHT BREAST: No significant suspicious finding. Stable scattered asymmetries. No significant change has occurred. LEFT BREAST: No significant suspicious finding. Stable scattered asymmetries. No significant change has occurred. RECOMMENDATIONS: ROUTINE MAMMOGRAM AND CLINICAL EVALUATION IN 12 MONTHS. PLEASE NOTE: A NORMAL MAMMOGRAM DOES NOT EXCLUDE THE POSSIBILITY OF BREAST CANCER. A CLINICALLY SUSPICIOUS PALPABLE LUMP SHOULD BE BIOPSIED. Dictated by: Tomas Vaughn M.D. on 06/06/2024 at 14:25 Approved by: Tomas Vaughn M.D. on 06/06/2024 at 14:29
--- OUTSIDE RECORDS SUMMARY | 2024-06-05 11:22 | XMS_ITS | CCD ---
Author Organization [facility] Care Team Providers Care Invoice Coder Name Role Phone NO, PHYSICIAN Unavailable Unavailable LIANET CARROLL Attending Unavailable NO, PHYSICIAN Primary Care Unavailable No, Physician Primary Care Provider Unavailabl e Hernán, Rosita Primary Care Provider Unava ilable NANCY CAMPBELL Referring Unavailable MYERHOLROBBIE, ROSITA Primary Care Unavailable NANCY CAMPBELL Referring Unavailable MYERHOLTZ, ROSITA Primary Care Unavailable MYSONAL, ROSITA Primary Care Physician [phone] Indigo Flynn Unavailable Unavailable CRISTINO, DR OLMEDO Attending Unavailable CRISTINO, DR OLMEDO Admitting Unavailable CRISTINO, DR OLMEDO Consulting Unavailable HAMMOND, DR GILDA Garza Consulting Unavailable CRISTINO, DR OLMEDO Attending Unavailable CRISTINO, DR OLMEDO Admitting Unavailable CRISTINO, DR OLMEDO Consulting Unavailable CRISTINO, DR OLMEDO Consulting Unavailable CRISTINO, DR OLMEDO Attending Unavailable CRISTINO, DR OLMEDO Admitting Unavailable [facility] Primary Care Provider KEITH Jim Attending Provider Dante Lozada MD Primary Care Provider [facility] Primary Care Provider Chaka Gregg Attending Provider [facility] Primary Care Provider [phone] MD Stacey Chase Attending Provider [phone] [facility] Primary Care Provider MD Stacey Chase Attending Provider [phone] [facility] Primary Care Unavaila ble Chaka Gregg Admitting Unavailable Cristino, Chaka Attending Unavailable [facility] Primary Care Unavaila ble Chase, Stacey Admitting Unavailable Chase, Stacey Attending Unavailable [facility] Primary Care Unavaila ble Chase, Stacey Admitting Unavailable Chase, Stacey Attending Unavailable Chase, Stacey Admitting Unavailable Chase, Stacey Attending Unavailable [facility] Primary Care Unavaila Cherelle Bejarano Attending Unavailable Cherelle Aragon Attending Unavailable CHAKA GREGG Attending Unavailable EJ, TAYLOR Attending Unavailable EJ, TAYLOR Attending Unavailable FREDDIE UGARTE Attending Unavailable CHASE V, STACEY Attending Unavailable MIGUELINA JIM Referring Unavailable CHASE V, STACEY Attending Unavailable CHASE V, STACEY Attending Unavailable Allergies Allergy Classification Reported Allergen(s) Allergy Type Date of Onset Reaction(s) Facility (10 sources) Coconut extract; Translations: [COCONUT] Drug Allergy 3 Anaphylaxis [facility] Repository (16 sources) Penicillins; Translations: [Unknown] Propensity to adverse reactions to drug (disorder) 3 Anaphylaxis [facility] (8 sources) Sulfonamides (Antibiotic); Translations: [Sulfa (Sulfonamide Antibiotics)] Propensity to adverse reactions to drug 0 Anaphylaxis [facility] (5 sources) Coconut Oil; Translations: [Coconut Oil] Drug Allergy Anaphylactic reaction [facility] (5 sources) Penicillin; Translations: [penicillin] Drug Allergy Anaphylactic reaction [facility] (5 sources) Sulfonamides (Antibiotic); Translations: [sulfa drugs] Drug allergy Anaphylactic reaction [facility] (8 sources) Latex; Translations: [Latex] Drug allergy (disorder) 3 Eruption (morphologic abnormality) [facility] Repository (1 source) Sulfonamides (Antibiotic) Drug allergy (disorder) 3 [facility] (6 sources) Coconut extract Drug Allergy 3 Anaphylaxis [facility] Work Phone: (6 sources) Latex Propensity to adverse reactions 3 [facility] (6 sources) Sulfonamides (Antibiotic) Propensity to adverse reactions 3 [facility] (3 sources) Adhesive Tape; Translations: [adhesive tape] Allergy to substance 4 Rash, Rash/Redness [facility] (1 source) Latex Drug allergy (disorder) 1 [facility] Repository (5 sources) Penicillin G Drug Allergy 4 [facility] Medications Current Medications Medication Drug Class(es) Dates Sig (Normalized) Sig (Original) acetaminophen 325 mg / HYDROcodone bitartrate 5 mg oral tablet (6 sources) Opioid Agonist Start: 01-23-2024 take 1 tablet by mouth every six hours Hydrocodone-Aceta minophen Active 1 TAB PO Q6H 20 5 January 23, 2024 Start: 03-10-2021 End: 01-11-2024 Hydrocodone-Acetaminophen Di scontinued TAB TABLET March 10, 2021 12:00am January 11, 2024 10:29am acyclovir 0.05 mg/mg topical ointment (5 sources) Herpesvirus Nucleoside Analog DNA Polymerase Inhibitor, Herpes Simplex Virus Nucleoside Analog DNA Polymerase Inhibitor, Herpes Zoster Virus Nucleoside Analog DNA Polymerase Inhibitor Start: 03-24-2023 acyclovir (Zovirax) 5 % ointment 03/24/2023 Active albuterol 0.21 mg/ml inhalation solution (10 sources) beta2-Adrenergic Agonist Start: 01-11-2024 Albuterol Sulfate Active 0.63 MG CNTNEBULIZ Daily January 11, 2024 12:00am Start: 10-07-2019 take 1 dose by inhal ation four times daily Proventil HFA 90 mcg/inh Aerosol 2 puff(s), Inhalation, QID, 1 EA, Refill(s) 0 Start Date: 10/07/19 Status: Ordered albuterol 1.25 M G/3ML nebulizer solution Take 1.25 mg by nebulization every 8 (eight) hours. Active azithromycin 250 mg Tab 5-day Dose Pack (Z-Davide) (2 sources) Start: 10-07-2019 azithromycin 250 mg Tab 5-day Dose Pack (Z-Davide) See Instructions, as directed on package labeling, # 1 kit(s), Refills(s) 0 Start Date: 10/07/19 Status: Ordered Calcium Carb-Mag Ox-Zinc Gluc (2 sources) Start: 01-11-2024 take 1 tablet by mouth once daily in the morning Calcium Carb-Mag Ox-Zinc Gluc Active 1 TAB PO Every morning January 11, 2024 12:00am cephalexin 500 mg oral capsule (5 sources) Cephalosporin Antibacterial Start: 10-22-2023 take 1 capsule by mouth once daily in the morning, then take 1 capsule by mouth in the evening, then take 1 capsule by mouth at bedtime cephalexin (Keflex) 500 MG capsule TAKE 1 CAPSULE BY MOUTH EVERY MORNING, ONE CAPSULE IN THE EVENING, and ONE CAPSULE before bedtime FOR 10 DAYS 10/22/2023 Active cholecalciferol 0.025 mg oral capsule (5 sources) Vitamin D Start: 01-11-2024 cholecalciferol (Vitamin D-3) 25 MCG (1000 UT) capsule Every morning 01/11/2024 Active citalopram 40 mg oral tablet (9 sources) Serotonin Reuptake Inhibitor Start: 11-11-2023 citalopram (CeleXA) 40 MG tablet 11/11/2023 Active Start: 04-27-2019 citalopram 40 mg Tab Refills(s) 0 Start Date: 04/27/19 Status: Ordered cranberry preparation 500 mg oral capsule (5 sources) Non-Standardized Food Allergenic Extract, Non-Standardized Plant Allergenic Extract Start: 01-11-2024 Cranberry 500 MG capsule Daily at bedtime 01/11/2024 Active Start: 01-11-2024 take 500 mg by mouth once daily at bedtime Cranberry Active 500 MG PO Daily at bedtime January 11, 2024 12:00am administer with a meal D-Mannose (2 sources) Start: 01-11-2024 take 500 mg by mouth once daily at bedtime D-Mannose Active 500 MG PO Daily at bedtime January 11, 2024 12:00am D-Mannose 500 MG capsule (3 sources) Start: 01-11-2024 D-Mannose 500 MG capsule Daily at bedtime 01/11/2024 Active 24 hr dilTIAZem hydrochloride 240 mg extended release oral capsule (11 sources) Calcium Channel Ludivina Start: 03-10-2021 take 240 mg by mouth once daily at bedtime Diltiazem Hcl Active 240 MG PO Daily at bedtime March 10, 2021 12:00am Start: 03-10-2021 Diltiazem Hcl Active MG PO March 10, 2021 12:00am take 1 capsule by [facility] every twenty-four hours in the morning dilTIAZem CD (Cardizem CD) 240 MG 24 hr capsule Take 1 capsule by mouth in the morning. Active [id number] 0.3 ml EPINEPHrine 1 mg/ml auto-injector (6 sources) alpha-Adrenergic Agonist, beta-Adrenergic Agonist, Catecholamine Start: 08-03-2023 EPINEPHrine (Epipen) 0.3 MG/0.3ML injection syringe 08/03/2023 Active Start: 07-28-2022 EPINEPHrine (E pipen) 0.3 MG/0.3ML injection syringe Inject 1 Syringe as directed 1 (one) time. 0 07/28/2022 Active fenofibrate 200 mg oral capsule (15 sources) Peroxisome Proliferator Receptor alpha Agonist Start: 03-10-2021 Fenofibrate Micronized Active MG March 10, 2021 12:00am Start: 04-27-2019 take 200 mg by mouth once daily at bedtime Fenofibrate Micronized Active 200 MG PO Daily at bedtime March 10, 2021 12:00am fluticasone propionate 0.05 mg/actuat metered dose nasal spray (12 sources) Corticosteroid Start: 03-10-2021 Fluticasone Pr opionate Active 1 SPRAY INTRANASAL Daily March 10, 2021 12:00am Start: 03-10-2021 Fluticasone Pr opionate Active INTRANASAL March 10, 2021 12:00am take 1 spray(s) nasa l route in the morning Flonase Allergy Relief 50 MCG/ACT nasal spray Administer 1 spray into each nostril in the morning. Active take 1 spray(s) nasa l route once daily fluticasone propionate (Flonase Allergy Relief) 50 mcg/actuation nasal spray 1 spray in each nostril Once a day Nasally 30 day(s) 0 Active gabapentin 300 mg oral capsule (16 sources) Anti-epileptic Agent Start: 03-10-2021 Gabapenti n Active MG March 10, 2021 12:00am Start: 04-27-2019 take 300 mg by mouth once daily at bedtime Gabapentin Active 300 MG PO Daily at bedtime March 10, 2021 12:00am lactobacillus acidophilus [id number] unt oral capsule (2 sources) Start: 08-28-2024 Lactobacillus Acidophilus Active 1000 MMU CELLS PO Daily at bedtime January 11, 2024 12:00am lisinopril 20 mg oral tablet (5 sources) Angiotensin Converting Enzyme Inhibitor lisinopril 20 MG tablet 1 (one) time each day at the same time Active loratadine 10 mg oral tablet (16 sources) Start: 03-10-2021 Loratadine Act raymond MG TABLET March 10, 2021 12:00am Start: 04-27-2019 take 10 mg by mouth once daily at bedtime Loratadine Active 10 MG PO Daily at bedtime March 10, 2021 12:00am losartan potassium 50 mg oral tablet (16 sources) Angiotensin 2 Receptor Ludivina Start: 03-10-2021 Losartan Active MG TABLET March 10, 2021 12:00am Start: 04-27-2019 take 50 mg by mouth once daily at bedtime Losartan Active 50 MG PO Daily at bedtime March 10, 2021 12:00am methocarbamol 500 mg oral tablet (15 sources) Muscle Relaxant Start: 03-10-2021 take 500 mg by mouth once daily at bedtime Methocarbamol Active 500 MG PO Daily at bedtime March 10, 2021 12:00am Start: 03-10-2021 Methocarbamol Active MG TABLET March 10, 2021 12:00am Start: 04-27-2019 take 1 tablet by frankie th every four hours as needed methocarbamol (Robaxin) 500 MG tablet Take 500 mg by mouth every 4 (four) hours if needed for muscle spasms. 12/09/2022 Active 24 hr metoprolol succinate 100 mg extended release oral tablet (6 sources) beta-Adrenergic Ludivina take 1 tablet by mouth every twenty-four hours in the morning metoprolol succinate XL (Toprol-XL) 100 MG 24 hr tablet Take 100 mg by mouth in the morning. Active montelukast 10 mg oral tablet (16 sources) Leukotriene Receptor Antagonist Start: Montelukast Active MG TABLET March 10, 2021 12:00am Start: 09-30-2015 take 10 mg by mouth once daily at bedtime Montelukast Active 10 MG PO Daily at bedtime March 10, 2021 12:00am tamsulosin hydrochloride 0.4 mg oral capsule (14 sources) alpha-Adrenergic Ludivina Start: 03-28-2022 End: 03-16-2024 take 1 capsule by mouth once daily tamsulosin (Flomax) 0.4 MG 24 hr capsule Take 0.4 mg by mouth 1 (one) time each day at the same time. 03/28/2022 Active vitamin B12 (2 sources) Vitamin B12 Start: 01-11-2024 take 1 tablet by mouth once daily in the morning Cyanocobalamin (Vitamin B-12) (Vitamin B-12) 500 mcg tablet Active 500 MCG PO Every morning January 11, 2024 12:00am Completed/Discontinued Medications Medication Drug Class(es) Dates Sig (Normalized) Sig (Original) albuterol 0.833 mg/ml / ipratropium bromide 0.167 mg/ml inhalant solution (1 source) Anticholinergic, beta2-Adrenergic Agonist Start: 11-21-2019 End: 11-21-2019 ipratropium-albu teroL (DUO-NEB) 0.5-2.5 mg/3 ml nebulizer solution 3 mL 1 ml ketorolac tromethamine 30 mg/ml injection (1 source) Nonsteroidal Anti-inflammatory Drug, Cyclooxygenase Inhibitor Start: 11-21-2019 End: 11-21-2019 ketorolac (TORADOL) injection 30 mg Problems Active Problems Problem Classification Problem Date Documented Date Episodic/Chronic Administrative/social admission (1 source) Patient encounter status; Translations: [Encounter for pre-employment examination] Episodic Complications of surgical procedures or medical care (5 sources) Suture granuloma; Translations: [Other complications of procedures, not elsewhere classified, initial encounter] Onset: 01-31-2024 01-31-2024 Episodic Genitourinary symptoms and ill-defined conditions (8 sources) Stress incontinence (female) (male); Translations: [Genuine stress incontinence] Onset: 05-05-2022 Chronic Genitourinary symptoms and ill-defined conditions (6 sources) Dysuria; Translations: [Painful micturition, unspecified] Onset: 03-30-2022 05-05-2022 Episodic Immunizations and screening for infectious disease (5 sources) Encounter for screening for human papillomavirus (HPV); Translations: [Contact with and (suspected) exposure to infections with a predominantly sexual mode of transmission] Onset: 03-27-2022 Episodic Other diseases of bladder and urethra (2 sources) Male urethral stricture; Translations: [Unspecified urethral stricture, male, unspecified site] Onset: 10-13-2022 Episodic Other diseases of bladder and urethra (2 sources) Urethral stricture 10-13-2022 Episodic Other ear and sense organ disorders (1 source) Otalgia of right ear; Translations: [Right ear pain] Other injuries and conditions due to external causes (1 source) Injury due to chemical exposure; Translations: [Exposure to chemical inhalation] Episodic Other nervous system disorders (1 source) Acute postoperative pain; Translations: [Other acute postprocedural pain] 01-23-2024 Episodic Other screening for suspected conditions (not [...] [Covid-19 Virus not Detected] Urinary tract infections (8 sources) Urinary tract infectious disease; Translations: [Urinary tract infection, site not specified] Onset: 05-05-2022 Episodic Past or Other Problems Problem Classification Problem Date Documented Da te Episodic/Chronic Other gastrointestinal disorders (1 source) Other intra-abdominal and pelvic swelling, mass and lump; Translations: [Other intra-abdominal and pelvic swelling, mass and lump] Onset: 10-22-2023 Episodic Other gastrointestinal disorders (7 sources) Pelvic mass; Translations: [Other intra-abdominal and pelvic swelling, mass and lump] Onset: 10-17-2023 10-17-2023 Episodic Skin and subcutaneous tissue infections (1 source) Cutaneous abscess, unspecified; Translations: [Cutaneous abscess, unspecified] Onset: 10-22-2023 Episodic Results Test Name Value Interpretation Reference Range Facility [facility] 01-23-2024 L Specimen: [id number] Received: 01/24/24 Status: VICKIE Zhou Num: [id number] Spec Type: Surgical Subm Dr: Stacey Chase MD Tissues: A Skin-Other than Cyst, tag, debridement or plastic repair (SUPRAPUBIC MASS) Procedures: HE, Gross/Micro L4 Age/ Patient Sex Location Account Attending Physician Jerrica Rod 48/F [place] [id number] Stacey Chase MD SPEC NUM: [id number] RECD: 01/24/24 STATUS: VICKIE ZHOU NUM: [id number] FELICITY: 01/23/24 [facility] DR: Stacey Chase MD ENTERED: 01/24/24 [facility] DR: SPEC TYPE: Surgical DEPT: S ENTERED BY: [id number] RECV BY: [id number] ORDERED: HE, Gross/Micro L4 ORDERED: HE, Gross/Micro L4 Pathological Diagnosis Suprapubic mass, excision: Soft tissue inflammation with granulation tissue. Clinical Information Suprapubic mass Gross Description The specimen was received in formalin with the patient's name and suprapubic mass and consists of an irregular shaped portion of [place]-yellow fibrofatty tissue measuring 1.9 x 1.7 x 0.7 cm in greatest dimension. There is an attached unidentified blue surgical thread. The specimen is entirely inked black. The specimen is serially sectioned revealing unremarkable fibrofatty tissue. The specimen is entirely submitted in cassette A1. CPT Codes 79584 -------- -------- Specimen: [id number] Received: 01/24/24 Status: VICKIE Zhou Num: [id number] Spec Type: Surgical Subm Dr: Stacey Chase MD Tissues: A Skin-Other than Cyst, tag, debridement or plastic repair (SUPRAPUBIC MASS) Procedures: HE, Gross/Micro L4 -------- Patient: Jerrica Rod [id number] (Continued) -------- Signed (signature on file) Nati Liu MD 01/30/24 1455 Normal [facility] Automated basophil %Ordered By: Stacey Chase on 01-11-2024 Basophils/100 WBC (Bld) 0.6 % Normal . [facility] Comment on above: Performed By: #### C RUBEN, BMP #### [address] Automated basophil countOrde red By: Stacey Chase on 01-11-2024 Basophils (Bld) [#/Vol] 0.0 10*3/uL Normal 0.0-0.2 [facility] Comment on above: Result Comment: PERF ORMED BY: [place] [address] PATHOLOGIST TIN POURER FINESSE SPAULDING M.D. Performed By: #### C RUBEN, BMP #### [address] Automated blood monocyte cou ntOrdered By: Stacey Chase on 01-11-2024 Monocytes (Bld) [#/Vol] 0.5 10*3/uL Normal 0.0-0.8 [facility] Comment on above: Performed By: #### C BC, BMP #### [address] Automated eosinophil %Ordere d By: Stacey Chase on 01-11-2024 Eosinophils/100 WBC (Bld) 1.5 % Normal . [facility] Comment on above: Performed By: #### C BC, BMP #### [address] Automated eosinophil countOr dered By: Stacey Chase on 01-11-2024 Eosinophils (Bld) [#/Vol] 0.1 10*3/uL Normal 0.0-0.45 [facility] Comment on above: Performed By: #### C BC, BMP #### [address] Automated monocyte %Ordered By: Stacey Chase on 01-11-2024 Monocytes/100 WBC (Bld) 5.9 % Normal . [facility] Comment on above: Performed By: #### C BC, BMP #### [address] Automated neutrophil %Ordere d By: Stacey Chase on 01-11-2024 Neutrophils/100 WBC (Bld) 70.8 % Normal . [facility] Comment on above: Performed By: #### C BC, BMP #### [address] Basic Metabolic Panelon 12-15 GFR/1.73 sq M.predicted MDRD (S/P/Bld) [Vol rate/Area] mL/min/{1.73_m2} Normal [facility] Comment on above: Performed By: #### C BC, BMP #### [address] Basic metabolic 1998 panelon 01-11-2024 Anion gap [Moles/Vol] 13.6 mmol/L 6.0 - 15.0 [facility] Calcium [Mass/Vol] 9.5 mg/dL 8.6 - 10. 3 mg/dL [facility] Chloride [Moles/Vol] 107 mmol/L 98 - 10 7 mmol/L [facility] CO2 [Moles/Vol] 22.7 mmol/L 21.0 - 31.0 mmol/L [facility] Creatinine (U) [Mass/Vol] 0.73 mg/dL 0.60 - 1.20 mg/dL [facility] GFR/1.73 sq M.predicted MDRD (S/P/Bld) [Vol rate/Area] mL/min/{1.73_m2} [facility] Glucose [Mass/Vol] 100 mg/dL 70 - 100 mg/dL [facility] Comment on above: Random Glucose Refer ence Range is dependent on time and content of last meal. Glucose of more than 200 mg/dL in a nonstressed, ambulatory subject supports the diagnosis of Diabetes Mellitus. ADA recommended reference range Potassium [Moles/Vol] 4.3 mmol/L 3.5 - 5.1 mmol/L [facility] Sodium [Moles/Vol] 139 mmol/L 136 - 145 mmol/L [facility] Urea nitrogen [Mass/Vol] 18 mg/dL 7 - 25 mg/dL [facility] CBC W Auto Differential pane l (Bld)on 01-11-2024 Basophils (Bld) [#/Vol] 0.0 10*3/uL 0.0 - 0.2 10*3/uL [facility] Basophils/100 WBC Manual cnt (Syn fld) 0.6 % . [facility] Eosinophils (Bld) [#/Vol] 0.1 10*3/uL 0.0 - 0.45 10*3/uL [facility] Eosinophils/100 WBC Manual cnt (Syn fld) 1.5 % . [facility] Erythrocyte distribution width (RBC) [Ratio] 12.9 % 11.9 - 15.3 % [facility] Hematocrit (Bld) [Volume fraction] 40.4 % 34.0 - 46.4 % [facility] Hemoglobin (Bld) [Mass/Vol] 13.8 g/dL 11.8 - 15.4 g/dL [facility] Lymphocytes (Bld) [#/Vol] 1.7 10*3/uL 1.00 - 4.8 10*3/uL [facility] Lymphocytes/100 WBC Manual cnt (Syn fld) 21.2 % . [facility] MCH (RBC) [Entitic mass] 30.0 pg 24.7 - 34.3 pg [facility] MCHC (RBC) [Mass/Vol] 34.0 g/dL 32.0 - 35.0 g/dL [facility] MCV (RBC) [Entitic vol] 88.1 fL 80 - 100 fL [facility] Monocytes (Bld) [#/Vol] 0.5 10*3/uL 0.0 - 0.8 10*3/uL [facility] Monocytes+Macrophages/1 00 WBC Manual cnt (Syn fld) 5.9 % . [facility] Neutrophils (Bld) [#/Vol] 5.6 10*3/uL 1.8 - 7.7 10*3/uL [facility] Neutrophils/100 WBC Manual cnt (Syn fld) 70.8 % . [facility] NRBC 0.2 /100{WBC} 0 - 0.5 /100{WBC} [facility] Platelet mean volume (Bld) [Entitic vol] 8.1 fL 6.3 - 10.7 fL [facility] Platelets (Bld) [#/Vol] 341 10*3/uL 150 - 450 10*3/uL [facility] RBC LM.HPF (Urine sed) [#/Area] 4.59 /[HPF] 3.60 - 5.00 [facility] WBC (Bld) [#/Vol] 8.0 10*3/uL 3.8 - 11.6 10*3/uL [facility] WBC LM.HPF (Urine sed) [#/Area] 8.0 10*3/uL 3.8 - 11.6 10*3/uL [facility] Calcium [Mass/volume] in Ser um or PlasmaOrdered By: Stacey Chase on 01-11-2024 Calcium [Mass/Vol] 9.5 mg/dL Normal 8.6-10.3 [facility] Comment on above: Result Comment: PERF ORMED BY: [facility] [address] [place] [address] PATHOLOGIST TIN POURER FINESSE SPAULDING M.D. Performed By: #### C BC, BMP #### [address] Carbon dioxide, total [Moles /volume] in Serum or PlasmaOrdered By: Stacey Chase on 01-11-2024 CO2 [Moles/Vol] 22.7 mmol/L Normal 21.0-31.0 [facility] Comment on above: Performed By: #### C BC, BMP #### [address] Chloride [Moles/volume] in S gabe or PlasmaOrdered By: Stacey Chase on 01-11-2024 Chloride [Moles/Vol] 107 mmol/L Normal 98-107 [facility] Comment on above: Performed By: #### C BC, BMP #### [address] Complete Blood Count Auto Di ffon 01-11-2024 Mean Corpuscular HGB Conc 34.0 g/dL Normal 32.0-35.0 [facility] Comment on above: Performed By: #### C BC, BMP #### [address] NRBC% 0.2 /100{WBC} Normal 0-0.5 [facility] Comment on above: Performed By: #### C BC, BMP #### [place] [address] [place] Creatinine [Mass/volume] in Serum or PlasmaOrdered By: Stacey Chase on 01-11-2024 Creatinine [Mass/Vol] 0.73 mg/dL Normal 0.60-1.20 [facility] Comment on above: Performed By: #### C BC, BMP #### [address] ECG 12 lead ECGon 01-11-2024 ECG 12 lead ECG [facility] [place] [address] [place] [address] Electrocardiograph Report Signed Patient: Jerrica Rod MR#: [id number] : 1975 Acct:[id number] Age/Sex: 48 / F ADM Date: 01/11/24 Loc: PS Room: Type: [facility] Attending Dr: Stacey Chase MD Ordering Provider: Stacey Chase MD Date of Service: 01/11/24 ECG/ECG 12 lead ECG: pst Copies to: Test Reason : Blood Pressure : */* mmHG Vent. Rate : 77 BPM Atrial Rate : 77 BPM P-R Int : 132 ms QRS Dur : 84 ms QT Int : 382 ms P-R-T Axes : 40 31 65 degrees QTcB Int : 432 ms Normal sinus rhythm with sinus arrhythmia Normal ECG When compared with ECG of 10-Mar-2021 08:44, No significant change was found Confirmed by Lenny Palacio ([id number]) on 01/11/2024 2:45:44 PM Referred By: Electronically Signed By: Lenny Palacio Transcribed By: MUS Signed By Lenny Palacio MD 01/11/24 1445 Normal [facility] Erythrocyte distribution wid th [Ratio] by Automated countOrdered By: Stacey Chase on 01-11-2024 Erythrocyte distribution width (RBC) [Ratio] 12.9 % Normal 11.9-15.3 [facility] Comment on above: Performed By: #### C BC, BMP #### [facility] [address] Erythrocytes [#/volume] in B lood by Automated countOrdered By: Stacey Chase on 01-11-2024 RBC (Bld) [#/Vol] 4.59 10*6/uL Normal 3.60-5.00 [facility] Comment on above: Performed By: #### C BC, BMP #### [facility] [address] Glucose [Mass/volume] in Ser um or PlasmaOrdered By: Stacey Chase on 01-11-2024 Glucose [Mass/Vol] 100 mg/dL Normal 70-100 [facility] Comment on above: ADA recommended refe rence rangeRandom Glucose Reference Range is dependent on time and content of last meal. Glucose of more than 200 mg/dL in a nonstressed, ambulatory subject supports the diagnosis of Diabetes Mellitus. Result Comment: [facility] Glucose Reference Range is dependent on time and content of last meal. Glucose of more than 200 mg/dL in a nonstressed, ambulatory subject supports the diagnosis of Diabetes Mellitus. ADA recommended reference range Performed By: #### C RUBEN, BMP #### [address] Hematocrit [Volume Fraction] of Blood by Automated countOrdered By: Stacey Chase on 01-11-2024 Hematocrit (Bld) [Volume fraction] 40.4 % Normal 34.0-46.4 [facility] Comment on above: Performed By: #### C RUBEN, BMP #### [address] Hemoglobin [Mass/volume] in BloodOrdered By: Stacey Chase on 01-11-2024 Hemoglobin (Bld) [Mass/Vol] 13.8 g/dL Normal 11.8-15.4 [facility] Comment on above: Performed By: #### C RUBEN, BMP #### [address] Leukocytes [#/volume] correc shantelle for nucleated erythrocytes in Blood by Automated counOrdered By: Stacey Chase on 01-11-2024 WBC corrected for nucl RBC Auto (Bld) [#/Vol] 8.0 10*3/uL 3.8-11.6 [facility] Leukocytes [#/volume] in Blo od by Automated countOrdered By: Stacey Chase on 01-11-2024 WBC (Bld) [#/Vol] 8.0 10*3/uL Normal 3.8-11.6 [facility] Comment on above: Performed By: #### C RUBEN, BMP #### [place] [address] [place] Lymphocytes [#/volume] in Bl ood by Automated countOrdered By: Stacey Chase on 01-11-2024 Lymphocytes (Bld) [#/Vol] 1.7 10*3/uL Normal 1.00-4.8 [facility] Comment on above: Performed By: #### C BC, BMP #### [address] Lymphocytes/100 leukocytes i n Blood by Automated countOrdered By: Stacey Chase on 01-11-2024 Lymphocytes/100 WBC (Bld) 21.2 % Normal . [facility] Comment on above: Performed By: #### C BC, BMP #### [address] MCH [Entitic mass] by Automa shantelle countOrdered By: Stacey Chase on 01-11-2024 MCH (RBC) [Entitic mass] 30.0 pg Normal 24.7-34.3 [facility] Comment on above: Performed By: #### C RUBEN, BMP #### [address] MCHC Auto (RBC) [Mass/Vol]Or dered By: Stacey Chase on 01-11-2024 MCHC (RBC) [Mass/Vol] 34.0 g/dL 32.0-35.0 [facility] MCV [Entitic volume] by Auto mated countOrdered By: Stacey Chase on 01-11-2024 MCV (RBC) [Entitic vol] 88.1 fL Normal 80-100 [facility] Comment on above: Performed By: #### C RUBEN, BMP #### [address] Neutrophils [#/volume] in Bl ood by Automated countOrdered By: Stacey Chase on 01-11-2024 Neutrophils (Bld) [#/Vol] 5.6 10*3/uL Normal 1.8-7.7 [facility] Comment on above: Performed By: #### C RUBEN, BMP #### [address] No Panel InformationOrdered By: Stacey Chase on 01-11-2024 Estimated GFR (CKD-EPI) > 60.0 mL/Min [facility] Creatinine Clearance (Chem N/A [facility] Nucleated erythrocytes [Pres ence] in Blood by Automated countOrdered By: Stacey Chase on 01-11-2024 Nucleated RBC Auto Ql (Bld) 0.2 /100{WBC} 0-0.5 [facility] Platelet mean volume [Entiti c volume] in Blood by Automated countOrdered By: Stacey Chase on 01-11-2024 Platelet mean volume (Bld) [Entitic vol] 8.1 fL Normal 6.3-10.7 [facility] Comment on above: Performed By: #### C BC, BMP #### [facility] [address] [place] [address] Platelets [#/volume] in Bloo d by Automated countOrdered By: Stacey Chase on 01-11-2024 Platelets (Bld) [#/Vol] 341 10*3/uL Normal 150-450 [facility] Comment on above: Performed By: #### C BC, BMP #### [place] [address] [place] Potassium [Moles/volume] in Serum or PlasmaOrdered By: Stacey Chase on 01-11-2024 Potassium [Moles/Vol] 4.3 mmol/L Normal 3.5-5.1 [facility] Comment on above: Performed By: #### C BC, BMP #### [address] Serum or plasma anion gap de terminationOrdered By: Stacey Chase on 01-11-2024 Anion gap [Moles/Vol] 13.6 mmol/L Normal 6.0-15.0 [facility] Comment on above: Performed By: #### C BC, BMP #### [place] [address] [place] Sodium [Moles/volume] in Ser um or PlasmaOrdered By: Stacey Chase on 01-11-2024 Sodium [Moles/Vol] 139 mmol/L Normal 136-145 [facility] Comment on above: Performed By: #### C BC, BMP #### [address] Urea nitrogen [Mass/volume] in Serum or PlasmaOrdered By: Stacey Chase on 01-11-2024 Urea nitrogen [Mass/Vol] 18 mg/dL Normal - [facility] Comment on above: Performed By: #### C BC, BMP #### [address] US pelvic completeon 024 US pelvic complete [facility] [address] [place] [address] [place] [address] Ultrasound Report Signed Patient: Jerrica Rod MR#: [id number] : 1975 Acct:[id number] Age/Sex: 48 / F ADM Date: 10/22/23 Loc: Room: Type: [facility] Attending Dr: Stacey Chase MD Ordering Provider: Stacey Chase MD Date of Service: 10/22/23 US/US pelvic complete: Superpubic abscess Copies to: Stacey Chase MD Complete pelvic ultrasound HISTORY: Assessment of suprapubic abscess. Hysterectomy patient refused transvaginal imaging. FINDINGS: Uterus surgically absent. Ovaries not visualized. No adnexal mass or free fluid. In the pubic region there is hypoechoic area with shadowing measuring 1.9 x 1.6 x 1.0 cm. US/US pelvic complete IMPRESSION: Pubic region hypoechoic area measuring up to 19 mm. no adnexal mass or free fluid. Hysterectomy. Nonvisualization of ovaries. Impression dictated by: Charles Dozier M.D.10/22/2023 11:06 AM Dictation Location: [place] [address] Tech: Sapna Carmelitagarcíaabdirahman Transcribed By: [facility] 10/22/23 1106 Dictated By: Charles Dozier DO 10/22/23 1104 Signed By: 10/22/23 1106 Normal [facility] Lab Reportson 10-21-2023 Lab Reports [id number] .[id number] Normal [facility] Screenson 10-21-2023 Screens [id number] .00TIFF [facility] Ambulatory Visit Summaryon 0 10-19-2023 Ambulatory Visit Summary JERRICA ROD :1975 Visit Date:10/19/2023 Ambulatory Visit Instructions Your Diagnosis Recurrent UTI Stress incontinence Urethral stricture Your Care Team Attending Physician - Cherelle Aragon MD Primary Care Physician - ROSITA JIM CNP This Is Your Medications List Contact prescribing physician if questions or concerns citalopram (citalopram 40 mg Tab) fenofibrate (fenofibrate 200 mg oral capsule) gabapentin (gabapentin 300 mg Cap) loratadine (loratadine 10 mg Tab) losartan (losartan 50 mg Tab) methocarbamol (methocarbamol 500 mg Tab) montelukast (montelukast 10 mg Tab) tamsulosin (tamsulosin 0.4 mg Cap) Procedures Performed Hysterectomy (06/29/2023), Cystourethroscopy with dilation of urethral stricture (05/24/2022), Adenoidectomy, Appendectomy, Breast reduction, Introduction of tension free vaginal tape, Tonsillectomy. Discharge Vitals Temperature (Temporal Artery) 36.2 ?C Heart Rate (Peripheral) 78 Blood Pressure 118/80 Height 173 cm Height 68 in Weight 70.5 kg Weight 155.1 lb BMI 23.56 What to do next Scheduled Follow-Up Appointments Tuesday. 2024 8:00 AM EDT With: Cherelle Aragon MD Where: [facility] Patient Educationon 10-19-19 24 Patient Education Obstetrics and Gynecology Kegel Exercises Kegel exercises can help strengthen your pelvic floor muscles. The pelvic floor is a group of muscles that support your rectum, small intestine, and bladder. In females, pelvic floor muscles also help support the uterus. These muscles help you control the flow of urine and stool (feces). Kegel exercises are painless and simple. They do not require any equipment. Your provider may suggest Kegel exercises to: ? Improve bladder and bowel control. ? Improve sexual response. ? Improve weak pelvic floor muscles after surgery to remove the uterus (hysterectomy) or after , in females. ? Improve weak pelvic floor muscles after prostate gland removal or surgery, in males. Kegel exercises involve squeezing your pelvic floor muscles. These are the same muscles you squeeze when you try to stop the flow of urine or keep from passing gas. The exercises can be done while sitting, standing, or lying down, but it is best to vary your position. Ask your health care provider which exercises are safe for you. Do exercises exactly as told by your health care provider and adjust them as directed. Do not begin these exercises until told by your health care provider. Exercises How to do Kegel exercises: 1. Squeeze your pelvic floor muscles tight. You should feel a tight lift in your rectal area. If you are a female, you should also feel a tightness in your vaginal area. Keep your stomach, buttocks, and legs relaxed. 2. Hold the muscles tight for up to 10 seconds. 3. Breathe normally. 4. Relax your muscles for up to 10 seconds. 5. Repeat as told by your health care provider. Repeat this exercise daily as told by your health care provider. Continue to do this exercise for at least 4?6 weeks, or for as long as told by your health care provider. You may be referred to a physical therapist who can help you learn more about how to do Kegel exercises. Depending on your condition, your health care provider may recommend: ? Varying how long you squeeze your muscles. ? Doing several sets of exercises every day. ? Doing exercises for several weeks. ? Making Kegel exercises a part of your regular exercise routine. This information is not intended to replace advice given to you by your health care provider. Make sure you discuss any questions you have with your health care provider. Document Revised: 09/10/2021 Document Reviewed: 09/10/2021 [employer] Patient Education ? 2022 [employer] Normal [facility] Urology Office/Clinic Noteon 10-19-2023 Urology Office/Clinic Note Chief Complaint 1 year F/U HPI Staff 1 year f/u Dx: recurrent UTI, stress incontinence and urethral stricture BMP- 06/03/23 BUN(15.0) CREA(0.83) Tamsulosin 0.4mg qd- Still taking with no problems S/P Cysto UD 05/24/22 B&BSQ 6 Dysuria- denies Incompletely emptying bladder- denies Hematuria- denies visible blood Frequency- 5-6x daily Urgency- denies Nocturia- sometimes once nightly Leaking- denies Dribbling- denies Urge incontinence- denies Stress incontinence- yes Abdominal denies Flank pain- denies Sexually complaints- denies History of Present Illness Tests reviewed: reviewed UA and external labs I have reviewed the previous health record information and history for this patient from Dr. Aragon. I have reviewed and verified the staff HPI to be accurate for this encounter. Review of Systems PHQ Score Initial Depression Screen Score: 0 SCORE ROS - Provider Constitutional: denies weight loss, denies hot flashes. Eyes: denies eye problems. Gastrointestinal: denies nausea, denies vomiting. Cardiovascular: denies chest pain or angina. Integumentary: no dryness Musculoskeletal: denies musculoskeletal symptoms. ENMT: denies otolaryngeal symptoms. Respiratory: no shortness of breath. Heme/Lymph: denies easy bleeding tendency, denies easy bruising tendency. Psychiatric: no confusion, no anxiety. Genitourinary: See HPI. Physical Exam Vitals & Measurements T: 36.2 ?C(Temporal Artery) HR: 78(Peripheral) BP: 118/80 HT: 68 in HT: 173 cm WT: 70.5 kg WT: 155.1 lb BMI: 23.56 General Appearance: alert , no acute distress, well nourished, well developed female. Assessment/Plan 48 yo F initially referred by ER and Dr Gregg for possible cystoscopy/urethral dilation. Hx urethral sling and tugal ligation. Denies premenopausal sx. s/p hysterectomy 06/2023 1. Recurrent UTI (N39.0: Urinary tract infection, site not specified) CT AP wo con 03/28/22 [facility] - no hydronephrosis and no stones. External labs reviewed: Cr wnl No history of kidney stones or relation of UTIs to activity/sexual intercourse. Denies constipation or urinary issues at baseline other than mild SHOSHANA. S/p Cysto/UD 05/24/22 -Randolph procedure helped reduce infections Still taking OTC UTI supplements. Reports one infection since last encounter (6/yr). Does not feel a dilation is warranted at this time given minimal infections. UA today shows positive nitrites and small leuks. Currently asx- will not treat asymptomatic bacteruria. -Cont cranberry pills, d-mannose, probiotics for 3-6 months -Encouraged pt to increase fluid intake 2. Stress incontinence (N39.3: Stress incontinence (female) (male)) BBS 6 (mild) S/p hysterectomy 06/29/23. Had a sling many years ago. Minimal leakage with coughing and sneezing. 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 States she has been trying to void more often, does better at home -Discussed Bulkamid in future if bothersome, declines further tx or PFPT at this time -Cont timed voids, Kegels 3. Urethral stricture (N35.919: Unspecified urethral stricture, male, unspecified site) S/p Cysto/UD 05/24/22 - felt improvement, only 1 UTI since Taking Tamsulosin 0.4mg qd. Good stream. Discussed stopping medication, risks/benefits. However pt prefers to continue regimen given sx control. -Cont Tamsulosin wo changes -Declined formal PFPT Follow-up With When Contact Information Mahesh PEREZ, Cherelle German, URL, [facility] [address] [place] [address]- [phone] Additional Instructions: 1 yr (no labs) Patient Education Kegel Exercises I, Katelynn Seymour, personally scribed for Dr. Aragon on 10/19/2023 08:40:21. . Documentation recorded by the scribe, Katelynn Seymour, accurately reflects the services(s) I performed and decisions made by me. Authenticated by Dr. Aragon on 10/19/2023 08:48:00. Problem List/Past Medical History Ongoing Dysuria Recurrent UTI Stress incontinence Urethral stricture Historical No qualifying data Procedure/Surgical History Hysterectomy (06/29/2023), Cystourethroscopy with dilation of urethral stricture (05/24/2022), Adenoidectomy, Appendectomy, Breast reduction, Introduction of tension free vaginal tape, Tonsillectomy. Medications citalopram 40 mg Tab fenofibrate 200 mg oral capsule gabapentin 300 mg Cap loratadine 10 mg Tab losartan 50 mg Tab methocarbamol 500 mg Tab montelukast 10 mg Tab tamsulosin 0.4 mg Cap, 0.4 mg= 1 cap(s), Oral, Daily, 3 refills Allergies Coconut Oil (Anaphylactic reaction) Latex (Rash) penicillin (Anaphylactic reaction) sulfa drugs (Anaphylactic reaction) Social History Alcohol Alcohol use interferes with work or home: No. Drinks more than intended: No. Others hurt by drinking: No. Ready to change: No. Household alcohol concerns: No., 12/06/2018 Substance Abuse Tobacco Never (less than 100 in lifetime) Tobacco Use:. Never Smokeless Tobacco Use:. Cigarettes, 10/19/2023 Fami (more content not included)... Normal [facility] Comment on above: Result Comment: Elec tronically Signed By: Cherelle Aragon MD\.br\Date and Time Signed: 10/19/23 08:49 EDT\.br\Electronically Co-Signed By: Katelynn Seymour\.br\Date and Time Co-Signed: 10/19/23 08:40 EDT ALL CBC WITH AUTO DIFFon BASOPHILS ABSOLUTE AUTO 0.0 N [facility] Basophils/100 WBC (Bld) 0.6 % 0.2 - 2.0 % [facility] Eosinophils/100 WBC (Bld) 3.3 % 0.9 - 7.0 % [facility] Erythrocyte distribution width (RBC) [Ratio] 13.2 % 11.0 - 15.0 % [facility] Hematocrit (Bld) [Volume fraction] 38.3 % 36.0 - 48.0 % [facility] Hemoglobin (Bld) [Mass/Vol] 12.9 g/dL 12.0 - 16.0 g/dL [facility] IMMATURE GRANULOCYTES ABS AUTO 0.02 [facility] Immature granulocytes/100 WBC (Bld) 0.3 % 0.0 - 0.5 % [facility] Interpretation and review of laboratory results Abnormal [facility] LYMPHOCYTES ABSOLUTE AUTO 1.6 [facility] Lymphocytes/100 WBC (Bld) 23.0 % 20.5 - 60.0 % [facility] MCH (RBC) [Entitic mass] 30.0 pg 26.7 - 34.0 pg [facility] MCHC (RBC) [Mass/Vol] 33.7 g/dL 29.9 - 35.2 g/dL [facility] MCV (RBC) [Entitic vol] 89.1 fL 81.0 - 99.0 fL [facility] MONOCYTES ABSOLUTE AUTO 0.8 N [facility] Monocytes/100 WBC (Bld) 10.9 % 1.7 - 12.0 % [facility] NEUTROPHILS ABSOLUTE AUTO 4.3 [facility] Neutrophils/100 WBC (Bld) 61.9 % 43.0 - 75.0 % [facility] Platelet mean volume (Bld) [Entitic vol] 9.2 fL Low 9.5 - 13.5 fL [facility] TBH EO # 0.2 [facility] TB PLT [address] [facility] RBC 4.[address] [facility] WBC 7.0 [facility] CLINISYNC [facility] Clive 06-29-2023 L Specimen: [id number] Received: 06/29/23 Status: VICKIE Zhou Num: [id number] Spec Type: Surgical Subm Dr: Chaka Gregg Tissues: A Uterus w/ or w/o tubes ovaries except neoplastic or prolap (UTRS, CRVX, BI Procedures: HE/12, Gross/Micro L5 Age/ Patient Sex Location Account Attending Physician Jerrica Rod 48/F LABELL [id number] Chaka Gregg SPEC NUM: [id number] RECD: 06/29/23 STATUS: VICKIE ZHOU NUM: [id number] FELICITY: 06/29/[address]: Chaka Gregg ENTERED: 06/29/23 [facility] DR: Lucero,Lab SPEC TYPE: Surgical DEPT: HAYLEE FLORES ENTERED BY: [id number] RECV BY: [id number] ORDERED: HE/12, Gross/Micro L5 ORDERED: HE/12, Gross/Micro [...] additional segments of fallopian tube -------- Specimen: [id number] Received: 06/29/23 Status: VICKIE Abelardo Num: [id number] Spec Type: Surgical Subm Dr: Chaka Gregg Tissues: A Uterus w/ or w/o tubes ovaries except neoplastic or prolap (UTRS, CRVX, BI Procedures: HE/12, Gross/Micro L5 -------- Patient: Jerrica Rod [id number] (Continued) -------- Specimen: [id number] Received: 06/29/23 (Continued) Gross Description (Continued) Signed (signature on file) Nati Liu MD 06/30/23 2148 -------- Specimen: [id number] Received: 06/29/23 Status: VICKIE Zhou Num: [id number] Spec Type: Surgical Subm Dr: Chaka Gregg Tissues: A Uterus w/ or w/o tubes ovaries except neoplastic or prolap (UTRS, CRVX, BI Procedures: , Gross/Micro L5 -------- Patient: Jerrica Rod [id number] (Continued) -------- Specimen: [id number] Received: 06/29/23 (Continued) Gross Description (Continued) present, [...] lumens. The fimbria are soft and unremarkable. Staff Nurse Midwife sections are submitted in 7 cassettes as [...] - 1 section from each nonfimbriated segment CPT Codes 91938 -------- -------- Specimen: [id number] Received: 06/29/23 Status: VICKIE Abelardo Num: [id number] Spec Type: Surgical Subm Dr: Chaka Gregg Tissues: A Uterus w/ or w/o tubes ovari (more content not included)... Normal [facility] Alanine aminotransferase [En zymatic activity/volume] in Serum or PlasmaOrdered By: Rosita Jim on 09-02-2022 ALT [Catalytic activity/Vol] 14 U/L [facility] Albumin [Mass/volume] in Ser um or Plasma by Bromocresol green (BCG) dye binding methoOrdered By: Rosita Jim on 09-02-2022 Albumin BCG dye [Mass/Vol] 4.6 g/dL 3.5-5.7 [facility] Alkaline phosphatase [Enzyma tic activity/volume] in Serum or PlasmaOrdered By: Rosita Jim on 09-02-2022 ALP [Catalytic activity/Vol] 46 U/L 34-104 [facility] Aspartate aminotransferase [ Enzymatic activity/volume] in Serum or PlasmaOrdered By: Rosita Jim on 09-02-2022 AST [Catalytic activity/Vol] 13 U/L 13-39 [facility] Bilirubin.total [Mass/volume ] in Serum or PlasmaOrdered By: Rosita Jim on 09-02-2022 Bilirubin [Mass/Vol] 0.6 mg/dL 0.3-1.0 [facility] Calcium [Mass/volume] in Ser um or PlasmaOrdered By: Rosita Jim on 09-02-2022 Calcium [Mass/Vol] 9.3 mg/dL 8.6-10.3 [facility] Carbon dioxide, total [Moles /volume] in Serum or PlasmaOrdered By: Rosita Jim on 09-02-2022 CO2 [Moles/Vol] 22.4 mmol/L 21.0-31.0 [facility] Chloride [Moles/volume] in S gabe or PlasmaOrdered By: Rosita Jim on 09-02-2022 Chloride [Moles/Vol] 104 mmol/L 98-107 [facility] Cholesterol [Mass/volume] in Serum or PlasmaOrdered By: Rosita Jim on 09-02-2022 Cholesterol [Mass/Vol] 150 mg/dL 140-200 [facility] Comment on above: Chol less than 200 m g/dl low riskChol 201-239 mg/dl borderline riskChol 240 mg/dl and greater high risk Cholesterol in LDL Calc [Mas s/Vol]Ordered By: Rosita Jim on 09-02-2022 Cholesterol in LDL [Mass/Vol] 81 mg/dL 0-100 [facility] Comment on above: LDL ATP III CLASSIFI CATIONLDL less than 100 mg/dL OptimalLDL 100-129 mg/dL Near or above optimalLDL 130-159 mg/dL Borderline highLDL 160-189 mg/dL HighLDL greater than 189 mg/dL Very high Cholesterol in VLDL Calc [Ma ss/Vol]Ordered By: Rosita Jim on 09-02-2022 Cholesterol in VLDL [Mass/Vol] 17 mg/dL [facility] Creatinine [Mass/volume] in Serum or PlasmaOrdered By: Rosita Jim on 09-02-2022 Creatinine [Mass/Vol] 0.73 mg/dL 0.60-1.20 [facility] Globulin Calc (S) [Mass/Vol] Ordered By: Rosita Jim on 09-02-2022 Globulin (S) [Mass/Vol] 2.4 g/dL [facility] Glucose [Mass/volume] in Ser um or PlasmaOrdered By: Rosita Jim on 09-02-2022 Glucose [Mass/Vol] 75 mg/dL 70-100 [facility] Comment on above: ADA recommended refe rence rangeRandom Glucose Reference Range is dependent on time and content of last meal. Glucose of more than 200 mg/dL in a nonstressed, ambulatory subject supports the diagnosis of Diabetes Mellitus. No Panel InformationOrdered By: Rosita Jim on 09-02-2022 Estimated GFR (CKD-EPI) > 60.0 mL/Min [facility] Creatinine Clearance (Chem N/A [facility] Potassium [Moles/volume] in Serum or PlasmaOrdered By: Rosita Jim on 09-02-2022 Potassium [Moles/Vol] 4.0 mmol/L 3.5-5.1 [facility] Protein [Mass/volume] in Ser um or PlasmaOrdered By: Rosita Jim on 09-02-2022 Protein [Mass/Vol] 7.0 g/dL 6.4-8.9 [facility] Serum or plasma albumin/glob ulin mass ratioOrdered By: Rosita Jim on 09-02-2022 Albumin/Globulin [Mass ratio] 1.9 {ratio} [facility] Serum or plasma anion gap de terminationOrdered By: Rosita Jim on 09-02-2022 Anion gap [Moles/Vol] 14.6 mmol/L 6.0-15.0 [facility] Serum or plasma high density lipoprotein (HDL) cholesterol measurementOrdered By: Rosita Jim on 09-02-2022 Cholesterol in HDL [Mass/Vol] 52 mg/dL 35-85 [facility] Comment on above: HDL CHOL ATP-III CLA SSIFICATION Cardiovascular RiskHDL > or equal to 60 mg/dL LOWHDL < 40 mg/dL HIGH Serum or plasma total choles terol/high density lipoprotein (HDL) cholesterol mass ratOrdered By: Rosita Jim on 09-02-2022 Cholesterol.total/Radha sterol in HDL [Mass ratio] 2.9 {ratio} <5.0 [facility] Sodium [Moles/volume] in Ser um or PlasmaOrdered By: Rosita Jim on 09-02-2022 Sodium [Moles/Vol] 137 mmol/L 136-145 [facility] Thyrotropin [Units/volume] i n Serum or PlasmaOrdered By: Rosita Jim on 09-02-2022 TSH Qn 1.10 m[IU]/L 0.45-5.33 [facility] Triglyceride [Mass/volume] i n Serum or PlasmaOrdered By: Rosita Jim on 09-02-2022 Triglyceride [Mass/Vol] 85 mg/dL 0-149 [facility] Comment on above: TRIG ATP III CLASSIF ICATIONTRIG less than 150 mg/dL NormalTRIG 150-199 mg/dL Borderline highTRIG 200-500 mg/dL High TRIG greater than 500 mg/dL Very highStandard traceable to the Center for Disease Conrtrol and Prevention (CDC) test method. Urea nitrogen [Mass/volume] in Serum or PlasmaOrdered By: Rosita Jim on 09-02-2022 Urea nitrogen [Mass/Vol] 13 mg/dL 7- [facility] PAP ACOG PANEL 2: 30 to 65on 05-07-2022 . . [facility] Comment on above: Result Comment: Perf ormed at: WB Performed By: #### [id number] #### [facility] [address] [place] [address] Dr. Evy Boothe Age Gdln ACOG Testing 30-65 Normal [facility] Comment on above: Performed By: #### [id number] #### [facility] [address] [place] [address] Dr. Evy Boothe DIAGNOSIS: Comment Abnormal [facility] Comment on above: Result Comment: EPIT HELIAL CELL ABNORMALITY. ATYPICAL SQUAMOUS CELLS OF UNDETERMINED SIGNIFICANCE (ASC-US). Performed at: WB Performed By: #### [id number] #### [facility] [address] [place] [address] Dr. Evy Boothe Electronically signed by: Comment Normal [facility] Comment on above: Result Comment: Dolly Guthrie MD, Pathologist Performed at: WB Performed By: #### [id number] #### [facility] [address] [place] [address] Dr. Evy Boothe HPV Aptima Positive Abnormal Negative [facility] Comment on above: Result Comment: This nucleic acid amplification test detects fourteen high-risk HPV types (16,18,31,33,35,39,45,51,52,56,58,59,66,68) without differentiation. Performed at: =G Performed By: #### [id number] #### [facility] [address] [place] [address] Dr. Evy Boothe HPV Genotype Reflex Comment Normal [facility] Comment on above: Result Comment: Crit eria not met, HPV Genotype not performed. Performed at: WB Performed By: #### [id number] #### [facility] [address] [place] [address] Dr. Evy Boothe Methodology: Comment [facility] Comment on above: Result Comment: This liquid based ThinPrep(R) pap test was screened with the use of an image guided system. Performed at: WB Performed By: #### [id number] #### [facility] [address] [place] [address] Dr. Evy Boothe Note: Comment [facility] Comment on above: Result Comment: The Pap smear is a screening test designed to aid in the detection of premalignant and malignant conditions of the uterine cervix. It is not a diagnostic procedure and should not be used as the sole means of detecting cervical cancer. Both false-positive and false-negative reports do occur. . Performed at: WB Performed By: #### [id number] #### [facility] [address] [address] [address] Evy Boothe Pathologist Provided ICD10 Comment [facility] Comment on above: Result Comment: [id number]. [id number] Performed at: WB Performed By: #### [id number] #### [facility] [address] [place] [address] Dr. Evy Boothe Performed by: Comment Normal [facility] Comment on above: Result Comment: Jonna Motta, Noodle Maker (ASCP) Performed at: WB Performed By: #### [id number] #### [facility] [address] [place] [address] Dr. Evy Boothe Recommendation: Comment Abnormal [facility] Comment on above: Result Comment: Sugg est follow up as clinically appropriate. Performed at: WB Performed By: #### [id number] #### [facility] [address] [place] [address] Dr. Evy Boothe Specimen adequacy: Comment Normal [facility] Comment on above: Result Comment: Sati sfactory for evaluation. Endocervical and/or squamous metaplastic cells (endocervical component) are present. Performed at: WB Performed By: #### [id number] #### [facility] [address] [place] [address] Dr. Evy Boothe MG MAMM SCREEN 3D TJ CADon 04-21-2022 MG MAMM SCREEN 3D TJ CAD Patient: JERRICA ROD Exam Date: 04/21/2022 : 1975 Gender:F Ordering : DR CHAKA GREGG . Admission #: [id number] Family : Order #: [id number] CLICK HERE TO VIEW EXAM RADIOLOGY REPORT [...] breast cancer at age 44. LOCATION: [facility] BREAST COMPOSITION: Heterogeneously dense,which may obscure [...] Lopez MD on 04/22/2022 at 08:53 Normal [facility] CHLAMYDIA/GONOCOCCUS LUZMARIA (SW AB/URINE/PAPon 03-29-2022 Chlamydia trachomatis, LUZMARIA Negative Normal Negative [facility] Comment on above: Performed By: #### C T/NGNA #### [facility] [address] [place]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
== END 2024-06-05 11:02 | disposition home or self-care (01) ==
LOC: MAMMO 11:01
PROVIDERS: Visit Provider Obstetrics & Gynecology
DX: Z12.31 Encounter for screening mammogram for malignant neoplasm of breast (principal); Z80.8 Family history of malignant neoplasm of other organs or systems; Z80.3 Family history of malignant neoplasm of breast
CPT/HCPCS: 77063; 77067

== ENCOUNTER 2024-06-12 20:29 | Outpatient (REF) | payer SELFPAY ==
--- OUTSIDE RECORDS SUMMARY | 2024-06-12 20:33 | XMS_ITS | CCD ---
Author Organization [facility] Care Team Providers Care Delinquency Prevention Officer Name Role Phone NO, PHYSICIAN Unavailable Unavailable LIANET CARROLL Attending Unavailable NO, PHYSICIAN Primary Care Unavailable No, Physician Primary Care Provider Unavailabl e Hernán, Rosita Primary Care Provider Unava ilable NANCY CAMPBELL Referring Unavailable MYERHOLROBBIE, ROSITA Primary Care Unavailable NANCY CAMPBELL Referring Unavailable MYERHOLTZ, ROSITA Primary Care Unavailable MYSONAL, ROSITA Primary Care Physician [phone] Indigo Flynn Unavailable Unavailable CRISTINO, DR OLMEDO Attending Unavailable CRISTINO, DR OLMEDO Admitting Unavailable CRISTINO, DR OLMEDO Consulting Unavailable MILLERTON, DR GILDA Garza Consulting Unavailable CRISTINO, DR OLMEDO Attending Unavailable CRISTINO, DR OLMEDO Admitting Unavailable CRISTINO, DR OLMEDO Consulting Unavailable CRISTINO, DR OLMEDO Consulting Unavailable CRISTINO, DR OLMEDO Attending Unavailable CRISTINO, DR OLMEDO Admitting Unavailable [facility] Primary Care Provider KEITH Jim Attending Provider Dante Lozada MD Primary Care Provider [facility] Primary Care Provider Chaka Gregg Attending Provider [facility] Primary Care Provider MD Stacey Chase Attending Provider [phone] [facility] Primary Care Provider MD Stacey Chase Attending Provider [phone] [facility] Primary Care Unavaila ble Chaka Gregg Admitting Unavailable Cristino, Chaka Attending Unavailable [facility] Primary Care Unavaila ble Chase, Stacey Admitting Unavailable Chase, Stacey Attending Unavailable [facility] Primary Care Unavaila ble Chase, Stacey Admitting Unavailable Chase, Stacey Attending Unavailable Chase, Stacey Admitting Unavailable Chase, Stacey Attending Unavailable [facility] Primary Care Unavaila Cherelle Bejarano Attending [...] extract; Translations: [COCONUT] Drug Allergy 3 Anaphylaxis [facility] Repository (16 sources) Penicillins; Translations: [Unknown] Propensity to adverse reactions to drug (disorder) 3 Anaphylaxis [facility] Repository (8 sources) Sulfonamides (Antibiotic); Translations: [Sulfa (Sulfonamide Antibiotics)] Propensity to adverse reactions to drug 0 Anaphylaxis [facility] (5 sources) Coconut Oil; Translations: [Coconut Oil] Drug Allergy Anaphylactic reaction [facility] (5 sources) Penicillin; Translations: [penicillin] Drug Allergy Anaphylactic reaction [facility] (5 sources) Sulfonamides (Antibiotic); Translations: [sulfa drugs] Drug allergy Anaphylactic reaction [facility] (8 sources) Latex; Translations: [Latex] Drug allergy (disorder) 3 Eruption (morphologic abnormality) [facility] Repository (1 source) Sulfonamides (Antibiotic) Drug allergy (disorder) 3 [facility] Repository (6 sources) Coconut extract Drug Allergy 3 Anaphylaxis [facility] Work Phone: (6 sources) Latex Propensity to adverse reactions 3 [facility] (6 sources) Sulfonamides (Antibiotic) Propensity to adverse reactions 3 [facility] (3 sources) Adhesive Tape; Translations: [adhesive tape] Allergy to substance 4 Rash, Rash/Redness [facility] (1 source) Latex Drug allergy (disorder) 1 [facility] Repository (5 sources) Penicillin G Drug Allergy 4 [facility] Medications Current Medications Medication Drug Class(es) Dates [...] 10, 2021 12:00am take 1 capsule by [facility] every twenty-four hours in the morning dilTIAZem CD (Cardizem CD) 240 MG 24 hr capsule Take 1 capsule by mouth in the morning. Active [id number] 0.3 ml EPINEPHrine 1 mg/ml auto-injector (6 [...] bedtime March 10, 2021 12:00am lactobacillus acidophilus [id number] unt oral capsule (2 sources) Start: 08-28-2024 [...] Test Name Value Interpretation Reference Range Facility [place] 01-23-2024 L Specimen: [id number] Received: 01/24/24 Status: VICKIE Zhou Num: [id number] Spec Type: Surgical Subm Dr: Stacey Chase MD Tissues: A Skin-Other than Cyst, tag, debridement or plastic repair (SUPRAPUBIC MASS) Procedures: HE, Gross/Micro L4 Age/ Patient Sex Location Account Attending Physician Jerrica Rod 48/F [place] [id number] Stacey Chase MD SPEC NUM: [id number] RECD: 01/24/24 STATUS: VICKIE ZHOU NUM: [id number] FELICITY: 01/23/24 [facility] DR: Stacey Chase MD ENTERED: 01/24/[address] [facility] DR: SPEC TYPE: Surgical DEPT: S ENTERED BY: [id number] RECV BY: [id number] ORDERED: HE, Gross/Micro L4 ORDERED: HE, Gross/Micro [...] entirely submitted in cassette A1. CPT Codes 85603 -------- -------- Specimen: [id number] Received: 01/24/24 Status: VICKIE Zhou Num: [id number] Spec Type: Surgical Subm Dr: Stacey Chase MD Tissues: A Skin-Other than Cyst, tag, debridement or plastic repair (SUPRAPUBIC MASS) Procedures: HE, Gross/Micro L4 -------- Patient: Jerrica Rod [id number] (Continued) -------- Signed (signature on file) Nati Liu MD 01/30/24 1455 Normal [facility] Automated basophil %Ordered By: Stacey Chase on 01-11-2024 Basophils/100 WBC (Bld) 0.6 % Normal . [facility] Comment on above: Performed By: #### C RUBEN, BMP #### [address] Automated basophil countOrde red By: Stacey Chase on 01-11-2024 Basophils (Bld) [#/Vol] 0.0 10*3/uL Normal 0.0-0.2 [facility] Comment on above: Result Comment: PERF ORMED BY: [place] [address] PATHOLOGIST [employer] FINESSE SPAULDING M.D. Performed By: #### C RUBEN, BMP #### [address] Automated blood monocyte cou ntOrdered By: Stacey Chase on 01-11-2024 Monocytes (Bld) [#/Vol] 0.5 10*3/uL Normal 0.0-0.8 [facility] Comment on above: Performed By: #### C BC, BMP #### [address] Automated eosinophil %Ordere d By: Stacey Chase on 01-11-2024 Eosinophils/100 WBC (Bld) 1.5 % Normal . [facility] Comment on above: Performed By: #### C BC, BMP #### [address] Automated eosinophil countOr dered By: Stacey Chase on 01-11-2024 Eosinophils (Bld) [#/Vol] 0.1 10*3/uL Normal 0.0-0.45 [facility] Comment on above: Performed By: #### C BC, BMP #### [address] Automated monocyte %Ordered By: Stacey Chase on 01-11-2024 Monocytes/100 WBC (Bld) 5.9 % Normal . [facility] Comment on above: Performed By: #### C BC, BMP #### [address] Automated neutrophil %Ordere d By: Stacey Chase on 01-11-2024 Neutrophils/100 WBC (Bld) 70.8 % Normal . [facility] Comment on above: Performed By: #### C BC, BMP #### [address] Basic Metabolic Panelon 12-15 GFR/1.73 sq M.predicted MDRD (S/P/Bld) [Vol rate/Area] mL/min/{1.73_m2} Normal [facility] Comment on above: Performed By: #### C BC, BMP #### [address] Basic metabolic 1998 panelon 01-11-2024 Anion gap [Moles/Vol] 13.6 mmol/L 6.0 - 15.0 [facility] Calcium [Mass/Vol] 9.5 mg/dL 8.6 - 10. 3 mg/dL [facility] Chloride [Moles/Vol] 107 mmol/L 98 - 10 7 mmol/L [facility] CO2 [Moles/Vol] 22.7 mmol/L 21.0 - 31.0 mmol/L [facility] Creatinine (U) [Mass/Vol] 0.73 mg/dL 0.60 - 1.20 mg/dL [facility] GFR/1.73 sq M.predicted MDRD (S/P/Bld) [Vol rate/Area] mL/min/{1.73_m2} [facility] Glucose [Mass/Vol] 100 mg/dL 70 - 100 mg/dL [facility] Comment on above: Random Glucose Refer ence Range is dependent on time and content of last meal. Glucose of more than 200 mg/dL in a nonstressed, ambulatory subject supports the diagnosis of Diabetes Mellitus. ADA recommended reference range Potassium [Moles/Vol] 4.3 mmol/L 3.5 - 5.1 mmol/L [facility] Sodium [Moles/Vol] 139 mmol/L 136 - 145 mmol/L [facility] Urea nitrogen [Mass/Vol] 18 mg/dL 7 - 25 mg/dL [facility] CBC W Auto Differential pane l (Bld)on 01-11-2024 Basophils (Bld) [#/Vol] 0.0 10*3/uL 0.0 - 0.2 10*3/uL [facility] Basophils/100 WBC Manual cnt (Syn fld) 0.6 % . [facility] Eosinophils (Bld) [#/Vol] 0.1 10*3/uL 0.0 - 0.45 10*3/uL [facility] Eosinophils/100 WBC Manual cnt (Syn fld) 1.5 % . [facility] Erythrocyte distribution width (RBC) [Ratio] 12.9 % 11.9 - 15.3 % [facility] Hematocrit (Bld) [Volume fraction] 40.4 % 34.0 - 46.4 % [facility] Hemoglobin (Bld) [Mass/Vol] 13.8 g/dL 11.8 - 15.4 g/dL [facility] Lymphocytes (Bld) [#/Vol] 1.7 10*3/uL 1.00 - 4.8 10*3/uL [facility] Lymphocytes/100 WBC Manual cnt (Syn fld) 21.2 % . [facility] MCH (RBC) [Entitic mass] 30.0 pg 24.7 - 34.3 pg [facility] MCHC (RBC) [Mass/Vol] 34.0 g/dL 32.0 - 35.0 g/dL [facility] MCV (RBC) [Entitic vol] 88.1 fL 80 - 100 fL [facility] Monocytes (Bld) [#/Vol] 0.5 10*3/uL 0.0 - 0.8 10*3/uL [facility]+Macroph[facility]1 00 WBC Manual cnt (Syn fld) 5.9 % . [facility] Neutrophils (Bld) [#/Vol] 5.6 10*3/uL 1.8 - 7.7 10*3/uL [facility] Neutrophils/100 WBC Manual cnt (Syn fld) 70.8 % . [facility] NRBC 0.2 /100{WBC} 0 - 0.5 /100{WBC} [facility] Platelet mean volume (Bld) [Entitic vol] 8.1 fL 6.3 - 10.7 fL [facility] Platelets (Bld) [#/Vol] 341 10*3/uL 150 - 450 10*3/uL [facility] RBC LM.HPF (Urine sed) [#/Area] 4.59 /[HPF] 3.60 - 5.00 [facility] WBC (Bld) [#/Vol] 8.0 10*3/uL 3.8 - 11.6 10*3/uL [facility] WBC LM.HPF (Urine sed) [#/Area] 8.0 10*3/uL 3.8 - 11.6 10*3/uL [facility] Calcium [Mass/volume] in Ser um or PlasmaOrdered By: Stacey Chase on 01-11-2024 Calcium [Mass/Vol] 9.5 mg/dL Normal 8.6-10.3 [facility] Comment on above: Result Comment: PERF ORMED BY: [facility] [address] [place] [address] PATHOLOGIST [employer] FINESSE SPAULDING M.D. Performed By: #### C BC, BMP #### [address] Carbon dioxide, total [Moles /volume] in Serum or PlasmaOrdered By: Stacey Chase on 01-11-2024 CO2 [Moles/Vol] 22.7 mmol/L Normal 21.0-31.0 [facility] Comment on above: Performed By: #### C BC, BMP #### [address] Chloride [Moles/volume] in S gbae or PlasmaOrdered By: Stacey Chase on 01-11-2024 Chloride [Moles/Vol] 107 mmol/L Normal 98-107 [facility] Comment on above: Performed By: #### C BC, BMP #### [address] Complete Blood Count Auto Di ffon 01-11-2024 Mean Corpuscular HGB Conc 34.0 g/dL Normal 32.0-35.0 [facility] Comment on above: Performed By: #### C BC, BMP #### [address] NRBC% 0.2 /100{WBC} Normal 0-0.5 [facility] Comment on above: Performed By: #### C BC, BMP #### [place] [address] [place] Creatinine [Mass/volume] in Serum or PlasmaOrdered By: Stacey Chase on 01-11-2024 Creatinine [Mass/Vol] 0.73 mg/dL Normal 0.60-1.20 [facility] Comment on above: Performed By: #### C BC, BMP #### [address] ECG 12 lead ECGon 01-11-2024 ECG 12 lead ECG [facility] [place] [address] [place] [address] Electrocardiograph Report Signed Patient: Jerrica Rod MR#: [id number] : 1975 Acct:[id number] Age/Sex: 48 / F ADM Date: 01/11/24 Loc: PS Room: Type: [facility] Attending Dr: Stacey Chase MD Ordering Provider: [...] change was found Confirmed by Lenny Palacio ([id number]) on 01/11/2024 2:45:44 PM Referred By: Electronically Signed By: Lenny Palacio Transcribed By: MUS Signed By Lenny Palacio MD 01/11/24 1445 Normal [facility] Erythrocyte distribution wid th [Ratio] by Automated countOrdered By: Stacey Chase on 01-11-2024 Erythrocyte distribution width (RBC) [Ratio] 12.9 % Normal 11.9-15.3 [facility] Comment on above: Performed By: #### C BC, BMP #### [facility] [address] Erythrocytes [#/volume] in B lood by Automated countOrdered By: Stacey Chase on 01-11-2024 RBC (Bld) [#/Vol] 4.59 10*6/uL Normal 3.60-5.00 [facility] Comment on above: Performed By: #### C BC, BMP #### [facility] [address] Glucose [Mass/volume] in Ser um or PlasmaOrdered By: Stacey Chase on 01-11-2024 Glucose [Mass/Vol] 100 mg/dL Normal 70-100 [facility] Comment on above: ADA recommended refe rence rangeRandom Glucose Reference Range is dependent on time and content of last meal. Glucose of more than 200 mg/dL in a nonstressed, ambulatory subject supports the diagnosis of Diabetes Mellitus. Result Comment: [facility] Glucose Reference Range is dependent on time and content of last meal. Glucose of more than 200 mg/dL in a nonstressed, ambulatory subject supports the diagnosis of Diabetes Mellitus. ADA recommended reference range Performed By: #### C RUBEN, BMP #### [address] Hematocrit [Volume Fraction] of Blood by Automated countOrdered By: Stacey Chase on 01-11-2024 Hematocrit (Bld) [Volume fraction] 40.4 % Normal 34.0-46.4 [facility] Comment on above: Performed By: #### C RUBEN, BMP #### [address] Hemoglobin [Mass/volume] in BloodOrdered By: Stacey Chase on 01-11-2024 Hemoglobin (Bld) [Mass/Vol] 13.8 g/dL Normal 11.8-15.4 [facility] Comment on above: Performed By: #### C RUBEN, BMP #### [address] Leukocytes [#/volume] correc shantelle for nucleated erythrocytes in Blood by Automated counOrdered By: Stacey Chase on 01-11-2024 WBC corrected for nucl RBC Auto (Bld) [#/Vol] 8.0 10*3/uL 3.8-11.6 [facility] Leukocytes [#/volume] in Blo od by Automated countOrdered By: Stacey Chase on 01-11-2024 WBC (Bld) [#/Vol] 8.0 10*3/uL Normal 3.8-11.6 [facility] Comment on above: Performed By: #### C RUBEN, BMP #### [place] [address] [place] Lymphocytes [#/volume] in Bl ood by Automated countOrdered By: Stacey Chase on 01-11-2024 Lymphocytes (Bld) [#/Vol] 1.7 10*3/uL Normal 1.00-4.8 [facility] Comment on above: Performed By: #### C BC, BMP #### [address] Lymphocytes/100 leukocytes i n Blood by Automated countOrdered By: Stacey Chase on 01-11-2024 Lymphocytes/100 WBC (Bld) 21.2 % Normal . [facility] Comment on above: Performed By: #### C BC, BMP #### [address] MCH [Entitic mass] by Automa shantelle countOrdered By: Stacey Chase on 01-11-2024 MCH (RBC) [Entitic mass] 30.0 pg Normal 24.7-34.3 [facility] Comment on above: Performed By: #### C RUBEN, BMP #### [address] MCHC Auto (RBC) [Mass/Vol]Or dered By: Stacey Chase on 01-11-2024 MCHC (RBC) [Mass/Vol] 34.0 g/dL 32.0-35.0 [facility] MCV [Entitic volume] by Auto mated countOrdered By: Stacey Chase on 01-11-2024 MCV (RBC) [Entitic vol] 88.1 fL Normal 80-100 [facility] Comment on above: Performed By: #### C RUBEN, BMP #### [address] Neutrophils [#/volume] in Bl ood by Automated countOrdered By: Stacey Chase on 01-11-2024 Neutrophils (Bld) [#/Vol] 5.6 10*3/uL Normal 1.8-7.7 [facility] Comment on above: Performed By: #### C RUBEN, BMP #### [address] No Panel InformationOrdered By: Stacey Chase on 01-11-2024 Estimated GFR (CKD-EPI) > 60.0 mL/Min [facility] Creatinine Clearance (Chem N/A [facility] Nucleated erythrocytes [Pres ence] in Blood by Automated countOrdered By: Stacey Chase on 01-11-2024 Nucleated RBC Auto Ql (Bld) 0.2 /100{WBC} 0-0.5 [facility] Platelet mean volume [Entiti c volume] in Blood by Automated countOrdered By: Stacey Chase on 01-11-2024 Platelet mean volume (Bld) [Entitic vol] 8.1 fL Normal 6.3-10.7 [facility] Comment on above: Performed By: #### C BC, BMP #### [facility] [address] [place] [address] Platelets [#/volume] in Bloo d by Automated countOrdered By: Stacey Chase on 01-11-2024 Platelets (Bld) [#/Vol] 341 10*3/uL Normal 150-450 [facility] Comment on above: Performed By: #### C BC, BMP #### [place] [address] [place] Potassium [Moles/volume] in Serum or PlasmaOrdered By: Stacey Chase on 01-11-2024 Potassium [Moles/Vol] 4.3 mmol/L Normal 3.5-5.1 [facility] Comment on above: Performed By: #### C BC, BMP #### [address] Serum or plasma anion gap de terminationOrdered By: Stacey Chase on 01-11-2024 Anion gap [Moles/Vol] 13.6 mmol/L Normal 6.0-15.0 [facility] Comment on above: Performed By: #### C BC, BMP #### [place] [address] [place] Sodium [Moles/volume] in Ser um or PlasmaOrdered By: Stacey Chase on 01-11-2024 Sodium [Moles/Vol] 139 mmol/L Normal 136-145 [facility] Comment on above: Performed By: #### C BC, BMP #### [address] Urea nitrogen [Mass/volume] in Serum or PlasmaOrdered By: Stacey Chase on 01-11-2024 Urea nitrogen [Mass/Vol] 18 mg/dL Normal - [facility] Comment on above: Performed By: #### C BC, BMP #### [address] US pelvic completeon 024 US pelvic complete [facility] [place] [address] [place] [address] Ultrasound Report Signed Patient: Jerrica Rod MR#: [id number] : 1975 Acct:[id number] Age/Sex: 48 / F ADM Date: 10/22/23 Loc: Room: Type: [facility] Attending Dr: Stacey Chase MD Ordering Provider: [...] Charles Dozier M.D.10/22/2023 11:06 AM Dictation Location: [place] [address] Tech: Sapna Carmelitagarcíaabdirahman Transcribed By: [facility] 10/22/23 1106 Dictated By: Charles Dozier DO 10/22/23 1104 Signed By: 10/22/23 1106 Normal [facility] Lab Reportson 10-21-2023 Lab Reports [id number] .[id number] Normal [facility] Screenson 10-21-2023 Screens [id number] .[id number] [facility] Ambulatory Visit Summaryon 0 10-19-2023 Ambulatory Visit [...] Cherelle Aragon MD Where: [facility] Patient Educationon 10-19-19 24 Patient Education Obstetrics [...] provider. Document Revised: 09/10/2021 Document Reviewed: 09/10/2021 [employer] Patient Education ? 2022 [employer] Normal [facility] Urology Office/Clinic Noteon 10-19-2023 Urology Office/Clinic Note [...] not specified) CT AP wo con 03/28/22 [facility] - no hydronephrosis and no stones. External labs reviewed: Cr wnl No history of kidney stones or relation of UTIs to activity/sexual intercourse. Denies constipation or urinary issues at baseline other than mild SHOSHANA. S/p Cysto/UD 05/24/22 -[place] procedure helped reduce infections Still taking OTC [...] Cherelle German, URL, [facility] [address] [place] [address]- [phone] Additional Instructions: 1 yr (no labs) Patient [...] 10/19/2023 Fami (more content not included)... Normal [facility] Comment on above: Result Comment: Elec tronically Signed By: Cherelle Aragon MD\.br\Date and Time Signed: 10/19/23 08:49 EDT\.br\Electronically Co-Signed By: Katelynn Seymour\.br\Date and Time Co-Signed: 10/19/23 08:40 EDT ALL CBC WITH AUTO DIFFon BASOPHILS ABSOLUTE AUTO 0.0 N [facility] Basophils/100 WBC (Bld) 0.6 % 0.2 - 2.0 % [facility] Eosinophils/100 WBC (Bld) 3.3 % 0.9 - 7.0 % [facility] Erythrocyte distribution width (RBC) [Ratio] 13.2 % 11.0 - 15.0 % [facility] Hematocrit (Bld) [Volume fraction] 38.3 % 36.0 - 48.0 % [facility] Hemoglobin (Bld) [Mass/Vol] 12.9 g/dL 12.0 - 16.0 g/dL [facility] IMMATURE GRANULOCYTES ABS AUTO 0.02 [facility] Immature granulocytes/100 WBC (Bld) 0.3 % 0.0 - 0.5 % [facility] Interpretation and review of laboratory results Abnormal [facility] LYMPHOCYTES ABSOLUTE AUTO 1.6 [facility] Lymphocytes/100 WBC (Bld) 23.0 % 20.5 - 60.0 % [facility] MCH (RBC) [Entitic mass] 30.0 pg 26.7 - 34.0 pg [facility] MCHC (RBC) [Mass/Vol] 33.7 g/dL 29.9 - 35.2 g/dL [facility] MCV (RBC) [Entitic vol] 89.1 fL 81.0 - 99.0 fL [facility] MONOCYTES ABSOLUTE AUTO 0.8 N [facility] Monocytes/100 WBC (Bld) 10.9 % 1.7 - 12.0 % [facility] NEUTROPHILS ABSOLUTE AUTO 4.3 [facility] Neutrophils/100 WBC (Bld) 61.9 % 43.0 - 75.0 % [facility] Platelet mean volume (Bld) [Entitic vol] 9.2 fL Low 9.5 - 13.5 fL [facility] TBH EO # 0.2 [facility] TB PLT 344 [facility] RBC 4.30 [facility] WBC 7.0 [facility] [place] 06-29-2023 L Specimen: [id number] Received: 06/29/23 Status: VICKIE Zhou Num: [id number] Spec Type: Surgical Subm Dr: Chaka Gregg Tissues: A Uterus w/ or w/o tubes ovaries except neoplastic or prolap (UTRS, CRVX, BI Procedures: HE/12, Gross/Micro L5 Age/ Patient Sex Location Account Attending Physician Jerrica Rod 48/F LABELL [id number] Chaka Gregg SPEC NUM: [id number] RECD: 06/29/23 STATUS: VICKIE ZHOU NUM: [id number] FELICITY: 06/29/[address]: Chaka Gregg ENTERED: 06/29/[address] [facility] DR: [place],Lab SPEC TYPE: Surgical DEPT: HAYLEE FLORES ENTERED BY: [id number] RECV BY: [id number] ORDERED: HE/12, Gross/Micro L5 ORDERED: HE/12, Gross/Micro [...] additional segments of fallopian tube -------- Specimen: [id number] Received: 06/29/23 Status: VICKIE Abelardo Num: [id number] Spec Type: Surgical Subm Dr: Chaka Gregg Tissues: A Uterus w/ or w/o tubes ovaries except neoplastic or prolap (UTRS, CRVX, BI Procedures: HE/12, Gross/Micro L5 -------- Patient: Jerrica Rod [id number] (Continued) -------- Specimen: [id number] Received: 06/29/23 (Continued) Gross Description (Continued) Signed (signature on file) Nati Liu MD 06/30/23 2148 -------- Specimen: [id number] Received: 06/29/23 Status: VICKIE Zhou Num: [id number] Spec Type: Surgical Subm Dr: Chaka Gregg Tissues: A Uterus w/ or w/o tubes ovaries except neoplastic or prolap (UTRS, CRVX, BI Procedures: , Gross/Micro L5 -------- Patient: Jerrica Rod [id number] (Continued) -------- Specimen: [id number] Received: 06/29/23 (Continued) Gross Description (Continued) present, [...] lumens. The fimbria are soft and unremarkable. [employer] sections are submitted in 7 cassettes as [...] section from each nonfimbriated segment CPT Codes 57444 -------- -------- Specimen: [id number] Received: 06/29/23 Status: VICKIE Abelardo Num: [id number] Spec Type: Surgical Subm Dr: Chaka Gregg Tissues: A Uterus w/ or w/o tubes ovari (more content not included)... Normal [facility] Alanine aminotransferase [En zymatic activity/volume] in Serum or PlasmaOrdered By: Rosita Jim on 09-02-2022 ALT [Catalytic activity/Vol] 14 U/L [facility] Albumin [Mass/volume] in Ser um or Plasma by Bromocresol green (BCG) dye binding methoOrdered By: Rosita Jim on 09-02-2022 Albumin BCG dye [Mass/Vol] 4.6 g/dL 3.5-5.7 [facility] Alkaline phosphatase [Enzyma tic activity/volume] in Serum or PlasmaOrdered By: Rosita Jim on 09-02-2022 ALP [Catalytic activity/Vol] 46 U/L 34-104 [facility] Aspartate aminotransferase [ Enzymatic activity/volume] in Serum or PlasmaOrdered By: Rosita Jim on 09-02-2022 AST [Catalytic activity/Vol] 13 U/L 13-39 [facility] Bilirubin.total [Mass/volume ] in Serum or PlasmaOrdered By: Rosita Jim on 09-02-2022 Bilirubin [Mass/Vol] 0.6 mg/dL 0.3-1.0 [facility] Calcium [Mass/volume] in Ser um or PlasmaOrdered By: Rosita Jim on 09-02-2022 Calcium [Mass/Vol] 9.3 mg/dL 8.6-10.3 [facility] Carbon dioxide, total [Moles /volume] in Serum or PlasmaOrdered By: Rosita Jim on 09-02-2022 CO2 [Moles/Vol] 22.4 mmol/L 21.0-31.0 [facility] Chloride [Moles/volume] in S gabe or PlasmaOrdered By: Rosita Jim on 09-02-2022 Chloride [Moles/Vol] 104 mmol/L 98-107 [facility] Cholesterol [Mass/volume] in Serum or PlasmaOrdered By: Rosita Jim on 09-02-2022 Cholesterol [Mass/Vol] 150 mg/dL 140-200 [facility] Comment on above: Chol less than 200 m g/dl low riskChol 201-239 mg/dl borderline riskChol 240 mg/dl and greater high risk Cholesterol in LDL Calc [Mas s/Vol]Ordered By: Rosita Jim on 09-02-2022 Cholesterol in LDL [Mass/Vol] 81 mg/dL 0-100 [facility] Comment on above: LDL ATP III CLASSIFI CATIONLDL less than 100 mg/dL OptimalLDL 100-129 mg/dL Near or above optimalLDL 130-159 mg/dL Borderline highLDL 160-189 mg/dL HighLDL greater than 189 mg/dL Very high Cholesterol in VLDL Calc [Ma ss/Vol]Ordered By: Rosita Jim on 09-02-2022 Cholesterol in VLDL [Mass/Vol] 17 mg/dL [facility] Creatinine [Mass/volume] in Serum or PlasmaOrdered By: Rosita Jim on 09-02-2022 Creatinine [Mass/Vol] 0.73 mg/dL 0.60-1.20 [facility] Globulin Calc (S) [Mass/Vol] Ordered By: Rosita Jim on 09-02-2022 Globulin (S) [Mass/Vol] 2.4 g/dL [facility] Glucose [Mass/volume] in Ser um or PlasmaOrdered By: Rosita Jim on 09-02-2022 Glucose [Mass/Vol] 75 mg/dL 70-100 [facility] Comment on above: ADA recommended refe rence rangeRandom Glucose Reference Range is dependent on time and content of last meal. Glucose of more than 200 mg/dL in a nonstressed, ambulatory subject supports the diagnosis of Diabetes Mellitus. No Panel InformationOrdered By: Rosita Jim on 09-02-2022 Estimated GFR (CKD-EPI) > 60.0 mL/Min [facility] Creatinine Clearance (Chem N/A [facility] Potassium [Moles/volume] in Serum or PlasmaOrdered By: Rosita Jim on 09-02-2022 Potassium [Moles/Vol] 4.0 mmol/L 3.5-5.1 [facility] Protein [Mass/volume] in Ser um or PlasmaOrdered By: Rosita Jim on 09-02-2022 Protein [Mass/Vol] 7.0 g/dL 6.4-8.9 [facility] Serum or plasma albumin/glob ulin mass ratioOrdered By: Rosita Jim on 09-02-2022 Albumin/Globulin [Mass ratio] 1.9 {ratio} [facility] Serum or plasma anion gap de terminationOrdered By: Rosita Jim on 09-02-2022 Anion gap [Moles/Vol] 14.6 mmol/L 6.0-15.0 [facility] Serum or plasma high density lipoprotein (HDL) cholesterol measurementOrdered By: Rosita Jim on 09-02-2022 Cholesterol in HDL [Mass/Vol] 52 mg/dL 35-85 [facility] Comment on above: HDL CHOL ATP-III CLA SSIFICATION Cardiovascular RiskHDL > or equal to 60 mg/dL LOWHDL < 40 mg/dL HIGH Serum or plasma total choles terol/high density lipoprotein (HDL) cholesterol mass ratOrdered By: Rosita Jim on 09-02-2022 Cholesterol.total/Radha sterol in HDL [Mass ratio] 2.9 {ratio} <5.0 [facility] Sodium [Moles/volume] in Ser um or PlasmaOrdered By: Rosita Jim on 09-02-2022 Sodium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 Document Reviewed: 02/16/2018 [employer] Patient Education 2020 [employer]. Follow Up Care 03/30/2022 11:38:13 With:Mahesh PEREZ, Cherelle German, URL, URO Address: [address], [place] [phone] When: Unknown Comments:schedule Cysto and possible UD [facility] Evaluation + Plan note Future Appointments Appointment Date:05/18/2022 10:30:00 AM Scheduled Provider: Location:[facility] Appointment Type:Urology CALL PAT FT Appointment Date:05/24/2022 09:30:00 AM Scheduled Provider: Location:[facility] Appointment Type:Urology FT [facility] [employer] Evaluation + Plan note Future Appointments Appointment Date:07/14/2022 08:15:00 AM Scheduled Provider:Cherelle Aragon MD Location:[facility] Appointment Type:URO Office Visit [facility] Evaluation + Plan note Future Appointments Appointment Date:10/19/2023 08:00:00 AM Scheduled Provider:Cherelle Aragon MD Location:[facility] Appointment Type:URO Office Visit [facility] Evaluation + Plan note Future Appointments Appointment Date:10/24/2024 08:00:00 AM Scheduled Provider:Cherelle Aragon MD Location:[facility] Appointment Type:URO Office Visit [facility] Evaluation note Diagnosis Pre-employment health screening examination Health examination of defined subpopulation documented in this encounter [facility] [employer] Work Phone: evaluation noteNo assessment information available [facility] Work Phone: Evaluation note* Diagnosis Suture granuloma, sequela- Primary Suprapubic mass [facility] Narrative No data available for this section [facility] progress note No data available for this section [facility] Summary Purpose Family History Relationship Condition Age at Onset Recorded Date/T blanquita Not Specified Malignant neoplasm of breast Unknown father Coronary artery disease Unknown Relationship Condition Age at Onset Recorded Date/T blanquita mother Malignant neoplasm of breast Unknown Malignant neoplasm of cervix Unknown father Coronary artery disease Unknown History of heart surgery Unknown Advance Directives Documents on File Type Date Recorded 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 * Toxin Exposure (Ukrainian) * Earache: Adult (Ukrainian) documented in this encounter Assessments Diagnosis Right ear pain Unspecified otalgia Exposure to chemical inhalation Covid-19 Virus not Detected Chief Complaint and Reason for Visit Chief Complaint Essential (primary) hypertension Chief Complaint Unknown Chief Complaint R19.09 L02.91 Chief Complaint R19.09 L02.91 Suprapubic Mass Chief Complaint Suprapubic Mass Suprapubic Mass Additional Source Comments INFORMATION SOURCE (unrecogn ized section and content) DATE CREATED AUTHOR 11/08/2017 [facility] DATE CREATED AUTHOR AUTHOR'S ORGANIZ ATION 12/07/2019 [facility] DATE CREATED AUTHOR AUTHOR'S ORGANIZ ATION 07/19/2021 [facility] DATE CREATED AUTHOR AUTHOR'S ORGANIZ ATION 05/09/2022 [facility] DATE CREATED AUTHOR AUTHOR'S ORGANIZ ATION 02/17/2024 [facility] DATE CREATED AUTHOR AUTHOR'S ORGANIZ ATION 02/24/2024 [facility] DATE CREATED AUTHOR AUTHOR'S ORGANIZ ATION 04/19/2024 [facility] EPIC Reason for Visit [...] states 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 documented in this encounter Care Teams (unrecognized sec tion and content) Delinquency Prevention Officer Relationship Specialty Start Date End Date Rosita Jim PCP - General 07/16/21 Delinquency Prevention Officer Relationship Specialty Start Date End Date Rosita Jim PCP - General 07/16/21 Team Status: Active Member Role Status Dates Services [facility] Primary Care Provider Active Team Status: Inactive Member Role Status Dates Services [facility] Primary Care Provider Active Rosita Jim APRN [employer]-C Attending Provider A ctive Delinquency Prevention Officer Relationship Specialty Start Date End Date Dante Lozada MD [address] [facility] [place] [address] PCP - General 11/18/22 Team Status: Inactive Member Role Status Dates Services [facility] Primary Care Provider Active Start: June 29, 2023 End: June 29, 2023 Chaka Gregg Attending Provider Active Start: 2023 End: June 29, 2023 Team Status: Inactive Member Role Status Dates Services [facility] Primary Care Provider Active Start: October 22, 2023 End: October 22, 2023 Stacey Chase MD Attending Provider Active Sta rt: October 22, 2023 End: October 22, 2023 Team Status: Inactive Member Role Status Dates Services [facility] Provider Active Start: January 11, 2024 End: January 11, 2024 Stacey Chase MD Attending Provider Active Sta rt: January 11, 2024 End: January 11, 2024 Team Status: Inactive Member Role Status Dates Services [facility] Provider Active Start: January 23, 2024 End: January 23, 2024 Stacey Chase MD Attending Provider Active Sta rt: January 23, 2024 End: January 23, 2024 Delinquency Prevention Officer Relationship Specialty Start Date End Date Dante Lozada MD [address] [place] [address] PCP - General 11/18/22 Delinquency Prevention Officer Relationship Specialty Start Date End Date Dante Lozada MD [address] [place] [address] PCP - General 11/18/22 Delinquency Prevention Officer Relationship Specialty Start Date End Date Dante Lozada MD [address] [facility] [place] [address] PCP - General 11/18/22 Goals (unrecognized section [...] BE BASED ON THE PRIMARY CLINICAL RECORDS. [facility] [employer] [facility]. provides no warranty or guarantee of the accuracy or completeness of information in this document.
[2024-06-19 15:09] LABS: Age Gdln ACOG Testing Note (.); HPV Aptima Positive (Negative); IGP, Aptima HPV, rfx 16/18,45 Note (.)
== END 2024-06-12 20:30 | disposition home or self-care (01) ==
LOC: LAB 20:29
PROVIDERS: Visit Provider Physician Assistant
DX: Z01.419 Encounter for gynecological examination (general) (routine) without abnormal findings (principal)
CPT/HCPCS: 87624; 88175

== ENCOUNTER 2024-07-02 09:03 | Outpatient (OUT) | payer SELFPAY ==
--- NOTE | 2024-07-02 09:13 | XR_ITS ---
The [address] [address] Patient Name: UMESH ESQUIVEL MRN: [id number] date: 1975 Sex: F Assigned Patient Location: [facility] Current Patient Location: [facility] Accession/Order Number: [id number] Exam Date: 07/02/2024 09:19 Report Date: 07/02/2024 16:27 At the request of: HONORIO VIRAMONTES Procedure: XR DEXA axial skeleton EXAM: XR DEXA axial skeleton HISTORY: Post Menopausal State COMPARISON: None. TECHNIQUE: DEXA scan was performed of the lumbar spine and bilateral hips. Classification is based on WHO criteria. FINDINGS: The bone mineral density of the lumbar spine from levels L2 through L4 is 1.266 g/sq cm corresponding to a T-score of 0.5. This is consistent with normal bone mineral density. Left hip: The bone mineral density of the femoral neck is 0.833 g/sq cm corresponding to a T-score of -1.5. This is consistent with osteopenia. The bone mineral density of the total hip is 0.858 g/sq cm corresponding to a T-score of -1.2. This is consistent with osteopenia. Right hip: The bone mineral density of the femoral neck is 0.866 g/sq cm corresponding to a T-score of -1.2. This is consistent with osteopenia. The bone mineral density of the total hip is 0.877 g/sq cm corresponding to a T-score of -1.1. This is consistent with normal bone mineral density. No compression deformity on submitted images. XR/XR DEXA axial skeleton IMPRESSION: Osteopenia. Pharmacologic treatment recommendations - No uniform recommendation applies to all patients. Management plans must be individualized. Consider initiating pharmacologic treatment in postmenopausal women and men >= 50 years of age who have the following: Primary fracture prevention: * T-score <= - 2.5 at the femoral neck, total hip, lumbar spine, 33% radius (some uncertainty with existing data) by DXA. * Low bone mass (osteopenia: T-score between - 1.0 and - 2.5) at the femoral neck or total hip by DXA with a 10-year hip fracture risk >= 3% or a 10-year major osteoporosis-related fracture risk >= 20% (i.e., clinical vertebral, hip, forearm, or proximal humerus) based on the [place]-adapted FRAXregistered model. Secondary fracture prevention: * Fracture of the hip or vertebra regardless of BMD. * Fracture of proximal humerus, pelvis, or distal forearm in persons with low bone mass (osteopenia: T-score between - 1.0 and - 2.5). The decision to treat should be individualized in persons with a fracture of the proximal humerus, pelvis, or distal forearm who do not have osteopenia or low BMD. Rafa Gruber., Polo Roy, Nadine Soares. et al. The clinician's guide to prevention and treatment of osteoporosis. Osteoporos Int 33, 7164-4905 (2021). Erratum in: Osteoporos Int 33, 9174 (2021) Electronically authenticated by: SHANE APONTE Date: 07/02/2024 16:27
--- OUTSIDE RECORDS SUMMARY | 2024-07-02 09:19 | XMS_ITS | CCD ---
Author Organization [facility] Care Team Providers Care Poultry Tender Name Role Phone NO, PHYSICIAN Unavailable Unavailable LIANET CARROLL Attending Unavailable NO, PHYSICIAN Primary Care Unavailable No, Physician Primary Care Provider Unavailabl e Hernán, Rosita Primary Care Provider Unava ilable NANCY CAMPBELL Referring Unavailable MYERHOLROBBIE, ROSITA Primary Care Unavailable NANCY CAMPBELL Referring Unavailable MYERHOLTZ, ROSITA Primary Care Unavailable MYSONAL, ROSITA Primary Care Physician Indigo Flynn Unavailable Unavailable CRISTINO, DR OLMEDO Attending Unavailable CRISTINO, DR OLMEDO Admitting Unavailable CRISTINO, DR OLMEDO Consulting Unavailable [place], DR GILDA Garza Consulting Unavailable CRISTINO, DR OLMEDO Attending Unavailable CRISTINO, DR OLMEDO Admitting Unavailable CRISTINO, DR OLMEDO Consulting Unavailable CRISTINO, DR OLMEDO Consulting Unavailable CRISTINO, DR OLMEDO Attending Unavailable CRISTINO, DR OLMEDO Admitting Unavailable [facility] Primary Care Provider KEITH Jim Attending Provider Dante Lozada MD Primary Care Provider [phone] [facility] Primary Care Provider Chaka Gregg Attending Provider [facility] Primary Care Provider MD Stacey Chase Attending Provider [facility] Primary Care Provider [phone]( [phone] MD Stacey Chase Attending Provider [facility] Primary Care Unavaila ble Chaka Gregg Admitting Unavailable Cristino, Chaka Attending Unavailable [facility] Primary Care Unavaila ble Chase, Stacey Admitting Unavailable Chase, Tsacey Attending Unavailable [facility] Primary Care Unavaila ble Chase, Stacey Admitting Unavailable Chase, Stacey Attending Unavailable Chase, Stacey Admitting Unavailable Chase, Stacey Attending Unavailable [facility] Primary Care Unavaila Cherelle Bejarano Attending Unavailable Cherelle Aragon Attending Unavailable EJ, VANDA Attending Unavailable EJ, VANDA Attending Unavailable VANDA PAGAN Attending Unavailable FREDDIE UGARTE Attending Unavailable CHASE V, STACEY Attending Unavailable MIGUELINA JIM Referring Unavailable CHASE V, STACYE Attending Unavailable CHASE V, STACEY Attending Unavailable Allergies Allergy Classification Reported Allergen(s) Allergy Type Date of Onset Reaction(s) Facility (10 sources) Coconut extract; Translations: [COCONUT] Drug Allergy 3 Anaphylaxis [facility] Repository (20 sources) Penicillins; Translations: [Unknown] Propensity to adverse reactions to drug (disorder) 3 Anaphylaxis [facility] Repository (8 sources) Sulfonamides (Antibiotic); Translations: [Sulfa (Sulfonamide Antibiotics)] Propensity to adverse reactions to drug 0 Anaphylaxis [facility] (5 sources) Coconut Oil; Translations: [Coconut Oil] Drug Allergy Anaphylactic reaction [facility] (5 sources) Penicillin; Translations: [penicillin] Drug Allergy Anaphylactic reaction [facility] (5 sources) Sulfonamides (Antibiotic); Translations: [sulfa drugs] Drug allergy Anaphylactic reaction [facility] (8 sources) Latex; Translations: [Latex] Drug allergy (disorder) 3 Eruption (morphologic abnormality) [facility] Repository (1 source) Sulfonamides (Antibiotic) Drug allergy (disorder) 3 [facility] Repository (10 sources) Coconut extract Drug Allergy 3 Anaphylaxis [facility] Work Phone: (10 sources) Latex Propensity to adverse reactions 3 [facility] (10 sources) Sulfonamides (Antibiotic) Propensity to adverse reactions 3 [facility] (3 sources) Adhesive Tape; Translations: [adhesive tape] Allergy to substance 4 Rash, Rash/Redness [facility] (1 source) Latex Drug allergy (disorder) 1 [facility] Repository (9 sources) Penicillin G Drug Allergy 4 [facility] Medications Current Medications Medication Drug Class(es) Dates [...] 2024 10:29am acyclovir 0.05 mg/mg topical ointment (9 sources) Herpesvirus Nucleoside Analog DNA Polymerase Inhibitor, Herpes Simplex Virus Nucleoside Analog DNA Polymerase Inhibitor, Herpes Zoster Virus Nucleoside Analog DNA Polymerase Inhibitor Start: 03-24-2023 acyclovir (Zovirax) 5 % ointment 03/24/2023 Active albuterol 0.21 mg/ml inhalation solution (14 sources) beta2-Adrenergic Agonist Start: 01-11-2024 Albuterol Sulfate [...] 2024 12:00am cephalexin 500 mg oral capsule (9 sources) Cephalosporin Antibacterial Start: 10-22-2023 take 1 [...] 10/22/2023 Active cholecalciferol 0.025 mg oral capsule (9 sources) Vitamin D Start: 01-11-2024 cholecalciferol (Vitamin D-3) 25 MCG (1000 UT) capsule Every morning 01/11/2024 Active citalopram 40 mg oral tablet (13 sources) Serotonin Reuptake Inhibitor Start: 11-11-2023 citalopram (CeleXA) 40 MG tablet 11/11/2023 Active Start: 04-27-2019 citalopram 40 mg Tab Refills(s) 0 Start Date: 04/27/19 Status: Ordered cranberry preparation 500 mg oral capsule (9 sources) Non-Standardized Food Allergenic Extract, Non-Standardized Plant [...] 11, 2024 12:00am D-Mannose 500 MG capsule (7 sources) Start: 01-11-2024 D-Mannose 500 MG capsule Daily at bedtime 01/11/2024 Active 24 hr dilTIAZem hydrochloride 240 mg extended release oral capsule (15 sources) Calcium Channel Ludivina Start: 03-10-2021 take [...] capsule by mouth in the morning. Active [id number] 0.3 ml EPINEPHrine 1 mg/ml auto-injector (10 sources) alpha-Adrenergic Agonist, beta-Adrenergic Agonist, Catecholamine Start: 08-03-2023 EPINEPHrine (Epipen) 0.3 MG/0.3ML injection syringe 08/03/2023 Active Start: 07-28-2022 EPINEPHrine (E pipen) 0.3 MG/0.3ML injection syringe Inject 1 Syringe as directed 1 (one) time. 0 07/28/2022 Active fenofibrate 200 mg oral capsule (19 sources) Peroxisome Proliferator Receptor alpha Agonist Start: 03-10-2021 Fenofibrate Micronized Active MG March 10, 2021 12:00am Start: 04-27-2019 take 200 mg by mouth once daily at bedtime Fenofibrate Micronized Active 200 MG PO Daily at bedtime March 10, 2021 12:00am fluticasone propionate 0.05 mg/actuat metered dose nasal spray (16 sources) Corticosteroid Start: 03-10-2021 Fluticasone Pr opionate [...] 0 Active gabapentin 300 mg oral capsule (20 sources) Anti-epileptic Agent Start: 03-10-2021 Gabapenti n Active MG March 10, 2021 12:00am Start: 04-27-2019 take 300 mg by mouth once daily at bedtime Gabapentin Active 300 MG PO Daily at bedtime March 10, 2021 12:00am lactobacillus acidophilus [id number] unt oral capsule (2 sources) Start: 01-11-2024 Lactobacillus Acidophilus Active 1000 MMU CELLS PO Daily at bedtime January 11, 2024 12:00am lisinopril 20 mg oral tablet (9 sources) Angiotensin Converting Enzyme Inhibitor lisinopril 20 MG tablet 1 (one) time each day at the same time Active loratadine 10 mg oral tablet (20 sources) Start: 03-10-2021 Loratadine Act raymond MG TABLET March 10, 2021 12:00am Start: 04-27-2019 take 10 mg by mouth once daily at bedtime Loratadine Active 10 MG PO Daily at bedtime March 10, 2021 12:00am losartan potassium 50 mg oral tablet (20 sources) Angiotensin 2 Receptor Ludivina Start: 03-10-2021 Losartan Active MG TABLET March 10, 2021 12:00am Start: 04-27-2019 take 50 mg by mouth once daily at bedtime Losartan Active 50 MG PO Daily at bedtime March 10, 2021 12:00am methocarbamol 500 mg oral tablet (19 sources) Muscle Relaxant Start: 03-10-2021 take 500 [...] succinate 100 mg extended release oral tablet (10 sources) beta-Adrenergic Ludivina take 1 tablet by mouth every twenty-four hours in the morning metoprolol succinate XL (Toprol-XL) 100 MG 24 hr tablet Take 100 mg by mouth in the morning. Active montelukast 10 mg oral tablet (20 sources) Leukotriene Receptor Antagonist Start: Montelukast Active MG TABLET March 10, 2021 12:00am Start: 09-30-2015 take 10 mg by mouth once daily at bedtime Montelukast Active 10 MG PO Daily at bedtime March 10, 2021 12:00am tamsulosin hydrochloride 0.4 mg oral capsule (18 sources) alpha-Adrenergic Ludivina Start: 03-28-2022 End: 03-16-2024 [...] status; Translations: [Encounter for pre-employment examination] Episodic Genitourinary symptoms and ill-defined conditions (8 [...] MALIG NEOPLASM OTH ORGN/SYS] Onset: 04-26-2022 Episodic Residual codes; unclassified (2 sources) Postmenopausal state; Translations: [Asymptomatic menopausal state] 06-12-2024 Episodic Skin and subcutaneous tissue infections (3 sources) Cutaneous abscess, unspecified; Translations: [Abscess] Onset: 10-22-2023 06-12-2024 Episodic Unclassified (1 source) Evaluation finding; Translations: [Covid-19 Virus not Detected] Urinary tract infections (8 sources) Urinary tract infectious disease; Translations: [Urinary tract infection, site not specified] Onset: 05-05-2022 Episodic Past or Other Problems Problem Classification Problem Date Documented Da te Episodic/Chronic Complications of surgical procedures or medical care (9 sources) Suture granuloma; Translations: [Other complications of procedures, not elsewhere classified, initial encounter] Onset: 01-31-2024 01-31-2024 Episodic Other gastrointestinal disorders (1 source) Other intra-abdominal and pelvic swelling, mass and lump; Translations: [Other intra-abdominal and pelvic swelling, mass and lump] Onset: 10-22-2023 Episodic Other gastrointestinal disorders (11 sources) Pelvic mass; Translations: [Other intra-abdominal and pelvic swelling, mass and lump] Onset: 10-17-2023 10-17-2023 Episodic Results Test Name Value Interpretation Reference Range Facility IGP,APTIMA HPV,AGE GDLNon AGE GDLN ACOG TESTING Note . [facility] Comment on above: TESTS RESULT FLAG UN ITS REF RANGE LAB Clinician Provided Cytology Information Source.............Vagina No. of containers..01 ThinPrep Vial Age Algo ACOG Mahi... FLAG LEGEND: L-Low Normal,H-High Normal,LL-Alert Low,HH-Alert High <-Panic Low,>-Panic High,A-Abnormal,AA-Critical Abnormal Performed at: 01 =[address] [place] [address] Elisa Kay MD, HPV APTIMA Positive Abnormal Negative [facility] Comment on above: This nucleic acid am plification test detects fourteen high- risk HPV types (16,18,31,33,35,39,45,51,52,56,58,59,66,68) without differentiation. Performed at: =[facility] [address] [id number] Tele Grout Sewer Line Repairer: Elisa Kay MD, Phone: [phone] Performed at: - [address] [id number] Tele Grout Sewer Line Repairer: Elisa Kay MD, Phone: [phone] IGP, APTIMA HPV, RFX 16/18,45 Note Abnormal . [facility] Comment on above: TESTS RESULT FLAG UN ITS REF RANGE LAB DIAGNOSIS: [A] 02 EPITHELIAL CELL ABNORMALITY. ATYPICAL SQUAMOUS CELLS OF UNDETERMINED SIGNIFICANCE (ASC-US) (VAGINAL). Recommendation: [A] 02 Suggest follow up as clinically appropriate. Specimen adequacy: 02 Satisfactory for evaluation. Performed by: 03 Guy Cobb, Surgical Nurse ([facility]) QC reviewed by: 03 Edwina Clayton, Surgical Nurse ([facility]) Electronically si... 02 Elisa Kay MD, Pathologist . 02 Pathologist ICD10: 02 R87.620 Note: Note 02 The Pap smear is a screening test designed to aid in the detection of premalignant and malignant conditions of the uterine cervix. It is not a diagnostic procedure and should not be used as the sole means of detecting cervical cancer. Both false-positive and false-negative reports do occur. Test Methodology: Note 02 This liquid based ThinPrep(R) pap test was screened with the use of an image guided system. HPV Genotype Reflex Note 02 Criteria not met, HPV Genotype not performed. FLAG LEGEND: L-Low Normal,H-High Normal,LL-Alert Low,HH-Alert High <-Panic Low,>-Panic High,A-Abnormal,AA-Critical Abnormal Performed at: 02 [facility] [address] [address] Elisa Kay MD, 03 KWCYT [facility] [id number] [place] [phone] Spencer Bains MD, Interpretation and review of laboratory results Abnormal [facility] [place] 01-23-2024 L Specimen: [id number] Received: 01/24/24 Status: VICKIE Zhou Num: [id number] Spec Type: Surgical Subm Dr: Stacey Chase MD Tissues: A Skin-Other than Cyst, tag, debridement or plastic repair (SUPRAPUBIC MASS) Procedures: HE, Gross/Micro L4 Age/ Patient Sex Location Account Attending Physician Jerrica Rod 48/F [place] [id number] Stacey Chase MD SPEC NUM: [id number] RECD: 01/24/24 STATUS: VICKIE ZHOU NUM: [id number] FELICITY: 01/23/24- SUBM DR: Stacey Chase MD ENTERED: 01/24/[address] [facility] [address]: SPEC TYPE: Surgical DEPT: S ENTERED BY: [id number] RECV BY: [id number] ORDERED: HE, Gross/Micro L4 ORDERED: HE, Gross/Micro [...] entirely submitted in cassette A1. CPT Codes 96118 -------- -------- Specimen: [id number] Received: 01/24/24 Status: VICKIE Zhou Num: [id number] Spec Type: Surgical Subm Dr: Stacey Chsae MD Tissues: A Skin-Other than Cyst, tag, debridement or plastic repair (SUPRAPUBIC MASS) Procedures: HE, Gross/Micro L4 -------- Patient: Jerrica Rod [id number] (Continued) -------- Signed (signature on file) Nati Liu MD 01/30/24 1455 Normal [facility] Automated basophil %Ordered By: Stacey Chase on 01-11-2024 Basophils/100 WBC (Bld) 0.6 % Normal . F [facility] Comment on above: Performed By: #### C BC, BMP #### [address] Automated basophil countOrde red By: Stacey Chase on 01-11-2024 Basophils (Bld) [#/Vol] 0.0 10*3/uL Normal 0.0-0.2 [facility] Comment on above: Result Comment: PERF ORMED BY: [place] [address] PATHOLOGIST SECURITY INSPECTOR FINESSE SPAULDING M.D. Performed By: #### C BC, BMP #### [address] Automated blood monocyte cou ntOrdered By: Stacey Chase on 01-11-2024 Monocytes (Bld) [#/Vol] 0.5 10*3/uL Normal 0.0-0.8 [facility] Comment on above: Performed By: #### C BC, BMP #### [address] Automated eosinophil %Ordere d By: Stacey Chase on 01-11-2024 Eosinophils/100 WBC (Bld) 1.5 % Normal . [facility] Comment on above: Performed By: #### C BC, BMP #### [address] Automated eosinophil countOr dered By: Stacey Chase on 01-11-2024 Eosinophils (Bld) [#/Vol] 0.1 10*3/uL Normal 0.0-0.45 [facility] Comment on above: Performed By: #### C BC, BMP #### [address] Automated monocyte %Ordered By: Stacey Chase on 01-11-2024 Monocytes/100 WBC (Bld) 5.9 % Normal . F [facility] Comment on above: Performed By: #### C BC, BMP #### [address] Automated neutrophil %Ordere d By: Stacey Chase on 01-11-2024 Neutrophils/100 WBC (Bld) 70.8 % Normal . [facility] Comment on above: Performed By: #### C BC, BMP #### [address] Basic Metabolic Panelon 12-15 GFR/1.73 sq M.predicted MDRD (S/P/Bld) [Vol rate/Area] mL/min/{1.73_m2} Normal [facility] Comment on above: Performed By: #### C RUBEN, ROSARIO #### [facility] [address] [id number] [facility] Basic metabolic 1998 panelon 01-11-2024 Anion gap [Moles/Vol] 13.6 mmol/L 6.0 - 15.0 NO [facility] Calcium [Mass/Vol] 9.5 mg/dL 8.6 - 10. 3 mg/dL [facility] Chloride [Moles/Vol] 107 mmol/L 98 - 10 7 mmol/L [facility] CO2 [Moles/Vol] 22.7 mmol/L 21.0 - 31.0 mmol/L [facility] Creatinine (U) [Mass/Vol] 0.73 mg/dL 0.60 - 1.20 mg/dL [facility] GFR/1.73 sq M.predicted MDRD (S/P/Bld) [Vol rate/Area] mL/min/{1.73_m2} [facility] Glucose [Mass/Vol] 100 mg/dL 70 - 100 mg/dL [facility] Comment on above: Random Glucose Refer ence Range is dependent on time and content of last meal. Glucose of more than 200 mg/dL in a nonstressed, ambulatory subject supports the diagnosis of Diabetes Mellitus. ADA recommended reference range Potassium [Moles/Vol] 4.3 mmol/L 3.5 - 5.1 mmol/L [facility] Sodium [Moles/Vol] 139 mmol/L 136 - 145 mmol/L [facility] Urea nitrogen [Mass/Vol] 18 mg/dL 7 - 25 mg/dL [facility] CBC W Auto Differential pane l (Bld)on 01-11-2024 Basophils (Bld) [#/Vol] 0.0 10*3/uL 0.0 - 0.2 10*3/uL [facility] Basophils/100 WBC Manual cnt (Syn fld) 0.6 % . [facility] Eosinophils (Bld) [#/Vol] 0.1 10*3/uL 0.0 - 0.45 10*3/uL [facility] Eosinophils/100 WBC Manual cnt (Syn fld) 1.5 % . [facility] Erythrocyte distribution width (RBC) [Ratio] 12.9 % 11.9 - 15.3 % [facility] Hematocrit (Bld) [Volume fraction] 40.4 % 34.0 - 46.4 % [facility] Hemoglobin (Bld) [Mass/Vol] 13.8 g/dL 11.8 - 15.4 g/dL [facility] Lymphocytes (Bld) [#/Vol] 1.7 10*3/uL 1.00 - 4.8 10*3/uL [facility] Lymphocytes/100 WBC Manual cnt (Syn fld) 21.2 % . [facility] MCH (RBC) [Entitic mass] 30.0 pg 24.7 - 34.3 pg [facility] MCHC (RBC) [Mass/Vol] 34.0 g/dL 32.0 - 35.0 g/dL [facility] MCV (RBC) [Entitic vol] 88.1 fL 80 - 100 fL [facility] Monocytes (Bld) [#/Vol] 0.5 10*3/uL 0.0 - 0.8 10*3/uL [facility] Monocytes+Macrophages/1 00 WBC Manual cnt (Syn fld) 5.9 % . [facility] Neutrophils (Bld) [#/Vol] 5.6 10*3/uL 1.8 - 7.7 10*3/uL [facility] Neutrophils/100 WBC Manual cnt (Syn fld) 70.8 % . [facility] NRBC 0.2 /100{WBC} 0 - 0.5 /100{WBC} [facility] Platelet mean volume (Bld) [Entitic vol] 8.1 fL 6.3 - 10.7 fL [facility] Platelets (Bld) [#/Vol] 341 10*3/uL 150 - 450 10*3/uL [facility] RBC LM.HPF (Urine sed) [#/Area] 4.59 /[HPF] 3.60 - 5.00 [facility] WBC (Bld) [#/Vol] 8.0 10*3/uL 3.8 - 11.6 10*3/uL [facility] WBC LM.HPF (Urine sed) [#/Area] 8.0 10*3/uL 3.8 - 11.6 10*3/uL [facility] Calcium [Mass/volume] in Ser um or PlasmaOrdered By: Stacey Chase on 01-11-2024 Calcium [Mass/Vol] 9.5 mg/dL Normal 8.6-10.3 [facility] Comment on above: Result Comment: PERF ORMED BY: [place] [address] PATHOLOGIST SECURITY INSPECTOR FINESSE SPAULDING M.D. Performed By: #### C BC, BMP #### [address] Carbon dioxide, total [Moles /volume] in Serum or PlasmaOrdered By: Stacey Chase on 01-11-2024 CO2 [Moles/Vol] 22.7 mmol/L Normal 21.0-31.0 [facility] Comment on above: Performed By: #### C BC, BMP #### [address] Chloride [Moles/volume] in S gabe or PlasmaOrdered By: Stacey Chase on 01-11-2024 Chloride [Moles/Vol] 107 mmol/L Normal 98-107 [facility] Comment on above: Performed By: #### C BC, BMP #### [address] Complete Blood Count Auto Di ffon 01-11-2024 Mean Corpuscular HGB Conc 34.0 g/dL Normal 32.0-35.0 [facility] Comment on above: Performed By: #### C BC, BMP #### [address] NRBC% 0.2 /100{WBC} Normal 0-0.5 [facility] Comment on above: Performed By: #### C BC, BMP #### [address] Creatinine [Mass/volume] in Serum or PlasmaOrdered By: Stacey Chase on 01-11-2024 Creatinine [Mass/Vol] 0.73 mg/dL Normal 0.60-1.20 [facility] Comment on above: Performed By: #### C BC, BMP #### [facility] [address] [place] [address] ECG 12 lead ECGon 01-11-2024 ECG 12 lead ECG [facility] [place] [address] [place] [address] Electrocardiograph Report Signed Patient: Jerrica Rod MR#: [id number] : 1975 Acct:[id number] Age/Sex: 48 / F ADM Date: 01/11/24 Loc: Room: Type: [facility] Attending Dr: Stacey Chase MD [...] change was found Confirmed by Lenny Palacio ([id number]) on 01/11/2024 2:45:44 PM Referred By: Electronically Signed By: Lenny Palacio Transcribed By: MUS Signed By Lenny Palacio MD 01/11/24 1445 Normal [facility] Erythrocyte distribution wid th [Ratio] by Automated countOrdered By: Stacey Chase on 01-11-2024 Erythrocyte distribution width (RBC) [Ratio] 12.9 % Normal 11.9-15.3 [facility] Comment on above: Performed By: #### C BC, BMP #### [facility] [address] [place] [address] Erythrocytes [#/volume] in B lood by Automated countOrdered By: Stacey Chase on 01-11-2024 RBC (Bld) [#/Vol] 4.59 10*6/uL Normal 3.60-5.00 [facility] Comment on above: Performed By: #### C BC, BMP #### [facility] [address] [place] [address] [place] Glucose [Mass/volume] in Ser um or PlasmaOrdered By: Stacey Chase on 01-11-2024 Glucose [Mass/Vol] 100 mg/dL Normal 70-100 [facility] Comment on above: ADA recommended refe rence rangeRandom Glucose Reference Range is dependent on time and content of last meal. Glucose of more than 200 mg/dL in a nonstressed, ambulatory subject supports the diagnosis of Diabetes Mellitus. Result Comment: [place] om Glucose Reference Range is dependent on time and content of last meal. Glucose of more than 200 mg/dL in a nonstressed, ambulatory subject supports the diagnosis of Diabetes Mellitus. ADA recommended reference range Performed By: #### C RUBEN, BMP #### [address] Hematocrit [Volume Fraction] of Blood by Automated countOrdered By: Stacey Chase on 01-11-2024 Hematocrit (Bld) [Volume fraction] 40.4 % Normal 34.0-46.4 [facility] Comment on above: Performed By: #### C BC, BMP #### [address] Hemoglobin [Mass/volume] in BloodOrdered By: Stacey Chase on 01-11-2024 Hemoglobin (Bld) [Mass/Vol] 13.8 g/dL Normal 11.8-15.4 [facility] Comment on above: Performed By: #### C RUBEN, BMP #### [facility] [address] [place] [address] Leukocytes [#/volume] correc shantelle for nucleated erythrocytes in Blood by Automated counOrdered By: Stacey Chase on 01-11-2024 WBC corrected for nucl RBC Auto (Bld) [#/Vol] 8.0 10*3/uL 3.8-11.6 [facility] Leukocytes [#/volume] in Blo od by Automated countOrdered By: Stacey Chase on 01-11-2024 WBC (Bld) [#/Vol] 8.0 10*3/uL Normal 3.8-11.6 [facility] Comment on above: Performed By: #### C BC, BMP #### [address] Lymphocytes [#/volume] in Bl ood by Automated countOrdered By: Stacey Chase on 01-11-2024 Lymphocytes (Bld) [#/Vol] 1.7 10*3/uL Normal 1.00-4.8 [facility] Comment on above: Performed By: #### C BC, BMP #### [address] Lymphocytes/100 leukocytes i n Blood by Automated countOrdered By: Stacey Chase on 01-11-2024 Lymphocytes/100 WBC (Bld) 21.2 % Normal . [facility] Comment on above: Performed By: #### C BC, BMP #### [address] MCH [Entitic mass] by Automa shantelle countOrdered By: Stacey Chase on 01-11-2024 MCH (RBC) [Entitic mass] 30.0 pg Normal 24.7-34.3 [facility] Comment on above: Performed By: #### C BC, BMP #### [address] MCHC Auto (RBC) [Mass/Vol]Or dered By: Stacey Chase on 01-11-2024 MCHC (RBC) [Mass/Vol] 34.0 g/dL 32.0-35.0 [facility] MCV [Entitic volume] by Auto mated countOrdered By: Stacey Chase on 01-11-2024 MCV (RBC) [Entitic vol] 88.1 fL Normal 80-[address] [facility] Comment on above: Performed By: #### C BC, BMP #### [address] Neutrophils [#/volume] in Bl ood by Automated countOrdered By: Stacey Chase on 01-11-2024 Neutrophils (Bld) [#/Vol] 5.6 10*3/uL Normal 1.8-7.7 [facility] Comment on above: Performed By: #### C BC, BMP #### [address] No Panel InformationOrdered By: Stacey Chase on 01-11-2024 Estimated GFR (CKD-EPI) > 60.0 mL/Min [facility] Creatinine Clearance (Chem N/A [facility] Nucleated erythrocytes [Pres ence] in Blood by Automated countOrdered By: Stacey Chase on 01-11-2024 Nucleated RBC Auto Ql (Bld) 0.2 /100{WBC} 0-0.5 [facility] Platelet mean volume [Entiti c volume] in Blood by Automated countOrdered By: Stacey Chase on 01-11-2024 Platelet mean volume (Bld) [Entitic vol] 8.1 fL Normal 6.3-10.7 [facility] Comment on above: Performed By: #### C BC, BMP #### [address] Platelets [#/volume] in Bloo d by Automated countOrdered By: Stacey Chase on 01-11-2024 Platelets (Bld) [#/Vol] 341 10*3/uL Normal 150-450 [facility] Comment on above: Performed By: #### C BC, BMP #### [place] [address] [place] Potassium [Moles/volume] in Serum or PlasmaOrdered By: Stacey Chase on 01-11-2024 Potassium [Moles/Vol] 4.3 mmol/L Normal 3.5-5.1 [facility] Comment on above: Performed By: #### C BC, BMP #### [address] Serum or plasma anion gap de terminationOrdered By: Stacey Chase on 01-11-2024 Anion gap [Moles/Vol] 13.6 mmol/L Normal 6.0-15.0 [facility] Comment on above: Performed By: #### C BC, BMP #### [place] [address] [place] Sodium [Moles/volume] in Ser um or PlasmaOrdered By: Stacey Chase on 01-11-2024 Sodium [Moles/Vol] 139 mmol/L Normal 136-145 [facility] Comment on above: Performed By: #### C BC, BMP #### [facility] [address] [id number] [facility] Urea nitrogen [Mass/volume] in Serum or PlasmaOrdered By: Stacey Chase on 01-11-2024 Urea nitrogen [Mass/Vol] 18 mg/dL Normal 7-25 [facility] Comment on above: Performed By: #### C BC, BMP #### [facility] [address] US pelvic completeon 024 US pelvic complete [facility] Main [place] [address] [place] [address] Ultrasound Report Signed Patient: Jerrica Rod MR#: [id number] : 1975 Acct:[id number] Age/Sex: 48 / F ADM Date: 10/22/23 Loc: Room: Type: [facility] Attending Dr: Stacey Chase MD [...] Charles Dozier M.D.10/22/2023 11:06 AM Dictation Location: [place] [address] Tech: Sapna Gambino Transcribed By: MIGUEL ANGEL 10/22/23 1106 Dictated By: Charles Dozier DO 10/22/23 1104 Signed By: 10/22/[address] [facility] Lab Reportson 10-21-2023 Lab Reports [id number] Normal [facility] Screenson 10-21-2023 Screens [id number] Normal [facility] Ambulatory Visit Summaryon 0 10-19-2023 Ambulatory [...] Where: [facility] Patient Educationon 10-19-19 Patient Education Obstetrics and Gynecology Kegel Exercises [...] provider. Document Revised: 09/10/2021 Document Reviewed: 09/10/2021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 ambulatory VANDA PAGAN Not Available Start: 07-18-2023 End: 07-18-2023 ambulatory VANDA EJ Not Available Start: 06-29-2023 Clinisync Result Encounter Chaka Cristino DO Work Phone: [facility] External [facility] Unsolicited Start: 06-29-2023 Clinisync Result Encounter Chaka Cristino DO Work Phone: [facility] External Department Unsolicited Start: 06-29-2023 End: 06-29-2023 ambulatory [facility] Work Phone: [facility] Work Phone: Start: 06-29-2023 End: 06-29-2023 Departed Referred Services [facility] Work Phone: [facility] Start: 10-13-2022 End: 10-13-2022 Patient encounter procedure Cherelle Aragon [facility] Start: 09-02-2022 End: 09-02-2022 ambulatory [facility] Work Phone: [facility] Work Phone: Start: 09-02-2022 End: 09-02-2022 Departed Referred Services [facility] Work Phone: [facility] Start: 05-24-2022 End: 05-24-2022 Patient encounter procedure Cherelle Aragon [facility] Start: 05-05-2022 End: 05-05-2022 Patient encounter procedure Cherelle Aragon [facility] Start: 04-28-2022 End: 04-28-[address] CHAKA GREGG Facility:[facility] Start: 04-21-2022 End: 04-22-[address] GILDA LOPEZ Facility:[facility] Start: 03-27-2022 End: 03-28-[address] CHAKA GREGG Facility:[facility] Start: 07-16-2021 End: 07-19-2021 ambulatory NANCY [facility] Start: 07-16-2021 End: 07-18-2021 Subsequent hospital visit by physician Natalia Sow Dr Room 2 [facility] Comment on above: Pre-employment healt h screening examination Start: 11-21-2019 End: 11-21-2019 Emergency department patient visit [facility] Start: 11-21-2019 End: 11-21-2019 Emergency department patient visit [facility] Work Phone: [facility] Comment on above: Right ear pain (Prim jaziel Dx); Exposure to chemical inhalation; Covid-19 Virus not Detected Start: 04-20-2017 Ambulatory PHYSICIAN SERGIO Aguilar Healt [facility] Phys[facility] Procedures Date Procedure Procedure Detail Performing Clinician Start: 06-12-2024 IGP,APTIMA HPV,AGE GDLN Vanda JOE Work Phone: Start: 06-06-2024 Mammography Vanda JOE Work Phone: Start: 01-23-2024 Excision of cyst Servic es [facility] Work Phone: Start: 01-11-2024 Basic metabolic pane l calcium total Stacey Chase MD Work Phone: Start: 01-11-2024 Complete blood count with white cell differential, automated Stacey Chase MD Work Phone: Start: 10-22-2023 Pelvic echography Servi davide [facility] Work Phone: Start: 06-29-2023 ALL CBC WITH AUTO DIFF Chaka Aparicioo DO Work Phone: Start: 06-29-2023 Hysterectomy Cherelle Aragon Start: 05-23-2023 Mammography Chaka Fayusef o DO Work Phone: Start: 03-09-2023 Microscopic observat ion [Identifier] in Cervix by Cyto stain Stacey Garza MD Work Phone: Start: 05-24-2022 Cystourethroscopy wi th dilation of urethral stricture Cherelle Aragon Start: 07-16-2021 Radiologic exam chest 2 views Nancy Campbell PHOTOSTATIC COPY MAKER - ALUM OPERATOR Work Phone: Start: 11-21-2019 Standard chest X-ray [...] DTaP/Tdap/Td vaccine (3 - Td or Tdap) [facility] [employer] Start: 03-09-2026 Screening for malign ant neoplasm of cervix [facility] Start: 06-06-2025 Screening for malign ant neoplasm of breast Mammogram [facility] Start: 06-12-2024 End: 06-12-2025 DXA Skeletal system Views for bone density DEXA bone density Imaging Routine Postmenopausal state Expected: 06/12/2024 (Approximate), Expires: 06/12/2025 [facility] Work Phone: Comment on above: Expected: 06/12/2024 (Approximate), Expires: 06/12/2025 Start: 06-12-2024 End: 06-12-2024 Patient encounter procedure 06/12/2024 1:00 PM EST Office Visit [facility] [address] [place] [id number] Vanda Pagan PA [address] [place], [id number] Arrived [facility] Comment on above: Arrived Start: 05-23-2024 Screening for malign ant neoplasm of breast Mammogram [facility] Start: 03-22-2024 End: 03-22-2024 Patient encounter procedure 03/22/2024 9:00 AM EST Office Visit [facility] [address] [place] [phone] Chaka Gregg DO [address] [place], [place] [id number] [facility] Start: 01-23-2024 Excision of cyst OR Cyst Excis ion (Not Applicable) [facility] Start: 01-23-2024 End: 01-23-2024 Patient encounter procedure 01/23/2024 2:30 PM EDT Procedure Visit [facility] EXT DEP Stacey Chase MD [address] [place] [id number] [facility] Start: 01-23-2024 End: 01-23-2024 [facility] Start: 01-15-2024 Influenza vaccination Influenza Vacc ine (#1) [facility] Start: 01-14-2021 Influenza vaccination Flu vaccine (# 1) [facility] Start: 01-15-2020 Influenza vaccinatio n given Sequential Influenza Vaccine (#1) [facility] Start: 2019 Screening for malign ant neoplasm of colon [facility] Start: 2014 Lipid panel Lipid screen [facility] Start: 02-10-2004 Screening for malign ant neoplasm of cervix [facility] Start: 1995 Screening for malign ant neoplasm of cervix Pap smear [facility] Start: 02-10-1992 Hepatitis C antibody , confirmatory test Hepatitis C Screening [facility] Start: 1989 HIV screening [facility] Start: 1986 Depression Screen Depression Screen [facility] Start: 1979 COVID-19 Vaccine (1) COVID-19 Vaccin e (1) [facility] Start: 1977 History and physical examination, annual for health maintenance Wellness Visit [facility] Start: 1974 Hepatitis C screening Hepatitis C sc reen [facility] Start: 1974 Screening for malign ant neoplasm of cervix Pap Smear [facility] Start: 1974 Screening for malign ant neoplasm of colon [facility] Start: 1974 Screening mammography Mammogram [facility] Start: 1974 Tetanus vaccination Tetanus: Every 1 0yrs [facility] Patient Education Know your Meds [facility] Work Phone: Patient referral [facility] Work Phone: THIN PREP TIS PAP AN D HR HPV DNA THIN PREP TIS PAP AND HR HPV DNA Pathology and Cytology Routine Well woman exam with routine gynecological exam Ordered: 06/12/2024 [facility] Comment on above: Ordered: 06/12/2024 Immunizations Immunization Date Immunization Notes Care Provider Amy ash 03-09-2023 influenza virus vacc ine, unspecified formulation Cherelle Aragon [facility] 02-25-2022 influenza virus vacc ine, unspecified formulation Cherelle Lugustavo [facility] 05-22-2021 SARS-CoV-2 (COVID-19 ) mRNA-1273 vaccine Cherelle Lugustavo [facility] 2021 hepatitis A vaccine, adult dosage Cherelle Aragon [facility] 2021 influenza virus vacc ine, unspecified formulation Cherelle Lue [facility] 2021 tetanus toxoid, redu edgar diphtheria toxoid, and acellular pertussis vaccine, adsorbed Cherelle Lue [facility] 08-11-2020 measles, mumps and rubella virus vaccine Cherelle Lue [facility] 08-11-2020 varicella virus vaccine Linda y Lue [facility] 07-08-2020 hepatitis A vaccine, adult dosage Cherelle Lue [facility] 07-08-2020 measles, mumps and rubella virus vaccine Cherelle Lue [facility] 07-08-2020 varicella virus vaccine Linda y Lue [facility] 06-13-2020 SARS-CoV-2 (COVID-19 ) mRNA-1273 vaccine Cherelle Lue [facility] 06-02-2020 COVID-19 mRNA-1273 (Moderna) Services [facility] Work Phone: [facility] 05-12-2020 SARS-CoV-2 (COVID-19 ) mRNA-1273 vaccine Cherelle Lue [facility] 05-05-2020 COVID-19 mRNA-1273 (Moderna) [facility] Work Phone: [facility] 02-26-2020 influenza virus vacc ine, unspecified formulation Cherelle Lue [facility] 03-28-2019 influenza virus vacc ine, unspecified formulation Cherelle Lue [facility] 03-28-2019 pneumococcal polysaccharide vaccine, 23 valent Cherelle Lue [facility] 02-17-2016 influenza virus vacc ine, unspecified formulation Cherelle Lue [facility] 06-10-2011 hepatitis B vaccine, adult dosage Cherelle Lue [facility] 02-05-2011 hepatitis B vaccine, adult dosage Cherelle Lue [facility] 01-01-2011 hepatitis B vaccine, adult dosage Cherelle Lue [facility] 02-06-2008 tetanus toxoid, redu edgar diphtheria toxoid, and acellular pertussis vaccine, adsorbed Cherelle Lue [facility] Payers Date Payer Category Payer Self-pay [id number] 2023 Private Health Insurance [facility] [id number] 2023-Present [address] [address] [place] [address] [id number] 2023 Unknown [employer]IC [employer] [id number] 2023-Present [address] [place] [address] [id number] 2023 Private Health Insurance [id number] 2023 Unknown [id number] 2019 Unknown [employer] xxxxxxxxxxxx 2019-Present [id number] 1974 Unknown [id number] [id number] .903 1974 Unknown [id number] [id number] .593 1974 Unknown [id number] 2.16.840.1.645246.3.579.2 .593 1974 Unknown [id number] 2.16.840.1.090420.3.579.2 .593 1974 Unknown [id number] 2.16.840.1.955008.3.579.2 .727 1974 Unknown [id number] 2.16.840.1.687341.3.579.2 .727 1974 Unknown [id number] 2.16.840.1.224982.3.579.2 .1259 1974 Unknown [id number] 2.16.840.1.655730.3.579.2 .1259 1974 Unknown [id number] 2.16.840.1.973347.3.579.2 .1259 1974 Unknown [id number] 2.16.840.1.279318.3.579.2 .1259 1974 Unknown [id number] 2.16.840.1.185501.3.579.2 .1259 1974 Unknown [id number] 2.16.840.1.359691.3.579.2 .1259 1974 Unknown [id number] 2.16.840.1.146242.3.579.2 .1259 1959 Unknown [id number] Self-pay Self Pay Cosmeti c/Pain Mgmt [id number] Unknown [id number] [id number] .531 Unknown [id number] 2.16.840.1.506942.3.579.2 .531 Unknown [id number] 2.16.840.1.590249.3.579.2 .531 Unknown [id number] .531 Social History Date Type Detail Facility Start: 11-21-2019 End: 11-21-2022 Tobacco smoking status MNIS Never smoker [facility] Comment on above: denies. Start: 1975 Sex Assigned At Not on file [facility] Exposure to SARS-CoV-2 (event) Not sure [facility] Tobacco smoking status MNIS Tobacco smoking consumption unknown [employer] Work Phone: Tobacco [facility] Comment on above: denies Tobacco smoking status No Smoking Status Entered [facility] Start: 11-21-2022 End: 01-31-2024 Sex Assigned At Female [facility] Start: 1975 Sex Assigned At Female F [facility] Tobacco smoking status Never [facility] Comment on above: denies. Start: 11-21-2022 Tobacco use and exposure Smokeless tobacco non-user [facility] Start: 05-23-2023 End: 06-12-2024 Alcohol intake Lifetime non-drinker (finding) [facility] Start: 11-21-2022 End: 01-31-2024 History of Social function [facility] Start: 11-21-2022 Alcohol Comment caffeine: 1-2 cups/d ay [facility] Goals Date Patient Goal Desired Activity /State Functional Status Date Assessment Result Facility 10-19-2023 Functional Status N/A [facility] 10-13-2022 Functional Status N/A [facility] 05-12-2022 Functional Status N/A [facility] 05-05-2022 Functional Status N/A [facility] Clinical Notes 05-05-2022 to 06-12-2024 HEATH Gomes - 06/12/2024 1:00 PM Shena Garza MD - 01/31/2024 1:15 PM EDT Note Date & Type Note Facility 06-12-2024 History of Present illness Narrative Reason for Appointment: Patient ID: Jerrica Rod is a 49 y.o. female who presents for Well Women Visit Patient presents today for Annual Exam. MEDICATIONS Current Outpatient Medications Medication Instructions acyclovir (Zovirax) 5 % ointment albuterol 1.25 mg, Every 8 hours cephalexin (Keflex) 500 MG capsule TAKE 1 CAPSULE BY MOUTH EVERY MORNING, ONE CAPSULE IN THE EVENING, and ONE CAPSULE before bedtime FOR 10 DAYS cholecalciferol (Vitamin D-3) 25 MCG (1000 UT) capsule Every morning citalopram (CeleXA) 40 MG tablet Cranberry 500 MG capsule Daily at bedtime D-Mannose 500 MG capsule Daily at bedtime dilTIAZem CD (Cardizem CD) 240 MG 24 hr capsule 1 capsule, Daily EPINEPHrine (Epipen) 0.3 MG/0.3ML injection syringe fenofibrate micronized (LOFIBRA) 200 mg, Daily with breakfast Flonase Allergy Relief 50 MCG/ACT nasal spray 1 spray, Daily gabapentin (NEURONTIN) 300 mg, Nightly lisinopril 20 MG tablet Every 24 hours loratadine (Claritin) 10 MG tablet 1 tablet, Daily losartan (Cozaar) 50 MG tablet 1 tablet, Daily methocarbamol (ROBAXIN) 500 mg, Every 4 hours PRN metoprolol succinate XL (TOPROL-XL) 100 mg, Daily Singulair 10 mg, Every 24 hours tamsulosin (FLOMAX) 0.4 mg, Every 24 hours ALLERGIES Allergies Allergen Reactions Coconut (Cocos Nucifera) Anaphylaxis Penicillins Other Reaction(s): Difficulty Breathing Latex Penicillin G Other Reaction(s): Unknown Sulfa Antibiotics Other Reaction(s): Unknown PROBLEMS Active Ambulatory Problems Diagnosis Date Noted 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 Resolved Ambulatory Problems Diagnosis Date Noted No Resolved Ambulatory Problems Past Medical History: Diagnosis Date Allergies ERICK I (cervical intraepithelial neoplasia I) 2007 ERICK II (cervical intraepithelial neoplasia II) 2010 History of migraine headaches Hypertension (CMS/HCC) Stress incontinence 2010 UTI (urinary tract infection) HISTORY PAST MEDICAL HISTORY SOCIAL HISTORY Past Medical History: Diagnosis Date Allergies ERICK I (cervical intraepithelial neoplasia I) 2007 by biopsy ERICK II (cervical intraepithelial neoplasia II) 2010 History of migraine headaches Hypertension (CMS/HCC) Stress incontinence 2010 UTI (urinary tract infection) Social History Tobacco Use Smoking status: Never Smokeless tobacco: Never Substance Use Topics Alcohol use: Never Comment: caffeine: 1-2 cups/day Drug use: Never FAMILY HISTORY Family History Problem Relation Name Age of Onset Cancer Mother Maycol Heart disease Father Kyrie Hypertension Father Kyrie Migraines Father Kyrie Hyperlipidemia Father Kyrie Heart disease Maternal Grandfather Maycol Cancer Maternal Grandfather Maycol Heart disease Paternal Grandmother Iam Heart disease Paternal Grandfather Hursel SURGICAL HISTORY Past Surgical History: Procedure Laterality Date APPENDECTOMY 1985 BIOPSY 2007 following with paps; ERICK I CERVICAL BIOPSY W/ LOOP ELECTRODE EXCISION 2010 TVT-O; Stress incontenence/ERICK 2 HYSTERECTOMY 2023 PAP SMEAR 10/21/2020 [place] BREAST REDUCTION 2000 ROBOTIC ASSISTED HYSTERECTOMY 06/29/2023 REVIEW OF SYSTEMS Review of Systems: Review of Systems Constitutional: Negative. HENT: Negative. Eyes: Negative. Respiratory: Negative. Cardiovascular: Negative. Gastrointestinal: Negative. Genitourinary: Negative. Musculoskeletal: Negative. Skin: Negative. Neurological: Negative. All other systems reviewed and are negative. Hematological: Negative. Endocrine: Negative. Allergic/Immunologic: Negative. OBJECTIVE Objective: Physical Exam Constitutional: Appearance: Normal appearance. She is well-developed. Genitourinary: Vulva normal. Genitourinary Comments: Tenderness to the mons pubis area, h/o of resection from inclusion cyst Right Adnexa: not tender and no mass present. Left Adnexa: not tender and no mass present. No cervical discharge. Breasts: Breasts are soft. Right: Normal. Left: Normal. HENT: Head: Normocephalic. Nose: Nose normal. Mouth/Throat: Mouth: Mucous membranes are moist. Cardiovascular: Rate and Rhythm: Normal rate and regular rhythm. Pulmonary: Effort: Pulmonary effort is normal. Breath sounds: Normal breath sounds. Abdominal: General: Bowel sounds are normal. There is no distension. Palpations: Abdomen is soft. Tenderness: There is no abdominal tenderness. There is no guarding or rebound. Comments: Post op abdominal resection scar noted Musculoskeletal: General: No swelling. Normal range of motion. Cervical back: Normal range of motion. Right lower leg: No edema. Left lower leg: No edema. Neurological: General: No focal deficit present. Mental Status: She is alert and oriented to person, place, and time. Skin: General: Skin is warm and dry. Psychiatric: Mood and Affect: Mood normal. Behavior: Behavior normal. Vitals and nursing note reviewed. Exam conducted with a utility lineman present. Vitals: Estimated body mass index is 25.51 kg/m as calculated from the following: Height as of 12/19/23: 5' 8 . Weight as of this encounter: 167 lb 12.8 oz. BP: 120/70 No LMP recorded (lmp unknown). Patient has had a hysterectomy. ASSESSMENT & PLAN ICD-10-CM 1. Well woman exam with routine gynecological exam Z01.419 THIN PREP TIS PAP AND HR HPV DNA 2. Postmenopausal state Z78.0 DEXA bone density Annual: Patient presents today for an annual exam. Patient states she is doing. Pap was obtained without difficulty and patient given Dexa Scan order to have scheduled/obtained. Patient recently had Mammogram. Patient is worried about suprapubic region area that is tender. Pt had an inclusion cyst removed from this region in January of 2024. Pt stated she recently had an abscess recurrence with drainage. We sent in doxycyline for pt. 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 Patient advised to reach back out to general surgeon and get his opinion as to what to do at this time. There is tenderness but I do not appreciate erythema or drainage today. She states it is somewhat improved since receiving antibiotic. Orders Placed This Encounter Procedures DEXA bone density Follow Up: Patient is to return in one year for annual unless needed otherwise. Documented by Toña Pineda LPN on behalf of: HEATH Gomes documented in this encounter [facility] 01-31-2024 History of Present illness Narrative Images from the original note [...] primary care physician. documented in this encounter [facility] 10-19-2023 Hospital Discharge instructions Patient Education 10/19/2023 08:38:45 Kegel Exercises [...] provider. Document Revised: 09/10/2021 Document Reviewed: 09/10/2021 [employer] Patient Education 2022 e[employer]aring. Follow Up Care 10/13/2022 09:24:21 With:Mahesh PEREZ, JOANIE Ndiaye, URO Address: [address], [place] [address] [phone] When: Unknown Comments:1 yr (no labs) [facility] 10-13-2022 Hospital Discharge instructions Patient Education 10/13/2022 09:24:52 Urinary Incontinence [...] nerve stimulation). ?For women, using a medical lab tech instructor to prevent urine leaks. This is a [...] right after experiencing incontinence. General instructions Take slsg-zwt-vhfumkb and prescription medicines only as told by [...] important. Where to find more information [employer] [place] of Diabetes and Digestive and Kidney Diseases: www.niddk.nih.gov [employer]: www.urologyhealth.org Contact a health care [...] provider. Document Revised: 12/05/2020 Document Reviewed: 12/05/2020 [employer] Patient Education 2022 eCaring. Follow Up Care 05/24/2022 10:20:13 With:Mahesh PEREZ, JOANIE Ndiaye, URO Address: [address] [place] [address] [phone] When:Within 1 Year(s) [facility] 05-24-2022 Hospital Discharge instructions Patient Education 05/24/2022 10:12:12 EU - [...] 05/05/2022 11:54:17 With:Cherelle Aragon Address: [address], [address] [address]- [phone] Business (1) When: Unknown Comments:Office to schedule follow up in 1 month With:Cherelle Aragon Address:Unknown When: Unknown [facility] 05-05-2022 Hospital Discharge instructions Patient Education 05/05/2022 11:41:30 Dysuria Dysuria [...] alcohol may irritate the prostate. Medicines Take xdnw-yum-hgvwdvp and prescription medicines only as told by [...] 01/28/2005 Document Revised: 04/14/2018 Document Reviewed: 02/16/2018 [employer] Patient Education VOSS. Follow Up Care 03/30/2022 11:38:13 With:Cherelle Aragon MD, URL, URO Address: [address] [place] [address] [phone] When: Unknown Comments:schedule Cysto and possible UD [facility] Evaluation + Plan note Future Appointments Appointment Date:05/18/2022 10:30:00 AM Scheduled Provider: Location:[facility] Appointment Type:Urology CALL PAT FT Appointment Date:05/24/2022 09:30:00 AM Scheduled Provider: Location:[facility] Appointment Type:Urology FT [facility] Evaluation + Plan note Future Appointments Appointment Date:07/14/2022 08:15:00 AM Scheduled Provider:Cherelle Aragon MD Location:[facility] Appointment Type:URO Office Visit [facility] Evaluation + Plan note Future Appointments Appointment Date:10/19/2023 08:00:00 AM Scheduled Provider:Cherelle Aragon MD Location:[facility] Appointment Type:URO Office Visit [facility] Evaluation + Plan note Future Appointments Appointment Date:10/24/2024 08:00:00 AM Scheduled Provider:Cherelle Aragon MD Location:[facility] Appointment Type:URO Office Visit [facility] [place] Evaluation note Diagnosis Pre-employment health screening examination Health examination of defined subpopulation documented in this encounter [facility] [employer] Work Phone: evaluation noteNo assessment information available [facility] Work Phone: Evaluation note* Diagnosis Suture granuloma, sequela- Primary Suprapubic mass [facility] Diagnosis Well woman exam with routine gynecological exam Routine gynecological examination Postmenopausal state Asymptomatic postmenopausal status (age-related) (natural) Abscess Cellulitis and abscess of unspecified site [facility] Narrative No data available for this section [facility] [place] progress note No data available for this section [facility] [employer] Summary Purpose Family History Relationship Condition Age at Onset Recorded Date/T blanquita Not Specified Malignant neoplasm of breast Unknown father Coronary artery disease Unknown Relationship Condition Age at Onset Recorded Date/T blanquita mother Malignant neoplasm of breast Unknown Malignant neoplasm of cervix Unknown father Coronary artery disease Unknown History of heart surgery Unknown Advance Directives Documents on File Type Date Recorded Patient Gm Video Expl anation Advance Directives and Livin g Will 11/21/2019 5:20 PM Advance Directive Response Recorded Date/ Time Advance Directives No March 16, 2017 12:41pm Advance Directive Response Recorded Date/ Time Advance Directives No March 16, 2017 11:41am Discharge Instructions * Attachments The following attachments cannot be sent through Care Everywhere. * Toxin Exposure ([place]auan) * Earache: Adult ([place]) documented in this encounter Assessments Diagnosis Right ear pain Unspecified otalgia Exposure to chemical inhalation Covid-19 Virus not Detected Chief Complaint and Reason for Visit Chief Complaint Essential (primary) hypertension Chief Complaint Unknown Chief Complaint R19.09 L02.91 Chief Complaint R19.09 L02.91 Suprapubic Mass Chief Complaint Suprapubic Mass Suprapubic Mass Additional Source Comments INFORMATION SOURCE (unrecogn ized section and content) DATE CREATED AUTHOR 11/08/2017 [facility] DATE CREATED AUTHOR AUTHOR'S ORGANIZ ATION 12/07/2019 [facility] DATE CREATED AUTHOR AUTHOR'S ORGANIZ ATION 07/19/2021 [facility] DATE CREATED AUTHOR AUTHOR'S ORGANIZ ATION 05/09/2022 [facility] DATE CREATED AUTHOR AUTHOR'S ORGANIZ ATION 02/17/2024 [facility] DATE CREATED AUTHOR AUTHOR'S ORGANIZ ATION 02/24/2024 [facility] DATE CREATED AUTHOR AUTHOR'S ORGANIZ ATION 06/13/2024 [facility] EPIC Reason for Visit (unrecogniz ed section and content) Reason Comments Lightning Strike Respiratory Distress Reason Comments 1st po suprapubic mass Reason Comments [facility] Visit Yumiko Pearson RN - 11/21/2019 7:14 PM EDTSKathie barrera RN - 11/21/2019 5:38 PM EDT ED Notes (unrecognized secti on and content) Patient resting at present, states that she has a headache. 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 Tender Relationship Specialty Start Date End Date Rosita Jim PCP - General 07/16/21 Poultry Tender Relationship Specialty Start Date End Date Rosita Jim PCP - General 07/16/21 Team Status: Active Member Role Status Dates Services Family [facility] Primary Care Provider Active Team Status: Inactive Member Role Status Dates Services Family [facility] Primary Care Provider Active Rosita Jim APRN SALES MANAGER [employer] Attending Provider A ctive Poultry Tender Relationship Specialty Start Date End Date Dante Lozada MD [address] [facility] [place] [address] PCP - General 11/18/22 Team Status: Inactive Member Role Status Dates Services Family [facility] Primary Care Provider Active Start: June 29, 2023 End: June 29, 2023 Chaka Gregg Attending Provider Active Start: [facility] 2023 End: June 29, 2023 Team Status: Inactive Member Role Status Dates Services Family [facility] Primary Care Provider Active Start: October 22, 2023 End: October 22, 2023 Stacey Chase MD Attending Provider Active Sta rt: October 22, 2023 End: October 22, 2023 Team Status: Inactive Member Role Status Dates Services Family [facility] Primary Care Provider Active Start: January 11, 2024 End: January 11, 2024 Stacey Chase MD Attending Provider Active Sta rt: January 11, 2024 End: January 11, 2024 Team Status: Inactive Member Role Status Dates Services [facility] Primary Care Provider Active Start: January 23, 2024 End: January 23, 2024 Stacey hCase MD Attending Provider Active Sta rt: January 23, 2024 End: January 23, 2024 Poultry Tender Relationship Specialty Start Date End Date Dante Lozada MD [address] [facility] [place] [address] PCP - General 11/18/22 Poultry Tender Relationship Specialty Start Date End Date Dante Lozada MD [address] [place] [address] PCP - General 11/18/22 Poultry Tender Relationship Specialty Start Date End Date Dante Lozada MD [address] [place] [address] PCP [facility] 11/18/22 Poultry Tender Relationship Specialty Start Date End Date Dante Lozada MD [address] [place] [address] [facility] 11/18/22 Poultry Tender Relationship Specialty Start Date End Date Dante Lozada MD [address] [place] [address] [facility] 11/18/22 Goals (unrecognized section and content) Goals [...] BE BASED ON THE PRIMARY CLINICAL RECORDS. [facility] [employer] [facility]. provides no warranty or guarantee of the accuracy or completeness of information in this document.
== END 2024-07-02 09:04 | disposition home or self-care (01) ==
LOC: RAD 09:03
PROVIDERS: Visit Provider Obstetrics & Gynecology
DX: M85.80 Other specified disorders of bone density and structure, unspecified site (principal); Z78.0 Asymptomatic menopausal state
CPT/HCPCS: 77080